=== PATIENT | male | born 1950 | race Caucasian/White ===

== ENCOUNTER 2023-10-15 15:05 | Outpatient (OUT) | payer MEDICARE, OTHER, SELFPAY ==
--- NOTE | 2023-10-15 | XR_ITS ---
[address] [address] Patient Name: DINO MORENO MRN: [id number] date: 1950 Sex: M Assigned Patient Location: Current Patient Location: Accession/Order Number: [id number] Exam Date: 10/15/2023 15:10 Report Date: 10/16/2023 07:46 At the request of: LUIS M MORELAND Procedure: XR foot RT min 3V PROCEDURE: XR foot RT min 3V COMPARISON: None. HISTORY: RIGHT FOOT PAIN FINDINGS: BONES:No acute fracture or dislocation. Moderate enthesopathic spurring of the calcaneus at the Achilles and plantar insertions. Severe degenerative change first metatarsal-phalangeal joint SOFT TISSUES:Negative. No visible soft tissue swelling. EFFUSION:None visible. OTHER: Negative. XR/XR foot RT min 3V IMPRESSION: Osteoarthritis Electronically authenticated by: DINO DEL CASTILLO Date: 10/16/2023 07:46
== END 2023-10-15 15:06 | disposition home or self-care (01) ==
LOC: EC 15:05
PROVIDERS: PCP Internal Medicine; Visit Provider Podiatrist Foot & Ankle Surgery
DX: M79.671 Pain in right foot (principal)
CPT/HCPCS: 73630

== ENCOUNTER 2024-01-22 10:29 | Outpatient (OUT) | payer MEDICARE, OTHER, SELFPAY ==
--- NOTE | 2024-01-22 10:54 | ECG_ITS ---
[facility] Test Date: 2024-01-22 Pat Name: Pepe Yepez Department: Room: - Gender: Male [employer]: : 1950 Requested By: LUIS M MORELAND Order Number: [id number] Reading MD: BRITNI PAZ Measurements Intervals [place] Rate: 67 P: 24 MS: 173 QRS: 12 QRSD: 99 T: 47 QT: 366 QTc: 387 Interpretive Statements SINUS RHYTHM NONSPECIFIC T-WAVE ABNORMALITY No previous ECG available for comparison Electronically Signed On 01-22-2024 23:25:38 EDT by BRITNI PAZ
--- NOTE | 2024-01-22 11:42 | PM.PRESUREVA ---
History of Present Illness History of Present Illness Chief complaint: HALLUX RIGIDUS RIGHT FOOT Narrative: Patient presents for preadmission testing. The patient reports right foot pain and deformity which he noticed about a year ago and has continued to worsen especially with excessive ambulation and activities. He states he did try new footwear which seems to help and he takes Celebrex. He denies specific trauma, injury, numbness, tingling, weakness, or any other complaints. Review of Systems ROS Narrative REVIEW OF SYSTEMS: Negative except as stated in HPI, ten or more systems reviewed. Constitutional: No fever, chills, weakness ENT: No sore throat or epistaxis Cardiovascular: No edema, chest pain, palpitations, or activity intolerance Respiratory: No shortness of breath, cough, or wheezing Musculoskeletal: No joint pain or swelling Gastrointestinal: No abdominal pain, constipation, diarrhea, or vomiting Genitourinary: No dysuria or hematuria Neurological: No numbness, tingling, weakness, or headache Psychiatric: No mood changes PFSH PFSH Medical History (Updated 01/22/24 @ 11:45 by Kira Silvestre NP) High cholesterol ?E78.00 - Pure hypercholesterolemia, unspecified (ICD-10) Hammer toe ?M20.40 - Other hammer toe(s) (acquired), unspecified foot (ICD-10) Hallux rigidus ?M20.20 - Hallux rigidus, unspecified foot (ICD-10) Back pain ?M54.9 - Dorsalgia, unspecified (ICD-10) Arthritis ?M19.90 - Unspecified osteoarthritis, unspecified site (ICD-10) Kidney stones ?N20.0 - Calculus of kidney (ICD-10) GERD (gastroesophageal reflux disease) ?K21.9 - Gastro-esophageal reflux disease without esophagitis (ICD-10) Postoperative nausea and vomiting ?R11.2 - Nausea with vomiting, unspecified (ICD-10) ?Z98.890 - Other specified postprocedural states (ICD-10) Surgical History (Updated 01/22/24 @ 11:24 by Kira Silvestre NP) Status post laser lithotripsy of ureteral calculus ?Z98.890 - Other specified postprocedural states (ICD-10) History of colonoscopy ?Z98.890 - Other specified postprocedural states (ICD-10) History of repair of rotator cuff ?Z98.890 - Other specified postprocedural states (ICD-10) H/O hand surgery ?Z98.890 - Other specified postprocedural states (ICD-10) History of spinal surgery ?Z98.890 - Other specified postprocedural states (ICD-10) Family History (Updated 01/22/24 @ 11:24 by Kira Silvestre NP) Other Family history of colon cancer Social History (Updated 01/22/24 @ 11:17 by Kira Silvestre NP) Within the past year, how often did you have a drink containing alcohol: 2-4 times a month Smoking status: Never smoker Non-prescribed substance use: denies use Previous occupational history: Retired Highest level of school completed/degree received: Bachelor's degree Meds Home Medications and Allergies Home Medications ?Medication ?Instructions ?Recorded ?Confirmed ?Type celecoxib 200 mg capsule 200 mg PO Q24H 01/22/24 01/22/24 History pantoprazole 40 mg tablet,delayed 40 mg PO DAILY 01/22/24 01/22/24 History release rosuvastatin 10 mg tablet 10 mg PO .every other day 01/22/24 01/22/24 History tamsulosin 0.4 mg capsule 0.4 mg PO Q24H 01/22/24 01/22/24 History Allergies Allergy/AdvReac Type Severity Reaction Status Date / Time No Known Drug Allergies Allergy Verified 01/22/24 11:13 Exam Narrative Exam Narrative: Constitutional: Awake, alert, comfortable, well-appearing, nontoxic, interactive, vital signs as charted Head: Normocephalic, atraumatic Neck: Supple, normal appearance, normal range of motion, no meningeal signs, no lymphadenopathy Respiratory: No respiratory distress, breath sounds clear Cardiovascular: Regular rate and rhythm, strong and regular heart tones Musculoskeletal: Normal gait, no swelling or edema, right foot tenderness overlying the first MPJ, range of motion limited, second toe contracture noted, good capillary refill, sensation intact Skin: No rashes or induration, no lesions, only visible skin inspected Neuro: No neurological deficits, normal sensation Psychiatric: Oriented ?3, normal affect Assessment and Plan Assessment and Plan (1) Hammer toe: (2) Hallux rigidus: Plan Right first metatarsal phalangeal joint fusion with bone graft as needed and correction of right second toe scheduled with Dr. Sampson February 06, 2024.
== END 2024-01-22 10:30 | disposition home or self-care (01) ==
LOC: PST 10:31
PROVIDERS: PCP Internal Medicine; Visit Provider Podiatrist Foot & Ankle Surgery
DX: Z01.810 Encounter for preprocedural cardiovascular examination (principal); M20.41 Other hammer toe(s) (acquired), right foot; M20.21 Hallux rigidus, right foot
CPT/HCPCS: 93005; G0463

== ENCOUNTER 2024-02-13 06:09 | Day surgery (SDC) | payer MEDICARE, OTHER, SELFPAY ==
[2024-01-22 11:35] VITALS: BP 143/77; PULSE 76; TEMP 36.5; O2SAT 99; BMI 29.4
[2024-02-13] VITALS (11 sets, daily range): BP systolic 133–155; BP diastolic 68–94; PULSE 69–96; TEMP 35.9–36.5; O2SAT 92–98; BMI 28.5
--- NOTE | 2024-02-13 | FL_ITS ---
[address] [address] Patient Name: DINO MORENO MRN: [id number] date: 1950 Sex: M Assigned Patient Location: [facility] Current Patient Location: [facility] Accession/Order Number: [id number] Exam Date: 02/13/2024 12:19 Report Date: 02/24/2024 09:55 At the request of: LUIS M MORELAND Procedure: FL fluoroscopy <1hr NON-READ EXAM: FL fluoroscopy <1hr NON-READ HISTORY: TECHNIQUE: FINDINGS: Please see Operative Report. Electronically authenticated by: RADIOLOGIST NO Date: 02/24/2024 09:55
--- OUTSIDE RECORDS SUMMARY | 2024-02-13 06:12 | XMS_ITS | CCD ---
Author Organization [facility] Care Team Providers Care Soft Drink Powder Mixer Name Role Phone Azeb Degroot Primary Care Physician Unavailab Azeb Valvedre Unavailable Unavailable Ian Melendez Primary Care Provider Azeb Degroot Primary Care Physician Unavailab Blossom Sales Primary Care Provider [phone] Lindsey SILVERMAN, Blossom Harkins Primary Care Provider [phone] LINDSEY, DR CERRATO Admitting Unavailable LINDSEY, DR CERRATO Attending Unavailable JANESVILLE, DR DINO Maguire Consulting Unavailable LINDSEY, DR CERRATO Primary Care Unavailable LINDSEY, DR CERRATO Consulting Unavailable LINDSEY, DR CERRATO Primary Care Unavailable LINDSEY, DR CERRATO Admitting Unavailable LINDSEY, DR CERRATO Attending Unavailable SPENCER, DR ISIS Quinones Consulting Unavailable LINDSEY, DR CERRATO Consulting Unavailable MD JCARLOS WEST Attending BLOSSOM Ritchie Primary Care Unavailable BLOSSOM PORTILLO Consulting Unavailable MD JCARLOS WEST Attending BLOSSOM Ritchie Primary Care Unavailable MD JCARLOS WEST Attending BLOSSOM Ritchie Consulting Unavailable BLOSSOM PORTILLO Primary Care Unavailable MD JCARLOS WEST Attending BLOSSOM Ritchie Primary Care Unavailable MD JCARLOS WEST Attending BLOSSOM Ritchie Primary Care Unavailable MD JCARLOS WEST Attending BLOSSOM Ritchie Primary Care Unavailable Azeb Degroot Primary Care Physician Unavailab Azeb Valverde Unavailable Unavailable Blossom Portillo MD Primary Care Provider Yovani Malone Unavailable Lindsey SILVERMAN, Blossom Harkins Primary Care Provider GLENN GRECO Attending Unavailable GLENN GRECO Admitting Unavailable BLOSSOM PORTILLO Primary Care Unavailable Blossom Portillo MD Primary Care Provider Azeb Degroot Primary Care Physician Unavailab Azeb Valverde Primary Care Physician Unavailab tai Portillo MD, Blossom Harkins Primary Care Provider [phone] BLOSSOM PORTILLO Primary Care Unavailable BLOSSOM PORTILLO Referring Unavailable BLOSSOM PORTILLO Primary Care Unavailable LEIA LING Attending Unavailable BLOSSOM PORTILLO Primary Care Unavailable JCARLOS ALEGRE Referring Unavailable BLOSSOM PORTILLO Primary Care Unavailable BLOSSOM PORTILLO Referring Unavailable BLOSSOM PORTILLO Referring Unavailable BLOSSOM PORTILLO Primary Care Unavailable Allergies Allergy Classification Reported Allergen(s) Allergy Type Date of Onset Reaction(s) Facility Opioid Agonists (2 sources) Codeine; Translations: [Codeine] Drug Allergy 3 Other (See Comments) [facility] (5 sources) Codeine; Translations: [codeine sulfate] Drug Allergy [employer] (6 sources) Codeine; Translations: [Codeine Phosphate] Drug Allergy Unknown [employer] (12 sources) Codeine; Translations: [codeine] Drug Allergy 3 Other (See Comments), Nausea And Vomiting [facility]- [place], [place] Medications Current Medications Medication Drug Class(es) Dates Sig (Normalized) Sig (Original) aspirin 81 mg delayed release oral tablet (3 sources) Platelet Aggregation Inhibitor, Nonsteroidal Anti-inflammatory Drug take 1 tablet by mouth once daily aspirin 81 MG EC tablet Take 81 mg by mouth daily 0 Active azithromycin 250 mg oral tablet (1 source) Macrolide Antimicrobial Start: 01-21-2024 azithromycin (ZITHROMAX) 250 MG tablet Take 2 tabs (500 mg) on Day 1, and take 1 tab (250 mg) on days 2 through 5. 1 packet 01/21/2024 Active baclofen 10 mg oral tablet (1 source) gamma-Aminobutyric Acid-ergic Agonist Start: 08-01-2020 take 1 tablet by mouth once daily as needed baclofen (LIORESAL) 10 MG tablet Take 1 tablet by mouth nightly as needed (Neck stiffness) 21 tablet 0 08/01/2020 Active celecoxib 200 mg oral capsule (7 sources) Nonsteroidal Anti-inflammatory Drug Start: 10-03-2023 take 1 capsule by mouth twice daily celecoxib (CELEBREX) 200 MG capsule 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 Take 1 capsule by mouth 2 times daily 180 capsule 1 10/03/2023 Active Start: 09-18-2021 take 1 capsule by mo ut twice daily celecoxib (CELEBREX) 200 MG capsule 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 Take 1 capsule by mouth 2 times daily 180 capsule 1 09/18/2021 Active Start: 07-24-2021 take 1 capsule by mo uth twice daily celecoxib (CELEBREX) 200 MG capsule 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 Take 1 capsule by mouth 2 times daily 60 capsule 0 07/24/2021 Active take 1 capsule by mo uth twice daily Celebrex 50 mg capsule take 1 capsule (50 mg) by oral route 2 times per day Famotidine (2 sources) Histamine-2 Receptor Antagonist Famotidine (PEPCID AC PO) Take by mouth 0 Active ibuprofen 600 mg oral tablet (5 sources) Nonsteroidal Anti-inflammatory Drug Start: End: take 1 tablet by mouth three times daily as needed for pain ibuprofen (ADVIL;MOTRIN) 600 MG tablet Take 1 tablet by mouth 3 times daily as needed for Pain Please take after meals 15 tablet 02/05/2024 02/10/2024 Active Start: 08-24-2020 take 1 tablet by [facility] twice daily as needed for pain ibuprofen (ADVIL;MOTRIN) 800 MG tablet Take 1 tablet by mouth 2 times daily as needed for Pain 60 tablet 0 08/24/2020 Active lidocaine 0.05 mg/mg medicated patch (6 sources) Antiarrhythmic, Amide Local Anesthetic Start: 02-05-2024 End: 02-10-2024 lidocaine (LIDODERM) 5 % Place 1 patch onto the skin daily for 5 days 12 hours on, 12 hours off. 5 patch 02/05/2024 02/10/2024 Active Start: 02-05-2024 1 patch, Trans DERmal, Administer over 12 Hours, ONCE, On Sat02/05/24 at 0430, For 1 dose, Apply patch to right back pain. Patch may remain in place for up to 12 hours in any 24 hour period. Start: 09-07-2019 End: 02-19-2023 apply 1 dose topically once daily lidocaine 5 % topical adhesive patch,medicated 09/07/2019 02/19/2023 apply 1 patch by transdermal route once daily (May wear up to 12hours.) Multiple Vitamin (MULTI-VITAMIN DAILY PO) (3 sources) Multiple Vitamin (MULTI-VITAMIN DAILY PO) Take by mouth daily 0 Active pantoprazole 40 mg delayed release oral tablet (10 sources) Proton Pump Inhibitor Start: 11-04-19 24 take 1 tablet by mouth once daily pantoprazole (PROTONIX) 40 MG tablet Take 1 tablet by mouth daily 90 tablet 3 11/04/2023 Active Start: 07-24-2021 take 1 tablet by jackelin th every other day pantoprazole (PROTONIX) 40 MG tablet Take 1 tablet by mouth every other day 90 tablet 3 07/24/2021 Active Start: 01-04-2021 take 1 tablet by jackelin th once daily before breakfast pantoprazole (PROTONIX) 40 MG tablet Take 1 tablet by mouth every morning (before breakfast) 30 tablet 3 01/04/2021 Active phenazopyridine hydrochloride 200 mg delayed release oral tablet (3 sources) take 1 tablet by mouth three times daily as needed for pain phenazopyridine (PYRIDIUM) 200 MG tablet Take 200 mg by mouth 3 times daily as needed for Pain 0 Active rosuvastatin calcium 10 mg oral tablet (6 sources) HMG-CoA Reductase Inhibitor Start: 10-03-19 24 take 1 tablet by mouth every other day rosuvastatin (CRESTOR) 10 MG tablet Take 1 tablet by mouth every other day 45 tablet 1 10/03/2023 Active Start: 04-16-2022 take 1 tablet by jackelin th once daily rosuvastatin (CRESTOR) 10 MG tablet Take 1 tablet by mouth daily / as directed 90 tablet 3 04/16/2022 Active Start: 07-31-2021 take 1 tablet by jackelin th once daily rosuvastatin (CRESTOR) 10 MG tablet Take 1 tablet by mouth daily / as directed 30 tablet 3 07/31/2021 Active sodium chloride flush 0.9 % injection 3 mL (1 source) Start: 02-05-2024 sodium chlorid e flush 0.9 % injection 3 mL tamsulosin hydrochloride 0.4 mg oral capsule (7 sources) alpha-Adrenergi c Rod Start: 05-15-2023 take 1 capsule by mouth once daily tamsulosin (FLOMAX) 0.4 MG capsule Take 1 capsule by mouth daily 90 capsule 3 05/15/2023 Active Start: 03-29-2022 take 1 capsule by mo [facility] once daily tamsulosin (FLOMAX) 0.4 MG capsule Take 1 capsule by mouth daily 30 capsule 11 03/29/2022 Active therapeutic multivitamin-minerals (THERAGRAN-M) tablet (4 sources) take 1 tablet by mouth once daily therapeutic multivitamin-minerals (THERAGRAN-M) tablet Take 1 tablet by mouth daily. 0 Active Completed/Discontinued Medications Medication Drug Class(es) Dates Sig (Normalized) Sig (Original) cyclobenzaprine hydrochloride 10 mg oral tablet (1 source) Muscle Relaxant Start: 02-05-2024 End: 02-05-2024 take 1 dose by mouth once 10 mg, Oral, ONCE, 1 dose, On Sat02/05/24 at 0400 iopamidol (ISOVUE-370) 76 % injection 75 mL (1 source) Start: 02-05-2024 End: 02-05-2024 take 1 dose intravenously once 75 mL, IntraVENous, IMG ONCE PRN, 1 dose, Starting on Sat02/05/24 at 0240, Until Sat02/05/24 at 0251, Other 1 ml ketorolac tromethamine 15 mg/ml cartridge (1 source) Nonsteroidal Anti-inflammatory Drug, Cyclooxygenase Inhibitor Start: 02-05-2024 End: 02-05-2024 15 mg, IntraVENous, ONCE, 1 dose, On Sat02/05/24 at 0215, Do not administer for more than 5 days. 24 hr metFORMIN hydrochloride 500 mg extended release oral tablet (5 sources) Biguanide End: 09-03-2019 take 1 tablet by mouth once daily at dinner metformin 500 mg oral tablet extended release 24 hr 09/03/2019 take 1 tablet (500 mg) by oral route once daily with the evening meal 1 ml morphine sulfate 4 mg/ml cartridge (1 source) Opioid Agonist Start: 02-05-2024 End: 02-05-2024 take 1 dose by mouth every hour 4 mg, IntraVENous, ONCE, 1 dose, On Sat02/05/24 at 0230, If oral and IV narcotics ordered, use oral first and only use IV if oral is ineffective or cannot take oral. Do Not give oral and IV within 1 hour of each other unless specifically ordered. omeprazole 20 mg delayed release oral capsule (2 sources) Proton Pump Inhibitor take 1 capsule by mouth once daily before mealtime omeprazole 20 mg capsule,delayed release take 1 capsule (20 mg) by oral route once daily before a meal 2 ml ondansetron 2 mg/ml injection (1 source) Serotonin-3 Receptor Antagonist Start: 02-05-2024 End: 02-05-2024 4 mg, IntraVENous, ONCE, 1 dose, On Sat02/05/24 at 0215 50 ml sodium chloride 9 mg/ml injection (1 source) Start: 02-05-2024 End: 02-05-2024 1,000 mL (12.3 mL/kg), IntraVENous, at 2,000 mL/hr, Administer over 30 Minutes, ONCE, On Sat02/05/24 at 0215, For 1 dose triamcinolone acetonide 0.97504 mg/mg topical ointment (5 sources) Corticosteroid Start: 07-01-2018 apply 1 g topically twice daily triamcinolone acetonide 0.025 % topical ointment 07/01/2018 apply a thin layer to the affected area(s) by topical route 2 times daily until flat. Dispense 30 gm Problems Active Problems Problem Classification Problem Date Documented Date Episodic/Chronic Abdominal pain (2 sources) Right flank pain; Translations: [Unspecified abdominal pain] Onset: 4 02-05-2024 Episodic Diabetes mellitus without complication (12 sources) Type 2 diabetes mellitus without complication; Translations: [Type 2 diabetes mellitus without complications] Onset: 2 07-24-2021 Chronic Diabetes mellitus without complication (7 sources) Other abnormal glucose; Translations: [Impaired fasting glycaemia] Episodic Disorders of lipid metabolism (3 sources) Mixed hyperlipidemia; Translations: [Mixed hyperlipidemia] Onset: 4 01-15-2024 Chronic Gastroduodenal ulcer (except hemorrhage) (1 source) Peptic ulcer; Translations: [Peptic ulcer, site unspecified, unspecified as acute or chronic, without hemorrhage or perforation] Chronic Osteoarthritis (2 sources) Arthropathy of right shoulder; Translations: [Primary osteoarthritis, right shoulder] Onset: 1 Resolved: 1 Chronic Other and unspecified benign neoplasm (3 sources) Benign neoplasm of skin, site unspecified Onset: 9 Episodic Other and unspecified benign neoplasm (15 sources) Melanocytic nevi, unspecified Onset: 9 Episodic Other bone disease and musculoskeletal deformities (8 sources) Degenerative joint disease involving multiple joints; 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, multiple sites] Onset: 2 07-24-2021 Chronic Other circulatory disease (1 source) Nevus, non-neoplastic Onset: 0 Episodic Other circulatory disease (12 sources) Nevus, non-neoplastic Onset: 0 Episodic Other diseases of kidney and ureters (1 source) Cyst of kidney; Translations: [Cyst of kidney, acquired] 02-05-2024 Episodic Other diseases of kidney and ureters (1 source) Cyst of kidney, acquired; Translations: [Cyst of kidney, acquired] Onset: 4 Episodic Other inflammatory condition of skin (1 source) Lichenification and lichen simplex chronicus Onset: 0 Episodic Other nervous system disorders (1 source) Chronic pain; Translations: [Other chronic pain] Chronic Other nervous system disorders (1 source) Other chronic pain Onset: 1 Resolved: 1 Chronic Other nervous system disorders (3 sources) Disturbance of skin sensation Onset: 9 Episodic Other screening for suspected conditions (not mental disorders or infectious disease) (6 sources) Patient encounter status; Translations: [Encounter for screening for lipoid disorders] Onset: 4 Episodic Other skin disorders (3 sources) Other seborrheic keratosis Onset: 9 Episodic Other skin disorders (3 sources) Other dyschromia Onset: 9 Episodic Other skin disorders (2 sources) Personal history of diseases of skin and subcutaneous tissue Onset: 0 Episodic Other skin disorders (15 sources) Personal history of diseases of the skin and subcutaneous tissue Onset: 0 Episodic Other skin disorders (15 sources) Other seborrheic keratosis Onset: 9 Episodic Other skin disorders (15 sources) Other melanin hyperpigmentation Onset: 9 Episodic Spondylosis; intervertebral disc disorders; other back problems (3 sources) Other spondylosis with radiculopathy, lumbar region; Translations: [Other spondylosis with radiculopathy, cervical region] Onset: Chronic Unclassified (1 source) Patient encounter status; Translations: [Screening cholesterol level] Past or Other Problems Problem Classification Problem Date Documented Da te Episodic/Chronic Allergic reactions (5 sources) Contact dermatitis and other eczema, unspecified cause; Translations: [Dermatitis, unspecified] Onset: 07-01-2018 Episodic Calculus of urinary tract (6 sources) Calculus of ureter; Translations: [Renal colic] Onset: 02-02-2022 Episodic Other and unspecified benign neoplasm (2 sources) Hemangioma of skin and subcutaneous tissue Onset: 07-01-2018 Episodic Other and unspecified benign neoplasm (3 sources) Hemangioma of skin and subcutaneous tissue Onset: 07-01-2018 Episodic Other connective tissue disease (3 sources) Left achilles tendonitis; Translations: [Achilles tendinitis, left leg] Onset: 06-04-2022 Resolved: 07-23-2023 06-04-2022 Episodic Other connective tissue disease (2 sources) Impingement syndrome of right shoulder region; Translations: [Impingement syndrome of right shoulder] Onset: 07-23-2023 07-23-2023 Episodic Other gastrointestinal disorders (1 source) Dysphagia; Translations: [Dysphagia, unspecified] Episodic Other inflammatory condition of skin (3 sources) 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 Other nervous system disorders (6 sources) Paresthesia of skin Onset: 07-01-2018 Episodic Other non-traumatic joint disorders (3 sources) Pain in right knee; Translations: [Pain in joint, lower leg] Onset: 01-16-2023 Episodic Other skin disorders (2 sources) Actinic keratosis Onset: 07-01-2018 Episodic Other skin disorders (11 sources) Actinic keratosis Onset: 07-01-2018 Episodic Spondylosis; intervertebral disc disorders; other back problems (20 sources) Chronic low back pain; Translations: [Low back pain] Onset: 07-20-2019 Resolved: 03-02-2021 07-20-2019 Episodic Unclassified (1 source) Low back pain, unspecified M54.50 Onset: 03-02-2021 Resolved: 03-02-2021 Unclassified (4 sources) Onset: 06-04-2022 Resolved: 04-26-2023 04-26-2023 Results Test Name Value Interpretation Reference Range Facility CBC with Diffon 02-05-2024 Basophils (Bld) [#/Vol] 0.04 10*3/uL [facility] Basophils/100 WBC (Bld) 1 % 0 - 2 % [facility] Eosinophils (Bld) [#/Vol] 0.13 10*3/uL [facility] Eosinophils/100 WBC (Bld) 2 % 1 - 4 % [facility] Erythrocyte distribution width (RBC) [Ratio] 13.7 % 11.8 - 14.4 % [facility] Hematocrit (Bld) [Volume fraction] 42.3 % 40.7 - 50.3 % [facility] Hemoglobin (Bld) [Mass/Vol] 14.5 g/dL 13.0 - 17.0 g/dL [facility] Immature granulocytes (Bld) [#/Vol] [facility] Immature granulocytes/100 WBC (Bld) 0 % [address] [facility] Interpretation and review of laboratory results Abnormal [facility] Lymphocytes/100 WBC (Bld) 27 % 24 - 43 % [facility] Lymphocytes/100 WBC (Bld) 1.50 % [facility] MCH (RBC) [Entitic mass] 31.4 pg 25.2 - 33.[address] [facility] MCHC (RBC) [Mass/Vol] 34.3 g/dL 28.4 - 34.8 g/dL [facility] MCV (RBC) [Entitic vol] 91.6 fL 82.6 - 102.9 fL [facility] Monocytes/100 WBC (Bld) 16 % High 3 - 12 % [facility] Monocytes/100 WBC (Bld) 0.85 % [facility] Neutrophils/100 WBC (Bld) 54 % 36 - 65 % [facility] Nucleated RBC/100 WBC (Bld) [Ratio] 0.0 % 0.0 per [address] [facility] Platelet mean volume (Bld) [Entitic vol] 9.8 fL 8.1 - 13.[address] [facility] Platelets (Bld) [#/Vol] 272 10*3/uL [facility] RBC (Bld) [#/Vol] 4.62 10*6/uL 4.21 - 5.7 7 m/uL [facility] Segmented neutrophils/100 WBC (Bld) 2.96 % [facility] WBC other (Bld) [#/Vol] 5.5 [facility] Abs. Basophil 0.04 k/uL Normal 0.00-0.20 [facility] Comment on above: Performed By: #### C DP, CP, LIP #### [address] [place] [address] Hand Slitter: Dino Moody MD Abs.Imm.Granulocyte <0.03 Normal 0.00-0.30 [facility] Comment on above: Performed By: #### C DP, CP, LIP #### [address] [place] [address] Hand Slitter: Dino Moody MD Abs.Neutrophil (Seg) 2.96 k/uL Normal 1.50-8.10 [facility] Comment on above: Performed By: #### C DP, CP, LIP #### [address] [place] [address] Hand Slitter: Dino Moody MD Basophils/100 WBC (Bld) 1 % Normal 0-2 [facility] Comment on above: Performed By: #### C DP, CP, LIP #### [address] [place] [address] Hand Slitter: Dino Moody MD Eosinophils (Bld) [#/Vol] 0.13 10*3/uL Normal 0.00-0.44 [facility] Comment on above: Performed By: #### C DP, CP, LIP #### [address] [place] [address] Hand Slitter: Dino Moody MD Eosinophils/100 WBC (Bld) 2 % Normal 1-4 [facility] Comment on above: Performed By: #### C DP, CP, LIP #### [facility] [address] [place] [address] Hand Slitter: Dino Moody MD Erythrocyte distribution width (RBC) [Ratio] 13.7 % Normal 11.8-14.4 [facility] Comment on above: Performed By: #### C DP, CP, LIP #### [facility] [address] [place] [address] Hand Slitter: Dino Moody MD Hematocrit (Bld) [Volume fraction] 42.3 % Normal 40.7-50.3 [facility] Comment on above: Performed By: #### C DP, CP, LIP #### [address] [place], [facility] Hand Slitter: Dino Moody MD Hemoglobin (Bld) [Mass/Vol] 14.5 g/dL Normal 13.0-17.0 [facility] Comment on above: Performed By: #### C DP, CP, LIP #### [address] [place] [address] Hand Slitter: Dino Moody MD Immature granulocytes/100 WBC (Bld) 0 % Normal 0 [facility] Comment on above: Performed By: #### C DP, CP, LIP #### [address] [place], [place] [id number] Hand Slitter: Dino Moody MD Lymphocytes (Bld) [#/Vol] 1.50 10*3/uL Normal 1.10-3.70 [facility] Comment on above: Performed By: #### C DP, CP, LIP #### [address] [place], [place] [id number] Hand Slitter: Dino Moody MD Lymphocytes/100 WBC (Bld) 27 % Normal 24-43 [facility] Comment on above: Performed By: #### C DP, CP, LIP #### [facility] [address] [place], [place] [id number] Hand Slitter: Dino Moody MD MCH (RBC) [Entitic mass] 31.4 pg Normal 25.2-33.5 [facility] Comment on above: Performed By: #### C DP, CP, LIP #### [facility] [address] [place] [address] Hand Slitter: Dino Moody MD MCHC (RBC) [Mass/Vol] 34.3 g/dL Normal 28.4-34.8 [facility] Comment on above: Performed By: #### C DP, CP, LIP #### [address] [place], [place] [id number] Hand Slitter: Dino Moody MD MCV (RBC) [Entitic vol] 91.6 fL Normal 82.6-102.9 [facility] Comment on above: Performed By: #### C DP, CP, LIP #### [address] [place], [place] [id number] Hand Slitter: Dino Moody MD Monocytes (Bld) [#/Vol] 0.85 10*3/uL Normal 0.10-1.20 [facility] Comment on above: Performed By: #### C DP, CP, LIP #### [facility] [address] [place], [place] [id number] Hand Slitter: Dino Moody MD Monocytes/100 WBC (Bld) 16 % High 3-12 [facility] Comment on above: Performed By: #### C DP, CP, LIP #### [facility] [address] [place] [address] Hand Slitter: Dino Moody MD Neutrophil (Seg) 54 % Normal 36-65 [facility] Comment on above: Performed By: #### C DP, CP, LIP #### [facility] [address] [place], [place] [id number] Hand Slitter: Dino Moody MD NRBC Automated 0.0 per 100 WBC Normal 0.0 [facility] Comment on above: Performed By: #### C DP, CP, LIP #### [facility] [address] [place], [facility] Hand Slitter: Dino Moody MD Platelet mean volume (Bld) [Entitic vol] 9.8 fL Normal 8.1-13.5 [facility] Comment on above: Performed By: #### C DP, CP, LIP #### [facility] [address] [place], [facility] Hand Slitter: Dino Moody MD Platelets (Bld) [#/Vol] 272 10*3/uL Normal 138-453 [facility] Comment on above: Performed By: #### C DP, CP, LIP #### [address] [place] [address] Hand Slitter: Dino Moody MD RBC (Bld) [#/Vol] 4.62 10*6/uL Normal 4.21-5.77 [facility] Comment on above: Performed By: #### C DP, CP, LIP #### [address] [place], [place] [address] Hand Slitter: Dino Moody MD WBC (Bld) [#/Vol] 5.5 10*3/uL Normal 3.5-11.3 [facility] Comment on above: Performed By: #### C DP, CP, LIP #### [facility] [address] [place], [place] [id number] Hand Slitter: Dino Moody [facility] Albumin [Mass/Vol] 4.2 g/dL 3.5 - 5.2 g/dL [facility] Albumin/Globulin [Mass ratio] 1.6 {ratio} 1.0 - 2.[address] [facility] ALP [Catalytic activity/Vol] 96 U/L 40 - 129 U/L [facility] ALT [Catalytic activity/Vol] 20 U/L 10 - 50 U/L [facility] Anion gap [Moles/Vol] 8 mmol/L Low 9 - 16 mmol/L [facility] AST [Catalytic activity/Vol] 18 U/L 10 - 50 U/L [facility] Bilirubin [Mass/Vol] 0.5 mg/dL 0.00 - 1.20 mg/dL [facility] Calcium [Mass/Vol] 9.1 mg/dL 8.6 - 10. 4 mg/dL [facility] Chloride [Moles/Vol] 107 mmol/L 98 - 10 7 mmol/L [facility] CO2 [Moles/Vol] 28 mmol/L 20 - 31 mmol/L [facility] Creatinine [Mass/Vol] 1.0 mg/dL 0.70 - 1.20 mg/dL [facility] Est, Glom Filt Rate 79 - PINF [facility] Comment on above: These results are not intended for use in patients <18 years of age. eGFR results are calculated without a race factor using the 2020 CKD-EPI equation. Careful clinical correlation is recommended, particularly when comparing to results calculated using previous equations. The CKD-EPI equation is less accurate in patients with extremes of muscle mass, extra-renal metabolism of creatine, excessive creatine ingestion, or following therapy that affects renal tubular secretion. Glucose [Mass/Vol] 96 mg/dL 74 - 99 mg/dL [facility] Interpretation and review of laboratory results Abnormal [facility] Potassium [Moles/Vol] 4.1 mmol/L 3.7 - 5.3 mmol/L [facility] Protein [Mass/Vol] 6.9 g/dL 6.6 - 8.7 g/dL [facility] Sodium [Moles/Vol] 143 mmol/L 136 - 145 mmol/L [facility] Urea nitrogen [Mass/Vol] 16 mg/dL 8 - 23 mg/dL [facility] Urea nitrogen/Creatinine [Mass ratio] 16 mg/mg 9 - [address] [facility] [address] ABDOMEN PELVIS W IV CONTR Mike 02-05-2024 CT ABDOMEN PELVIS W IV CONTRAST EXAMINATION: CT OF THE ABDOMEN AND PELVIS WITH CONTRAST 02/05/2024 2:41 am TECHNIQUE: CT of the abdomen and pelvis was performed with the administration of intravenous contrast. Multiplanar reformatted images are provided for review. Automated exposure control, iterative reconstruction, and/or weight based adjustment of the mA/kV was utilized to reduce the radiation dose to as low as reasonably achievable. COMPARISON: Abdomen/pelvis CT without contrast dated 05/16/2022. HISTORY: ORDERING SYSTEM PROVIDED HISTORY: L sided flank pain TECHNOLOGIST PROVIDED HISTORY: L sided flank pain Decision Support Exception - unselect if not a suspected or confirmed emergency medical condition->Emergency Medical Condition (MA) FINDINGS: Lower Chest: Visualized portion of the lower chest demonstrates no acute abnormality. A small hiatal hernia is present. Organs: The liver, gallbladder, pancreas, spleen, adrenal glands, kidneys and ureters are noted for a simple left renal cyst not requiring imaging follow-up. GI/Bowel: Aside from the small hiatal hernia, the stomach and duodenal sweep are unremarkable. There is no evidence of bowel obstruction. No evidence of abnormal bowel wall thickening or distension. No evidence of appendicitis but the appendix is not seen Pelvis: The bladder and reproductive organs are unremarkable. Peritoneum/Retroperi toneum: No evidence of ascites or free air. No evidence of lymphadenopathy. Aorta is normal in caliber. Bones/Soft Tissues: No acute bone or soft tissue abnormality evident. IMPRESSION: 1. No acute intra-abdominal or pelvic process. 2. Small hiatal hernia. Interpreted by: Clayton Desai MD Signed by: Clayton Desai MD 02/05/24 Final result Normal [facility] CT Abdomen and Pelvis W cont rast Segundo 02-05-2024 1. No acute intra-abdominal or pelvic process. 2. Small hiatal hernia. [facility] RIS CONSOLIDATED EXAMINATION: CT OF THE ABDOMEN AND PELVIS WITH CONTRAST 02/05/2024 2:41 am TECHNIQUE: CT of the abdomen and pelvis was performed with the administration of intravenous contrast. Multiplanar reformatted images are provided for review. Automated exposure control, iterative reconstruction, and/or weight based adjustment of the mA/kV was utilized to reduce the radiation dose to as low as reasonably achievable. COMPARISON: Abdomen/pelvis CT without contrast dated 05/16/2022. HISTORY: ORDERING SYSTEM PROVIDED HISTORY: L sided flank pain TECHNOLOGIST PROVIDED HISTORY: L sided flank pain Decision Support Exception - unselect if not a suspected or confirmed emergency medical condition->Emergency Medical Condition (MA) FINDINGS: Lower Chest: Visualized portion of the lower chest demonstrates no acute abnormality. A small hiatal hernia is present. Organs: The liver, gallbladder, pancreas, spleen, adrenal glands, kidneys and ureters are noted for a simple left renal cyst not requiring imaging follow-up. GI/Bowel: Aside from the small hiatal hernia, the stomach and duodenal sweep are unremarkable. There is no evidence of bowel obstruction. No evidence of abnormal bowel wall thickening or distension. No evidence of appendicitis but the appendix is not seen Pelvis: The bladder and reproductive organs are unremarkable. Peritoneum/Retroperi toneum: No evidence of ascites or free air. No evidence of lymphadenopathy. Aorta is normal in caliber. Bones/Soft Tissues: No acute bone or soft tissue abnormality evident. [facility] RIS CONSOLIDATED Clayton Desai MD - 02/05/2024 EXAMINATION: CT OF THE ABDOMEN AND PELVIS WITH CONTRAST 02/05/2024 2:41 am TECHNIQUE: CT of the abdomen and pelvis was performed with the administration of intravenous contrast. Multiplanar reformatted images are provided for review. Automated exposure control, iterative reconstruction, and/or weight based adjustment of the mA/kV was utilized to reduce the radiation dose to as low as reasonably achievable. COMPARISON: Abdomen/pelvis CT without contrast dated 05/16/2022. HISTORY: ORDERING SYSTEM PROVIDED HISTORY: L sided flank pain TECHNOLOGIST PROVIDED HISTORY: L sided flank pain Decision Support Exception - unselect if not a suspected or confirmed emergency medical condition->Emergency Medical Condition (MA) FINDINGS: Lower Chest: Visualized portion of the lower chest demonstrates no acute abnormality. A small hiatal hernia is present. Organs: The liver, gallbladder, pancreas, spleen, adrenal glands, kidneys and ureters are noted for a simple left renal cyst not requiring imaging follow-up. GI/Bowel: Aside from the small hiatal hernia, the stomach and duodenal sweep are unremarkable. There is no evidence of bowel obstruction. No evidence of abnormal bowel wall thickening or distension. No evidence of appendicitis but the appendix is not seen Pelvis: The bladder and reproductive organs are unremarkable. Peritoneum/Retroperi toneum: No evidence of ascites or free air. No evidence of lymphadenopathy. Aorta is normal in caliber. Bones/Soft Tissues: No acute bone or soft tissue abnormality evident. IMPRESSION: 1. No acute intra-abdominal or pelvic process. 2. Small hiatal hernia. [facility] Radiology Study observation (narrative) [facility] CT Abdomen and Pelvis W cont rast IVOrdered By: Clayton Desai on 02-05-[address] [facility] Work Phone: Comp Metabolic Profon 2023 Albumin [Mass/Vol] 4.2 g/dL Normal 3.5-5.2 [facility] Comment on above: Performed By: #### C DP, CP, LIP #### [facility] [address] [place] [address] Hand Slitter: Dino Moody MD Albumin/Glob Ratio 1.6 Normal 1.0-2.5 [facility] Comment on above: Performed By: #### C DP, CP, LIP #### [facility] [address] [place], [place] [id number] Hand Slitter: Dino Moody MD Alkaline Phos 96 U/L Normal 40-129 [facility] Comment on above: Performed By: #### C DP, CP, LIP #### [facility] [address] [place], [place] [id number] Hand Slitter: Dino Moody MD ALT [Catalytic activity/Vol] 20 U/L Normal 10-50 [facility] Comment on above: Performed By: #### C DP, CP, LIP #### [facility] [address] [place] [address] Hand Slitter: Dino Moody MD Anion gap [Moles/Vol] 8 mmol/L Low 9-16 [facility] Comment on above: Performed By: #### C DP, CP, LIP #### [facility] [address] [place], [place] [phone] Hand Slitter: Dino Moody MD AST [Catalytic activity/Vol] 18 U/L Normal 10-50 [facility] Comment on above: Performed By: #### C DP, CP, LIP #### [facility] [address] [place], [place] [id number] Hand Slitter: Dino Moody MD Bilirubin [Mass/Vol] 0.5 mg/dL Normal 0.00-1.20 [facility] Comment on above: Performed By: #### C DP, CP, LIP #### [facility] [address] [place], [place] [id number] Hand Slitter: Dino Moody MD BUN/CRE Ratio 16 Normal 9-20 [facility] Comment on above: Performed By: #### C DP, CP, LIP #### [facility] [address] [place], [place] [address]83 Hand Slitter: Dino Moody MD Calcium [Mass/Vol] 9.1 mg/dL Normal 8.6-10.4 [facility] Comment on above: Performed By: #### C DP, CP, LIP #### [facility] [address] [place], [place] [id number] Hand Slitter: Dino Moody MD Chloride [Moles/Vol] 107 mmol/L Normal 98-107 [facility] Comment on above: Performed By: #### C DP, CP, LIP #### [facility] [address] [place], [place] [phone] Hand Slitter: Dino Moody MD CO2 [Moles/Vol] 28 mmol/L Normal 20-31 [facility] Comment on above: Performed By: #### C DP, CP, LIP #### [facility] [address] [place], [place] [phone] Hand Slitter: Dino Moody MD Creatinine [Mass/Vol] 1.0 mg/dL Normal 0.70-1.20 [facility] Comment on above: Performed By: #### C DP CP, LIP #### [facility] [address] [place] [address] [place] [address] Hand Slitter: Dino Moody MD GFR/1.73 sq M.predicted among non-blacks MDRD (S/P/Bld) [Vol rate/Area] 79 mL/min/{1.73_m2} Normal >60 [facility] Comment on above: Result Comment: These results are not intended for use in patients <18 years of age. eGFR results are calculated without a race factor using the 2020 CKD-EPI equation. Careful clinical correlation is recommended, particularly when comparing to results calculated using previous equations. The CKD-EPI equation is less accurate in patients with extremes of muscle mass, extra-renal metabolism of creatine, excessive creatine ingestion, or following therapy that affects renal tubular secretion. Performed By: #### C MELANIA CP, LIP #### [address] [place] [address] Hand Slitter: Dino Moody MD Glucose [Mass/Vol] 96 mg/dL Normal 74-99 [facility] Comment on above: Performed By: #### C MELANIA CP, LIP #### [address] [place], [place] [phone] Hand Slitter: Dino Moody MD Potassium [Moles/Vol] 4.1 mmol/L Normal 3.7-5.3 [facility] Comment on above: Performed By: #### C DP CP, LIP #### [address] [place], [place] [phone] Hand Slitter: Dino Moody MD Protein [Mass/Vol] 6.9 g/dL Normal 6.6-8.7 [facility] Comment on above: Performed By: #### C DP CP, LIP #### [address] [place] [address] Hand Slitter: Dino Moody MD Sodium [Moles/Vol] 143 mmol/L Normal 136-145 [facility] Comment on above: Performed By: #### C GARDENIA VELÁZQUEZ, LIP #### [facility] [address] [place] [address] Hand Slitter: Dino Moody MD Urea nitrogen [Mass/Vol] 16 mg/dL Normal 8-23 [facility] Comment on above: Performed By: #### C GARDENIA VELÁZQUEZ, LIP #### [facility] [address] [place], [place] [phone] Hand Slitter: Dino Moody MD Lactic Acidon 02-05-2024 Lactate [Moles/Vol] 1.0 mmol/L Normal 0.5-2.2 [facility] Comment on above: Performed By: #### U AX UMICAO #### [facility] [address] [place] [address] Hand Slitter: Dino Moody MD Lactic Acid (Select if patie nt is over 65 to rule out mesenteric ischemia)on 02-05-2024 Lactate (BldV) [Moles/Vol] 1.0 mmol/L 0.5 - 2.2 mmol/L [facility] Lipaseon 02-05-2024 Lipase [Catalytic activity/Vol] 37 U/L 13 - 60 U/L [facility] Lipase [Catalytic activity/Vol] 37 U/L Normal 13-60 [facility] Comment on above: Performed By: #### C GARDENIA VELÁZQUEZ, LIP #### [facility] [address] [place] [address] Hand Slitter: Dino Moody MD Microscopic Urinalysison Epithelial cells LM.HPF (Urine sed) [#/Area] 0 TO 2 [facility] RBC LM.HPF (Urine sed) [#/Area] 0 TO 2 [facility] WBC LM.HPF (Urine sed) [#/Area] 0 TO [facility] No Panel [facility] 02-04 [facility] w/Reflex Cultureon 2023 Bilirubin, SemiQt,Ur Negative Normal NEG [facility] Comment on above: Performed By: #### U AX, UMICAO #### [facility] [address] [place], [place] [phone] Hand Slitter: Dino Moody MD Blood, Urine Negative Normal NEG [facility] Comment on above: Performed By: #### U AX, UMICAO #### [facility] [address] [place] [address] Hand Slitter: Dino Moody MD Clarity (U) Clear Normal CLEAR [facility] Comment on above: Performed By: #### U AX, UMICAO #### [facility] [address] [place], [place] [phone] Hand Slitter: Dino Moody MD Color (U) Yellow Normal YEL [facility] Comment on above: Performed By: #### U AX, UMICAO #### [facility] [address] [place], [place] [phone] Hand Slitter: Dino Moody MD Glucose Ql (U) Negative Normal NEG [facility] Comment on above: Performed By: #### U AX, UMICAO #### [facility] [address] [place] [address] Hand Slitter: Dino Moody MD Ketones Ql (U) Negative Normal NEG [facility] Comment on above: Performed By: #### U AX, UMICAO #### [facility] [address] [place] [address] Hand Slitter: Dino Moody MD Leukocyte esterase Test strip Ql (U) Negative Normal NEG [facility] Comment on above: Performed By: #### U AX, UMICAO #### [facility] [address] [place] [address] Hand Slitter: Dino Moody MD Nitrite,Ur Negative Normal NEG [facility] Comment on above: Performed By: #### U AX, UMICAO #### [facility] [address] [place], [place] [phone] Hand Slitter: Dino Moody MD PH,Ur 7.0 Normal 5.0-9.0 [facility] Comment on above: Performed By: #### U AX, UMICAO #### [facility] [address] [place] [address] Hand Slitter: Dino Moody MD Protein Ql (U) Negative Normal NEG [facility] Comment on above: Performed By: #### U AX, UMICAO #### [address] [place], [place] [phone] Hand Slitter: Dino Moody MD Spec. [place],Ur 1.010 Normal 1.010-1.020 [facility] Comment on above: Performed By: #### U AX, UMICAO #### [facility] [address] [place] [address] Dr[address] [place], [place] [phone] Hand Slitter: Dino Moody MD Urobilinogen,Ur Normal Normal 0.0-1.0 [facility] Comment on above: Performed By: #### U AX, UMICAO #### [facility] [address] [place] [address] Dr[address] [place], [place] [phone] Hand Slitter: Dino Moody MD Urinalysis with Reflex to Cu ltureon 02-05-2024 Bilirubin Ql (U) Negative NEGATIVE [facility] Clarity (U) Clear Clear Bon [facility] Color (U) Yellow Yellow [facility] Glucose Test strip (U) [Mass/Vol] Negative NEGATIVE mg/dL [facility] Hemoglobin Auto test strip Ql (U) Negative NEGATIVE [facility] Ketones (U) [Mass/Vol] Negative NEGATIVE mg/dL [facility] Leukocyte esterase Test strip Ql (U) Negative NEGATIVE [facility] Nitrite Ql (U) Negative NEGATIVE [facility] pH (U) 7.0 [pH] 5.0 - 9.[address] [facility] Protein (U) [Mass/Vol] Negative NEGATIVE mg/dL [facility] Specific gravity (U) [Rel density] 1.010 1.010 - 1.[address] [facility] Urobilinogen Qn (U) Normal 0.0 - 1. 0 EU/dL [facility] Urinalysis,Microon 4 Epithelial cells LM Ql (Urine sed) 0 TO 2 Normal 0-5 [facility] Comment on above: Performed By: #### U AX UMICAO #### [facility] [address] [place] [address] [place] [address] Hand Slitter: Dino Moody MD Urine RBC's 0 TO 2 Normal 0-2 [facility] Comment on above: Performed By: #### U AX UMICAO #### [facility] [address] [place] [address] Dr. [place], [place] [phone] Hand Slitter: Dino Moody MD Urine WBC's 0 TO 2 Normal 0-5 [facility] Comment on above: Performed By: #### U AX UMICAO #### [facility] [address] [place] [address] [place], [place] [address] Hand Slitter: Dino Moody MD Comp Metabol,Fastingon 01-14 Albumin [Mass/Vol] 4.0 g/dL Normal 3.5-5.2 [facility] Comment on above: Performed By: #### P SAS, GLYHGB #### [facility] [address] [place] [address] Hand Slitter: Lanre Mendez MD #### CMPF #### [facility] [address] [place] [address] [place] [address] Hand Slitter: Dino Moody MD Albumin/Glob Ratio 1.4 Normal 1.0-2.5 [facility] Comment on above: Performed By: #### P SAS, GLYHGB #### [facility] [address] [place] [address] Hand Slitter: Lanre Mendez MD #### CMPF #### [facility] [address] [place], [place] [phone] Hand Slitter: Dino Moody MD Alkaline Phos 95 U/L Normal 40-129 [facility] Comment on above: Performed By: #### P SAS, GLYHGB #### [address] [address] Hand Slitter: Lanre Mendez MD #### CMPF #### [address] [place], [place] [phone] Hand Slitter: Dino Moody MD ALT [Catalytic activity/Vol] 18 U/L Normal 10-50 [facility] Comment on above: Performed By: #### P SAS, GLYHGB #### [address] [address] Hand Slitter: Lanre Mendez MD #### CMPF #### [address] [place], [place] [phone] Hand Slitter: Dino Moody MD Anion gap [Moles/Vol] 8 mmol/L Low 9-16 [facility] Comment on above: Performed By: #### P SAS, GLYHGB #### [address] [address] Hand Slitter: Lanre Mendez MD #### CMPF #### [address] [place], [place] [phone] Hand Slitter: Dino Moody MD AST [Catalytic activity/Vol] 17 U/L Normal 10-50 [facility] Comment on above: Performed By: #### P SAS, GLYHGB #### [address] [place] [address] Hand Slitter: Lanre Mendez MD #### CMPF #### [facility] [address] [place] [address] Hand Slitter: Dino Moody MD Bilirubin [Mass/Vol] 0.5 mg/dL Normal 0.00-1.20 [facility] Comment on above: Performed By: #### P SAS, GLYHGB #### [address] [address] Hand Slitter: Lanre Mendez MD #### CMPF #### [address] [place] [address] Hand Slitter: Dino Moody MD BUN/CRE Ratio 21 High 9-20 [facility] Comment on above: Performed By: #### P SAS, GLYHGB #### [address] [address] Hand Slitter: Lanre Mendez MD #### CMPF #### [facility] [address] [place] [address] [address] [place] [facility] Hand Slitter: Dino Moody MD Calcium [Mass/Vol] 9.1 mg/dL Normal 8.6-10.4 [facility] Comment on above: Performed By: #### P SAS, GLYHGB #### [address] [address] Hand Slitter: Lanre Mendez MD #### CMPF #### [address] [place] [address] Hand Slitter: Dino Moody MD Chloride [Moles/Vol] 107 mmol/L Normal 98-107 [facility] Comment on above: Performed By: #### P SAS, GLYHGB #### [address] [address] Hand Slitter: Lanre Mendez MD #### CMPF #### [facility] [address] [place] [address] Hand Slitter: Dino Moody MD CO2 [Moles/Vol] 27 mmol/L Normal 20-31 [facility] Comment on above: Performed By: #### P SAS, GLYHGB #### [facility] [address] [place] [address] Hand Slitter: Lanre Mendez MD #### CMPF #### [facility] [address] [place], [place] 7[address]83 Hand Slitter: Dino Moody MD Creatinine [Mass/Vol] 0.9 mg/dL Normal 0.70-1.20 [facility] Comment on above: Performed By: #### P SAS, GLYHGB #### [facility] [address] [place], [place] [phone] Hand Slitter: Lanre Mendez MD #### CMPF #### [address] [place] [address] Hand Slitter: Dino Moody MD GFR/1.73 sq M.predicted among non-blacks MDRD (S/P/Bld) [Vol rate/Area] 85 mL/min/{1.73_m2} Normal >60 [facility] Comment on above: Result Comment: These results are not intended for use in patients <18 years of age. eGFR results are calculated without a race factor using the 2020 CKD-EPI equation. Careful clinical correlation is recommended, particularly when comparing to results calculated using previous equations. The CKD-EPI equation is less accurate in patients with extremes of muscle mass, extra-renal metabolism of creatine, excessive creatine ingestion, or following therapy that affects renal tubular secretion. Performed By: #### P SAS, GLYHGB #### [facility] [address] [place] [address] Hand Slitter: Lanre Mendez MD #### CMPF #### [address] [place], [place] [phone] Hand Slitter: Dino Moody MD Glucose [Mass/Vol] 97 mg/dL Normal 74-99 [facility] Comment on above: Performed By: #### P SAS, GLYHGB #### [facility] [address] [place] [address] Hand Slitter: Lanre Mendez MD #### CMPF #### [address] [place], [place] 6[address]83 Hand Slitter: Dino Moody MD Potassium [Moles/Vol] 4.8 mmol/L Normal 3.7-5.3 [facility] Comment on above: Performed By: #### P SAS, GLYHGB #### [address] [address] Hand Slitter: Lanre Mendez MD #### CMPF #### [address] [place], [place] [phone] Hand Slitter: Dino Moody MD Protein [Mass/Vol] 6.8 g/dL Normal 6.6-8.7 [facility] Comment on above: Performed By: #### P SAS, GLYHGB #### [facility] [address] [place] [address] Hand Slitter: Lanre Mendez MD #### CMPF #### [address] [place], [place] [phone] Hand Slitter: Dino Moody MD Sodium [Moles/Vol] 142 mmol/L Normal 136-145 [facility] Comment on above: Performed By: #### P SAS, GLYHGB #### [address] [address] Hand Slitter: Lanre Mendez MD #### CMPF #### [address] [place], [place] [phone] Hand Slitter: Dino Moody MD Urea nitrogen [Mass/Vol] 19 mg/dL Normal 11-14 [facility] Comment on above: Performed By: #### P SAS, GLYHGB #### [facility] [employer] [address] [place] [address] Hand Slitter: Lanre Mendez MD #### CMPF #### [facility] [address] [place] [address] Hand Slitter: Dino Moody MD Comprehensive Metabolic Pane l, Fastingon 01-15-2024 Albumin [Mass/Vol] 4.0 g/dL 3.5 - 5.2 g/dL [facility] Albumin/Globulin [Mass ratio] 1.4 {ratio} 1.0 - 2.[address] [facility] ALP [Catalytic activity/Vol] 95 U/L 40 - 129 U/L [facility] ALT [Catalytic activity/Vol] 18 U/L 10 - 50 U/L [facility] Anion gap [Moles/Vol] 8 mmol/L Low 9 - 16 mmol/L [facility] AST [Catalytic activity/Vol] 17 U/L 10 - 50 U/L [facility] Bilirubin [Mass/Vol] 0.5 mg/dL 0.00 - 1.20 mg/dL [facility] Calcium [Mass/Vol] 9.1 mg/dL 8.6 - 10. 4 mg/dL [facility] Chloride [Moles/Vol] 107 mmol/L 98 - 10 7 mmol/L [facility] CO2 [Moles/Vol] 27 mmol/L 20 - 31 mmol/L [facility] Creatinine [Mass/Vol] 0.9 mg/dL 0.70 - 1.20 mg/dL [facility] Est, Glom Filt Rate 85 - PINF [facility] Comment on above: These results are not intended for use in patients <18 years of age. eGFR results are calculated without a race factor using the 2020 CKD-EPI equation. Careful clinical correlation is recommended, particularly when comparing to results calculated using previous equations. The CKD-EPI equation is less accurate in patients with extremes of muscle mass, extra-renal metabolism of creatine, excessive creatine ingestion, or following therapy that affects renal tubular secretion. Glucose post fast [Mass/Vol] 97 mg/dL 74 - 99 mg/dL [facility] Interpretation and review of laboratory results Abnormal [facility] Potassium [Moles/Vol] 4.8 mmol/L 3.7 - 5.3 mmol/L [facility] Protein [Mass/Vol] 6.8 g/dL 6.6 - 8.7 g/dL [facility] Sodium [Moles/Vol] 142 mmol/L 136 - 145 mmol/L [facility] Urea nitrogen [Mass/Vol] 19 mg/dL 8 - 23 mg/dL [facility] Urea nitrogen/Creatinine [Mass ratio] 21 mg/mg High 9 - 20 [facility] Hemoglobin A1Con 01-15-2024 Average glucose Estimated from glycated hemoglobin (Bld) [Mass/Vol] 128 mg/dL [facility] Comment on above: The ADA and AACC rec ommend providing the estimated average glucose result to permit better patient understanding of their HBA1c result. HbA1c (Bld) [Mass fraction] 6.1 % High 4.0 - 6.0 % [facility] Interpretation and review of laboratory results Abnormal [facility] Glucose [Mass/Vol] 128 mg/dL Normal [facility] Comment on above: Result Comment: The ADA and AACC recommend providing the estimated average glucose result to permit better patient understanding of their HBA1c result. Performed By: #### U AMY ROTH #### [facility] [address] [place] [address] Hand Slitter: Dino Moody MD HbA1c (Bld) [Mass fraction] 6.1 % High 4.0-6.0 [facility] Comment on above: Performed By: #### U AMY ROTH #### [facility] [address] [place] [address] Hand Slitter: Dino Moody MD Lipid Prof, Fastingon 2023 Cholesterol [Mass/Vol] 157 mg/dL Normal 0-199 [facility] Comment on above: Result Comment: Cholesterol Guidelines: <200 Desirable 200-240 Borderline >240 Undesirable Performed By: #### L IPRF #### [facility] [employer] [address] [place] [id number] Hand Slitter: Lanre Mendez MD Cholesterol in HDL [Mass/Vol] 60 mg/dL Normal >40 [facility] Comment on above: Result Comment: HDL Guidelines: <40 Undesirable 40-59 Borderline >59 Desirable Performed By: #### L IPRF #### [facility] [address] [place] [id number] Hand Slitter: Lanre Mendez MD Cholesterol in LDL [Mass/Vol] 84 mg/dL Normal 0-100 [facility] Comment on above: Result Comment: LDL Guidelines: <100 Desirable 100-129 Near to/above Desirable 130-159 Borderline >159 Undesirable Direct (measured) LDL and calculated LDL are not interchangeable tests. Performed By: #### L IPRF #### [facility] [address] [place] [id number] Hand Slitter: Lanre Mendez MD Cholesterol in VLDL [Mass/Vol] 13 mg/dL Normal [facility] Comment on above: Performed By: #### L IPRF #### [facility] [address] [place] [id number] Hand Slitter: Lanre Mendez MD Cholesterol.total/Ch olesterol in HDL [Mass ratio] 3.0 {ratio} Normal [facility] Comment on above: Performed By: #### L IPRF #### [facility] [address] [place] [id number] Hand Slitter: Lanre Mendez MD Triglyceride,Fasting 66 mg/dL Normal 0-149 [facility] Comment on above: Result Comment: Triglyceride Guidelines: <150 Desirable 150-199 Borderline 200-499 High >499 Very high Based on AHA Guidelines for fasting triglyceride, December 2011. Performed By: #### L IPRF #### [facility] [employer] [address] [place] [address] [phone] Hand Slitter: Lanre Mendez MD Lipid, Fastingon 01-15-2024 Cholesterol [Mass/Vol] 157 mg/dL 0 - 199 mg/dL [facility] [employer] Comment on above: Cholesterol Guidelines: <200 Desirable 200-240 Borderline >240 Undesirable Cholesterol in HDL [Mass/Vol] 60 mg/dL 40 - PINF mg/dL [facility] [employer] Comment on above: HDL Guidelines: <40 Undesirable 40-59 Borderline >59 Desirable Cholesterol in LDL [Mass/Vol] 84 mg/dL 0 - 100 mg/dL [facility] [employer] Comment on above: LDL Guidelines: <100 Desirable 100-129 Near to/above Desirable 130-159 Borderline >159 Undesirable Direct (measured) LDL and calculated LDL are not interchangeable tests. Cholesterol in VLDL [Mass/Vol] 13 mg/dL [facility] [employer] Cholesterol.total/Ch olesterol in HDL [Mass ratio] 3.0 {ratio} [facility] Triglyceride [Mass/Vol] 66 mg/dL 0 - 149 mg/dL [facility] Comment on above: Triglyceride Guidelines: <150 Desirable 150-199 Borderline 200-499 High >499 Very high Based on AHA Guidelines for fasting triglyceride, December 2011. [facility] Microalb.,Random Uron 2023 Creatinine [Mass/Vol] 205.0 mg/dL Normal 39.0-259.0 [facility] Comment on above: Performed By: #### U RNMAB #### [employer] [address] [place] [address] [phone] Hand Slitter: Lanre Mendez MD Microalb/Creat Ratio Can not be calculated Normal 0.0-17.0 [facility] Comment on above: Performed By: #### U RNMAB #### [employer] [address] [place], [place] [phone] Hand Slitter: Lanre Mendez MD Microalbumin conc. <12 Normal 0-20 [facility] Comment on above: Performed By: #### U RNMAB #### [employer] [facility] [place], [place] [phone] Hand Slitter: Lanre Mendez MD Microalbumin, Uron Albumin DL <= 20 mg/L (U) [Mass/Vol] mg/L 0 - 20 mg/L [facility] Albumin/Creatinine DL <= 20 mg/L (U) [Ratio] Can not be calculated [facility] Creatinine (U) [Mass/Vol] 205.0 mg/dL 39.0 - 259.0 mg/dL [facility] PSA Screeningon 01-15-2024 Interpretation and review of laboratory results Abnormal [facility] Prostate specific Ag [Mass/Vol] 4.70 ng/mL High 0.00 - 4.00 ng/mL [facility] Comment on above: The Guido ECLIA as say is used. Results obtained with different assay methods cannot be used interchangeably. [facility] PSA, Screeningon 01-15-2024 Prostatic Spec. Ag 4.70 ng/mL High 0.00-4.00 [facility] Comment on above: Result Comment: The Guido ECLIA assay is used. Results obtained with different assay methods cannot be used interchangeably. Performed By: #### U ANDIE ROTHO #### [facility] [address] [place] [address] Hand Slitter: Dino Moody MD Hemoglobin A1Con 07-16-2023 Glucose [Mass/Vol] 131 mg/dL Normal [facility] Comment on above: Result Comment: The ADA and AACC recommend providing the estimated average glucose result to permit better patient understanding of their HBA1c result. Performed By: #### U ANDIE ROTHO #### [facility] [address] [place] [address] Hand Slitter: Dino Moody MD HbA1c (Bld) [Mass fraction] 6.2 % High 4.0-6.0 [facility] Comment on above: Performed By: #### U AX UMICAO #### [facility] [address] [place] [address] Hand Slitter: Dino Moody MD XR ABDOMEN (KUB) (SINGLE AP VIEW)on 03-30-2023 XR ABDOMEN (KUB) (SINGLE AP VIEW) EXAMINATION: ONE SUPINE XRAY VIEW(S) OF THE ABDOMEN 03/27/2023 1:30 pm COMPARISON: None. HISTORY: ORDERING SYSTEM PROVIDED HISTORY: Ureteral stone FINDINGS: Gas in nondilated colon. Large stool burden in the colon. No renal stones identified. Pelvic calcifications suggesting phleboliths. IMPRESSION: No renal stones identified Large stool burden the colon Interpreted by: Haroldo Sin MD Signed by: Haroldo Sin MD 03/30/23 Final result Normal [facility] No Panel Informationon 02-19 Tobacco smoking status Non-Smoker Invalid Interpretation [employer] Hemoglobin A1Con 06-28-2022 Average glucose Estimated from glycated hemoglobin (Bld) [Mass/Vol] 128 mg/dL [facility] [employer] Comment on above: The ADA and AACC rec ommend providing the estimated average glucose result to permit better patient understanding of their HBA1c result. HbA1c (Bld) [Mass fraction] 6.1 % High 4.0 - 6.0 % [facility] [employer] Interpretation and review of laboratory results Abnormal [facility] Basic Metabolic Panelon 04-26 Anion gap [Moles/Vol] 6 mmol/L Low 9 - 17 mmol/L [facility] [employer] Calcium [Mass/Vol] 9.2 mg/dL 8.6 - 10. 4 mg/dL [facility] Chloride [Moles/Vol] 106 mmol/L 98 - 10 7 mmol/L [facility] CO2 [Moles/Vol] 29 mmol/L 20 - 31 mmol/L [facility] [employer] Creatinine [Mass/Vol] 0.96 mg/dL 0.70 - 1.20 mg/dL [facility] [employer] GFR/1.73 sq M.predicted MDRD (S/P/Bld) [Vol rate/Area] - PINF [facility] Comment on above: These results are not intended for use in patients <18 years of age. eGFR results are calculated without a race factor using the 2020 CKD-EPI equation. Careful clinical correlation is recommended, particularly when comparing to results calculated using previous equations. The CKD-EPI equation is less accurate in patients with extremes of muscle mass, extra-renal metabolism of creatine, excessive creatine ingestion, or following therapy that affects renal tubular secretion. Glucose [Mass/Vol] 105 mg/dL High 70 - 99 mg/dL [facility] Interpretation and review of laboratory results Abnormal [facility] Potassium [Moles/Vol] 4.5 mmol/L 3.7 - 5.3 mmol/L [facility] Sodium [Moles/Vol] 141 mmol/L 135 - 144 mmol/L [facility] Urea nitrogen [Mass/Vol] 18 mg/dL 8 - 23 mg/dL [facility] Urea nitrogen/Creatinine (Bld) [Mass ratio] 19 9 - 20 [facility] CBC with Auto Differentialon 05-16-2022 Absolute Eos # 0.07 [place] [facility] Absolute Immature Granulocyte [facility] Absolute Lymph # 1.50 [facility] Absolute Gallia # 0.78 [facility] RS [facility] Basophils (Bld) [#/Vol] 0.03 10*3/uL [facility] Basophils/100 WBC (Bld) 1 % 0 - 2 % [facility] Eosinophils/100 WBC (Bld) 1 % 1 - 4 % [facility] Hematocrit (Bld) [Volume fraction] 44.5 % 40.7 - 50.3 % [facility] Hemoglobin (Bld) [Mass/Vol] 15.1 g/dL 13.0 - 17.0 g/dL [facility] Immature granulocytes/100 WBC (Bld) 0 % 0 [facility] Interpretation and review of laboratory results Abnormal [facility] Lymphocytes/100 WBC (Bld) 26 % 24 - 43 % [facility] MCH (RBC) [Entitic mass] 32.5 pg 25.2 - 33.5 pg [facility] MCHC (RBC) [Mass/Vol] 33.9 g/dL 28.4 - 34.8 g/dL [facility] MCV (RBC) [Entitic vol] 95.9 fL 82.6 - 102.9 fL [facility] Monocytes/100 WBC (Bld) 14 % High 3 - 12 % [facility] NRBC Automated 0.0 0.0 per 100 WBC [facility] Platelet distribution width (Bld) [Ratio] 13.7 % 11.8 - 14.4 % [facility] Platelet mean volume (Bld) [Entitic vol] 9.6 fL 8.1 - 13.5 fL [facility] Platelets (Bld) [#/Vol] 208 10*3/uL [facility] RBC (Bld) [#/Vol] 4.64 10*6/uL 4.21 - 5.7 7 m/uL [facility] Segmented neutrophils/100 WBC (Bld) 58 % 36 - 65 % [facility] Segs Absolute 3.37 [facility] WBC (Bld) [#/Vol] 5.8 10*3/uL [facility] CT ABDOMEN PELVIS WO CONTRAS T Additional Contrast? Noneon 05-16-2022 1. 5 mm partially imaged solid noncalcified nodule in the middle lobe present in January 2022. Please see follow-up recommendations below. 2. Punctate nonobstructing right renal calculus and a 4.7 cm left renal cyst stable. No hydronephrosis. 3. Small sliding hiatal hernia and bilateral fat containing inguinal hernias. 4. Mild prostatomegaly. 5. No acute infective or inflammatory process. RECOMMENDATIONS: Fleischner Society guidelines for follow-up and management of incidentally detected pulmonary nodules: Single Solid Nodule: Nodule size less than 6 mm In a low-risk patient, no routine follow-up. In a high-risk patient, optional CT at 12 months. - Low risk patients include individuals with minimal or absent history of smoking and other known risk factors. - High risk patients include individuals with a history or smoking or known risk factors. Radiology 2017 http://pubs.rsna.org /doi/full/10.1148/ra diol.9398426283 [facility] RIS CONSOLIDATED EXAMINATION: CT OF THE ABDOMEN AND PELVIS WITHOUT CONTRAST 05/16/2022 10:05 am TECHNIQUE: CT of the abdomen and pelvis was performed without the administration of intravenous contrast. Multiplanar reformatted images are provided for review. Automated exposure control, iterative reconstruction, and/or weight based adjustment of the mA/kV was utilized to reduce the radiation dose to as low as reasonably achievable. COMPARISON: 02/13/2022, 01/30/2022 HISTORY: ORDERING SYSTEM PROVIDED HISTORY: Renal colic on right side TECHNOLOGIST PROVIDED HISTORY: right renal colic FINDINGS: Lower Chest: There is 5 mm solid noncalcified nodule in the middle lobe close to the minor fissure visible on study from 01/30/2022. Organs: Limited evaluation the absence of IV contrast. Liver, spleen, pancreas, adrenal glands and gallbladder show no significant abnormalities. Punctate nonobstructing calculus in the midpole right kidney. 4.7 cm exophytic posterior left renal cyst in the upper pole stable. No follow-up recommended. No hydronephrosis. GI/Bowel: There is limited evaluation due to absence of oral contrast. Small sliding hiatal hernia otherwise stomach unremarkable. No acute infective process in the bowel. No obstruction. Pelvis: The urinary bladder shows no calculi. Mild prostatomegaly. No suspicious pelvic mass. Small bilateral fat containing inguinal hernias. Peritoneum/Retroperi toneum: No free intraperitoneal fluid or significant lymphadenopathy. Ureters show no calculus. Mild atherosclerotic disease. Bones/Soft Tissues: No acute abnormality of the bones. The superficial soft tissues show no significant abnormalities. [facility] Jd Ramirez MD - 05/16/2022 EXAMINATION: CT OF THE ABDOMEN AND PELVIS WITHOUT CONTRAST 05/16/2022 10:05 am TECHNIQUE: CT of the abdomen and pelvis was performed without the administration of intravenous contrast. Multiplanar reformatted images are provided for review. Automated exposure control, iterative reconstruction, and/or weight based adjustment of the mA/kV was utilized to reduce the radiation dose to as low as reasonably achievable. COMPARISON: 02/13/2022, 01/30/2022 HISTORY: ORDERING SYSTEM PROVIDED HISTORY: Renal colic on right side TECHNOLOGIST PROVIDED HISTORY: right renal colic FINDINGS: Lower Chest: There is 5 mm solid noncalcified nodule in the middle lobe close to the minor fissure visible on study from 01/30/2022. Organs: Limited evaluation the absence of IV contrast. Liver, spleen, pancreas, adrenal glands and gallbladder show no significant abnormalities. Punctate nonobstructing calculus in the midpole right kidney. 4.7 cm exophytic posterior left renal cyst in the upper pole stable. No follow-up recommended. No hydronephrosis. GI/Bowel: There is limited evaluation due to absence of oral contrast. Small sliding hiatal hernia otherwise stomach unremarkable. No acute infective process in the bowel. No obstruction. Pelvis: The urinary bladder shows no calculi. Mild prostatomegaly. No suspicious pelvic mass. Small bilateral fat containing inguinal hernias. Peritoneum/Retroperi toneum: No free intraperitoneal fluid or significant lymphadenopathy. Ureters show no calculus. Mild atherosclerotic disease. Bones/Soft Tissues: No acute abnormality of the bones. The superficial soft tissues show no significant abnormalities. IMPRESSION: 1. 5 mm partially imaged solid noncalcified nodule in the middle lobe present in January 2022. Please see follow-up recommendations below. 2. Punctate nonobstructing right renal calculus and a 4.7 cm left renal cyst stable. No hydronephrosis. 3. Small sliding hiatal hernia and bilateral fat containing inguinal hernias. 4. Mild prostatomegaly. 5. No acute infective or inflammatory process. RECOMMENDATIONS: Fleischner Society guidelines for follow-up and management of incidentally detected pulmonary nodules: Single Solid Nodule: Nodule size less than 6 mm In a low-risk patient, no routine follow-up. In a high-risk patient, optional CT at 12 months. - Low risk patients include individuals with minimal or absent history of smoking and other known risk factors. - High risk patients include individuals with a history or smoking or known risk factors. Radiology 2017 http://pubs.rsna.org /doi/full/10.1148/ra diol.6941868587 [employer] Work Phone: Radiology Study observation (narrative) [employer] Phone: CT ABDOMEN PELVIS WO CONTRAS T Additional Contrast? NoneOrdered By: Jd Johnson on 05-16-2022 [employer] Work Phone: Urinalysis with Microscopico n 05-16-2022 Bilirubin Urine Negative NEGATIVE [employer] Color, UA Yellow Yellow [employer] Epithelial Cells UA None [facility] [employer] Glucose Auto test strip (U) [Mass/Vol] Negative NEGATIVE [facility] Ketones (U) [Mass/Vol] Negative NEGATIVE [facility] Leukocyte esterase Auto test strip Ql (U) Negative NEGATIVE [facility] Nitrite Auto test strip Ql (U) Negative NEGATIVE [facility] Protein (U) [Mass/Vol] 8.5 mg/dL 5.0 - 9.0 [facility] Protein (U) [Mass/Vol] Negative NEGATIVE [facility] RBC clumps Auto (Urine sed) [#/Area] None [facility] Specific [place], UA 1.020 1.010 - 1.020 [facility] Turbidity UA Clear Clear [facility] Urine Hgb Negative NEGATIVE [facility] Urobilinogen, Urine Normal Normal [facility] WBC, UA None [facility] Comprehensive Metabolic Pane l, Fastingon 01-05-2022 Albumin [Mass/Vol] 4.2 g/dL 3.5 - 5.2 g/dL [facility] Albumin/Globulin [Mass ratio] 1.6 {ratio} 1 - 2.5 [facility] ALP (Bld) [Catalytic activity/Vol] 84 U/L 40 - 129 U/L [facility] ALT [Catalytic activity/Vol] 26 U/L 5 - 41 U/L [facility] Anion gap [Moles/Vol] 8 mmol/L Low 9 - 17 mmol/L [facility] AST [Catalytic activity/Vol] 17 U/L NINF - 40 U/L [facility] Bilirubin [Mass/Vol] 0.8 mg/dL 0.3 - 1 .2 mg/dL [facility] Calcium [Mass/Vol] 8.9 mg/dL 8.6 - 10. 4 mg/dL [facility] Chloride [Moles/Vol] 106 mmol/L 98 - 10 7 mmol/L [facility] CO2 [Moles/Vol] 27 mmol/L 20 - 31 mmol/L [facility] Creatinine [Mass/Vol] 0.93 mg/dL 0.7 - 1.2 mg/dL [facility] GFR/1.73 sq M.predicted MDRD (S/P/Bld) [Vol rate/Area] - PINF [facility] [email or web address] [facility] Comment on above: Effective Dec 25, 2021 These results are not intended for use in patients <18 years of age. eGFR results are calculated without a race factor using the 2020 CKD-EPI equation. Careful clinical correlation is recommended, particularly when comparing to results calculated using previous equations. The CKD-EPI equation is less accurate in patients with extremes of muscle mass, extra-renal metabolism of creatine, excessive creatine ingestion, or following therapy that affects renal tubular secretion. Glucose [Mass/Vol] 101 mg/dL High 70 - 99 mg/dL [facility] [employer] Interpretation and review of laboratory results Abnormal [facility] [employer] Potassium [Moles/Vol] 4.6 mmol/L 3.7 - 5.3 mmol/L [facility] [employer] Protein [Mass/Vol] 6.9 g/dL 6.4 - 8.3 g/dL [facility] [employer] Sodium [Moles/Vol] 141 mmol/L 135 - 144 mmol/L [facility] [employer] Urea nitrogen (BldV) [Mass/Vol] 19 mg/dL 8 - 23 mg/dL [facility] [employer] Urea nitrogen/Creatinine (Bld) [Mass ratio] 20 9 - 20 [facility] [employer] [facility] [employer] Hemoglobin A1Con 01-05-2022 Glucose [Mass/Vol] 128 mg/dL [facility] [employer] Comment on above: The ADA and AACC rec ommend providing the estimated average glucose result to permit better patient understanding of their HBA1c result. HbA1c (Bld) [Mass fraction] 6.1 % High 4 - 6 % [facility] [employer] Interpretation and review of laboratory results Abnormal [facility] [email or web address] [facility] [employer] Lipid, Fastingon 01-05-2022 Cholesterol [Mass/Vol] 162 mg/dL NINF - 200 mg/dL [facility] [employer] Comment on above: Cholesterol Guidelines: <200 Desirable 200-240 Borderline >240 Undesirable Cholesterol in HDL [Mass/Vol] 56 mg/dL 40 - PINF mg/dL [facility] Comment on above: HDL Guidelines: <40 Undesirable 40-59 Borderline >59 Desirable Cholesterol in LDL [Mass/Vol] 92 mg/dL 0 - 130 mg/dL [facility] Comment on above: LDL Guidelines: <100 Desirable 100-129 Near to/above Desirable 130-159 Borderline >159 Undesirable Direct (measured) LDL and calculated LDL are not interchangeable tests. Cholesterol.total/Ch olesterol in HDL [Mass ratio] 2.9 {ratio} NINF - 5 [facility] Triglyceride, Fasting 70 mg/dL [facility] - 150 mg/dL [facility] Comment on above: Triglyceride Guidelines: <150 Desirable 150-199 Borderline 200-499 High >499 Very high Based on AHA Guidelines for fasting triglyceride, December 2011. [facility] [employer] Microalbumin, Uron Albumin/Creatinine DL <= 20 mg/L (24H U) [Mass ratio] mg/L [facility] - 21 mg/L [facility] Albumin/Creatinine DL <= 20 mg/L (U) [Ratio] Can not be calculated [facility] Creatinine [Mass/Vol] 200.9 mg/dL 39 - 259 mg/dL [facility] [employer] [facility] PSA Screeningon 01-05-2022 [facility] XR KNEE RIGHT (3 VIEWS)on Mild tricompartmental osteoarthritis. No acute findings [facility] RIS CONSOLIDATED EXAMINATION: THREE XRAY VIEWS OF THE RIGHT KNEE 07/28/2021 1:56 pm COMPARISON: None. HISTORY: ORDERING SYSTEM PROVIDED HISTORY: Right medial knee pain FINDINGS: Mild tricompartmental osteoarthritis. No fracture or suspicious osseous lesions. [facility] CONSOLIDATED Pastor Delgado P - 07/28/2021 EXAMINATION: THREE XRAY VIEWS OF THE RIGHT KNEE 07/28/2021 1:56 pm COMPARISON: None. HISTORY: ORDERING SYSTEM PROVIDED HISTORY: Right medial knee pain FINDINGS: Mild tricompartmental osteoarthritis. No fracture or suspicious osseous lesions. IMPRESSION: Mild tricompartmental osteoarthritis. No acute findings [employer] Phone: Radiology Study observation (narrative) [employer] Phone: XR KNEE RIGHT (3 VIEWS)Order ed By: Pastor Delgado on 07-28-2021 [employer] Phone: Comprehensive Metabolic Pane l, FastingOrdered By: Blossom Portillo on 01-09-2021 Albumin [Mass/Vol] 4.3 g/dL 3.5 - 5.2 g/dL [employer] Phone: Albumin/Globulin [Mass ratio] 2.3 {ratio} [employer] Phone: ALP (Bld) [Catalytic activity/Vol] 85 U/L 40 - 129 U/L [employer] Phone: ALT [Catalytic activity/Vol] 19 U/L 5 - 41 U/L [employer] Phone: Anion gap [Moles/Vol] 10 mmol/L 9 - 17 mmol/L [employer] Phone: AST [Catalytic activity/Vol] 15 U/L <40 [employer] Phone: Bilirubin [Mass/Vol] 0.52 mg/dL 0.3 - 1 .2 mg/dL [employer] Phone: Calcium [Mass/Vol] 9.2 mg/dL 8.6 - 10. 4 mg/dL [employer] Phone: Chloride [Moles/Vol] 108 mmol/L High 98 - 10 7 mmol/L [employer] Phone: CO2 [Moles/Vol] 25 mmol/L 20 - 31 mmol/L [employer] Phone: Creatinine [Mass/Vol] 0.98 mg/dL 0.70 - 1.20 mg/dL [employer] Phone: Free PSA/Total PSA [Mass fraction] 6.2 g/dL Low 6.4 - 8.3 g/dL [employer] Phone: GFR >60 >60 mL/min [employer] Phone: GFR Non- >60 >60 mL/min [employer] Phone: Glucose [Mass/Vol] 100 mg/dL High 70 - 99 mg/dL [employer] Phone: Interpretation and review of laboratory results Abnormal [employer] Phone: Potassium [Moles/Vol] 4.4 mmol/L 3.7 - 5.3 mmol/L [employer] Phone: Sodium [Moles/Vol] 143 mmol/L 135 - 144 mmol/L [employer] Phone: Urea nitrogen (BldV) [Mass/Vol] 14 mg/dL 8 - 23 mg/dL [employer] Phone: Urea nitrogen/Creatinine (Bld) [Mass ratio] 14 [employer] Phone: [employer] Phone: Laboratory - Chemistry and C hemistry - challengeOrdered By: Blossom Portillo on 01-09-2021 GFR/1.73 sq M.predicted MDRD (S/P/Bld) [Vol rate/Area] [employer] Phone: Comment on above: Average GFR for 70 o r more years old: 75 mL/min/1.73sq m Chronic Kidney Disease: <60 mL/min/1.73sq m Kidney failure: <15 mL/min/1.73sq m eGFR calculated using average adult body mass. Additional eGFR calculator available at: http://www.[employer]/multiple_crcl_2012.htm Stage 1: Some kidney damage normal GFR Stage 2: Mild kidney damage GFR 60-89 Stage 3: Moderate kidney damage GFR 30-59 Stage 4: Severe kidney damage GFR 15-29 Stage 5: Severe kidney damage GFR <15 ESRD - chronic treatment by dialysis or transplant Lipid, FastingOrdered By: Raven Portillo on 01-09-2021 Cholesterol [Mass/Vol] 211 mg/dL High <200 [employer] Phone: Comment on above: Cholesterol Guidelines: <200 Desirable 200-240 Borderline >240 Undesirable Cholesterol in HDL [Mass/Vol] 48 mg/dL >40 [employer] Phone: Comment on above: HDL Guidelines: <40 Undesirable 40-59 Borderline >59 Desirable Cholesterol in LDL [Mass/Vol] 137 mg/dL High 0 - 130 mg/dL [employer] Phone: Comment on above: LDL Guidelines: <100 Desirable 100-129 Near to/above Desirable 130-159 Borderline >159 Undesirable Direct (measured) LDL and calculated LDL are not interchangeable tests. Cholesterol in VLDL [Mass/Vol] NOT REPORTED 1 - 30 mg/dL [employer] Phone: Cholesterol.total/Ch olesterol in HDL [Mass ratio] 4.4 {ratio} <5 [employer] Phone: Interpretation and review of laboratory results Abnormal [employer] Phone: Triglyceride, Fasting 130 mg/dL <150 [employer] Phone: Comment on above: Triglyceride Guidelines: <150 Desirable 150-199 Borderline 200-499 High >499 Very high Based on AHA Guidelines for fasting triglyceride, December 2011. [employer] Phone: PSA screeningOrdered By: Anjana Portillo on 01-09-2021 [employer] Phone: Pain Management Office/Clini c Noteon 10-04-2020 Pain Management Office/Clinic Note Chief Complaint neck and shoulder pain low back pain History of Present Illness Dear Dr. Portillo, Thank you for your referral to [facility]. Your patient was evaluated at your request on 10/04/20. Below is a narrative summary of their clinical encounter. The patient?s pain started in July 2020 for his neck pain. His low back pain started years ago without incident. Imaging available for review includes an MRI of the cervical spine dated 09/13/20. As you are aware he underwent a C6-7 fusion. 20 years ago he underwent a L5-S1 discectomy. The patient rates their pain as a 2 but can increase to 9. The pain is described as painful. It is constant in nature. It is increased with activity, standing, and walking and is decreased with rest. There are no new associated symptoms; no new loss of bowel or bladder control. No new motor or sensory deficits. Patient has failed physical and medical modalities to help alleviate their pain complaints. This does include but not limited to provider directed home exercise program and activity modification for greater than an 8 week time period time, of which is attempted on a daily basis. The patient has engaged in a formal course of physical therapy August of 2020 with temporary relief. Activity modification including transition maneuver avoidance as well as strict upper extremity lift and movement limits has failed to provide reprieve. This patient has tried over the counter and prescription medications that include but not limited to the use of Motrin, Aspirin for greater than a 3 month period of time. He presents today to discuss his pain. AM Behavior: Same Day Progresses Behavior: Same PM Behavior: Same Timing of onset: PAIN STARTED IN NECK TOWARDS THE BEGINING OF JULY 2020. LOW BACK PAIN HAS BEEN ONGOING OVER THE LAST 20 YEARS. Related injury/event: NONE/DENIES Details of onset: PAIN STARTED IN NECK TOWARDS THE BEGINING OF JULY 2020. LOW BACK PAIN HAS BEEN ONGOING OVER THE LAST 20 YEARS. Past treatment: PT, TRACTION, MASSAGE, CHIROPRACTOR, TENS, MEDICATION, INJECTION, HEP, IMAGING Pain location and laterality: NECK PAIN. BIALTERAL TRAPEZIUS/SHOULDER PAIN. BILATERAL LOW BACK PAIN. Pain quality: Aching, Burning, Sharp, Tightness, Unable to describe Pain Pattern: Constant Pain rate at rest: 2 Pain rate with activity: 9 Sensory impairment location: DENIES Date Tens: 08/2020 AT PT Effective TENS: MINIMAL HELP Date Chiropractor: X1 SEPTEMBER 2020 Effective Chiropractor: HELPED Date PT: AUGUST 2020 Effective PT: TEMPORARY HELP Date Injections: JULY 2020 Effective Injections: MILD RELIEF Comments Injections: PCP - CORTISONE INJECTION Comments Surgery: CERVICAL FUSION 2011, LUMBAR X1 2000, ROTATOR CUFF REPAIR 2011 Recent testing: Yes Recent testing type: IMAGING Loss of bladder/bowel: Denies Demeanor: Pleasant Distress: Mild Appearance: Appropriate Cognitive impairment: No Feels safe at home: Yes Suicidal/homicidal ideation: No Family History of Substance Abuse: None Personal History of Substance Abuse: None Age Between 16 and 45: No History of Preadolescent Sexual Abuse: No Mental Health Condition: No Depression: No Total Opioid Risk Score: 0 Total Score Risk Category: Low risk Review of Systems Constitutional-no fever, chills, unexplained weight loss ENMT-no dysphagia Integumentary-no rashes Eyes-no diplopia Gastrointestinal-no nausea, vomiting, diarrhea Respiratory-no shortness of breath Cardiac-no chest pain Hematologic-no bleeding or unusual bruising Genitourinary-no dysuria Physical Exam Vitals & Measurements HR: 93 (Peripheral) RR: 16 BP: 128/89 HT: 172 cm WT: 79 kg (Estimated) BMI: 26.7 Psych-alert and oriented x 3. Attentive and appropriate, constitutionally normal, displays normal mood and affect per situation. There are no obvious deficits in memory, reasoning, or intellect. Skin-no obvious rashes, bruising, erythema noted to the patient's area of pain. Extremities- extremities are warm with minimal edema and palpable pulses. Lumbar-no significant tenderness to palpation noted in the lumbar spine and paraspinal musculature. Pain is elicited with extension, and lateral rotation of the lumbar spine. Range of motion is slightly diminished with these motions due to pain. Facet loading maneuvers are positive on the bilaterally and do appear to be concordant with the patient's normal complaints of pain. Cervical- tenderness to palpation noted in the cervical spine and paraspinal musculature. Pain is elicited with flexion, extension, and lateral rotation of the cervical spine. Range of motion is diminished due to pain. Facet loading maneuvers are negative. Sensory-no notable sensory deficits in the bilateral upper extremities to touch or pinprick with the exception to decreased sensation to the bilateral C6 dermatomal distribution. Coordination remains intact. Gait remains non-antalgic. Cardiac-regular rate Pulmonary-r (more content not included)... Normal [facility] MRI [facility] CONon 09-21-19 21 MRI [facility] CON EXAMINATION: MRI [facility] HISTORY: Lumbar radiculopathy ; chronic lumbar and left hip/leg pain; lumbar surgery 2001 COMPARISON: No relevant comparison available. TECHNIQUE: A variety of imaging planes and parameters were utilized for visualization of suspected pathology. FINDINGS: For the purposes of numbering, sagittal T2 image # 10 extends from the T11 vertebral body superiorly to the S3 level inferiorly. PARASPINAL AREA: Benign-appearing 4.7 cm left renal cyst. BONES: No fracture, pars defect, or osseous lesion. CORD/CAUDA EQUINA: Normal caliber, contour, and signal intensity. DISC LEVELS: 12-L1: No significant disc/facet abnormality, spinal stenosis, or foraminal stenosis. L1-L2: No significant disc/facet abnormality, spinal stenosis, or foraminal stenosis. L2-L3: Early degenerative disc disease is present without focal protrusion or neural impingement. L3-L4: Moderate diffuse disc bulging and moderate disc height reduction without significant central canal or foraminal narrowing. Moderate degenerative facet arthropathy. L4-L5: Moderate diffuse disc bulging and moderate disc height reduction without significant central canal or foraminal narrowing. Moderate degenerative facet arthropathy. L5-S1: Mild-moderate left foramen narrowing. No significant right foraminal or central canal narrowing. Complete loss of disc height without appreciable disc bulging (likely prior discectomy). Mild degenerative facet arthropathy. IMPRESSION: 1. No acute or specific findings to account for the patient's symptoms. 2. Moderate degenerative changes at L3-L4 and L4-L5 without significant central canal or foramen narrowing. 3. L5-S1 prior discectomy. No significant central canal or foramen narrowing. Electronically authenticated by: ISIS PALMER Date: 2020-09-20 10:17 Normal [facility] MRI [facility]SPINE WO CONon 09-14-19 21 MRI [facility] WO CON EXAMINATION: MRI CSPINE WO CON HISTORY: Cervical radiculopathy COMPARISON: No relevant comparison available. TECHNIQUE: A variety of imaging planes and parameters were utilized for visualization of suspected pathology. FINDINGS: CRANIOCERVICAL AREA: Normal foramen magnum with no Chiari malformation. PARASPINAL AREA: Normal with no visible mass. BONES: Normal alignment with no acute fracture or spondylolisthesis. Anterior fusion C6-C7 with resultant metallic susceptibility artifact. CORD: Normal caliber, contour, and signal intensity. CERVICAL DISC LEVELS: C2-C3: No significant disc/facet abnormality, spinal stenosis, or foraminal stenosis. C3-C4: Disc space narrowing and disc desiccation. Mild to moderate diffuse disc/osteophyte complex and facet osteoarthropathy. No central canal stenosis. Mild right and no left foraminal stenosis C4-C5: Moderate to severe disc space narrowing with endplate sclerosis. Moderate diffuse disc/osteophyte complex minimally deforming the ventral spinal cord narrowing the central canal to 9.5 mm in AP dimension. Bilateral facet osteoarthropathy with moderate bilateral foraminal stenosis C5-C6: Disc desiccation. Mild to moderate diffuse disc/osteophyte complex. Mild central canal stenosis measuring 8.4 mm in AP dimension. No foraminal stenosis C6-C7: Anterior fusion. No disc bulge or herniation. No central or foraminal stenosis C7-T1:. Early degenerative disc disease is present without focal protrusion or neural impingement. IMPRESSION: Diffuse degenerative changes most significant C3-C5 with multilevel central and foraminal stenosis as detailed above Electronically authenticated by: DINO DEL CASTILLO Date: 2020-09-13 10:13 Normal [facility] Hemoglobin [id number] By: Raven Portillo on 09-05-2020 Glucose [Mass/Vol] 126 mg/dL [facility]: Comment on above: The ADA and [facility] rec ommend providing the estimated average glucose result to permit better patient understanding of their HBA1c result. HbA1c (Bld) [Mass fraction] 6.0 % 4.0 - 6.0 % [employer] Phone: [employer] Phone: C-Reactive Proteinon 020 CRP [Mass/Vol] 0.6 mg/L 0 - 5 mg/L [place] Hemoglobin A1Con 08-21-2019 Glucose [Mass/Vol] 117 mg/dL [place] Comment on above: The ADA and [facility] rec ommend providing the estimated average glucose result to permit better patient understanding of their HBA1c result. HbA1c (Bld) [Mass fraction] 5.7 % 4.8 - 5.9 % [place] Lipid, Fastingon 08-21-2019 Cholesterol [Mass/Vol] 191 mg/dL <200 [place] Comment on above: Cholesterol Guidelines: <200 Desirable 200-240 Borderline >240 Undesirable Cholesterol in HDL [Mass/Vol] 52 mg/dL >40 [place] Comment on above: HDL Guidelines: <40 Undesirable 40-59 Borderline >59 Desirable Cholesterol in LDL [Mass/Vol] 120 mg/dL 0 - 130 mg/dL [place] Comment on above: LDL Guidelines: <100 Desirable 100-129 Near to/above Desirable 130-159 Borderline >159 Undesirable Direct (measured) LDL and calculated LDL are not interchangeable tests. Cholesterol in VLDL [Mass/Vol] NOT REPORTED 1 - 30 mg/dL [place] Cholesterol.total/Ch olesterol in HDL [Mass ratio] 3.7 {ratio} <5 [place] Triglyceride, Fasting 96 mg/dL <150 [place] Comment on above: Triglyceride Guidelines: <150 Desirable 150-199 Borderline 200-499 High >499 Very high Based on AHA Guidelines for fasting triglyceride, December 2011. CBC Auto Differentialon 0 Basophils (Bld) [#/Vol] 10*3/uL [place] Basophils/100 WBC (Bld) 0 % 0 - 2 % [place] Differential Type NOT REPORTED [place] Eosinophils (Bld) [#/Vol] 0.09 10*3/uL [place] Eosinophils/100 WBC (Bld) 2 % 1 - 4 % [place] Erythrocyte distribution width (RBC) [Ratio] 13.6 % 11.8 - 14.4 % [place] Hematocrit (Bld) [Volume fraction] 43.5 % 40.7 - 50.3 % [place] Hemoglobin (Bld) [Mass/Vol] 14.1 g/dL 13 - 17 g/dL [place] Immature granulocytes (Bld) [#/Vol] 10*3/uL [place] Immature granulocytes (Bld) [#/Vol] 0 % 0 [place] Lymphocytes (Bld) [#/Vol] 1.44 10*3/uL [place] Lymphocytes/100 WBC (Bld) 29 % 24 - 43 % [place] MCH (RBC) [Entitic mass] 31.1 pg 25.2 - 33.5 pg [place] MCHC (RBC) [Mass/Vol] 32.4 g/dL 28.4 - 34.8 g/dL [place] MCV (RBC) [Entitic vol] 95.8 fL 82.6 - 102.9 fL [place] Monocytes (Bld) [#/Vol] 0.60 10*3/uL [place] Monocytes/100 WBC (Bld) 12 % 3 - 12 % [place] Platelet mean volume (Bld) [Entitic vol] 9.8 fL 8.1 - 13.5 fL [place] Platelets (Bld) [#/Vol] NOT REPORTED [place] Platelets (Bld) [#/Vol] 214 10*3/uL [place] RBC (Bld) [#/Vol] 4.54 10*6/uL 4.21 - 5.7 7 m/uL [place] RBC morphology finding Nom (Bld) NOT REPORTED [place] Segmented neutrophils/100 WBC (Bld) 57 % 36 - 65 % [place] Segs Absolute 2.85 [place] WBC (Bld) [#/Vol] 5.0 10*3/uL [place] WBC (Bld) [#/Vol] 0.0 10*3/uL 0.0 per 10 0 WBC [place] WBC Morphology NOT REPORTED [place] Hemoglobin A1Con 11-27-2018 Glucose [Mass/Vol] 126 mg/dL [place] Comment on above: The ADA and [facility] rec ommend providing the estimated average glucose result to permit better patient understanding of their HBA1c result. HbA1c (Bld) [Mass fraction] 6.0 % High 4.8 - 5.9 % [place] Interpretation and review of laboratory results Abnormal [place] Lipid Panelon 11-27-2018 Cholesterol [Mass/Vol] 220 mg/dL High <200 [place] Comment on above: Cholesterol Guidelines: <200 Desirable 200-240 Borderline >240 Undesirable Cholesterol in HDL [Mass/Vol] 53 mg/dL >40 [place] Comment on above: HDL Guidelines: <40 Undesirable 40-59 Borderline >59 Desirable Cholesterol in LDL [Mass/Vol] 147 mg/dL High 0 - 130 mg/dL [place] Comment on above: LDL Guidelines: <100 Desirable 100-129 Near to/above Desirable 130-159 Borderline >159 Undesirable Direct (measured) LDL and calculated LDL are not interchangeable tests. Cholesterol in VLDL [Mass/Vol] NOT REPORTED 1 - 30 mg/dL [place] Cholesterol.total/Ch olesterol in HDL [Mass ratio] 4.2 {ratio} <5 [place] Triglyceride [Mass/Vol] 99 mg/dL <150 [place] Comment on above: Triglyceride Guidelines: <150 Desirable 150-199 Borderline 200-499 High >499 Very high Based on AHA Guidelines for fasting triglyceride, December 2011. Metabolic Panelon 11-27-2018 GFR/1.73 sq M predicted among non-blacks MDRD (S/P/Bld) [Vol rate/Area] [place] Comment on above: Stage 1: Some kidney damage normal GFR Stage 2: Mild kidney damage GFR 60-89 Stage 3: Moderate kidney damage GFR 30-59 Stage 4: Severe kidney damage GFR 15-29 Stage 5: Severe kidney damage GFR <15 ESRD - chronic treatment by dialysis or transplant Average GFR for 60-6 9 years old: 85 mL/min/1.73sq m Chronic Kidney Disease: <60 mL/min/1.73sq m Kidney failure: <15 mL/min/1.73sq m eGFR calculated using average adult body mass. Additional eGFR calculator available at: http://www.[employer]/multiple_crcl_2012.htm Otheron 11-27-2018 Interpretation and review of laboratory results Abnormal [place] RENAL + CHEM PROFILEon 11-27 Albumin [Mass/Vol] 4.2 g/dL 3.5 - 5.2 g/dL [place] Albumin/Globulin [Mass ratio] 1.6 {ratio} [place] ALP [Catalytic activity/Vol] 76 U/L 40 - 129 U/L [place] ALT [Catalytic activity/Vol] 23 U/L 5 - 41 U/L [place] Anion gap [Moles/Vol] 11 mmol/L 9 - 17 mmol/L [place] AST [Catalytic activity/Vol] 16 U/L <40 [place] Bilirubin Ql (U) 0.48 mg/dL 0.3 - 1.2 mg/dL [place] Calcium [Mass/Vol] 9.6 mg/dL 8.6 - 10. 4 mg/dL [place] Chloride [Moles/Vol] 103 mmol/L 98 - 10 7 mmol/L [place] CO2 [Moles/Vol] 25 mmol/L 20 - 31 mmol/L [place] Creatinine [Mass/Vol] 0.89 mg/dL 0.7 - 1.2 mg/dL [place] GFR >60 >60 mL/min [place] GFR Non- >60 >60 mL/min [place] Glucose [Mass/Vol] 100 mg/dL High 70 - 99 mg/dL [place] Phosphate [Mass/Vol] 2.8 mg/dL 2.5 - 4 .5 mg/dL [place] Potassium [Moles/Vol] 4.5 mmol/L 3.7 - 5.3 mmol/L [place] Protein [Mass/Vol] 6.9 g/dL 6.4 - 8.3 g/dL [place] Sodium [Moles/Vol] 139 mmol/L 135 - 144 mmol/L [place] Urea nitrogen [Mass/Vol] 18 mg/dL 8 - 23 mg/dL [place] TSH with Reflexon 11-27-2018 TSH Qn 1.48 m[IU]/L [place] Vitamin B12on 11-27-2018 Cobalamin (Vitamin B12) [Mass/Vol] 343 pg/mL 232 - 1245 pg/mL [place] Vitamin D 25 Hydroxyon 11-27 Vit D, 25-Hydroxy 46.6 ng/mL 30 - 100 ng/mL [place] Comment on above: Reference Range: Vitamin D status Range Deficiency <20 ng/mL Mild Deficiency 20-30 ng/mL Sufficiency 30-100 ng/mL Toxicity >100 ng/mL Vital Signs Date Time Vital Sign Value Performing Clinician Facility 02-05-2024 02:08-0500 Body temperature 98.6 [degF] Leia Ling MD Work Phone: [facility] 02-05-2024 02:05-0500 Body height 172.7 cm Leia Ling MD Work Phone: [employer] 02-05-2024 02:05-0500 Body mass index (BMI) [Ratio] 27.37 kg/m2 Leia Ling MD Work Phone: [employer] 02-05-2024 02:05-0500 Body weight 81.65 kg Leia Ling MD Work Phone: [employer] 02-05-2024 02:05-0500 Diastolic blood pressure 84 mm[Hg] Leia Ling MD Work Phone: [employer] 02-05-2024 02:05-0500 Heart rate 68 /min Leia Ling MD Work Phone: [employer] 02-05-2024 02:05-0500 Respiratory rate 16 /min Leia Ling MD Work Phone: [employer] 02-05-2024 02:05-0500 SaO2% (BldA) [Mass fraction] 99 % Leia Ling MD Work Phone: [employer] 02-05-2024 02:05-0500 Systolic blood pressure 162 mm[Hg] Leia Ling MD Work Phone: [employer] 03-02-2021 09:40-0500 Body height 172.72 cm Yovani Malone Other [employer] Other 03-02-2021 09:40-0500 Body mass index (BMI) [Ratio] 28.13 kg/m2 Yovani Malone Other [employer] Other 03-02-2021 09:40-0500 Body weight 83.92 kg Yovani Malone Other [employer] Other 03-02-2021 09:40-0500 Diastolic blood pressure 86 mm[Hg] Yovani Malone Other [employer] Other 03-02-2021 09:40-0500 Systolic blood pressure 134 mm[Hg] Yovani Malone Other [facility] [employer] Other Encounters Encounter Date Encounter Type Care Provider Facility Start: 02-05-2024 End: 02-05-2024 Emergency department patient visit Leia Ling MD Work Phone: [facility] ED Comment on above: Right flank pain (Pr imary Dx); Cyst of left kidney Start: 01-15-2024 End: 01-15-2024 ambulatory BLOSSOM PORTILLO [facility] Start: 01-15-2024 End: 01-15-2024 Subsequent hospital visit by physician Blossom Portillo MD Work Phone: [facility] Laboratory Comment on above: Screening for prosta te cancer; Mixed hyperlipidemia; Type 2 diabetes mellitus without complication, without long-term current use of insulin (HCC) / DIET CONTROLLED Start: 07-16-2023 End: 07-16-2023 ambulatory BLOSSOM PORTILLO [facility] Start: 03-27-2023 End: 03-29-2023 [facility] Start: 02-19-2023 Office outpatient vi sit 15 minutes Azeb Degroot Other [facility] Office Start: 07-02-2022 Office outpatient vi sit 15 minutes Azeb Degroot Other [facility] Office Start: 06-28-2022 End: 06-28-2022 Subsequent hospital visit by physician Blossom Portillo MD Work Phone: [facility] Laboratory Comment on above: Type 2 diabetes sanjay itus without complication, without long- term current use of insulin (HCC) / DIET CONTROLLED Start: 05-16-2022 End: 05-18-2022 Subsequent hospital visit by physician [facility] Laboratory Comment on above: Renal colic on right side Start: 02-02-2022 End: 02-02-2022 ambulatory [facility] Start: 01-05-2022 End: 01-05-2022 Subsequent hospital visit by physician Blossom Portillo MD Work Phone: [facility] Comment on above: Screening for prosta te cancer; Type 2 diabetes mellitus without complication, without long-term current use of insulin (HCC) / DIET CONTROLLED; Screening cholesterol level Start: 07-28-2021 End: 07-30-2021 Subsequent hospital visit by physician Jerod [address] Room 2 [facility] Comment on above: Right medial knee pa in Start: 06-21-2021 Office outpatient vi sit 15 minutes Azeb Degroot Other [facility] Office Start: 04-17-2021 End: 04-17-2021 ambulatory MD JCARLOS WEST Facility:[facility] Start: 03-02-2021 End: 03-02-2021 ambulatory Yovani Malone Other [facility] [employer] Other Start: 03-02-2021 Office outpatient ne w 45 minutes Yovani Malone [facility] Start: 01-27-2021 End: 01-27-2021 ambulatory MD JCARLOS WEST Facility:[facility] Start: 01-09-2021 End: 01-09-2021 ambulatory MD JCARLOS WEST Facility:[facility] Start: 01-09-2021 End: 01-09-2021 Subsequent hospital visit by physician Blossom Portillo MD Work Phone: [facility] Comment on above: Cervical disc disord er at C4-C5 level with radiculopathy / MRI 2020; Screening cholesterol level; Screening for prostate cancer Start: 11-03-2020 End: 11-03-2020 ambulatory MD JCARLOS WEST Facility:[facility] Start: 10-20-2020 End: 10-20-2020 ambulatory MD JCARLOS WEST Facility:[facility] Start: 10-06-2020 End: 10-06-2020 ambulatory MD JCARLOS WEST Facility:[facility] Start: 09-20-2020 End: 09-21-[address] BLOSSOM PORTILLO Facility: Start: 09-13-2020 End: 09-14-[address] BLOSSOM PORTILLO Facility:[facility] Start: 09-05-2020 End: 09-05-2020 Subsequent hospital visit by physician Blossom Portillo MD Work Phone: [facility] Laboratory Comment on above: Impaired fasting glu cose Start: 06-15-2020 Office outpatient vi sit 15 minutes Azeb [employer] Other [facility] Office Start: 09-07-2019 Office outpatient vi sit 25 minutes [employer]eb [employer] Other [facility] Office Start: 08-21-2019 End: 08-21-2019 Subsequent hospital visit by physician Blossom Portillo [facility] Comment on above: Screening cholestero l level; Mixed hyperlipidemia; Impaired fasting glucose Start: 11-27-2018 End: 11-27-2018 Subsequent hospital visit by physician Ian Melendez [facility] Start: 07-01-2018 Office outpatient ne w 30 minutes Azeb [employer] Other [facility] Office Procedures Date Procedure Procedure Detail Performing Clinician Start: 02-05-2024 Urinalysis microscopic only Leia Ling MD Work Phone: Start: 02-05-2024 Urnls dip stick/tabl et rgnt auto w/o microscopy Leia Ling MD Work Phone: Start: 02-05-2024 Ct abdomen & pelvis w/contrast material Leia Ling MD Work Phone: Start: 02-05-2024 Comprehensive metabo lic panel Leia Ling MD Work Phone: Start: 01-15-2024 Urine albumin quantitative Blossom Portillo MD Work Phone: Start: 01-15-2024 Hemoglobin glycosylated a1c Blossom Portillo MD Work Phone: Start: 01-15-2024 Lipid panel Blossom Portillo MD Work Phone: Start: 02-19-2023 Docrev cur meds by e lig clin Azeb Degroot Start: 07-02-2022 Docrev cur meds by e lig clin Azeb Degroot Start: 06-28-2022 Hemoglobin glycosylated a1c Blossom Portillo MD Work Phone: Start: 05-16-2022 Urnls dip stick/tabl et reagent auto microscopy [facility] Work Phone: Start: 05-16-2022 Ct abdomen & pelvis w/o contrast material True Jocelyn [facility] Work Phone: Start: 05-16-2022 Basic metabolic pane l calcium total True [facility] Work Phone: Start: 01-05-2022 PSA screening Blossom massey MD Work Phone: Comment on above: The Guido ECLIA as say is used. Results obtained with different assay methods cannot be used interchangeably. Start: 01-05-2022 Urine albumin quantitative Blossom Portillo MD Work Phone: Start: 01-05-2022 Hemoglobin glycosylated a1c Blossom Portillo MD Work Phone: Start: 01-05-2022 Lipid panel Blossom Portillo MD Work Phone: Start: 07-28-2021 Radiologic examinati on knee 3 views Blossom Portillo MD Work Phone: Start: 06-21-2021 Cryosurgery Azeb Elizabeth Start: 06-21-2021 Destruction of giulia lignant skin lesion Azeb Mikayla Start: 06-21-2021 Docrev cur meds by e lig clin Azeb Mikayla Start: 01-09-2021 PSA screening Blossom massey MD Work Phone: Comment on above: The [employer]ido ECLIA as say is used. Results obtained with different assay methods cannot be used interchangeably. Start: 01-09-2021 Lipid panel Blossom Portillo MD Work Phone: Start: 01-09-2021 PSA screening Blossom Portillo MD Work Phone: Start: 09-05-2020 Hemoglobin glycosylated a1c Blossom Portillo MD Work Phone: Start: 06-15-2020 Cryosurgery Azeb Elizabeth ig Start: 06-15-2020 Destruction of giulia lignant skin lesion Azeb Degroot Start: 06-15-2020 Docrev cur meds by e lig clin Azeb Degroot Start: 09-03-2019 Doc meds verified w/ pt or re Azeb Degroot Start: 08-21-2019 C-reactive protein Blossom Portillo Work Phone: Start: 08-21-2019 Hemoglobin glycosylated a1c Blossom Portillo Work Phone: Start: 08-21-2019 Lipid panel Blossom Portillo Work Phone: Start: 11-27-2018 [object Object] Wilfred Melendez Comment on above: The Guido ECLIA as say is used. Results obtained with different assay methods cannot be used interchangeably. Start: 11-27-2018 25 hydroxy includes fractions if performed [facility] Chloe Melendez Work Phone: Start: 11-27-2018 Assay of prostate sp ecific antigen complexed Ian Corona Al Work Phone: Start: 11-27-2018 Assay of thyroid stimulating hormone tsh Ian Corona Al Work Phone: Start: 11-27-2018 Blood count complete auto&auto difrntl wbc Ian Corona Al Work Phone: Start: 11-27-2018 Cyanocobalamin vitamin b-12 Ian Chloe Melendez Work Phone: Start: 11-27-2018 Hemoglobin glycosylated a1c Ian Corona Al Work Phone: Start: 11-27-2018 Lipid panel Ian Corona Al Work Phone: Start: 11-27-2018 RENAL + CHEM PROFILE Logan Corona Al Work Phone: Start: 07-01-2018 Cryosurgery Azeb king Start: 07-01-2018 Destruction of giulia lignant skin lesion Azeb Degroot Start: 07-01-2018 Destruction premalig nant lesion 1st Azeb Beeg Start: 07-01-2018 Destruction premalig nant lesion 2-14 ea Azeb Degroot Start: 07-01-2018 Doc meds verified w/ pt or re Azeb Degroot Start: 06-20-2016 Colonoscopy Blossom Portillo MD Work Phone: Plan of Treatment Date Care Activity Detail Author Start: 06-20-2026 Screening for malign ant neoplasm of colon [facility] Start: 02-04-2025 GFR test (Diabetes, CKD 3-4, OR last GFR 15-59) GFR test (Diabetes, CKD 3-4, OR last GFR 15-59) [facility] [place] [facility] Start: 01-22-2025 End: 01-22-2025 Patient encounter procedure 01/22/2025 8:50 AM EDT Office Visit Blossom Portillo MD [address] [place] [phone] Blossom Portillo MD [address] [place] [address], [place] [address] nmw Blossom Portillo MD Comment on above: mai Start: 01-21-2025 Annual Wellness Visi t (Medicare) Annual Wellness Visit (Medicare) [facility] [place] [facility] Start: 01-20-2025 COVID-19 Vaccine ( season) COVID-19 Vaccine ( season) [facility] Comment on above: Postponed from 11/23 (Patient Refused) Start: 01-20-2025 Depression Screen Depression Screen [facility] [place] [facility] Start: 01-14-2025 GFR test (Diabetes, CKD 3-4, OR last GFR 15-59) GFR test (Diabetes, CKD 3-4, OR last GFR 15-59) [employer] Start: 01-14-2025 Hemoglobin A1c measurement A1C test (Diabetic or Prediabetic) [facility] [place] [facility] Start: 01-14-2025 Lipid panel [facility] Start: 01-14-2025 Prostate specific antigen measurement Prostate Specific Antigen (PSA) Screening or Monitoring [facility] Start: 01-14-2025 Urine screening for protein Diabetic Alb to Cr ratio (uACR) test [facility] Start: 08-20-2024 Lipid panel Lipid screen [facility] Work Phone: Start: 07-22-2024 Diabetic foot examination Diabetic foot exam [facility] Start: 07-22-2024 DTaP/Tdap/Td vaccine (1 - Tdap) DTaP/Tdap/Td vaccine (1 - Tdap) [facility] Comment on above: Postponed from 03/21 (Patient Refused) Start: 07-22-2024 Respiratory Syncytia l Virus (RSV) or age 60 yrs+ (1 - 1-dose 60+ series) Respiratory Syncytial Virus (RSV) or age 60 yrs+ (1 - 1-dose 60+ series) [facility] Comment on above: Postponed from 03/21 (Patient Refused) Start: 07-21-2024 End: 07-21-2024 Patient encounter procedure 07/21/2024 8:50 AM EDT Office Visit Blossom Portillo MD [address] [place] [address] [place] [phone] Blossom Portillo MD [address] [place] [address] [place] [address] 6 month f/u Blossom Portillo MD Comment on above: 6 month f/u Start: 04-26-2024 Depression Screen Depression Screen [facility] Start: 04-01-2024 End: 04-01-2024 Patient encounter procedure 04/01/2024 8:00 AM EST Office Visit [facility] [address] [place] [phone] Jcarlos Alegre MD [address] [place] [address], [facility] [address] [place] [address] 1 year [facility] Comment on above: 1 year [facility] Start: 01-21-2024 End: 01-21-2024 Patient encounter procedure 01/21/2024 8:30 AM EDT Office Visit Blossom Portillo MD [address] [place] [address] [place] [phone] Blossom Portillo MD [address] [place] [address], [facility] [place] [address] awv Blossom Portillo MD Comment on above: awv Start: 01-17-2024 Annual Wellness Visi t (Medicare) Annual Wellness Visit (Medicare) [facility] Start: 11-28-2023 Lipid panel Lipid screen [facility] [place] Start: 11-28-2023 Lipid screen Lipid screen [facility] [place] Start: 11-24-2023 COVID-19 Vaccine () COVID-19 Vaccine () [facility] Start: 10-24-2023 Influenza vaccination Flu vaccine (# 1) [employer] Start: 06-29-2023 Hemoglobin A1c measurement A1C test (Diabetic or Prediabetic) [facility] Start: 06-05-2023 Depression Screen Depression Screen [facility] Start: 05-16-2023 GFR test (Diabetes, CKD 3-4, OR last GFR 15-59) GFR test (Diabetes, CKD 3-4, OR last GFR 15-59) [facility] Start: 04-01-2023 End: 04-01-2023 Patient encounter procedure 04/01/2023 Office Visit Urology [facility] Start: 01-31-2023 Depression Screen Depression Screen [facility] Start: 01-16-2023 End: 01-16-2023 Patient encounter procedure 01/16/2023 Office Visit Internal Medicine Blossom Portillo MD [address] [place] [address], [facility] [place] [address] Blossom Portillo MD Start: 01-11-2023 Annual Wellness Visi t (AWV) Annual Wellness Visit (AWV) [facility] Start: 01-10-2023 Diabetic foot examination Diabetic foot exam [facility] Start: 01-05-2023 Hemoglobin A1c measurement A1C test (Diabetic or Prediabetic) [facility] Start: 01-05-2023 Lipid panel Lipids [facility] Start: 01-05-2023 Urine screening for protein [facility] Start: 01-03-2023 Depression Screen Depression Screen [facility] Start: 12-24-2022 COVID-19 Vaccine (4 - Booster for Moderna series) COVID-19 Vaccine (4 - Booster for Moderna series) [facility] Comment on above: Postponed from 04/26 (Patient Refused) Start: 07-29-2022 Hemoglobin A1c measurement A1C test (Diabetic or Prediabetic) [facility] Start: 07-29-2022 Lipid panel Lipids [facility] Start: 07-24-2022 Depression Screen Depression Screen [facility] Start: 07-11-2022 End: 07-11-2022 Patient encounter procedure 07/11/2022 Office Visit Internal Medicine Blossom Portillo MD [address] [place] [address], [address] [place] [id number] Blossom Portillo MD Start: 01-10-2022 End: 01-10-2022 Patient encounter procedure Blossom Portillo MD Start: 01-05-2022 Annual Wellness Visi t (AWV) Annual Wellness Visit (AWV) [facility] Start: 10-23-2021 Influenza vaccination Flu vaccine (# 1) [facility] Start: 10-02-2021 End: 10-02-2021 Patient encounter procedure 10/02/2021 Office Visit Internal Medicine Blossom Portillo MD [address] [place] [address], [place] [address] Blossom Portillo MD Start: 09-05-2021 Hemoglobin A1c measurement A1C test (Diabetic or Prediabetic) [facility] Work Phone: Start: 08-14-2021 DTaP/Tdap/Td vaccine (1 - Tdap) DTaP/Tdap/Td vaccine (1 - Tdap) [facility] Comment on above: Postponed from 03/21 (Not Indicated) Start: 08-11-2021 Diabetic retinal exam Diabetic retin al exam [facility] Start: 07-10-2021 End: 04-18-2022 Patient encounter procedure 07/10/2021 Office Visit Internal Medicine Blossom Portillo MD [address] [facility], [place] [address] Blossom Portillo MD Start: 06-30-2021 COVID-19 Vaccine (4 - Booster for Moderna series) COVID-19 Vaccine (4 - Booster for Moderna series) [facility] [employer] Start: 01-25-2021 DTaP/Tdap/Td vaccine (1 - Tdap) DTaP/Tdap/Td vaccine (1 - Tdap) [facility] Phone: Comment on above: Postponed from 03/21 (Not Indicated) Start: 01-20-2021 End: 01-20-2021 Patient encounter procedure 01/20/2021 Office Visit Internal Medicine Blossom Portillo MD [address] [place] [address], [place] [address] Blossom Portillo MD Start: 06-24-2020 Annual Wellness Visi t (AWV) Annual Wellness Visit (AWV) [facility] Phone: Start: 02-23-2020 End: 02-23-2020 Office Visit 02/23/2020 Office Visit Internal Medicine Blossom Portillo MD [address] [place] [address], [place] [address] Blossom Portillo MD Start: 11-28-2019 A1C test (Diabetic o r Prediabetic) A1C test (Diabetic or Prediabetic) [place] Start: 11-28-2019 HbA1c (Bld) [Mass fraction] A1C test (Diabetic or Prediabetic) [place] Start: 11-23-2018 Influenza vaccination Flu vaccine (# 1) [place] Start: 02-18-2018 Shingles Vaccine (2 of 2) Shingles Vaccine (2 of 2) [place] Start: 2015 Pneumococcal 65+ yea rs Vaccine (1 of 2 - PCV13) Pneumococcal 65+ years Vaccine (1 of 2 - PCV13) [place] Start: 2000 Colon cancer screen colonoscopy Colon cancer screen colonoscopy [place] Start: 2000 Screening for malign ant neoplasm of colon Colon cancer screen colonoscopy [place] Start: 2000 Shingles Vaccine (1 of 2) Shingles Vaccine (1 of 2) [place] Start: 1995 Screening for malign ant neoplasm of colon [facility] Start: 1969 DTaP/Tdap/Td vaccine (1 - Tdap) DTaP/Tdap/Td vaccine (1 - Tdap) [facility] Start: 1968 Diabetic retinal exam Diabetic retin al exam [facility] Start: 1968 Glaucoma screening Diabetic retinal exam [facility] Start: 1968 Urine screening for protein Diabetic microalbuminuria test [facility] Start: 1960 Diabetic foot examination Diabetic foot exam [facility] Start: 1950 Hepatitis C screen Hepatitis C scree n [place] Start: 1950 Hepatitis C screening Hepatitis C sc [place]en [place] End: 05-16-2022 Culture, Urine [facility] Work Phone: Comment on above: 1 Occurrences starti ng 05/16/2022 until 05/16/2022 Immunizations Immunization Date Immunization Notes Care Provider Rubina mata 01-21-2024 influenza, high dose seasonal, preservative-free Leia Sushil SILVERMAN Work Phone: [facility] 01-16-2023 Influenza, FLUZONE H igh Dose (age 65 y+), IM, Quadv, 0.7mL Blossom Portillo MD Work Phone: [facility] 01-10-2022 Influenza, FLUZONE ( age 65 y+), High Dose, 0.7mL Blossom Potrillo MD Work Phone: [facility] Work Phone: 03-01-2021 COVID-19, Moderna, Primary or Immunocompromised, PF, 100mcg/0.5mL Blossom Portillo MD Work Phone: [facility] 01-04-2021 Influenza, High-dose , Quadv, 65 yrs +, IM (Fluzone) Blossom Portillo MD [facility] Phone[facility] Work Phone: 05-17-2020 COVID-19, Moderna, P F, 100mcg/0.5mL Blossom Portillo MD Work Phone: [facility] Work Phone: 04-19-2020 COVID-19, Moderna, P F, 100mcg/0.5mL Blossom Portillo MD [facility] Phone[facility] Work Phone: 01-01-2020 Influenza, Quadv, adjuvanted, 65 yrs +, IM, PF (Fluad) Blossom Portillo MD Work Phone: [facility] [employer] Work Phone: 01-06-2019 Seasonal trivalent influenza vaccine, adjuvanted, preservative free [facility] [employer] 12-27-2017 influenza virus vacc ine, unspecified formulation Blossom Portillo MD Work Phone: [facility] [employer] Work Phone: 12-27-2017 influenza, seasonal, injectable Blossom Portillo MD Work Phone: [facility] [employer] Work Phone: 12-24-2017 zoster vaccine recombinant Blossom [facility], [place] 09-20-2017 zoster vaccine recombinant Blossom Portillo MD Work Phone: [facility] [employer] Work Phone: 03-20-2017 pneumococcal polysaccharide vaccine, 23 valent Blossom [facility], [place] 05-08-2016 pneumococcal conjuga te vaccine, 13 valent Blossom Portillo MD Work Phone: [facility] [employer] Work Phone: Payers Date Payer Category Payer Medicare 2020 Unknown 2017 Private Health Insurance [employer]IC[employer] SUPP xxxxxxxxxx 2017-Present [phone] [address] [address] [place] [address] xxxxxxxxxx [id number] 2014 Medicare xxxxxxxxxxx [id number] 1959 Medicare [id number] 1959 Unknown [id number] 1959 Unknown [id number] 1950 Unknown [id number] 2.16.840.1.049866.3.579.2. 593 1950 Unknown [id number] 2.16.840.1.405839.3.579.2. 593 1950 Unknown [id number] 2.16.840.1.720887.3.579.2. 196 1950 Unknown [id number] 2.16.840.1.231995.3.579.2. 196 1950 Unknown [id number] 2.16.840.1.046329.3.579.2. 196 1950 Unknown [id number] 2.16.840.1.687518.3.579.2. 196 1950 Unknown [id number] 2.16.840.1.739835.3.579.2. 196 1950 Unknown [id number] 2.16.840.1.256659.3.579.2. 196 1950 Unknown [id number] 2.16.840.1.967806.3.579.2. 754 1950 Unknown [id number] 2.16.840.1.986405.3.579.2. 173 1950 Unknown [id number] 2.16.840.1.292600.3.579.2. 173 1950 Unknown [id number] 2.16.840.1.462579.3.579.2. 173 1950 Unknown [id number] 2.16.840.1.439556.3.579.2. 173 1950 Unknown [id number] 2.16.840.1.746408.3.579.2. 173 Medicare [id number] Private Health Insurance [facility] [id number] Social History Date Type Detail Facility Start: Unknown if melissa quinones smoked [employer] Start: 01-21-2013 End: 12-11-2021 Tobacco smoking status NHIS Never smoker [place] Start: 01-21-2013 End: 01-21-2024 Alcohol intake Yes [facility] [employer] Start: 01-14-2013 Alcohol Comment rarely [place], [place] Start: 1950 Sex Assigned At Not on file [place], [place] Start: 08-19-2019 End: 02-05-2024 Alcohol intake Current drinker of alcohol (finding) [place] Start: 08-19-2019 End: 06-04-2022 History SDOH Financial 5 [place] Start: 08-19-2019 End: 06-04-2022 History SDOH Food Worry 1 [place], [place] Start: 08-19-2019 End: 06-04-2022 History SDOH Transport Med 2 [place] Start: 08-15-2020 End: 12-11-2021 Tobacco use and exposure Never used [facility] Start: 01-03-2022 History SDOH Alcohol Frequency 3 [facility] Work Phone: Start: 01-15-2023 End: 01-21-2024 History of Social function [facility] [employer] [place] How often to you hav e a drink containing alcohol? 2-4 times a month [employer] How many standard dr inks containing alcohol do you have on a typical day? 1 or 2 [employer] How often do you hav e 6 or more drinks on 1 occasion? Never [employer] How hard is it for y ou to pay for the very basics like food, housing, medical care, and heating Not hard at all [employer] (I/We) worried roman er (my/our) food would run out before (I/we) got money to buy more. Never true [employer] Has the [employer], oil, or water [employer] threatened to shut off services in your home in past 12Mo No [employer] Do you belong to any clubs or organizations such as orthodoxy groups, unions, fraternal or athletic groups, or school groups? Yes [employer] Are you now , , , , never or living with a partner? [employer] How often to you hav e a drink containing alcohol? Monthly or less [employer] Do you feel stress - tense, restless, nervous, or anxious, or unable to sleep at night because your mind is troubled all the time - these days [OSQ] Only a little [employer] Medical Equipment Procedure Code Equipment Code Equipment Origin al Text Equipment Identifier Dates 6f X 26cm [facility] - [id number] Start: 02-02-2022 Comment on above: Description: REF [id number] Clinical Notes 10-06-2020 to 02-05-2024 Discharge InstructionsAttachments Note Date & Type Note Facility 02-05-2024 Hospital Discharg e instructions Leia Ling MD - 02/05/2024 4:21 AM EST Call today or tomorrow to follow up with Blossom Portillo MD in 2-3 days. Use an ice pack or bag filled with ice and apply to the injured area 3 - 4 times a day for 15 - 20 minutes each time. If the injury is older than 3 days, then use a heating pad to help relax the muscles in your back. Use ibuprofen or Tylenol (unless prescribed medications that have Tylenol in it) for pain. You can take over the counter Ibuprofen (advil) tablets (4 tablets every 8 hours or 3 tablets every 6 hours or 2 tablets every 4 hours) Return to the Emergency Department for inability to move legs, worsening of pain, tingling / loss of sensation, any other care or concern. The following attachments cannot be sent through Care Everywhere.Back Spasm (Persian)documented in this encounter [facility] 04-17-2021 Note PROCEDURE: Bilateral C5, C6, C7 dorsal medial branch blocks. PREOPERATIVE AND POSTOPERATIVE DIAGNOSIS: Pain due to cervical spondylosis, cervicalgia. Physician: Jcarlos West M.D. COMPLICATIONS: None. SOLUTION USED: Marcaine 0.25% total of 4 mLs, 40 MG Kenalog. ANESTHESIA: Local. Indications: Debilitating mechanical spinal failing physical medical measures over a six-week period within the last 3 months. For symptomatology that does re-create with cervical spinal loading without neural compression, candidacy is established for diagnostic joint nerve blockade to establish causality and determine the usefulness of rhizotomy therapy. DESCRIPTION OF PROCEDURE: The patient was placed in prone position. The skin overlying the indicated area was prepped with alcohol and draped. We employed fluoroscopic guidance and visualized the patient's cervical spine in a posterior-anterior projection. We then employed a spinal needle which was inserted percutaneously towards the indicated dorsal medial rami. For each level the needle tip position was confirmed with multi-angled projections and identification of the relative anatomic landmarks. At each level, 1 mL of solution was injected and needle was withdrawn. The patient was turned back onto the [facility] and taken to recovery in stable condition and allowed to recover from the procedure, then discharged per criteria. This document serves as a record of the services and decisions personally performed and made by the attending provider. It was created on his/her behalf by a trained medical reviewer. The creation of this document is based on the provider?s statements to the medical reviewer. Electronically signed by Jcarlos West MD 04/17/21 09:24 EST Electronically signed by DwayneCharlee 04/17/2021 09:11 EST [facility] 04-17-2021 Note History of Present I llness CHIEF COMPLAINT: Neck pain HISTORY OF PRESENT ILLNESS: Debilitating neck pain which worsens with cervical facet loading maneuvers. The patient's axial symptoms, without evidence of nerve compression, have failed physical and medical measures. PHYSICAL EXAM: HEENT: Normocephalic, atraumatic. RESPIRATIONS: Unlabored ABDOMEN: Soft nontender MUSCULOSKELETAL: Pain that does re-create with cervical spine loading. Spurling's maneuver is not appreciated. REVIEW OF SYSTEMS: Brief review of systems was conducted. Complaints are noncontributory for cauda equina or myelopathic complaints, fever chills or sweats or unintended weight loss or gain. ASSESSMENT: Cervical spondylosis PLAN: The patient meets criteria for diagnostic cervical facet joint nerve blockade for symptoms that do worsen with loading without neural compression to establish cause and candidacy for rhizotomy therapy. Benefits risks and alternatives have been discussed, we agree to proceed. Physical Exam Vitals & Measurements T: 36.7 ?C (Tympanic) HR: 72 (Peripheral) RR: 16 BP: 152/81 SpO2: 95% HT: 172 cm WT: 82 kg Additional Vitals No qualifying data available. This document serves as a record of the services and decisions personally performed and made by the attending provider. It was created on his/her behalf by a trained medical reviewer. The creation of this document is based on the provider?s statements to the medical reviewer. Problem List/Past Medical History Ongoing Acid reflux Historical No qualifying data Procedure/Surgical History APPENDECTOMY REPAIR ROTATOR CUFF ACUTE LUMBAR SURGERY (2000) CERVICAL FUSION (2011) LEFT HAND (2011) Cervical/Thoracic Transforaminal Epidural Steroid Injection (Bilateral) (10/06/2020) Lumbar/Sacral Dorsal Medial Branch Block (Bilateral) (10/20/2020) Lumbar/Sacral Dorsal Medial Branch Block (Bilateral) (11/03/2020) Cervical/Thoracic Transforaminal Epidural Steroid Injection (Bilateral) (01/09/2021) Lumbar Radiofrequency Ablation (Bilateral) (01/27/2021) Medications Inpatient No active inpatient medications Home Excedrin Extra Strength, Oral, q6hr pantoprazole 40 mg oral delayed release tablet, 40 mg= 1 tabs, Oral, Daily Allergies codeine (Nausea & vomiting) Social History Alcohol Current, 1-2 times per week Substance Abuse Denies All Tobacco Never (less than 100 in lifetime) Use:. Lab Results Microbiology - Current Encounter No qualifying data available. Electronically signed by Jcarlos West MD 04/17/21 08:38 EST Electronically signed by Charlee Rice 04/17/2021 08:33 EST [facility] [facility] Evaluation note Encounter Date Diagnosis Assessment Notes Feb, Cervical vertebral fusion (ICD-10 - M43.22) I have independently reviewed the MRI of the cervical spineIn the lumbar spine. Also the reports this patient has had a previous fusion of C6-7. The foramen above and below look overall adequate there is some canal narrowing at C3-4 but no significant cord compression noted nor other signs of myelopathy clinically. Patient also has chronic low back pain I reviewed the MRI of the lumbar spine independently showing overall adequate canal and foramen. There has been some previous surgery at what appears to be L5-S1. I had a extended discussion with this gentleman regarding his neck and low back he sees pain management at present he just wants a fix and does not like the idea of seeing pain management over and over again. I explained to him I do not believe there is a surgical fix for his neck. I think pain management remains his best option. He also has a right shoulder problem that probably needs attention. I discussed this all with the patient to I believe understands and agrees. 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 Physician: Jcarlos West M.D. PRE- AND POSTOPERATIVE DIAGNOSES: Pain secondary to lumbosacral spondylosis, lumbar spondylosis, lumbago. COMPLICATIONS: None. ANESTHESIA: Local SOLUTION Marcaine 0.25% 3ml with depomedrol 40mg PROCEDURE DESCRIPTION: After informed consent, the patient was brought to the OR and placed in the prone position. The skin overlying the area was prepped and draped in standard sterile fashion. A 25-gauge needle was used to raise a skin wheal with 2% lidocaine over the initial DMR, which was identified under fluoroscopy. Subsequently, a radiofrequency needle with a 10 mm active tip was inserted through the anesthetized area and directed toward the first DMR under fluoroscopic guidance. After encountering the same, we had positive sensory stimulation at 0.5 mA and negative motor stimulation at 2.5 mA. Thus, two lesions were created at this level, which were conducted at 80?C for 90 seconds. This wasrepeated in a similar fashion on the remaining indicated levels. Post lesioning we instilled 1 mL from a 5 mL solution of Bupivacaine 0.125% and Methylprednisolone 40 mg. The needles were then removed. The patient was turned supine onto the gurney and transferred to the recovery area in stable condition, to be discharged home after meeting criteria and follow up as per treatment plan. This document serves as a record of the services and decisions personally performed and made by theattending provider. It was created on his/her behalf by a trained medical reviewer. The creation of this document is based on the provider?s statements to the medical reviewer. Electronically signed by Jcarlos West MD 01/27/21 09:06 EDT Electronically signed by DwayneCharlee 01/27/2021 09:01 [facility]11-05-2021 NoteHistory of Present Illness CHIEF COMPLAINT: Low Back pain HISTORY OF PRESENT ILLNESS: Debilitating spinal pain which worsens with facet loading maneuvers. The patient's axial symptoms, without evidence of nerve compression, have failed physical and medical measures. PHYSICAL EXAM: HEENT: Normocephalic, atraumatic. RESPIRATIONS: Unlabored ABDOMEN: Soft nontender MUSCULOSKELETAL: Pain that does re-create with lumbar loading. REVIEW OF SYSTEMS: Brief review of systems was conducted. Complaints are noncontributory for cauda equina or myelopathic complaints, fever chills or sweats or unintended weight loss or gain. ASSESSMENT: Lumbar spondylosis, lumbosacral spondylosis. PLAN: Debilitating mechanical pain does worsen with facet loading maneuvers. For symptomatology that has failed conservative measures and did reveal an 80% reduction in complaints after two diagnostic joint nerve blockade with a baseline return 120 minutes post procedure meets criteria for rhizotomy therapy in attempt to improve with quality and function. Risks benefits and alternatives have beendiscussed, we agree to proceed. The patient presents with medical necessity suggestive of the appropriateness of monitored anesthesia care for interventional pain procedure. The rationale includes the presence of the medical comorbidity, inability to remain motionless. Untreated and unmonitored, there would be expectant adverse cardiac and potentially respiratory events precipitating adverse physical reaction. The use of monitored anesthesia care for the purpose of providing monitored cardiorespiratory response is appropriateto rose the potential symptomatology of precipitated by untreated and unmonitored medical comorbidity. Physical Exam Vitals & Measurements HR: 66 (Peripheral) RR: 16 BP: 132/80 SpO2: 97% HT: 172 cm WT: 79.5 kg Additional Vitals No qualifying data available. This document serves as a record of the services and decisions personally performed and made by theattending provider. It was created on his/her behalf by a trained medical reviewer. The creation of this document is based on the provider?s statements to the medical reviewer. Problem List/Past Medical History Ongoing Acid reflux Historical No qualifying data Procedure/Surgical History APPENDECTOMY REPAIR ROTATOR CUFF ACUTE LUMBAR SURGERY (2000) CERVICAL FUSION (2011) LEFT HAND (2011) Cervical/Thoracic Transforaminal Epidural Steroid Injection (Bilateral) (10/06/2020) Lumbar/Sacral Dorsal Medial Branch Block (Bilateral) (10/20/2020) Lumbar/Sacral Dorsal Medial Branch Block (Bilateral) (11/03/2020) Cervical/Thoracic Transforaminal Epidural Steroid Injection (Bilateral) (01/09/2021) Medications Inpatient No active inpatient medications Home Excedrin Extra Strength, Oral, q6hr pantoprazole 40 mg oral delayed release tablet, 40 mg= 1 tabs, Oral, Daily Pepcid 20 mg oral tablet, 20 mg= 1 tabs, Oral, Daily Allergies codeine (Nausea & vomiting) Social History Alcohol Current, 1-2 times per week Substance Abuse Denies All Tobacco Never (less than 100 in lifetime) Use:. Lab Results Microbiology - Current Encounter No qualifying data available. Electronically signed by Jcarlos West MD 01/27/21 08:12 EDT Electronically signed by Charlee Rice 01/27/2021 08:10 [facility]10-18-2021 NotePROCEDURE: Bilateral C6 transforaminal epidural steroid injection under fluoroscopic guidance. Physician: Jcarlos West M.D. PRE- AND POSTOPERATIVE DIAGNOSES: Pain secondary to cervical spinal stenosis. SOLUTION USED: DEPOMEDROL 80MG, Marcaine 0.125% plus lidocaine. COMPLICATIONS: None. ANESTHESIA: Local. PROCEDURE DESCRIPTION: After informed consent was obtained, the patient was brought to the operating room and was placed in the prone position. Standard monitoring was applied. The skin overlying thearea was prepped and draped in standard sterile fashion. A 25-gauge spinal needle was inserted overthe anesthetized area and directed toward the indicated nerve root foramen under fluoroscopic guidance. Omnipaque dye 0.3 mL was injected and appropriate epidural distribution was confirmed without intravascular or intrathecal spread. Subsequently, 1 mL of the corticosteroid and local anesthetic solution was injected. The needle was removed. The patient was then turned supine onto the gurney and transferred to the recovery area in stable condition, to be discharged home after meeting criteria and follow up as per treatment plan. This document serves as a record of the services and decisions personally performed and made by theattending provider. It was created on his/her behalf by a trained medical reviewer. The creation of this document is based on the provider?s statements to the medical reviewer. Electronically signed by Jcarlos West MD 01/09/21 10:28 EDT Electronically signed by Tay Bhakta 01/09/2021 10:19 [facility] NoteHistory of Present Illness CHIEF COMPLAINT: Neck pain HISTORY OF PRESENT ILLNESS: Debilitating neck pain which worsens with Spurling's maneuver, failing conservative measures markedly impairing function indicating the appropriateness for transforaminal epidural steroid blockade. PHYSICAL EXAM: HEENT: Normocephalic, atraumatic. RESPIRATIONS: Unlabored ABDOMEN: Soft nontender MUSCULOSKELETAL: Pain that does re-create Spurling's maneuver. REVIEW OF SYSTEMS: Brief review of systems was conducted. Complaints are noncontributory for cauda equina or myelopathic complaints, fever chills or sweats or unintended weight loss or gain. ASSESSMENT: Cervical spinal stenosis PLAN: Neurogenic discomfort secondary to disc and spondylitic reactivity precipitating neural foraminal narrowing and lateral recess stenosis. For complaints that have failed conservative measures, candidacy has been established for epidural steroid blockade transforaminal approach for diagnostic and potential therapeutic benefit. Risks benefits alternatives have been discussed, we agree to proceed. (Changed procedure to bilateral C6 TFESI) Physical Exam Vitals & Measurements HR: 68 (Peripheral) RR: 16 BP: 117/74 SpO2: 97% HT: 172 cm WT: 79.5 kg Additional Vitals No qualifying data available. Assessment/Plan This document serves as a record of the services and decisions personally performed and made by theattending provider. It was created on his/her behalf by a trained medical reviewer. The creation of this document is based on the provider?s statements to the medical reviewer. Problem List/Past Medical History Ongoing Acid reflux Historical No qualifying data Procedure/Surgical History APPENDECTOMY REPAIR ROTATOR CUFF ACUTE LUMBAR SURGERY (2000) CERVICAL FUSION (2011) LEFT HAND (2011) Cervical/Thoracic Transforaminal Epidural Steroid Injection (Bilateral) (10/06/2020) Lumbar/Sacral Dorsal Medial Branch Block (Bilateral) (10/20/2020) Lumbar/Sacral Dorsal Medial Branch Block (Bilateral) (11/03/2020) Medications Inpatient No active inpatient medications Home Excedrin Extra Strength, Oral, q6hr Pepcid 20 mg oral tablet, 20 mg= 1 tabs, Oral, Daily Allergies codeine (Nausea & vomiting) Social History Alcohol Current, 1-2 times per week Substance Abuse Denies All Tobacco Never (less than 100 in lifetime) Use:. Lab Results Microbiology - Current Encounter No qualifying data available. Diagnostic Results Diagnostic Radiology No qualifying data available. Computed Tomography No qualifying data available. Ultrasound No qualifying data available. Magnetic Resonance Imaging No qualifying data available. Nuclear Medicine No qualifying data available. Electronically signed by Jcarlos West MD 01/09/21 10:21 EDT Electronically signed by Tay Bhakta 01/09/2021 10:05 EDT Electronically signed by Tay Bhakta 01/09/2021 10:18 [facility]08-12-2021 NotePROCEDURE: Bilateral L3, L4, L5 dorsal medial branch blocks. PREOPERATIVE AND POSTOPERATIVE DIAGNOSIS: Pain due to lumbosacral spondylosis, lumbar spondylosis, lumbago. Physician: Jcarlos eWst M.D. COMPLICATIONS: None. SOLUTION USED: Marcaine 0.25% total of 4 mLs, 100 MCG Clonidine. ANESTHESIA: Local. Indications: Debilitating mechanical spinal failing physical medical measures over a six-week period within the last 3 months. For symptomatology that does re-create with spinal loading without neural compression, candidacy is established for diagnostic joint nerve blockade to establish causality and determine the usefulness of rhizotomy therapy. DESCRIPTION OF PROCEDURE: The patient was placed in prone position. The skin overlying the lumbar area was prepped with alcohol and draped. We employed fluoroscopic guidance and visualized the patient's lumbar spine in a posterior- anterior projection. We then employed a spinal needle which was inserted percutaneously towards the indicated dorsal medial rami. For each level the needle tip positionwas confirmed with multi-angled projections and identification of the relative anatomic landmarks. At each level, 1 mL of solution was injected and needle was withdrawn. The patient was turned back onto the rharrell and taken to recovery in stable condition and allowed to recover after which was discharged per criteria. This document serves as a record of the services and decisions personally performed and made by theattending provider. It was created on his/her behalf by a trained medical reviewer. The creation of this document is based on the provider?s statements to the medical reviewer. Electronically signed by Jcarlos West MD 11/03/20 10:14 EDT Electronically signed by Charlee Rice 11/03/2020 10:06 [facility]08-12-2021 NoteHistory of Present Illness CHIEF COMPLAINT: Low Back pain HISTORY OF PRESENT ILLNESS: Debilitating spinal pain which worsens with lumbar facet loading maneuvers. The patient's axial symptoms, without evidence of nerve compression, have failed physical and medical measures. PHYSICAL EXAM: HEENT: Normocephalic, atraumatic. RESPIRATIONS: Unlabored ABDOMEN: Soft nontender MUSCULOSKELETAL: Pain that does re-create with lumbar loading. REVIEW OF SYSTEMS: Brief review of systems was conducted. Complaints are noncontributory for cauda equina or myelopathic complaints, fever chills or sweats or unintended weight loss or gain. ASSESSMENT: Lumbosacral spondylosis, lumbar spondylosis. PLAN: The patient meets criteria for diagnostic lumbar facet joint nerve blockade for symptoms thatdo worsen with loading without neural compression to establish cause and candidacy for rhizotomy therapy. Benefits risks and alternatives have been discussed, we agree to proceed. Physical Exam Vitals & Measurements HR: 62 (Peripheral) RR: 16 BP: 143/82 SpO2: 96% HT: 172 cm WT: 79.5 kg Additional Vitals No qualifying data available. This document serves as a record of the services and decisions personally performed and made by theattending provider. It was created on his/her behalf by a trained medical reviewer. The creation of this document is based on the provider?s statements to the medical reviewer. Problem List/Past Medical History Ongoing Acid reflux Historical No qualifying data Procedure/Surgical History APPENDECTOMY REPAIR ROTATOR CUFF ACUTE LUMBAR SURGERY (2000) CERVICAL FUSION (2011) LEFT HAND (2011) Cervical/Thoracic Transforaminal Epidural Steroid Injection (Bilateral) (10/06/2020) Lumbar/Sacral Dorsal Medial Branch Block (Bilateral) (10/20/2020) Medications Inpatient No active inpatient medications Home Excedrin Extra Strength, Oral, q6hr Pepcid 20 mg oral tablet, 20 mg= 1 tabs, Oral, Daily Allergies codeine (Nausea & vomiting) Social History Alcohol Current, 1-2 times per week Substance Abuse Denies All Tobacco Never (less than 100 in lifetime) Use:. Lab Results Microbiology - Current Encounter No qualifying data available. Diagnostic Results Diagnostic Radiology No qualifying data available. Computed Tomography No qualifying data available. Ultrasound No qualifying data available. Magnetic Resonance Imaging No qualifying data available. Nuclear Medicine No qualifying data available. Electronically signed by Jcarlos West MD 11/03/20 09:42 EDT Electronically signed by Charlee Rice 11/03/2020 09:37 [facility]07-29-2021 NotePROCEDURE: Bilateral L3, L4, L5 dorsal medial branch blocks. PREOPERATIVE AND POSTOPERATIVE DIAGNOSIS: Pain due to lumbosacral spondylosis, lumbar spondylosis, lumbago. Physician: Jcarlos West M.D. COMPLICATIONS: None. SOLUTION USED: Marcaine 0.25% total of 4 mLs, 40 MG Depomedrol. ANESTHESIA: Local. Indications: Debilitating mechanical spinal failing physical medical measures over a six-week period within the last 3 months. For symptomatology that does re-create with spinal loading without neural compression, candidacy is established for diagnostic joint nerve blockade to establish causality and determine the usefulness of rhizotomy therapy. DESCRIPTION OF PROCEDURE: The patient was placed in prone position. The skin overlying the lumbar area was prepped with alcohol and draped. We employed fluoroscopic guidance and visualized the patient's lumbar spine in a posterior- anterior projection. We then employed a spinal needle which was inserted percutaneously towards the indicated dorsal medial rami. For each level the needle tip positionwas confirmed with multi-angled projections and identification of the relative anatomic landmarks. At each level, 1 mL of solution was injected and needle was withdrawn. The patient was turned back onto the rharrell and taken to recovery in stable condition and allowed to recover after which was discharged per criteria. This document serves as a record of the services and decisions personally performed and made by theattending provider. It was created on his/her behalf by a trained medical reviewer. The creation of this document is based on the provider?s statements to the medical reviewer. Electronically signed by Jcarlos West MD 10/20/20 09:40 EDT Electronically signed by Dwayne Charlee J 10/20/2020 09:35 [facility] NoteHistory of Present Illness CHIEF COMPLAINT: Low Back pain HISTORY OF PRESENT ILLNESS: Debilitating spinal pain which worsens with lumbar facet loading maneuvers. The patient's axial symptoms, without evidence of nerve compression, have failed physical and medical measures. PHYSICAL EXAM: HEENT: Normocephalic, atraumatic. RESPIRATIONS: Unlabored ABDOMEN: Soft nontender MUSCULOSKELETAL: Pain that does re-create with lumbar loading. REVIEW OF SYSTEMS: Brief review of systems was conducted. Complaints are noncontributory for cauda equina or myelopathic complaints, fever chills or sweats or unintended weight loss or gain. ASSESSMENT: Lumbosacral spondylosis, lumbar spondylosis. PLAN: The patient meets criteria for diagnostic lumbar facet joint nerve blockade for symptoms thatdo worsen with loading without neural compression to establish cause and candidacy for rhizotomy therapy. Benefits risks and alternatives have been discussed, we agree to proceed. Physical Exam Vitals & Measurements HR: 65 (Peripheral) RR: 16 BP: 142/77 SpO2: 96% HT: 172 cm WT: 79.5 kg This document serves as a record of the services and decisions personally performed and made by theattending provider. It was created on his/her behalf by a trained medical reviewer. The creation of this document is based on the provider?s statements to the medical reviewer. Problem List/Past Medical History Ongoing Acid reflux Historical No qualifying data Procedure/Surgical History APPENDECTOMY REPAIR ROTATOR CUFF ACUTE LUMBAR SURGERY (2000) CERVICAL FUSION (2011) LEFT HAND (2011) Cervical/Thoracic Transforaminal Epidural Steroid Injection (Bilateral) (10/06/2020) Medications Inpatient No active inpatient medications Home Excedrin Extra Strength, Oral, q6hr Pepcid 20 mg oral tablet, 20 mg= 1 tabs, Oral, Daily Allergies codeine (Nausea & vomiting) Social History Alcohol Current, 1-2 times per week Substance Abuse Denies All Tobacco Never (less than 100 in lifetime) Use:. Lab Results Microbiology - Current Encounter No qualifying data available. Diagnostic Results Diagnostic Radiology No qualifying data available. Computed Tomography No qualifying data available. Ultrasound No qualifying data available. Magnetic Resonance Imaging No qualifying data available. Nuclear Medicine No qualifying data available. Electronically signed by Jcarlos West MD 10/20/20 08:53 EDT Electronically signed by Charlee Rice 10/20/2020 08:[facility] NotePROCEDURE: Bilateral C6 transforaminal epidural steroid injection under fluoroscopic guidance. Physician: Jcarlos West M.D. PRE- AND POSTOPERATIVE DIAGNOSES: Pain secondary to cervical spinal stenosis. SOLUTION USED: DEPOMEDROL 80MG, Marcaine 0.125% plus lidocaine. COMPLICATIONS: None. ANESTHESIA: Local. PROCEDURE DESCRIPTION: After informed consent was obtained, the patient was brought to the operating room and was placed in the prone position. Standard monitoring was applied. The skin overlying thearea was prepped and draped in standard sterile fashion. A 25-gauge spinal needle was inserted overthe anesthetized area and directed toward the indicated nerve root foramen under fluoroscopic guidance. Omnipaque dye 0.3 mL was injected and appropriate epidural distribution was confirmed without intravascular or intrathecal spread. Subsequently, 1 mL of the corticosteroid and local anesthetic solution was injected. The needle was removed. The patient was then turned supine onto the rharrell and transferred to the recovery area in stable condition, to be discharged home after meeting criteria and follow up as per treatment plan. This document serves as a record of the services and decisions personally performed and made by theattending provider. It was created on his/her behalf by a trained medical reviewer. The creation of this document is based on the provider?s statements to the medical reviewer. Electronically signed by Jcarlos West MD 10/06/20 15:01 EDT Electronically signed by Kathleen Marin 10/06/2020 14:57 [facility]07-15-2021 NoteHistory of Present Illness CHIEF COMPLAINT: Neck pain HISTORY OF PRESENT ILLNESS: Debilitating neck pain which worsens with Spurling's maneuver, failing conservative measures markedly impairing function indicating the appropriateness for transforaminal epidural steroid blockade. PHYSICAL EXAM: HEENT: Normocephalic, atraumatic. RESPIRATIONS: Unlabored ABDOMEN: Soft nontender MUSCULOSKELETAL: Pain that does re-create Spurling's maneuver. REVIEW OF SYSTEMS: Brief review of systems was conducted. Complaints are noncontributory for cauda equina or myelopathic complaints, fever chills or sweats or unintended weight loss or gain. ASSESSMENT: Cervical spinal stenosis PLAN: Neurogenic discomfort secondary to disc and spondylitic reactivity precipitating neural foraminal narrowing and lateral recess stenosis. For complaints that have failed conservative measures, candidacy has been established for epidural steroid blockade transforaminal approach for diagnostic and potential therapeutic benefit. Risks benefits alternatives have been discussed, we agree to proceed. Physical Exam Vitals & Measurements T: 36.3 ?C (Oral) HR: 74 (Peripheral) RR: 16 BP: 138/78 SpO2: 95% HT: 172 cm WT: 79.5 kg Additional Vitals No qualifying data available. Assessment/Plan This document serves as a record of the services and decisions personally performed and made by theattending provider. It was created on his/her behalf by a trained medical reviewer. The creation of this document is based on the provider?s statements to the medical reviewer. Problem List/Past Medical History Ongoing Acid reflux Historical No qualifying data Procedure/Surgical History APPENDECTOMY REPAIR ROTATOR CUFF ACUTE LUMBAR SURGERY (2000) CERVICAL FUSION (2011) LEFT HAND (2011) Medications Inpatient No active inpatient medications Home Excedrin Extra Strength, Oral, q6hr Pepcid 20 mg oral tablet, 20 mg= 1 tabs, Oral, Daily Allergies codeine (Nausea & vomiting) Social History Alcohol Current, 1-2 times per week Substance Abuse Denies All Tobacco Never (less than 100 in lifetime) Use:. Lab Results Microbiology - Current Encounter No qualifying data available. Diagnostic Results Diagnostic Radiology No qualifying data available. Computed Tomography No qualifying data available. Ultrasound No qualifying data available. Magnetic Resonance Imaging No qualifying data available. Nuclear Medicine No qualifying data available. Electronically signed by Jcarlos West MD 10/06/20 14:24 EDT Electronically signed by Kathleen Marin 10/06/2020 14:[facility] Diagnosis Impaired fasting glucose documented in this encounter [place] Phone: evaluation note* Diagnosis Cervical disc disorder at C4-C5 level with radiculopathy / MRI 2020 Screening cholesterol level Screening for lipoid disorders Screening for prostate cancer Special screening for malignant neoplasm of prostate documented in this encounter [employer]: evaluation note* Diagnosis Right medial knee pain Pain in joint, lower leg documented in this encounter [employer]: evaluation note* Diagnosis Screening for prostate cancer Special screening for malignant neoplasm of prostate Type 2 diabetes mellitus without complication, without long-term current use of insulin (HCC) / DIET CONTROLLED Screening cholesterol level Screening for lipoid disorders documented in this encounter [employer] Phone: [email or web address] note* Diagnosis Renal colic on right side Renal colic documented in this encounter [employer]: [email or web address] note* Diagnosis Renal colic on right side Renal colic documented in this encounter [employer] Phone: evaluation note* Diagnosis Type 2 diabetes mellitus without complication, without long-term current use of insulin (HCC) / DIET CONTROLLED documented in this encounter [employer]: [email or web address] note* Diagnosis Screening for prostate cancer Special screening for malignant neoplasm of prostate Mixed hyperlipidemia Type 2 diabetes mellitus without complication, without long-term current use of insulin (HCC) / DIET CONTROLLED documented in this encounter [employer] note* Diagnosis Right flank pain- Primary Abdominal pain, unspecified site Cyst of left kidney Unspecified congenital cystic kidney disease [facility] Narrative - Reported* Type Description Date Medical History Esophageal reflux Surgical History back surgery Surgical History Neck Surgery Surgical History hand surgery Surgical History shoulder surgery Hospitalization History See Above Patient Education Systems Other reason for visit NarrativeReferral Lindsey Cervical Disc Patient Education Systems Other Advance Directives No Advanced Directives Records FoundDocuments on File Type Date Recorded 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 Advance 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 and 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 Will 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 Documents on File Type Date 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 None True Nowak PA-C [address] [facility] [address] [place] [address] Referral ID Status Reason Start Date Expiration Date Visits Re quested Visits Authorized [id number] Closed 05/16/2022 05/16/2023 1 1 Additional Source Comments (unrecognized sect ion and content) No Status Records FoundNo Status Records FoundNo Status Records FoundNo Status Records Found INFORMATION SOURCE (unrecogn ized section and content) DATE CREATED AUTHOR 09/24/2020 [facility] DATE CREATED AUTHOR AUTHOR'S ORGANIZ ATION 04/17/2021 [facility] DATE CREATED AUTHOR AUTHOR'S ORGANIZ ATION 02/03/2022 [facility] DATE CREATED AUTHOR AUTHOR'S ORGANIZ ATION [facility] (unrecognized sec tion and content) Soft Drink Powder Mixer Relationship Specialty Start Date End Date Blossom Portillo MD [address] [place] [address] [place] [address] PCP - General Internal Medicine 07/20/19 Soft Drink Powder Mixer Relationship Specialty Start Date End Date Blossom Portillo MD [address] [place] [address] [place] [address] PCP - General Internal Medicine 07/20/19 Soft Drink Powder Mixer Relationship Specialty Start Date End Date Blossom Portillo MD [address] [place] [address] [facility] [place] [address] PCP - General Internal Medicine 07/20/19 Soft Drink Powder Mixer Relationship Specialty Start Date End Date Blossom Portillo MD [address] [place] [address] [facility] [place] [address] PCP - General Internal Medicine 07/20/19 Soft Drink Powder Mixer Relationship Specialty Start Date End Date Blossom Portillo MD [address] [place] [address] [place] [address] PCP - General Internal Medicine 07/20/19 Soft Drink Powder Mixer Relationship Specialty Start Date End Date Blossom Portillo MD [address] [place] [address] [place] [address] PCP - General Internal Medicine 07/20/19 Soft Drink Powder Mixer Relationship Specialty Start Date End Date Blossom Portillo MD [address] [facility], [place] [address] PCP - General Internal Medicine 07/20/19 Soft Drink Powder Mixer Relationship Specialty Start Date End Date Blossom Portillo MD [address] [facility], [place] [address] PCP - General Internal Medicine 07/20/19 Reason for Visit (unrecogniz ed section and content) Specialty Diagnoses / Procedures Referred By Bharathi street Referred To Contact Radiology Diagnoses Renal colic on right side Procedures CT ABDOMEN PELVIS WO CONTRAST Additional Contrast? None True Nowak PA-C [address] [facility] [address] [place] [address] [place] [address] Referral ID Status Reason Start Date Expiration Date Visits Re quested Visits Authorized [id number] Closed 05/16/2022 05/16/2023 1 1 Reason Comments Flank Pain Right flank pain sta rting at 0030, hx of kidney stones Ordered Prescriptions (unrec ognized section and content) Prescription Sig Dispensed Refills Start Date End Da ibuprofen (ADVIL;MOTRIN) 600 MG tablet Take 1 tablet by mouth 3 times daily as needed for Pain Please take after meals 15 tablet 02/05/2024 02/10/2024 lidocaine (LIDODERM) 5 % Place 1 patch onto the skin daily for 5 days 12 hours on, 12 hours off. 5 patch 02/05/2024 02/10/2024 Scheduled Active and Recently Administ ered Medications (unrecognized section and content) Medication Order 02/03/2024 02/04/2024 02/05/2024 cyclobenzaprine (FLEXERIL) tablet 10 mg (COMPLETED) 10 mg, Oral, ONCE, 1 dose, On Sat02/05/24 at 0400 0420 (Given - Provid er: Charlee Robison RN) ketorolac (TORADOL) injection 15 mg (COMPLETED) 15 mg, IntraVENous, ONCE, 1 dose, On Sat02/05/24 at 0215, Do not administer for more than 5 days. 0220 (Given - Provid er: Charlee Robison RN) lidocaine 4 % external patch 1 patch 1 patch, TransDERmal, Administer over 12 Hours, ONCE, On Sat02/05/24 at 0430, For 1 dose, Apply patch to right back pain. Patch may remain in place for up to 12 hours in any 24 hour period. 0421 (Patch Applied - Provider: Charlee Robison RN)1621 (Due: Patch Removed - Provider: Charlee Robison RN) morphine injection 4 mg (COMPLETED) 4 mg, IntraVENous, ONCE, 1 dose, On Sat02/05/24 at 0230, If oral and IV narcotics ordered, use oral first and only use IV if oral is ineffective or cannot take oral. Do Not give oral and IV within 1 hour of each other unless specifically ordered. 0234 (Given - Provid er: Charlee Robison RN) ondansetron (ZOFRAN) injection 4 mg (COMPLETED) 4 mg, IntraVENous, ONCE, 1 dose, On Sat02/05/24 at 0215 0219 (Given - Provid er: Charlee Robison RN) sodium chloride 0.9 % bolus 1,000 mL (COMPLETED) 1,000 mL (12.3 mL/kg), IntraVENous, at 2,000 mL/hr, Administer over 30 Minutes, ONCE, On Sat02/05/24 at 0215, For 1 dose 022 (New Bag - Prov ider: Charlee Robison RN)025 (Stopped - Provider: Charlee Robison RN) sodium chloride flush 0.9 % injection 3 mL(Linked Group 1) 3 mL, IntraVENous, EVERY 8 HOURS, First dose on Sat02/05/24 at 0215, Until Discontinued, Flush line with 3-5 mL 0220 (Given - Provid er: Charlee Robison RN)1015 (Due)1815 (Due) PRN Medication Order 02/03/2024 02/04/2024 02/05/2024 iopamidol (ISOVUE-370) 76 % injection 75 mL (COMPLETED) 75 mL, IntraVENous, IMG ONCE PRN, 1 dose, Starting on Sat02/05/24 at 0240, Until Sat02/05/24 at 0251, Other 0251 (Given - Provid er: Fabiola Carrizales) Linked Groups Order Group 1: Saline lock IV Routine, CONTINUOUS, Starting on Sat02/05/24 at 0215, Until Specified And sodium chloride flush 0.9 % injection 3 mLJump to med 3 mL, IntraVENous, EVERY 8 HOURS, First dose on Sat02/05/24 at 021, Until Discontinued, Flush line with 3-5 mL FOR RECORDS PERTAINING TO PATIENTS WHO ARE OR HAVE BEEN ENROLLED IN A CHEMICAL DEPENDENCY/SUBSTANCEABUSE PROGRAM, SOME INFORMATION MAY BE OMITTED. This clinical summary was aggregated from multiple sources. Caution should be exercised in using it in the provision of clinical care. This summary normalizes information from multiple sources, and as a consequence, information in this document may materially change the coding, format and clinical context of patient data. In addition, data may be omitted in some cases. CLINICAL DECISIONS SHOULD BE BASED ON THE PRIMARY CLINICAL RECORDS. [employer] provides no warranty or guarantee of the accuracy or completeness of information in this document.
[2024-02-13 06:17] LABS: Basophils Percent Auto 0.4 % (0.2-2.0); Eosinophils Absolute Auto 0.2 10^3/uL (0.0-0.7); Eosinophils Percent Auto 3.1 % (0.9-7.0); Hematocrit 42.3 % (42.0-54.0); Hemoglobin 14.2 g/dL (14.0-18.0); Immature Granulocytes Abs Auto 0.01 10^3/uL (0.00-0.03); Immature Granulocytes Pct Auto 0.2 % (0.0-0.5); Lymphocytes Absolute Auto 1.2 10^3/uL (1.2-3.8); Lymphocytes Percent Auto 24.3 % (20.5-60.0); Mean Corpuscular HGB Conc 33.6 g/dL (29.9-35.2); Mean Corpuscular Hemoglobin 31.3 pg (25.9-34.0); Mean Corpuscular Volume 93.2 fL (80.0-94.0); Monocytes Absolute Auto 0.7 10^3/uL (0.3-0.8); Monocytes Percent Auto 14.3 % (1.7-12.0); Neutrophils Percent Auto 57.7 % (43.0-75.0); Platelet Count 239 10^3/uL (150-450); Red Blood Count 4.54 10^6/uL (4.70-6.10); Red Cell Distribution Width 13.7 % (11.0-15.0); White Blood Count 5.1 10^3/uL (4.0-11.0)
[2024-02-13 06:30] LABS: Glucometer 108 mg/dL (74-106)
[2024-02-13] MEDS: LACTATED RINGER'S SOLUTION 1,000 ML 50 ML IV ×3 (06:48→09:28)
[2024-02-13] MEDS: CEFAZOLIN SODIUM 2 GM/50 ML D5W PREMIX IV (07:42)
--- NOTE | 2024-02-13 07:46 | XR_ITS ---
The [address] [address] Patient Name: DINO MORENO MRN: [id number] date: 1950 Sex: M Assigned Patient Location: [facility] Current Patient Location: [facility] Accession/Order Number: [id number] Exam Date: 02/13/2024 10:20 Report Date: 02/14/2024 15:09 At the request of: LUIS M MORELAND Procedure: XR foot RT min 3V PROCEDURE: XR foot RT min 3V HISTORY: hallux rigidus ; postop COMPARISON: XR foot right 10/15/2023 FINDINGS: BONES:Mechanical fusion of the first metatarsophalangeal joint via dorsal plate and screws. Degenerative enthesopathic spurring of the calcaneus. SOFT TISSUES:Images were obtained through cast material which limits evaluation. EFFUSION:None visible. OTHER: Negative. XR/XR foot RT min 3V IMPRESSION: 1. Mechanical fusion of the first metatarsophalangeal joint without appreciable hardware failure. Electronically authenticated by: ISIS PALMER Date: 02/14/2024 15:09
--- NOTE | 2024-02-13 07:51 | P.ORON_ITS ---
Brief Operative Note Date of procedure: 02/13/24 Pre-op diagnosis general: Right hallux rigidus and second hammertoe Post-op diagnosis: same as pre-op Procedure: Procedure performed: Right first metatarsal phalangeal joint fusion, correction of second hammertoe with PIPJ arthroplasty and application of short leg splint Indications for procedure: Patient is a 73-year-old male who has had worsening pain and dysfunction associated wound with his right foot for 1 year. He did attempt nonsurgical treatment with shoe modification, activity modification, NSAIDs such as Celebrex however did not see significant relief. Due to his failure to respond to nonsurgical care patient wished to undergo surgical correction I recommend the above procedures. Intraoperative findings: Reduced range of motion and crepitus of the right great toe which has no dorsiflexion and only 10 degrees of plantarflexion. There is also mild to moderate prominence of the medial eminence of the first metatarsal. Periarticular osteophytes of the first metatarsal phalangeal joint with full- thickness cartilage degeneration encompassing 80% of the first metatarsal head and 50% of the proximal phalanx base. Cystic formation within the first met head as well otherwise bone quality was within normal limits given patient's age and gender. Right second toe is relatively long compared to the first and third toes with reducible contracture at the PIPJ and MPJ. Procedure in detail: Patient was identified preoperative holding by myself which time correct side and site were marked and consent was obtained. Regional anesthesia was performed by the anesthesia team and patient was brought back to the operating theater placed on table in a supine position with a thigh tourniquet. Preoperative antibiotics were started and the right lower extremity was prepped and draped in usual sterile fashion. Formal timeout was performed and the operative extremity was exsanguinated with the tourniquet inflated. Incision was placed parallel to the extensor hallucis longus tendon on the dors al aspect of the forefoot. Combination of sharp and blunt dissection with all bleeders being coagulated and protecting the extensor tendon throughout the procedure gained access to the first metatarsal phalangeal joint. Large osteophytes were removed with a rongeur and sharp release of the capsule was performed. A McGlamery was passed into the first metatarsal phalangeal joint and a guidepin was placed into the head of the first metatarsal in its central aspect. Reamers were used to prepare the first metatarsal head removing all remaining cartilage, subchondral bone and cystic formation. The guidepin was then removed and placed into the proximal phalanx base. Reamers were used to prepare the proximal phalanx in a similar manner and once prepared the reamer and guidepin was removed. The joint was then drilled with a 2.0 mm drill bit and the surgical site was irrigated with copious saline. 1 cc of bone allograft was packed into the fusion site. A stab incision was placed on the medial aspect of the hallux proximal phalanx and a guidepin was used to pin the proximal phalanx to the first metatarsal in a rectus position. Position was checked under fluoroscopy and on the table. A sagittal saw was used to contour the dorsal aspect of the first metatarsal and proximal phalanx to accommodate a locking 3.5 mm plate which was temporarily fixated with BB tacks. Once position was confirmed on fluoroscopy 3.5 mm locking and nonlocking screws were placed accordingly removing the temporary fixation and filling the plate with screws. Position was again checked on fluoroscopy as well as on the table. Then a 3.5 mm cannulated screw was placed over the guidewire for added stability. Surgical site was irrigated with copious saline. An elliptical incision was created over the PIPJ of right second toe. Extensor tendon was incised and reflected to expose the PIPJ. Periarticular ligaments were released. Sagittal saw was use to excised the head of proximal phalanx. The site was irrigated with copious amounts of sterile saline. The extensor tendon was repaired with absorbable stitch. The incisions were then closed in layers and the tourniquet was deflated with a prompt hyperemic response. A dry sterile dressing was placed over the foot followed by a multilayer modified Muñoz posterior splint. Patient tolerated the procedure and anesthesia well was transported to the recovery room with vital signs stable and brisk capillary refill to the right toes. Postoperative plan: Discharge home under 's care No walking on the operative foot but patient may place weight to the right heel for balance and transfers Keep splint clean dry and intact Prescriptions were sent to his pharmacy using my office EMR Follow-up next week in my office Implants: Medline 3.5 mm locking 1st MTPJ plate & 3.5 mm cannulated screw Sparc bone allograft 1cc Anesthesia: regional and General-LMA Surgeon: Price Sampson Estimated blood loss (mL): 10 Pathology: none sent Condition: stable Disposition: PACU
--- NOTE | 2024-02-13 10:29 | PC.NURSE ---
ok to move to phase 2 removed oxygen at this time.
[2024-02-13 10:49] LABS: Glucometer 104 mg/dL (74-106)
== END 2024-02-13 11:12 | disposition home or self-care (01) ==
PROVIDERS: Anesthesiology; PCP Internal Medicine; Visit Provider Podiatrist Foot & Ankle Surgery
PROC: (CPT 28285; principal; 2024-02-13 07:30)
DX: M20.41 Other hammer toe(s) (acquired), right foot (principal); M20.21 Hallux rigidus, right foot; Z79.899 Other long term (current) drug therapy
CPT/HCPCS: 28285; 28750; 36415; 64445; 73630; 76000; 82948; 85025; C1713; J0690; J1100; J1885; J2250; J2405; J2704; J2795; J3010

== ENCOUNTER 2024-03-05 13:05 | Outpatient (OUT) | payer MEDICARE, OTHER, SELFPAY ==
--- NOTE | 2024-03-05 | XR_ITS ---
[address] [address] Patient Name: DINO MORENO MRN: [id number] date: 1950 Sex: M Assigned Patient Location: [facility] Current Patient Location: Accession/Order Number: [id number] Exam Date: 03/05/2024 13:20 Report Date: 03/06/2024 08:03 At the request of: DONNA SANDOVAL Procedure: XR foot RT min 3V PROCEDURE: XR foot RT min 3V COMPARISON: 02/13/2024 HISTORY: RIGHT FOOT PAIN FINDINGS: BONES:Stable fusion the first metatarsal-phalangeal joint with a dorsal plate and screws. No acute fracture, dislocation or mechanical failure. Moderate degenerative changes with marginal osteophyte formation. Moderate enthesopathic spurring of the calcaneus SOFT TISSUES:Negative. No visible soft tissue swelling. EFFUSION:None visible. OTHER: Negative. XR/XR foot RT min 3V IMPRESSION: Stable first metatarsal-phalangeal joint fusion Electronically authenticated by: DINO DEL CASTILLO Date: 03/06/2024 08:03
== END 2024-03-05 13:06 | disposition home or self-care (01) ==
LOC: RAD 13:06
PROVIDERS: PCP Internal Medicine; Visit Provider Physician Assistant
DX: M79.671 Pain in right foot (principal); M24.674 Ankylosis, right foot
CPT/HCPCS: 73630

== ENCOUNTER 2024-03-26 14:09 | Outpatient (OUT) | payer MEDICARE, OTHER, SELFPAY ==
--- NOTE | 2024-03-26 | XR_ITS ---
[address] [address] Patient Name: DINO MORENO MRN: [id number] date: 1950 Sex: M Assigned Patient Location: Current Patient Location: Accession/Order Number: [id number] Exam Date: 03/26/2024 14:09 Report Date: 03/27/2024 07:35 At the request of: DONNA SANDOVAL Procedure: XR foot RT min 3V PROCEDURE: XR foot RT min 3V COMPARISON: 03/05/2024 HISTORY: RIGHT FOOT PAIN FINDINGS: BONES:No acute fracture or dislocation. Stable first metatarsal-phalangeal joint fusion with a dorsal plate and multiple screws. No significant bone formation or bony bridging. Mild to moderate degenerative changes. Enthesopathic spurring of the calcaneus SOFT TISSUES:Negative. No visible soft tissue swelling. EFFUSION:None visible. OTHER: Negative. XR/XR foot RT min 3V IMPRESSION: Stable first metatarsal-phalangeal joint fusion. Electronically authenticated by: DINO DEL CASTILLO Date: 03/27/2024 07:35
--- OUTSIDE RECORDS SUMMARY | 2024-03-26 14:31 | XMS_ITS | CCD ---
Author Organization [facility] Care Team Providers Care Resident Care Manager Name Role Phone Azeb Degroot Primary Care Physician Unavailab Azeb Valverde Unavailable Unavailable Ian Melendez Primary Care Provider [phone] Azeb Degroot Primary Care Physician Unavailab Blossom Sales Primary Care Provider Lindsey SILVERMAN, Blossom Harkins Primary Care Provider LINDSEY, DR CERRATO Admitting Unavailable LINDSEY, DR CERRATO Attending Unavailable BEAVER CROSSING, DR DINO [employer] Unavailable LINDSEY, DR [...] Unavailable Blossom Portillo MD Primary Care Provider [phone] Azeb Degroot Primary Care Physician Unavailab Azeb Valverde Primary Care Physician Unavailab tai Portillo MD, Blossom Harkins Primary Care Provider BLOSSOM PORTILLO Primary Care Unavailable BLOSSOM PORTILLO Referring Unavailable BLOSSOM PORTILLO Primary Care Unavailable LEIA LING Attending Unavailable BLOSSOM PORTILLO Primary Care Unavailable JCARLOS ALEGRE Referring Unavailable BLOSSOM PORTILLO Primary Care Unavailable BLOSSOM PORTILLO Referring Unavailable BLOSSOM PORTILLO Referring Unavailable BLOSSOM PORTILLO Primary Care Unavailable Azeb Degroot Primary Care Physician Unavailab tai Allergies Allergy Classification Reported Allergen(s) Allergy Type Date of Onset Reaction(s) Facility [employer]io[employer] (2 sources) Codeine; Translations: [Codeine] Drug Allergy 3 Other (See Comments) [employer] (5 sources) Codeine; Translations: [codeine sulfate] Drug Allergy [employer] (6 sources) Codeine; Translations: [Codeine Phosphate] Drug Allergy Unknown [employer] (12 sources) Codeine; Translations: [codeine] Drug Allergy 3 Other (See Comments), Nausea And Vomiting [employer]- [place], [place] Medications Current Medications Medication Drug [...] 08/01/2020 Active celecoxib 200 mg oral capsule (8 sources) Nonsteroidal Anti-inflammatory Drug Start: 10-03-2023 take 1 capsule by mouth twice daily celecoxib (CELEBREX) 200 MG capsule 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 Apply to entire body site twice daily as directed; ph: [phone] Start: 03-02-2024 Efudex 5 % top ical cream 03/02/2024 COMPOUND 1:1 with 0.005% calcipotriene. Apply to entire body site twice daily as directed; ph: [phone] ibuprofen 600 mg oral tablet (5 sources) Nonsteroidal Anti-inflammatory Drug Start: 02-05-2024 End: 02-10-2024 take 1 tablet by mouth three times daily as needed for pain ibuprofen (ADVIL;MOTRIN) 600 MG tablet Take 1 tablet by mouth 3 times daily as needed for Pain Please take after meals 15 tablet 02/05/2024 02/10/2024 Active Start: 08-24-2020 take 1 tablet by jackelin twice daily as needed for pain ibuprofen (ADVIL;MOTRIN) 800 MG tablet Take 1 tablet by mouth 2 times daily as needed for Pain 60 tablet 0 08/24/2020 Active lidocaine 0.05 mg/mg medicated patch (7 sources) Antiarrhythmic, Amide Local Anesthetic Start: 02-05-2024 [...] mL tamsulosin hydrochloride 0.4 mg oral capsule (8 sources) alpha-Adrenergi c Rod Start: 05-15-2023 take 1 capsule by mouth once daily tamsulosin (FLOMAX) 0.4 MG capsule Take 1 capsule by mouth daily 90 capsule 3 05/15/2023 Active Start: 03-29-2022 take 1 capsule by mo uth once daily tamsulosin (FLOMAX) 0.4 MG capsule [...] hydrochloride 500 mg extended release oral tablet (6 sources) Biguanide End: 09-03-2019 take 1 tablet [...] omeprazole 20 mg delayed release oral capsule (3 sources) Proton Pump Inhibitor take 1 capsule [...] at 0215, For 1 dose triamcinolone acetonide 0.89731 mg/mg topical ointment (6 sources) Corticosteroid Start: 07-01-2018 apply 1 g topically twice daily triamcinolone acetonide 0.025 % topical ointment 07/01/2018 apply a thin layer to the affected area(s) by topical route 2 times daily until flat. Dispense 30 gm Problems Active Problems Problem Classification Problem Date Documented Date Episodic/Chronic Abdominal pain (2 sources) Right flank pain; Translations: [Unspecified abdominal pain] Onset: 4 02-05-2024 Episodic Allergic reactions (7 sources) Contact dermatitis and other eczema, unspecified cause; Translations: [Dermatitis, unspecified] Onset: 9 Episodic Diabetes mellitus without complication (12 sources) Type 2 diabetes mellitus without complication; Translations: [Type 2 diabetes mellitus without complications] Onset: 2 07-24-2021 Chronic Diabetes mellitus without complication (8 sources) Other abnormal glucose; Translations: [Impaired fasting [...] 9 Episodic Other and unspecified benign neoplasm (20 sources) Melanocytic nevi, unspecified Onset: 9 Episodic Other bone disease and musculoskeletal deformities (8 sources) Degenerative joint disease involving multiple joints; 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, multiple sites] Onset: 2 07-24-2021 Chronic Other circulatory disease (1 source) Nevus, non-neoplastic Onset: 0 Episodic Other circulatory disease (18 sources) Nevus, non-neoplastic Onset: 0 Episodic Other [...] tissue Onset: 0 Episodic Other skin disorders (20 sources) Personal history of diseases of the skin and subcutaneous tissue Onset: 0 Episodic Other skin disorders (20 sources) Other seborrheic keratosis Onset: 9 Episodic Other skin disorders (20 sources) Other melanin hyperpigmentation Onset: 9 Episodic Spondylosis; intervertebral disc disorders; other back problems (3 sources) Other spondylosis with radiculopathy, lumbar region; Translations: [Other spondylosis with radiculopathy, cervical region] Onset: 1 Chronic Unclassified (1 source) Patient encounter status; Translations: [Screening cholesterol level] Past or Other Problems Problem Classification Problem Date Documented Da te Episodic/Chronic Calculus of urinary tract (6 sources) Calculus of ureter; Translations: [Renal colic] Onset: 02-02-2022 Episodic Other and unspecified benign neoplasm (2 sources) Hemangioma of skin and subcutaneous tissue Onset: 07-01-2018 Episodic Other and unspecified benign neoplasm (4 sources) Hemangioma of skin and subcutaneous tissue [...] unspecified] Episodic Other inflammatory condition of skin (4 sources) 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 Other nervous system disorders (8 sources) Paresthesia of skin Onset: 07-01-2018 Episodic Other non-traumatic joint disorders (3 sources) Pain in right knee; Translations: [Pain in joint, lower leg] Onset: 01-16-2023 Episodic Other skin disorders (2 sources) Actinic keratosis Onset: 07-01-2018 Episodic Other skin disorders (15 sources) Actinic keratosis Onset: 07-01-2018 Episodic Spondylosis; [...] Diffon 02-05-2024 Basophils (Bld) [#/Vol] 0.04 10*3/uL [facility] Basophils/100 WBC (Bld) 1 % 0 - 2 % [facility] Eosinophils (Bld) [#/Vol] 0.13 10*3/uL [facility] Eosinophils/100 WBC (Bld) 2 % 1 - 4 % [facility] Erythrocyte distribution width (RBC) [Ratio] 13.7 % 11.8 - 14.4 % [facility] Hematocrit (Bld) [Volume fraction] 42.3 % 40.7 - 50.3 % [facility] Hemoglobin (Bld) [Mass/Vol] 14.5 g/dL 13.0 - 17.0 g/dL [facility] Immature granulocytes (Bld) [#/Vol] [facility] Immature granulocytes/100 WBC (Bld) 0 % 0 [facility] Interpretation and review of laboratory results Abnormal [facility] Lymphocytes/100 WBC (Bld) 27 % 24 - 43 % [facility] Lymphocytes/100 WBC (Bld) 1.50 % [facility] MCH (RBC) [Entitic mass] 31.4 pg 25.2 - 33.5 pg [facility] MCHC (RBC) [Mass/Vol] 34.3 g/dL 28.4 - 34.8 g/dL [facility] MCV (RBC) [Entitic vol] 91.6 fL 82.6 - 102.9 fL [facility] Monocytes/100 WBC (Bld) 16 % High 3 - 12 % [facility] Monocytes/100 WBC (Bld) 0.85 % [facility] Neutrophils/100 WBC (Bld) 54 % 36 - 65 % [facility] Nucleated RBC/100 WBC (Bld) [Ratio] 0.0 % 0.0 per 100 WBC [facility] Platelet mean volume (Bld) [Entitic vol] 9.8 fL 8.1 - 13.5 fL [facility] Platelets (Bld) [#/Vol] 272 10*3/uL [facility] RBC (Bld) [#/Vol] 4.62 10*6/uL 4.21 - 5.7 7 m/uL [facility] Segmented neutrophils/100 WBC (Bld) 2.96 % [facility] WBC other (Bld) [#/Vol] 5.5 [facility] Abs. Basophil 0.04 k/uL Normal 0.00-0.20 [facility] Comment on above: Performed By: #### C GARDENIA VELÁZQUEZ, LIP #### [address] [place] [address] Support Services Specialist: Dino Moody MD Abs.Imm.Granulocyte <0.03 Normal 0.00-0.30 [facility] Comment on above: Performed By: #### C GARDENIA VELÁZQUEZ, LIP #### [address] [place] [id number] Support Services Specialist: Dino Moody MD Abs.Neutrophil (Seg) 2.96 k/uL Normal 1.50-8.10 [facility] Comment on above: Performed By: #### C GARDENIA VELÁZQUEZ, LIP #### [address] [place] [address] Support Services Specialist: Dino Moody MD Basophils/100 WBC (Bld) 1 % Normal 0-2 [facility] Comment on above: Performed By: #### C DP, CP, LIP #### [address] [place], [facility] Support Services Specialist: Dino Moody MD Eosinophils (Bld) [#/Vol] 0.13 10*3/uL Normal 0.00-0.44 [facility] Comment on above: Performed By: #### C DP, CP, LIP #### [address] [place], [place] [address] Support Services Specialist: Dino Moody MD Eosinophils/100 WBC (Bld) 2 % Normal 1-4 [facility] Comment on above: Performed By: #### C DP, CP, LIP #### [address] [place] [address] Support Services Specialist: Dino Moody MD Erythrocyte distribution width (RBC) [Ratio] 13.7 % Normal 11.8-14.4 [facility] Comment on above: Performed By: #### C DP, CP, LIP #### [address] [place], [facility] Support Services Specialist: Dino Moody MD Hematocrit (Bld) [Volume fraction] 42.3 % Normal 40.7-50.3 [facility] Comment on above: Performed By: #### C DP, CP, LIP #### [address] [place], [place] [address] Support Services Specialist: Dino Moody MD Hemoglobin (Bld) [Mass/Vol] 14.5 g/dL Normal 13.0-17.0 [facility] Comment on above: Performed By: #### C DP, CP, LIP #### [address] [place] [id number] Support Services Specialist: Dino Moody MD Immature granulocytes/100 WBC (Bld) 0 % Normal 0 [facility] Comment on above: Performed By: #### C DP, CP, LIP #### [facility] [address] [place], [facility] Support Services Specialist: Dino Moody MD Lymphocytes (Bld) [#/Vol] 1.50 10*3/uL Normal 1.10-3.70 [facility] Comment on above: Performed By: #### C DP, CP, LIP #### [facility] [address] [place], [place] [address] Support Services Specialist: Dino Moody MD Lymphocytes/100 WBC (Bld) 27 % Normal 24-43 [facility] Comment on above: Performed By: #### C DP, CP, LIP #### [address] [place] [address] Support Services Specialist: Dino Moody MD MCH (RBC) [Entitic mass] 31.4 pg Normal 25.2-33.5 [facility] Comment on above: Performed By: #### C DP, CP, LIP #### [address] [place], [facility] Support Services Specialist: Dino Moody MD MCHC (RBC) [Mass/Vol] 34.3 g/dL Normal 28.4-34.8 [facility] Comment on above: Performed By: #### C DP, CP, LIP #### [address] [place], [place] [address] Support Services Specialist: Dino Moody MD MCV (RBC) [Entitic vol] 91.6 fL Normal 82.6-102.9 [facility] Comment on above: Performed By: #### C DP, CP, LIP #### [address] [place] [address] Support Services Specialist: Dino Moody MD Monocytes (Bld) [#/Vol] 0.85 10*3/uL Normal 0.10-1.20 [facility] Comment on above: Performed By: #### C DP, CP, LIP #### [facility] [address] [place], [place] [id number] Support Services Specialist: Dino Moody MD Monocytes/100 WBC (Bld) 16 % High 3-12 [facility] Comment on above: Performed By: #### C DP, CP, LIP #### [facility] [address] [place] [address] Support Services Specialist: Dino Moody MD Neutrophil (Seg) 54 % Normal 36-65 [facility] Comment on above: Performed By: #### C DP, CP, LIP #### [facility] [address] [place] [address] Support Services Specialist: Dino Moody MD NRBC Automated 0.0 per 100 WBC Normal 0.0 [facility] Comment on above: Performed By: #### C DP, CP, LIP #### [address] [place], [facility] Support Services Specialist: Dino Moody MD Platelet mean volume (Bld) [Entitic vol] 9.8 fL Normal 8.1-13.5 [facility] Comment on above: Performed By: #### C DP, CP, LIP #### [address] [place], [place] [id number] Support Services Specialist: Dino Moody MD Platelets (Bld) [#/Vol] 272 10*3/uL Normal 138-453 [facility] Comment on above: Performed By: #### C DP, CP, LIP #### [address] [place] [address] Support Services Specialist: Dino Moody MD RBC (Bld) [#/Vol] 4.62 10*6/uL Normal 4.21-5.77 [facility] Comment on above: Performed By: #### C DP, CP, LIP #### [facility] [address] [place], [facility] Support Services Specialist: Dino Moody MD WBC (Bld) [#/Vol] 5.5 10*3/uL Normal 3.5-11.3 [facility] Comment on above: Performed By: #### C DP, CP, LIP #### [facility] [address] [place] [address] Support Services Specialist: Dino Moody MD [facility] 02-05-2024 Albumin [Mass/Vol] 4.2 g/dL 3.5 - 5.2 g/dL [facility] Albumin/Globulin [Mass ratio] 1.6 {ratio} 1.0 - 2.5 [facility] ALP [Catalytic activity/Vol] 96 U/L 40 - 129 U/L [facility] ALT [Catalytic activity/Vol] 20 U/L 10 - 50 U/L [facility] Anion gap [Moles/Vol] 8 mmol/L Low 9 - 16 mmol/L [facility] AST [Catalytic activity/Vol] 18 U/L 10 - 50 U/L [facility] Bilirubin [Mass/Vol] 0.5 mg/dL 0.00 - 1.20 mg/dL [facility] Calcium [Mass/Vol] 9.1 mg/dL 8.6 - 10. 4 mg/dL [facility] Chloride [Moles/Vol] 107 mmol/L 98 - 10 7 mmol/L [facility] CO2 [Moles/Vol] 28 mmol/L 20 - 31 mmol/L [facility] Creatinine [Mass/Vol] 1.0 mg/dL 0.70 - 1.20 mg/dL [facility] Est, Glom Filt Rate 79 - PINF [facility] Comment on above: These results are not [...] [Mass/Vol] 96 mg/dL 74 - 99 mg/dL [facility] Interpretation and review of laboratory results Abnormal [facility] Potassium [Moles/Vol] 4.1 mmol/L 3.7 - 5.3 mmol/L [facility] Protein [Mass/Vol] 6.9 g/dL 6.6 - 8.7 g/dL [facility] Sodium [Moles/Vol] 143 mmol/L 136 - 145 mmol/L [facility] Urea nitrogen [Mass/Vol] 16 mg/dL 8 - 23 mg/dL [facility] Urea nitrogen/Creatinine [Mass ratio] 16 mg/mg 9 - [address] [facility] [address] ABDOMEN PELVIS W IV CONTR [...] Clayton Desai MD 02/05/24 Final result Normal [facility] CT Abdomen and Pelvis W jaye Raymond 02-05-2024 1. No acute intra-abdominal or pelvic process. 2. Small hiatal hernia. [facility] EXAMINATION: CT OF THE ABDOMEN AND [...] acute bone or soft tissue abnormality evident. [facility] Clayton Desai MD - 02/05/2024 EXAMINATION: [...] or pelvic process. 2. Small hiatal hernia. [facility] Radiology Study observation (narrative) [facility] CT Abdomen and Pelvis W cont rast IVOrdered By: Clayton Desai on 02-05-2024 [facility] Work Phone: Comp Metabolic Profon 2023 Albumin [Mass/Vol] 4.2 g/dL Normal 3.5-5.2 [facility] Comment on above: Performed By: #### C DP, CP, LIP #### [facility] [address] [place] [address] Support Services Specialist: Dino Moody MD Albumin/Glob Ratio 1.6 Normal 1.0-2.5 [facility] Comment on above: Performed By: #### C DP, CP, LIP #### [facility] [address] [place] [address] Support Services Specialist: Dino Moody MD Alkaline Phos 96 U/L Normal 40-129 [facility] Comment on above: Performed By: #### C DP, CP, LIP #### [facility] [address] [place] [address] Support Services Specialist: Dino Moody MD ALT [Catalytic activity/Vol] 20 U/L Normal 10-50 [facility] Comment on above: Performed By: #### C DP, CP, LIP #### [facility] [address] [place], [place] [id number] Support Services Specialist: Dino Moody MD Anion gap [Moles/Vol] 8 mmol/L Low 9-16 [facility] Comment on above: Performed By: #### C DP, CP, LIP #### [facility] [address] [place], [place] [phone] Support Services Specialist: Dino Moody MD AST [Catalytic activity/Vol] 18 U/L Normal -50 [facility] Comment on above: Performed By: #### C DP, CP, LIP #### [facility] [address] [place], [place] [id number] Support Services Specialist: Dino Moody MD Bilirubin [Mass/Vol] 0.5 mg/dL Normal 0.00-1.20 [facility] Comment on above: Performed By: #### C DP, CP, LIP #### [facility] [address] [place], [place] [phone] Support Services Specialist: Dino Moody MD BUN/CRE Ratio 16 Normal 9-20 [facility] Comment on above: Performed By: #### C DP, CP, LIP #### [facility] [address] [place], [place] 6[address]83 Support Services Specialist: Dino Moody MD Calcium [Mass/Vol] 9.1 mg/dL Normal 8.6-10.4 [facility] Comment on above: Performed By: #### C DP, CP, LIP #### [facility] [address] [place], [place] [phone] Support Services Specialist: Dino Moody MD Chloride [Moles/Vol] 107 mmol/L Normal 98-107 [facility] Comment on above: Performed By: #### C DP, CP, LIP #### [facility] [address] [place], [place] [phone] Support Services Specialist: Dino Moody MD CO2 [Moles/Vol] 28 mmol/L Normal 20-31 [facility] Comment on above: Performed By: #### C MELANIA CP, LIP #### [facility] [address] [place] [address] Support Services Specialist: Dino Moody MD Creatinine [Mass/Vol] 1.0 mg/dL Normal 0.70-1.20 [facility] Comment on above: Performed By: #### C MELANIA CP, LIP #### [facility] [address] [place] [address] Support Services Specialist: Dino Moody MD GFR/1.73 sq M.predicted among non-blacks MDRD (S/P/Bld) [Vol rate/Area] 79 mL/min/{1.73_m2} Normal >60 [facility] Comment on above: Result Comment: These results [...] By: #### C MELANIA CP, LIP #### [facility] [address] [place] [address] Support Services Specialist: Dino Moody MD Glucose [Mass/Vol] 96 mg/dL Normal 74-99 [facility] Comment on above: Performed By: #### C MELANIA CP, LIP #### [facility] [address] [place] [address] Support Services Specialist: Dino Moody MD Potassium [Moles/Vol] 4.1 mmol/L Normal 3.7-5.3 [facility] Comment on above: Performed By: #### C GARDENIA VELÁZQUEZ, LIP #### [facility] [address] [place], [place] [address]83 Support Services Specialist: Dino Moody MD Protein [Mass/Vol] 6.9 g/dL Normal 6.6-8.7 [facility] Comment on above: Performed By: #### C MELANIA CP, LIP #### [facility] [address] [place], [place] [phone] Support Services Specialist: Dino Moody MD Sodium [Moles/Vol] 143 mmol/L Normal 136-145 [facility] Comment on above: Performed By: #### C GARDENIA VELÁZQUEZ, LIP #### [address] [place], [place] [phone] Support Services Specialist: Dino Moody MD Urea nitrogen [Mass/Vol] 16 mg/dL Normal 8-23 [facility] Comment on above: Performed By: #### C GARDENIA VELÁZQUEZ, LIP #### [address] [place], [place] [phone] Support Services Specialist: Dino Moody MD Lactic Acidon 02-05-2024 Lactate [Moles/Vol] 1.0 mmol/L Normal 0.5-2.2 [facility] Comment on above: Performed By: #### U ANDIE ROTHO #### [address] [place], [place] [phone] Support Services Specialist: Dino Moody MD Lactic Acid (Select if patie nt is over 65 to rule out mesenteric ischemia)on 02-05-2024 Lactate (BldV) [Moles/Vol] 1.0 mmol/L 0.5 - 2.2 mmol/L [facility] Lipaseon 02-05-2024 Lipase [Catalytic activity/Vol] 37 U/L 13 - 60 U/L [facility] Lipase [Catalytic activity/Vol] 37 U/L Normal 13-60 [facility] Comment on above: Performed By: #### C GARDENIA VELÁZQUEZ, LIP #### [facility] [address] [place], [place] [id number] Support Services Specialist: Dino Moody MD Microscopic Urinalysison Epithelial cells LM.HPF (Urine sed) [#/Area] 0 TO 2 [facility] RBC LM.HPF (Urine sed) [#/Area] 0 TO 2 [facility] WBC LM.HPF (Urine sed) [#/Area] 0 TO 2 [facility] No Panel Informationon 02-04 [facility] UA w/Reflex Cultureon 2023 Bilirubin, SemiQt,Ur Negative Normal NEG [facility] Comment on above: Performed By: #### U AX, UMICAO #### [facility] [address] [place], [place] [phone] Support Services Specialist: Dino Moody MD Blood, Urine Negative Normal NEG [facility] Comment on above: Performed By: #### U AX, UMICAO #### [facility] [address] [place], [place] [phone] Support Services Specialist: Dino Moody MD Clarity (U) Clear Normal CLEAR [facility] Comment on above: Performed By: #### U AX, UMICAO #### [facility] [address] [place], [place] [phone] Support Services Specialist: Dino Moody MD Color (U) Yellow Normal YEL [facility] Comment on above: Performed By: #### U AX, UMICAO #### [facility] [address] [place] [address] Support Services Specialist: Dino Moody MD Glucose Ql (U) Negative Normal NEG [facility] Comment on above: Performed By: #### U AX, UMICAO #### [facility] [address] [place] [address] Support Services Specialist: Dino Moody MD Ketones Ql (U) Negative Normal NEG [facility] Comment on above: Performed By: #### U AX, UMICAO #### [facility] [address] [place] [address] [place] [address] Support Services Specialist: Dino Moody MD Leukocyte esterase Test strip Ql (U) Negative Normal NEG [facility] Comment on above: Performed By: #### U AX, UMICAO #### [facility] [address] [place] [address] Support Services Specialist: Dino Moody MD Nitrite,Ur Negative Normal NEG [facility] Comment on above: Performed By: #### U AX, UMICAO #### [address] [place] [address] Support Services Specialist: Dino Moody MD PH,Ur 7.0 Normal 5.0-9.0 [facility] Comment on above: Performed By: #### U AX, UMICAO #### [facility] [address] [place] [address] [place] [address] Support Services Specialist: Dino Moody MD Protein Ql (U) Negative Normal NEG [facility] Comment on above: Performed By: #### U AX, UMICAO #### [address] [place] [address] Support Services Specialist: Dino Moody MD Spec. Lindstrom,Ur 1.010 Normal 1.010-1.020 [facility] Comment on above: Performed By: #### U AX, UMICAO #### [facility] [address] [place] [address] [place] [address] Support Services Specialist: Dino Moody MD Urobilinogen,Ur Normal Normal 0.0-1.0 [facility] Comment on above: Performed By: #### U AX, UMICAO #### [facility] [address] [place] [address] [place] [address] Support Services Specialist: Dino Moody MD Urinalysis with Reflex to Cu ltureon 02-05-2024 Bilirubin Ql (U) Negative NEGATIVE [facility] Clarity (U) Clear Clear [facility] Color (U) Yellow Yellow [facility] Glucose Test strip (U) [Mass/Vol] Negative NEGATIVE mg/dL [facility] Hemoglobin Auto test strip Ql (U) Negative NEGATIVE [facility] Ketones (U) [Mass/Vol] Negative NEGATIVE mg/dL [facility] Leukocyte esterase Test strip Ql (U) Negative NEGATIVE [facility] [facility] Nitrite Ql (U) Negative NEGATIVE [facility] pH (U) 7.0 [pH] 5.0 - 9.0 [facility] Protein (U) [Mass/Vol] Negative NEGATIVE mg/dL [facility] Specific gravity (U) [Rel density] 1.010 1.010 - 1.020 [facility] Urobilinogen Qn (U) Normal 0.0 - 1. 0 EU/dL [facility] Urinalysis,Microon 4 Epithelial cells LM Ql (Urine sed) 0 TO 2 Normal 0-5 [facility] Comment on above: Performed By: #### U AMY ROTH #### [facility] [address] [place] [address] Support Services Specialist: Dino Moody MD Urine RBC's 0 TO 2 Normal 0-2 [facility] Comment on above: Performed By: #### U AMY ROTH #### [facility] [address] [place] [address] Support Services Specialist: Dino Moody MD Urine WBC's 0 TO 2 Normal 0-5 [facility] Comment on above: Performed By: #### U AMY ROTH #### [facility] [address] [place] [address] Support Services Specialist: Dino Moody MD Comp Metabol,Fastingon 01-14 Albumin [Mass/Vol] 4.0 g/dL Normal 3.5-5.2 [facility] Comment on above: Performed By: #### P SAS, GLYHGB #### [facility] [address] [place] [address] Support Services Specialist: Lanre Mendez MD #### CMPF #### [facility] [address] [place], [place] [id number] Support Services Specialist: Dino Moody MD Albumin/Glob Ratio 1.4 Normal 1.0-2.5 [facility] Comment on above: Performed By: #### P SAS, GLYHGB #### [id number] [place] [address] Support Services Specialist: Lanre Mendez MD #### CMPF #### [facility] [address] [place] [address] Support Services Specialist: Dino Moody MD Alkaline Phos 95 U/L Normal 40-129 [facility] Comment on above: Performed By: #### P SAS, GLYHGB #### [address] [address] Support Services Specialist: Lanre Mendez MD #### CMPF #### [facility] [address] [place], [place] [phone] Support Services Specialist: Dino Moody MD ALT [Catalytic activity/Vol] 18 U/L Normal 10-50 [facility] Comment on above: Performed By: #### P SAS, GLYHGB #### [address] [address] Support Services Specialist: Lanre Mendez MD #### CMPF #### [facility] [address] [place], [place] [phone] Support Services Specialist: Dino Moody MD Anion gap [Moles/Vol] 8 mmol/L Low 9-16 [facility] Comment on above: Performed By: #### P SAS, GLYHGB #### [address] [address] Support Services Specialist: Lanre Mendez MD #### CMPF #### [facility] [address] [place], [place] [phone] Support Services Specialist: Dino Moody MD AST [Catalytic activity/Vol] 17 U/L Normal 10-50 [facility] Comment on above: Performed By: #### P SAS, GLYHGB #### [address] [address] Support Services Specialist: Lanre Mendez MD #### CMPF #### [address] [place], [place] [phone] Support Services Specialist: Dino Moody MD Bilirubin [Mass/Vol] 0.5 mg/dL Normal 0.00-1.20 [facility] Comment on above: Performed By: #### P SAS, GLYHGB #### [address] [address] Support Services Specialist: Lanre Mendez MD #### CMPF #### [address] [place], [place] [phone] Support Services Specialist: Dino Moody MD BUN/CRE Ratio 21 High 9-20 [facility] Comment on above: Performed By: #### P SAS, GLYHGB #### [address] [address] Support Services Specialist: Lanre Mendez MD #### CMPF #### [address] [place], [place] [phone] Support Services Specialist: Dino Moody MD Calcium [Mass/Vol] 9.1 mg/dL Normal 8.6-10.4 [facility] Comment on above: Performed By: #### P SAS, GLYHGB #### [address] [address] Support Services Specialist: Lanre Mendez MD #### CMPF #### [facility] [address] [place] [address] Support Services Specialist: Dino Moody MD Chloride [Moles/Vol] 107 mmol/L Normal 98-107 [facility] Comment on above: Performed By: #### P SAS, GLYHGB #### [address] [place] [address] Support Services Specialist: Lanre Mendez MD #### CMPF #### [facility] [address] [place] [address] Support Services Specialist: Dino Moody MD CO2 [Moles/Vol] 27 mmol/L Normal 20-31 [facility] Comment on above: Performed By: #### P SAS, GLYHGB #### [address] [id number] Support Services Specialist: Lanre Mendez MD #### CMPF #### [facility] [address] [place] [address] Support Services Specialist: Dino Moody MD Creatinine [Mass/Vol] 0.9 mg/dL Normal 0.70-1.20 [facility] Comment on above: Performed By: #### P SAS, GLYHGB #### [address] [address] Support Services Specialist: Lanre Mendez MD #### CMPF #### [facility] [address] [place] [address] Support Services Specialist: Dino Moody MD GFR/1.73 sq M.predicted among non-blacks MDRD (S/P/Bld) [Vol rate/Area] 85 mL/min/{1.73_m2} Normal >60 [facility] Comment on above: Result Comment: These results [...] Performed By: #### P SAS, GLYHGB #### [address] [address] Support Services Specialist: Lanre Mendez MD #### CMPF #### [address] [place] [address] Support Services Specialist: Dino Moody MD Glucose [Mass/Vol] 97 mg/dL Normal 74-99 [facility] Comment on above: Performed By: #### P SAS, GLYHGB #### [address] [address] Support Services Specialist: Lanre Mendez MD #### CMPF #### [address] [place] [address] Support Services Specialist: Dino Moody MD Potassium [Moles/Vol] 4.8 mmol/L Normal 3.7-5.3 [facility] Comment on above: Performed By: #### P SAS, GLYHGB #### [address] [address] Support Services Specialist: Lanre Mendez MD #### CMPF #### [address] [place] [place] [address] Support Services Specialist: Dino Moody MD Protein [Mass/Vol] 6.8 g/dL Normal 6.6-8.7 [facility] Comment on above: Performed By: #### P SAS, GLYHGB #### [address] [address] Support Services Specialist: Lanre Mendez MD #### CMPF #### [address] [place] [address] Support Services Specialist: Dino Moody MD Sodium [Moles/Vol] 142 mmol/L Normal 136-145 [facility] Comment on above: Performed By: #### P SAS, GLYHGB #### [facility] [address] [place], [place] [address] Support Services Specialist: Lanre Mendez MD #### CMPF #### [facility] [address] [place] [address] Support Services Specialist: Dino Moody MD Urea nitrogen [Mass/Vol] 19 mg/dL Normal - [facility] Comment on above: Performed By: #### P SAS, GLYHGB #### [facility] [address] [place], [place] [phone] Support Services Specialist: Lanre Mendez MD #### CMPF #### [facility] [address] [place] [address] Support Services Specialist: Dino Moody MD Comprehensive Metabolic Pane l, Fastingon 01-15-2024 Albumin [Mass/Vol] 4.0 g/dL 3.5 - 5.2 g/dL [facility] Albumin/Globulin [Mass ratio] 1.4 {ratio} 1.0 - 2.5 [facility] ALP [Catalytic activity/Vol] 95 U/L 40 - 129 U/L [facility] ALT [Catalytic activity/Vol] 18 U/L 10 - 50 U/L [facility] Anion gap [Moles/Vol] 8 mmol/L Low 9 - 16 mmol/L [facility] AST [Catalytic activity/Vol] 17 U/L 10 - 50 U/L [facility] Bilirubin [Mass/Vol] 0.5 mg/dL 0.00 - 1.20 mg/dL [facility] Calcium [Mass/Vol] 9.1 mg/dL 8.6 - 10. 4 mg/dL [facility] Chloride [Moles/Vol] 107 mmol/L 98 - 10 7 mmol/L [facility] CO2 [Moles/Vol] 27 mmol/L 20 - 31 mmol/L [facility] Creatinine [Mass/Vol] 0.9 mg/dL 0.70 - 1.20 mg/dL [facility] Est, Glom Filt Rate 85 - PINF [facility] Comment on above: These results are not [...] [Mass/Vol] 97 mg/dL 74 - 99 mg/dL [facility] Interpretation and review of laboratory results Abnormal [facility] Potassium [Moles/Vol] 4.8 mmol/L 3.7 - 5.3 mmol/L [facility] Protein [Mass/Vol] 6.8 g/dL 6.6 - 8.7 g/dL [facility] Sodium [Moles/Vol] 142 mmol/L 136 - 145 mmol/L [facility] Urea nitrogen [Mass/Vol] 19 mg/dL 8 - 23 mg/dL [facility] Urea nitrogen/Creatinine [Mass ratio] 21 mg/mg High 9 - 20 [facility] Hemoglobin A1Con 01-15-2024 Average glucose Estimated from glycated hemoglobin (Bld) [Mass/Vol] 128 mg/dL [facility] Comment on above: The ADA and AACC rec ommend providing the estimated average glucose result to permit better patient understanding of their HBA1c result. HbA1c (Bld) [Mass fraction] 6.1 % High 4.0 - 6.0 % [facility] Interpretation and review of laboratory results Abnormal [facility] Glucose [Mass/Vol] 128 mg/dL Normal [facility] Comment on above: Result Comment: The ADA and AACC recommend providing the estimated average glucose result to permit better patient understanding of their HBA1c result. Performed By: #### U AMY ROTH #### [facility] [address] [place] [address] Support Services Specialist: Dino Moody MD HbA1c (Bld) [Mass fraction] 6.1 % High 4.0-6.0 [facility] Comment on above: Performed By: #### U AMY ROTH #### [facility] [address] [place] [address] Support Services Specialist: Dino Moody MD Lipid Prof, Fastingon 2023 Cholesterol [Mass/Vol] 157 mg/dL Normal 0-199 [facility] Comment on above: Result Comment: Cholesterol Guidelines: <200 Desirable 200-240 Borderline >240 Undesirable Performed By: #### L IPRF #### [address] [address] Support Services Specialist: Lanre Mendez MD Cholesterol in HDL [Mass/Vol] 60 mg/dL Normal >40 [facility] Comment on above: Result Comment: HDL Guidelines: <40 Undesirable 40-59 Borderline >59 Desirable Performed By: #### L IPRF #### [address] [address] Support Services Specialist: Lanre Mendez MD Cholesterol in LDL [Mass/Vol] 84 mg/dL Normal 0-100 [facility] Comment on above: Result Comment: LDL Guidelines: <100 Desirable 100-129 Near to/above Desirable 130-159 Borderline >159 Undesirable Direct (measured) LDL and calculated LDL are not interchangeable tests. Performed By: #### L IPRF #### [facility] [employer] [address] [place] [address] Support Services Specialist: Lanre Mendez MD Cholesterol in VLDL [Mass/Vol] 13 mg/dL Normal [facility] Comment on above: Performed By: #### L IPRF #### [facility] [employer] [address] [place] [address] Support Services Specialist: Lanre Mendez MD Cholesterol.total/Ch olesterol in HDL [Mass ratio] 3.0 {ratio} Normal [facility] Comment on above: Performed By: #### L IPRF #### [employer] [address] [place], [place] [phone] Support Services Specialist: Lanre Mendez MD Triglyceride,Fasting 66 mg/dL Normal 0-149 [facility] Comment on above: Result Comment: Triglyceride Guidelines: <150 Desirable 150-199 Borderline 200-499 High >499 Very high Based on AHA Guidelines for fasting triglyceride, December 2011. Performed By: #### L IPRF #### [employer] [address] [place], [place] [phone] Support Services Specialist: Lanre Mendez MD Lipid, Fastingon 01-15-2024 Cholesterol [Mass/Vol] 157 mg/dL 0 - 199 mg/dL [facility] Comment on above: Cholesterol Guidelines: <200 Desirable 200-240 Borderline >240 Undesirable Cholesterol in HDL [Mass/Vol] 60 mg/dL 40 - PINF mg/dL [facility] Comment on above: HDL Guidelines: <40 Undesirable 40-59 Borderline >59 Desirable Cholesterol in LDL [Mass/Vol] 84 mg/dL 0 - 100 mg/dL [facility] Comment on above: LDL Guidelines: <100 Desirable 100-129 Near to/above Desirable 130-159 Borderline >159 Undesirable Direct (measured) LDL and calculated LDL are not interchangeable tests. Cholesterol in VLDL [Mass/Vol] 13 mg/dL [facility] Cholesterol.total/Ch olesterol in HDL [Mass ratio] 3.0 {ratio} [facility] Triglyceride [Mass/Vol] 66 mg/dL 0 - 149 mg/dL [facility] Comment on above: Triglyceride Guidelines: <150 Desirable 150-199 Borderline 200-499 High >499 Very high Based on AHA Guidelines for fasting triglyceride, December 2011. [facility] [employer] Microalb.,Random Uron 2023 Creatinine [Mass/Vol] 205.0 mg/dL Normal 39.0-259.0 [facility] Comment on above: Performed By: #### U RNMAB #### [employer] [address] [place], [place] [phone] Support Services Specialist: Lanre Mendez MD Microalb/Creat Ratio Can not be calculated Normal 0.0-17.0 [facility] Comment on above: Performed By: #### U RNMAB #### [facility] [employer] [address] [place], [place] [phone] Support Services Specialist: Lanre Mendez MD Microalbumin conc. <12 Normal 0-20 [facility] Comment on above: Performed By: #### U RNMAB #### [facility] [address] [place], [place] [phone] Support Services Specialist: Lanre Mendez MD Microalbumin, Uron Albumin DL <= 20 mg/L (U) [Mass/Vol] mg/L 0 - 20 mg/L [facility] Albumin/Creatinine DL <= 20 mg/L (U) [Ratio] Can not be calculated [facility] Creatinine (U) [Mass/Vol] 205.0 mg/dL 39.0 - 259.0 mg/dL [facility] PSA Screeningon 01-15-2024 Interpretation and review of laboratory results Abnormal [facility] Prostate specific Ag [Mass/Vol] 4.70 ng/mL High 0.00 - 4.00 ng/mL [facility] Comment on above: The Guido ECLIA as say is used. Results obtained with different assay methods cannot be used interchangeably. [facility] PSA, Screeningon 01-15-2024 Prostatic Spec. Ag 4.70 ng/mL High 0.00-4.00 [facility] Comment on above: Result Comment: The Guido ECLIA assay is used. Results obtained with different assay methods cannot be used interchangeably. Performed By: #### AMY DOYLE #### [facility] [address] [place] [address] Support Services Specialist: Dino Moody MD Hemoglobin A1Con 07-16-2023 Glucose [Mass/Vol] 131 mg/dL Normal [facility] Comment on above: Result Comment: The ADA and AACC recommend providing the estimated average glucose result to permit better patient understanding of their HBA1c result. Performed By: #### U ANDIE ROTHO #### [facility] [address] [place] [phone] Support Services Specialist: Dino Moody MD HbA1c (Bld) [Mass fraction] 6.2 % High 4.0-6.0 [facility] Comment on above: Performed By: #### U AX, ANDIEO #### [facility] [address] [place] [phone] Support Services Specialist: Dino Moody MD XR ABDOMEN (KUB) (SINGLE [...] Haroldo Sin MD 03/30/23 Final result Normal [facility] No Panel Informationon 02-19 Tobacco smoking status Non-Smoker Invalid Interpretation Code [facility] Hemoglobin A1Con 06-28-2022 Average glucose Estimated from glycated hemoglobin (Bld) [Mass/Vol] 128 mg/dL [facility] Comment on above: The ADA and AACC rec ommend providing the estimated average glucose result to permit better patient understanding of their HBA1c result. HbA1c (Bld) [Mass fraction] 6.1 % High 4.0 - 6.0 % [facility] Interpretation and review of laboratory results Abnormal [email or web address] Global Basic Metabolic Panelon 04-26 Anion gap [Moles/Vol] 6 mmol/L Low 9 - 17 mmol/L [facility] Calcium [Mass/Vol] 9.2 mg/dL 8.6 - 10. 4 mg/dL [employer] [facility] Chloride [Moles/Vol] 106 mmol/L 98 - 10 7 mmol/L [employer] [facility] CO2 [Moles/Vol] 29 mmol/L 20 - 31 mmol/L [facility] Creatinine [Mass/Vol] 0.96 mg/dL 0.70 - 1.20 mg/dL [facility] GFR/1.73 sq M.predicted MDRD (S/P/Bld) [Vol rate/Area] - PINF [facility] Comment on above: These results are not [...] 105 mg/dL High 70 - 99 mg/dL [facility] Interpretation and review of laboratory results Abnormal [facility] Potassium [Moles/Vol] 4.5 mmol/L 3.7 - 5.3 mmol/L [facility] Sodium [Moles/Vol] 141 mmol/L 135 - 144 mmol/L [facility] Urea nitrogen [Mass/Vol] 18 mg/dL 8 - 23 mg/dL [facility] Urea nitrogen/Creatinine (Bld) [Mass ratio] 19 9 - 20 [facility] CBC with Auto Differentialon 05-16-2022 Absolute Eos # 0.07 [place] [facility] Absolute Immature Granulocyte [facility] Absolute Lymph # 1.50 [facility] Absolute [place] # 0.78 [facility] Basophils (Bld) [#/Vol] 0.03 10*3/uL [facility] Basophils/100 WBC (Bld) 1 % 0 - 2 % [facility] Eosinophils/100 WBC (Bld) 1 % 1 - 4 % [facility] Hematocrit (Bld) [Volume fraction] 44.5 % 40.7 - 50.3 % [facility] Hemoglobin (Bld) [Mass/Vol] 15.1 g/dL 13.0 - 17.0 g/dL [facility] Immature granulocytes/100 WBC (Bld) 0 % 0 [facility] Interpretation and review of laboratory results Abnormal [facility] Lymphocytes/100 WBC (Bld) 26 % 24 - 43 % [facility] MCH (RBC) [Entitic mass] 32.5 pg 25.2 - 33.5 pg [facility] MCHC (RBC) [Mass/Vol] 33.9 g/dL 28.4 - 34.8 g/dL [facility] MCV (RBC) [Entitic vol] 95.9 fL 82.6 - 102.9 fL [facility] Monocytes/100 WBC (Bld) 14 % High 3 - 12 % [facility] NRBC Automated 0.0 0.0 per 100 WBC [facility] Platelet distribution width (Bld) [Ratio] 13.7 % 11.8 - 14.4 % [facility] Platelet mean volume (Bld) [Entitic vol] 9.6 fL 8.1 - 13.5 fL [facility] Platelets (Bld) [#/Vol] 208 10*3/uL [facility] RBC (Bld) [#/Vol] 4.64 10*6/uL 4.21 - 5.7 7 m/uL [facility] Segmented neutrophils/100 WBC (Bld) 58 % 36 - 65 % [facility] Segs Absolute 3.37 [facility] WBC (Bld) [#/Vol] 5.8 10*3/uL [facility] ABDOMEN PELVIS WO CONTRAS T Additional [...] known risk factors. Radiology 2017 http://pubs.rsna.org /doi/full/10.1148/ra diol.1669524979 [facility] EXAMINATION: CT OF THE ABDOMEN AND [...] superficial soft tissues show no significant abnormalities. [facility] Jd Johnson MD - 05/16/2022 EXAMINATION: CT OF THE [...] known risk factors. Radiology 2017 http://pubs.rsna.org /doi/full/10.1148/ra diol.4553219887 [email or web address] [email or web address] Work Phone: Radiology Study observation (narrative) [email or web address] [email or web address] Work Phone: CT ABDOMEN PELVIS WO CONTRAS T Additional Contrast? NoneOrdered By: Jd Johnson on 05-16-2022 [email or web address] [email or web address] Work Phone: Urinalysis with Microscopico n 05-16-2022 Bilirubin Urine Negative NEGATIVE [facility] [email or web address] Color, UA Yellow Yellow [facility] Epithelial Cells UA None [facility] Glucose Auto test strip (U) [Mass/Vol] Negative NEGATIVE [facility] Ketones (U) [Mass/Vol] Negative NEGATIVE [facility] Leukocyte esterase Auto test strip Ql (U) Negative NEGATIVE [facility] Nitrite Auto test strip Ql (U) Negative NEGATIVE [facility] Protein (U) [Mass/Vol] 8.5 mg/dL 5.0 - 9.0 [facility] Protein (U) [Mass/Vol] Negative NEGATIVE [facility] RBC clumps Auto (Urine sed) [#/Area] None [facility] Specific Lindstrom, UA 1.020 1.010 - 1.020 [facility] Turbidity UA Clear Clear [facility] Urine Hgb Negative NEGATIVE [facility] Urobilinogen, Urine Normal Normal [facility] WBC, UA None [facility] Comprehensive Metabolic Pane l, Fastingon 01-05-2022 Albumin [Mass/Vol] 4.2 g/dL 3.5 - 5.2 g/dL [facility] Albumin/Globulin [Mass ratio] 1.6 {ratio} 1 - 2.5 [facility] ALP (Bld) [Catalytic activity/Vol] 84 U/L 40 - 129 U/L [facility] ALT [Catalytic activity/Vol] 26 U/L 5 - 41 U/L [facility] Anion gap [Moles/Vol] 8 mmol/L Low 9 - 17 mmol/L [facility] AST [Catalytic activity/Vol] 17 U/L NINF - 40 U/L [facility] Bilirubin [Mass/Vol] 0.8 mg/dL 0.3 - 1 .2 mg/dL [facility] Calcium [Mass/Vol] 8.9 mg/dL 8.6 - 10. 4 mg/dL [facility] Chloride [Moles/Vol] 106 mmol/L 98 - 10 7 mmol/L [facility] CO2 [Moles/Vol] 27 mmol/L 20 - 31 mmol/L [facility] Creatinine [Mass/Vol] 0.93 mg/dL 0.7 - 1.2 mg/dL [facility] GFR/1.73 sq M.predicted MDRD (S/P/Bld) [Vol rate/Area] - PINF [facility] Comment on above: Effective Dec 25, 2021 [...] 101 mg/dL High 70 - 99 mg/dL [facility] Interpretation and review of laboratory results Abnormal [facility] Potassium [Moles/Vol] 4.6 mmol/L 3.7 - 5.3 mmol/L [facility] Protein [Mass/Vol] 6.9 g/dL 6.4 - 8.3 g/dL [facility] Sodium [Moles/Vol] 141 mmol/L 135 - 144 mmol/L [facility] Urea nitrogen (BldV) [Mass/Vol] 19 mg/dL 8 - 23 mg/dL [facility] Urea nitrogen/Creatinine (Bld) [Mass ratio] 20 9 - 20 [facility] Hemoglobin A1Con 01-05-2022 Glucose [Mass/Vol] 128 mg/dL [facility] Comment on above: The ADA and AACC rec ommend providing the estimated average glucose result to permit better patient understanding of their HBA1c result. HbA1c (Bld) [Mass fraction] 6.1 % High 4 - 6 % [facility] Interpretation and review of laboratory results Abnormal [facility] Lipid, Fastingon 01-05-2022 Cholesterol [Mass/Vol] 162 mg/dL NINF - 200 mg/dL [facility] Comment on above: Cholesterol Guidelines: <200 Desirable 200-240 Borderline >240 Undesirable Cholesterol in HDL [Mass/Vol] 56 mg/dL 40 - PINF mg/dL [facility] Comment on above: HDL Guidelines: <40 Undesirable 40-59 Borderline >59 Desirable Cholesterol in LDL [Mass/Vol] 92 mg/dL 0 - 130 mg/dL [facility] Comment on above: LDL Guidelines: <100 Desirable 100-129 Near to/above Desirable 130-159 Borderline >159 Undesirable Direct (measured) LDL and calculated LDL are not interchangeable tests. Cholesterol.total/Ch olesterol in HDL [Mass ratio] 2.9 {ratio} NINF - 5 [facility] Triglyceride, Fasting 70 mg/dL NINF - 150 mg/dL [facility] Comment on above: Triglyceride Guidelines: <150 Desirable 150-199 Borderline 200-499 High >499 Very high Based on AHA Guidelines for fasting triglyceride, December 2011. [facility] Microalbumin, Uron 2 Albumin/Creatinine DL <= 20 mg/L (24H U) [Mass ratio] mg/L NINF - 21 mg/L [facility] Albumin/Creatinine DL <= 20 mg/L (U) [Ratio] Can not be calculated [facility] Creatinine [Mass/Vol] 200.9 mg/dL 39 - 259 mg/dL [facility] PSA Screeningon 01-05-2022 [facility] XR KNEE RIGHT (3 VIEWS)on Mild tricompartmental osteoarthritis. No acute findings [facility] RIS CONSOLIDATED EXAMINATION: THREE XRAY VIEWS OF THE RIGHT KNEE 07/28/2021 1:56 pm COMPARISON: None. HISTORY: ORDERING SYSTEM PROVIDED HISTORY: Right medial knee pain FINDINGS: Mild tricompartmental osteoarthritis. No fracture or suspicious osseous lesions. [facility] Pastor Delgado P - 07/28/2021 EXAMINATION: THREE XRAY VIEWS OF THE RIGHT KNEE 07/28/2021 1:56 pm COMPARISON: None. HISTORY: ORDERING SYSTEM PROVIDED HISTORY: Right medial knee pain FINDINGS: Mild tricompartmental osteoarthritis. No fracture or suspicious osseous lesions. IMPRESSION: Mild tricompartmental osteoarthritis. No acute findings [employer] Phone: Radiology Study observation (narrative) [employer] Phone: XR KNEE RIGHT (3 VIEWS)Order ed By: Pastor Delgado on 07-28-2021 [employer] Phone: Comprehensive Metabolic Pane l, FastingOrdered By: Blossom Portillo on 01-09-2021 Albumin [Mass/Vol] 4.3 g/dL 3.5 - 5.2 g/dL [employer] Phone: Albumin/Globulin [Mass ratio] 2.3 {ratio} [employer] Phone: ALP (Bld) [Catalytic activity/Vol] 85 U/L 40 - 129 U/L [employer] Phone: ALT [Catalytic activity/Vol] 19 U/L 5 - 41 U/L [employer] Phone: Anion gap [Moles/Vol] 10 mmol/L 9 - 17 mmol/L [employer] Phone: AST [Catalytic activity/Vol] 15 U/L <40 [employer] Phone: Bilirubin [Mass/Vol] 0.52 mg/dL 0.3 - 1 .2 mg/dL [employer] Phone: Calcium [Mass/Vol] 9.2 mg/dL 8.6 - 10. 4 mg/dL [employer] Phone: Chloride [Moles/Vol] 108 mmol/L High 98 - 10 7 mmol/L [employer] Phone: CO2 [Moles/Vol] 25 mmol/L 20 - 31 mmol/L [employer] Phone: Creatinine [Mass/Vol] 0.98 mg/dL 0.70 - 1.20 mg/dL [employer] Phone: Free PSA/Total PSA [Mass fraction] 6.2 g/dL Low 6.4 - 8.3 g/dL [employer] Phone: GFR >60 >60 mL/min [employer] Phone: GFR Non- >60 >60 mL/min [employer] Phone: Glucose [Mass/Vol] 100 mg/dL High 70 - 99 mg/dL [employer] Phone: Interpretation and review of laboratory results Abnormal [employer] Phone: Potassium [Moles/Vol] 4.4 mmol/L 3.7 - 5.3 mmol/L [employer] Phone: Sodium [Moles/Vol] 143 mmol/L 135 - 144 mmol/L [employer] Phone: Urea nitrogen (BldV) [Mass/Vol] 14 mg/dL 8 - 23 mg/dL [employer] Phone: Urea nitrogen/Creatinine (Bld) [Mass ratio] 14 [employer] Phone: [employer] Phone: Laboratory - Chemistry and C hemistry - challengeOrdered By: Blossom Portillo on 01-09-2021 GFR/1.73 sq M.predicted MDRD (S/P/Bld) [Vol rate/Area] [employer] Phone: Comment on above: Average GFR for 70 o r more years old: 75 mL/min/1.73sq m Chronic Kidney Disease: <60 mL/min/1.73sq m Kidney failure: <15 mL/min/1.73sq m eGFR calculated using average adult body mass. Additional eGFR calculator available at: http://www.[employer]/multiple_crcl_2012.htm Stage 1: Some kidney damage normal GFR Stage 2: Mild kidney damage GFR 60-89 Stage 3: Moderate kidney damage GFR 30-59 Stage 4: Severe kidney damage GFR 15-29 Stage 5: Severe kidney damage GFR <15 ESRD - chronic treatment by dialysis or transplant Lipid, FastingOrdered By: Raven Portillo on 01-09-2021 Cholesterol [Mass/Vol] 211 mg/dL High <200 [employer] Phone: Comment on above: Cholesterol Guidelines: <200 Desirable 200-240 Borderline >240 Undesirable Cholesterol in HDL [Mass/Vol] 48 mg/dL >40 [employer] Phone: Comment on above: HDL Guidelines: <40 Undesirable 40-59 Borderline >59 Desirable Cholesterol in LDL [Mass/Vol] 137 mg/dL High 0 - 130 mg/dL [employer] Phone: Comment on above: LDL Guidelines: <100 Desirable 100-129 Near to/above Desirable 130-159 Borderline >159 Undesirable Direct (measured) LDL and calculated LDL are not interchangeable tests. Cholesterol in VLDL [Mass/Vol] NOT REPORTED 1 - 30 mg/dL [employer] Phone: Cholesterol.total/Ch olesterol in HDL [Mass ratio] 4.4 {ratio} <5 [employer] Phone: Interpretation and review of laboratory results Abnormal [employer] Phone: Triglyceride, Fasting 130 mg/dL <150 [employer] Phone: Comment on above: Triglyceride Guidelines: <150 Desirable 150-199 Borderline 200-499 High >499 Very high Based on AHA Guidelines for fasting triglyceride, December 2011. [employer] Phone: PSA screeningOrdered By: Anjana Portillo on 01-09-2021 [employer] Phone: Pain Management Office/Clini c Noteon 10-04-2020 Pain Management Office/Clinic Note Chief Complaint neck and shoulder pain low back pain History of Present Illness Dear Dr. Portillo, Thank you for your referral to [facility]. Your patient was evaluated at [...] rate Pulmonary-r (more content not included)... Normal [facility] MRI [facility] 09-21-19 MRI LSPINE WO CON EXAMINATION: MRI LSPINE WO CON HISTORY: Lumbar radiculopathy ; chronic lumbar and [...] by: ISIS PALMER Date: 2020-09-20 10:17 Normal [facility] MRI CSPINE WO CONon 09-14-19 MRI CSPINE WO CON EXAMINATION: MRI CSPINE [...] DINO DEL CASTILLO Date: 2020-09-13 10:13 Normal [facility] Hemoglobin [id number] By: Raven Portillo on 09-05-2020 Glucose [Mass/Vol] 126 mg/dL [employer] Phone: Comment on above: The ADA and AACC rec ommend providing the estimated average glucose result to permit better patient understanding of their HBA1c result. HbA1c (Bld) [Mass fraction] 6.0 % 4.0 - 6.0 % [employer] Phone: [employer] Phone: C-Reactive Proteinon 020 CRP [Mass/Vol] 0.6 mg/L 0 - 5 mg/L [facility] [place] [place] Hemoglobin A1Con 08-21-2019 Glucose [Mass/Vol] 117 mg/dL [place] Comment on above: The ADA and AACC rec ommend providing the estimated average glucose result to permit better patient understanding of their HBA1c result. HbA1c (Bld) [Mass fraction] 5.7 % 4.8 - 5.9 % [place] Lipid, Fastingon 08-21-2019 Cholesterol [Mass/Vol] 191 mg/dL <200 [place] Comment on above: Cholesterol Guidelines: <200 Desirable 200-240 Borderline >240 Undesirable Cholesterol in HDL [Mass/Vol] 52 mg/dL >40 [place] Comment on above: HDL Guidelines: <40 Undesirable 40-59 Borderline >59 Desirable Cholesterol in LDL [Mass/Vol] 120 mg/dL 0 - 130 mg/dL [place] Comment on above: LDL Guidelines: <100 Desirable 100-129 Near to/above Desirable 130-159 Borderline >159 Undesirable Direct (measured) LDL and calculated LDL are not interchangeable tests. Cholesterol in VLDL [Mass/Vol] NOT REPORTED 1 - 30 mg/dL [place] Cholesterol.total/Ch olesterol in HDL [Mass ratio] 3.7 {ratio} <5 [place] Triglyceride, Fasting 96 mg/dL <150 [place] Comment on above: Triglyceride Guidelines: <150 Desirable 150-199 Borderline 200-499 High >499 Very high Based on AHA Guidelines for fasting triglyceride, December 2011. CBC Auto Differentialon 09-0 Basophils (Bld) [#/Vol] 10*3/uL [place] Basophils/100 WBC (Bld) 0 % 0 - 2 % [place] Differential Type NOT REPORTED [place] Eosinophils (Bld) [#/Vol] 0.09 10*3/uL [place] Eosinophils/100 WBC (Bld) 2 % 1 - 4 % [place] Erythrocyte distribution width (RBC) [Ratio] 13.6 % 11.8 - 14.4 % [place] Hematocrit (Bld) [Volume fraction] 43.5 % 40.7 - 50.3 % [place] Hemoglobin (Bld) [Mass/Vol] 14.1 g/dL 13 - 17 g/dL [place] Immature granulocytes (Bld) [#/Vol] 10*3/uL [place] Immature granulocytes (Bld) [#/Vol] 0 % 0 [place] Lymphocytes (Bld) [#/Vol] 1.44 10*3/uL [place] Lymphocytes/100 WBC (Bld) 29 % 24 - 43 % [place] MCH (RBC) [Entitic mass] 31.1 pg 25.2 - 33.5 pg [place] MCHC (RBC) [Mass/Vol] 32.4 g/dL 28.4 - 34.8 g/dL [place] MCV (RBC) [Entitic vol] 95.8 fL 82.6 - 102.9 fL [place] Monocytes (Bld) [#/Vol] 0.60 10*3/uL [place] Monocytes/100 WBC (Bld) 12 % 3 - 12 % [place] Platelet mean volume (Bld) [Entitic vol] 9.8 fL 8.1 - 13.5 fL [place] Platelets (Bld) [#/Vol] NOT REPORTED [place] Platelets (Bld) [#/Vol] 214 10*3/uL [place] RBC (Bld) [#/Vol] 4.54 10*6/uL 4.21 - 5.7 7 m/uL [place] RBC morphology finding Nom (Bld) NOT REPORTED [place] Segmented neutrophils/100 WBC (Bld) 57 % 36 - 65 % [place] Segs Absolute 2.85 [place] WBC (Bld) [#/Vol] 5.0 10*3/uL [place] WBC (Bld) [#/Vol] 0.0 10*3/uL 0.0 per 10 0 WBC [place] WBC Morphology NOT REPORTED [place] Hemoglobin A1Con 11-27-2018 Glucose [Mass/Vol] 126 mg/dL [place] Comment on above: The ADA and AACC rec ommend providing the estimated average glucose result to permit better patient understanding of their HBA1c result. HbA1c (Bld) [Mass fraction] 6.0 % High 4.8 - 5.9 % [place] Interpretation and review of laboratory results Abnormal [place] Lipid Panelon 11-27-2018 Cholesterol [Mass/Vol] 220 mg/dL High <200 [place] Comment on above: Cholesterol Guidelines: <200 Desirable 200-240 Borderline >240 Undesirable Cholesterol in HDL [Mass/Vol] 53 mg/dL >40 [place] Comment on above: HDL Guidelines: <40 Undesirable 40-59 Borderline >59 Desirable Cholesterol in LDL [Mass/Vol] 147 mg/dL High 0 - 130 mg/dL [place] Comment on above: LDL Guidelines: <100 Desirable 100-129 Near to/above Desirable 130-159 Borderline >159 Undesirable Direct (measured) LDL and calculated LDL are not interchangeable tests. Cholesterol in VLDL [Mass/Vol] NOT REPORTED 1 - 30 mg/dL [place] Cholesterol.total/Ch olesterol in HDL [Mass ratio] 4.2 {ratio} <5 [place] Triglyceride [Mass/Vol] 99 mg/dL <150 [place] Comment on above: Triglyceride Guidelines: <150 Desirable 150-199 Borderline 200-499 High >499 Very high Based on AHA Guidelines for fasting triglyceride, December 2011. Metabolic Panelon 11-27-2018 GFR/1.73 sq M predicted among non-blacks MDRD (S/P/Bld) [Vol rate/Area] [place] Comment on above: Stage 1: Some [...] body mass. Additional eGFR calculator available at: http://www.[employer]juul.[employer]/multiple_crcl_2012.htm Otheron 11-27-2018 Interpretation and review of laboratory results Abnormal [place] RENAL + CHEM PROFILEon 11-27 Albumin [Mass/Vol] 4.2 g/dL 3.5 - 5.2 g/dL [place] Albumin/Globulin [Mass ratio] 1.6 {ratio} [place] ALP [Catalytic activity/Vol] 76 U/L 40 - 129 U/L [place] ALT [Catalytic activity/Vol] 23 U/L 5 - 41 U/L [place] Anion gap [Moles/Vol] 11 mmol/L 9 - 17 mmol/L [place] AST [Catalytic activity/Vol] 16 U/L <40 [place] Bilirubin Ql (U) 0.48 mg/dL 0.3 - 1.2 mg/dL [place] Calcium [Mass/Vol] 9.6 mg/dL 8.6 - 10. 4 mg/dL [place] Chloride [Moles/Vol] 103 mmol/L 98 - 10 7 mmol/L [place] CO2 [Moles/Vol] 25 mmol/L 20 - 31 mmol/L [place] Creatinine [Mass/Vol] 0.89 mg/dL 0.7 - 1.2 mg/dL [place] GFR >60 >60 mL/min [place] GFR Non- >60 >60 mL/min [place] Glucose [Mass/Vol] 100 mg/dL High 70 - 99 mg/dL [place] Phosphate [Mass/Vol] 2.8 mg/dL 2.5 - 4 .5 mg/dL [place] Potassium [Moles/Vol] 4.5 mmol/L 3.7 - 5.3 mmol/L [place] Protein [Mass/Vol] 6.9 g/dL 6.4 - 8.3 g/dL [place] Sodium [Moles/Vol] 139 mmol/L 135 - 144 mmol/L [place] Urea nitrogen [Mass/Vol] 18 mg/dL 8 - 23 mg/dL [place] TSH with Reflexon 11-27-2018 TSH Qn 1.48 m[IU]/L [place] Vitamin B12on 11-27-2018 Cobalamin (Vitamin B12) [Mass/Vol] 343 pg/mL 232 - 1245 pg/mL [place] Vitamin D 25 Hydroxyon 11-27 Vit D, 25-Hydroxy 46.6 ng/mL 30 - 100 ng/mL [facility] [place] Comment on above: Reference Range: Vitamin D status Range Deficiency <20 ng/mL Mild Deficiency 20-30 ng/mL Sufficiency 30-100 ng/mL Toxicity >100 ng/mL No Panel Informationon 06-20 Colonoscopy Invalid Interpretation Code [facility] [employer] Vital Signs Date Time Vital Sign Value Performing Clinician Facility 02-05-2024 02:08-0500 Body temperature 98.6 [degF] Leia Ling MD Work Phone: [employer] 02-05-2024 02:05-0500 Body height 172.7 cm Leia Ling MD Work Phone: [facility] [employer] 02-05-2024 02:05-0500 Body mass index (BMI) [Ratio] 27.37 kg/m2 Leia Ling MD Work Phone: [employer] 02-05-2024 02:05-0500 Body weight 81.65 kg Leia Ling MD Work Phone: [facility] [employer] 02-05-2024 02:05-0500 Diastolic blood pressure 84 mm[Hg] Leia Ling MD Work Phone: [facility] [employer] 02-05-2024 02:05-0500 Heart rate 68 /min Leia Ling MD Work Phone: [facility] [employer] 02-05-2024 02:05-0500 Respiratory rate 16 /min Leia Ling MD Work Phone: [employer] 02-05-2024 02:05-0500 SaO2% (BldA) [Mass fraction] 99 % Leia Ling MD Work Phone: [employer] 02-05-2024 02:05-0500 Systolic blood pressure 162 mm[Hg] Leia Ling MD [facility] 03-02-2021 09:40-0500 Body height 172.72 cm Yovani Malone Other [employer] Other 03-02-2021 09:40-0500 Body mass index (BMI) [Ratio] 28.13 kg/m2 Yovani Malone Other [employer] Other 03-02-2021 09:40-0500 Body weight 83.92 kg Yovani Malone Other [employer] Other 03-02-2021 09:40-0500 Diastolic blood pressure 86 mm[Hg] Yovani Malone Other [employer] Other 03-02-2021 09:40-0500 Systolic blood pressure 134 mm[Hg] Yovani Malone Other [employer] Other Encounters Encounter Date Encounter Type Care Provider Facility Start: 03-02-2024 Office outpatient vi sit 25 minutes Azeb Degroot Other [facility] Office Start: 02-05-2024 End: 02-05-2024 Emergency department patient visit Leia Ling MD Work Phone: [facility] Comment on above: Right flank pain (Pr imary Dx); Cyst of left kidney Start: 01-15-2024 End: 01-15-2024 ambulatory BLOSSOM YANGERS [facility] Start: 01-15-2024 End: 01-15-2024 Subsequent hospital visit by physician Blossom Portillo MD Work Phone: [facility] Laboratory Comment on above: Screening for prosta te cancer; Mixed hyperlipidemia; Type 2 diabetes mellitus without complication, without long-term current use of insulin (HCC) / DIET CONTROLLED Start: 07-16-2023 End: 07-16-2023 ambulatory BLOSSOM PORTILLO [facility] Start: 03-27-2023 End: 03-29-2023 ambulatory BLOSSOM PORTILLO [facility] Start: 02-19-2023 Office outpatient vi sit 15 minutes Azeb Degroot Other [facility] Office Start: 07-02-2022 Office outpatient vi sit 15 minutes Azeb Degroot Other [facility] Office Start: 06-28-2022 End: 06-28-2022 Subsequent hospital visit by physician Blossom Portillo MD Work Phone: [facility] Laboratory Comment on above: Type 2 diabetes sanjay itus without complication, without long- term current use of insulin (HCC) / DIET CONTROLLED Start: 05-16-2022 End: 05-18-2022 Subsequent hospital visit by physician Jerod Cat Scan Room [facility] Laboratory Comment on above: Renal colic on right side Start: 02-02-2022 End: 02-02-2022 ambulatory [facility] Start: 01-05-2022 End: 01-05-2022 Subsequent hospital visit by physician Blossom Portillo MD Work Phone: [facility] Laboratory Comment on above: Screening for prosta te cancer; Type 2 diabetes mellitus without complication, without long-term current use of insulin (HCC) / DIET CONTROLLED; Screening cholesterol level Start: 07-28-2021 End: 07-30-2021 Subsequent hospital visit by physician Jerod Avalos Dr Room 2 [facility] Comment on above: Right medial knee pa in Start: 06-21-2021 Office outpatient vi sit 15 minutes Azeb Degroot Other [facility] Office Start: 04-17-2021 End: 04-17-2021 ambulatory MD JCARLOS WEST Facility:[facility] Start: 03-02-2021 End: 03-02-2021 ambulatory Yovani Malone Other [facility] [employer] Other Start: 03-02-2021 Office outpatient ne w 45 minutes Yovani Malone [facility] Start: 01-27-2021 End: 01-27-2021 ambulatory MD JCARLOS WEST Facility:[facility] Start: 01-09-2021 End: 01-09-2021 ambulatory MD JCARLOS WEST Facility:[facility] Start: 01-09-2021 End: 01-09-2021 Subsequent hospital visit by physician Blossom Portillo MD Work Phone: [facility] Laboratory Comment on above: Cervical disc disord er at C4-C5 level with radiculopathy / MRI 2020; Screening cholesterol level; Screening for prostate cancer Start: 11-03-2020 End: 11-03-2020 ambulatory MD JCARLOS WEST Facility:[facility] Start: 10-20-2020 End: 10-20-2020 ambulatory MD JCARLOS WSET Facility:[facility] Start: 10-06-2020 End: 10-06-2020 ambulatory MD JCARLOS WEST Facility:[facility] Start: 09-20-2020 End: 09-21-[address] BLOSSOM PORTILLO Facility:[facility] Start: 09-13-2020 End: 09-14-[address] BLOSSOM PORTILLO Facility:[facility] Start: 09-05-2020 End: 09-05-2020 Subsequent hospital visit by physician Blossom Portillo MD Work Phone: [facility] Laboratory Comment on above: Impaired fasting glu cose Start: 06-15-2020 Office outpatient vi sit 15 minutes Azeb [employer] Other [facility] Office Start: 09-07-2019 Office outpatient vi sit 25 minutes Azeb Mikayla Other [facility] Office Start: 08-21-2019 End: 08-21-2019 Subsequent hospital visit by physician Blossom Portillo [facility] Laboratory Comment on above: Screening cholestero l level; Mixed hyperlipidemia; Impaired fasting glucose Start: 11-27-2018 End: 11-27-2018 Subsequent hospital visit by physician Ian Melendez [facility] Start: 07-01-2018 Office outpatient ne w 30 minutes Azeb Mikayla Other [facility] Office Procedures Date Procedure Procedure Detail Performing Clinician Start: 03-02-2024 Docrev cur meds by e lig clin Azeb Degroot Start: 02-05-2024 Urinalysis microscopic only Leia Ling [...] by e lig clin Azeb Mikayla Start: 07-02-2022 Cryosurgery Azeb Elizabeth ig Start: 07-02-2022 Destruction of giulia lignant skin lesion Azeb Santosenig Start: 07-02-2022 Docrev cur meds by e lig clin Azeb Mikayla Start: 06-28-2022 Hemoglobin glycosylated a1c Blossom Portillo MD Work Phone: Start: 05-16-2022 Urnls dip stick/tabl et reagent auto microscopy True VARGAS-C Work Phone: Start: 05-16-2022 Ct abdomen & pelvis w/o contrast material [employer] [facility] Work Phone: Start: 05-16-2022 Basic metabolic pane l calcium total True Nowak PA-C Work Phone: Start: 01-05-2022 PSA screening Blossom [...] Work Phone: Start: 06-21-2021 Cryosurgery Azeb Elizabeth ig Start: 06-21-2021 Destruction of giulia lignant skin lesion Azeb Santosenig Start: 06-21-2021 Docrev cur meds by e lig clin Azeb Degroot Start: 01-09-2021 PSA screening Blossom massey MD [...] 11-27-2018 25 hydroxy includes fractions if performed Ian Melendez Work Phone: Start: 11-27-2018 Assay of prostate sp ecific antigen complexed Ian Melendez Work Phone: Start: 11-27-2018 Assay of thyroid stimulating hormone tsh Ian Melendez Work Phone: Start: 11-27-2018 Blood count complete auto&auto difrntl wbc Ian Melendez Work Phone: Start: 11-27-2018 Cyanocobalamin vitamin b-12 Ian Melendez Work Phone: Start: 11-27-2018 Hemoglobin glycosylated a1c Ian Melendez Work Phone: Start: 11-27-2018 Lipid panel Ian Melendez Work Phone: Start: 11-27-2018 RENAL + CHEM PROFILE Logan Melendez Work Phone: Start: 07-01-2018 Cryosurgery Azeb Elizabeth ig Start: 07-01-2018 Destruction of giulia lignant skin lesion Azeb Santosenig Start: 07-01-2018 Destruction premalig nant lesion 1st Azeb Santosenig Start: 07-01-2018 Destruction premalig nant lesion 2-14 ea Azeb Degroot Start: 07-01-2018 Doc meds verified w/ pt or re Azeb Mikayla Start: 06-20-2016 Colonoscopy Blossom Portillo MD Work Phone: Plan of Treatment Date Care Activity Detail Author Start: 06-20-2026 Screening for malign ant neoplasm of colon [facility] Start: 02-04-2025 GFR test (Diabetes, CKD 3-4, OR last GFR 15-59) GFR test (Diabetes, CKD 3-4, OR last GFR 15-59) [facility] Start: 01-22-2025 End: 01-22-2025 Patient encounter procedure 01/22/2025 8:50 AM EDT Office Visit Blossom Portillo MD [address] [place] [address] [place] [address] Blossom Portillo MD [address] [place] [address], [place] [address] mai Portillo MD Comment on above: mai Start: 01-21-2025 Annual Wellness Visi t (Medicare) Annual Wellness Visit (Medicare) [facility] [employer] Start: 01-20-2025 COVID-19 Vaccine ( season) COVID-19 Vaccine ( season) [facility] [employer] Comment on above: Postponed from 11/23 (Patient Refused) Start: 01-20-2025 Depression Screen Depression Screen [facility] [employer] Start: 01-14-2025 GFR test (Diabetes, CKD 3-4, OR last GFR 15-59) GFR test (Diabetes, CKD 3-4, OR last GFR 15-) [employer] Start: 01-14-2025 Hemoglobin A1c measurement A1C test (Diabetic or Prediabetic) [facility] [employer] Start: 01-14-2025 Lipid panel Lipids [address] Start: 01-14-2025 Prostate specific antigen measurement Prostate Specific Antigen (PSA) Screening or Monitoring [facility] [employer] Start: 01-14-2025 Urine screening for protein Diabetic Alb to Cr ratio (uACR) test [facility] [employer] Start: 08-20-2024 Lipid panel Lipid screen [employer] [facility] Work Phone: Start: 07-22-2024 Diabetic foot examination Diabetic foot exam [facility] [employer] Start: 07-22-2024 DTaP/Tdap/Td vaccine (1 - Tdap) DTaP/Tdap/Td vaccine (1 - Tdap) [employer] Comment on above: Postponed from 03/21 (Patient Refused) Start: 07-22-2024 Respiratory Syncytia l Virus (RSV) or age 60 yrs+ (1 - 1-dose 60+ series) Respiratory Syncytial Virus (RSV) or age 60 yrs+ (1 - 1-dose 60+ series) [employer] Comment on above: Postponed from 03/21 (Patient Refused) Start: 07-21-2024 End: 07-21-2024 Patient encounter procedure 07/21/2024 8:50 AM EDT Office Visit Blossom Portillo MD [address] [place] [address] [place] [address] Blossom Portillo MD [address] [place] [address], [facility] [place] [address] 6 month f/u Blossom Portillo MD Comment on above: 6 month f/u Start: 04-26-2024 Depression Screen Depression Screen [facility] Start: 04-01-2024 End: 04-01-2024 Patient encounter procedure 04/01/2024 8:00 AM EST Office Visit [facility] [address] [place] [address] Jcarlos Alegre MD [address] [facility], [address] [place] [address] [facility] Comment on above: 1 year [facility] Start: 01-21-2024 End: 01-21-2024 Patient encounter procedure 01/21/2024 8:30 AM EDT Office Visit Blossom Portillo MD [address] [place] [phone] Blossom Portillo MD [address] [place] [address] [place] [address] awv Blossom Portillo MD Comment on above: awv Start: 01-17-2024 Annual Wellness Visi t (Medicare) Annual Wellness Visit (Medicare) [facility] Start: 11-28-2023 Lipid panel Lipid screen [place], [place] Start: 11-28-2023 Lipid screen Lipid screen [facility] [place] Start: 11-24-2023 COVID-19 Vaccine ( season) COVID-19 Vaccine ( season) [facility] Start: 10-24-2023 Influenza vaccination Flu vaccine (# 1) [facility] Start: 06-29-2023 Hemoglobin A1c measurement A1C test (Diabetic or Prediabetic) [facility] Start: 06-05-2023 Depression Screen Depression Screen [facility] Start: 05-16-2023 GFR test (Diabetes, CKD 3-4, OR last GFR 15-59) GFR test (Diabetes, CKD 3-4, OR last GFR 15-59) [facility] Start: 04-01-2023 End: 04-01-2023 Patient encounter procedure 04/01/2023 Office Visit Urology [facility] Start: 01-31-2023 Depression Screen Depression Screen [facility] Start: 01-16-2023 End: 01-16-2023 Patient encounter procedure 01/16/2023 Office Visit Internal Medicine Blossom Portillo MD [address] [place] [address], [facility] [place] [address] Blossom Portillo MD Start: 01-11-2023 Annual Wellness Visi t (AWV) Annual Wellness Visit (AWV) [facility] Start: 01-10-2023 Diabetic foot examination Diabetic foot exam [facility] Start: 01-05-2023 Hemoglobin A1c measurement A1C test (Diabetic or Prediabetic) [facility] Start: 01-05-2023 Lipid panel Lipids [facility] Start: 01-05-2023 Urine screening for protein [facility] Start: 01-03-2023 Depression Screen Depression Screen [facility] Start: 12-24-2022 COVID-19 Vaccine (4 - Booster for Moderna series) COVID-19 Vaccine (4 - Booster for Moderna series) [facility] Comment on above: Postponed from 04/26 (Patient Refused) Start: 07-29-2022 Hemoglobin A1c measurement A1C test (Diabetic or Prediabetic) [facility] Start: 07-29-2022 Lipid panel Lipids [facility] Start: 07-24-2022 Depression Screen Depression Screen [facility] Start: 07-11-2022 End: 07-11-2022 Patient encounter procedure 07/11/2022 Office Visit Internal Medicine Blossom Portillo MD [address] [facility], [facility] [place], [place] [id number] Blossom Portillo MD Start: 01-10-2022 End: 01-10-2022 Patient encounter procedure Blossom Portillo MD Start: 01-05-2022 Annual Wellness Visi t (AWV) Annual Wellness Visit (AWV) [facility] Start: 10-23-2021 Influenza vaccination [facility] vaccine (# 1) [facility] Start: 10-02-2021 End: 10-02-2021 Patient encounter procedure 10/02/2021 Office Visit Internal Medicine Blossom Portillo MD [address] [place] [address], [place] [address] Blossom Portillo MD Start: 09-05-2021 Hemoglobin A1c measurement A1C test (Diabetic or Prediabetic) [facility] Start: 08-14-2021 DTaP/Tdap/Td vaccine (1 - Tdap) DTaP/Tdap/Td vaccine (1 - Tdap) [facility] Comment on above: Postponed from 03/21 (Not Indicated) Start: 08-11-2021 Diabetic retinal exam [facility] retin [facility] exam [facility] Start: 07-10-2021 End: 07-10-2021 Patient encounter procedure 07/10/2021 Office Visit Internal Medicine Blossom Portillo MD [address] [place] [address], [facility] [place] [address] Blossom Portillo MD Start: 06-30-2021 COVID-19 Vaccine (4 - Booster for Moderna series) COVID-19 Vaccine (4 - Booster for Moderna series) [facility] Start: 01-25-2021 DTaP/Tdap/Td vaccine (1 - Tdap) DTaP/Tdap/Td vaccine (1 - Tdap) [facility] Comment on above: Postponed from 03/21 (Not Indicated) Start: 01-20-2021 End: 01-20-2021 Patient encounter procedure 01/20/2021 Office Visit Internal Medicine Blossom Portillo MD [address] [place] [address], [place] [address] Blossom Portillo MD Start: 06-24-2020 Annual Wellness Visi t (AWV) Annual Wellness Visit (AWV) [facility] Work Phone: Start: 02-23-2020 End: 02-23-2020 Office Visit 02/23/2020 Office Visit Internal Medicine Blossom Portillo MD [address] [place] [address], [address] [place] [id number] Blossom Portillo MD Start: 11-28-2019 A1C test (Diabetic o r Prediabetic) A1C test (Diabetic or Prediabetic) [place], [place] Start: 11-28-2019 HbA1c (Bld) [Mass fraction] A1C test (Diabetic or Prediabetic) [place] Start: 11-23-2018 Influenza vaccination Flu vaccine (# 1) [place] Start: 02-18-2018 Shingles Vaccine (2 of 2) Shingles Vaccine (2 of 2) [place] Start: 2015 Pneumococcal 65+ yea rs Vaccine (1 of 2 - PCV13) Pneumococcal 65+ years Vaccine (1 of 2 - PCV13) [place] Start: 2000 Colon cancer screen colonoscopy Colon cancer screen colonoscopy [place] Start: 2000 Screening for malign ant neoplasm of colon Colon cancer screen colonoscopy [place] Start: 2000 Shingles Vaccine (1 of 2) Shingles Vaccine (1 of 2) [place] Start: 1995 Screening for malign ant neoplasm of colon [facility] Start: 1969 DTaP/Tdap/Td vaccine (1 - Tdap) DTaP/Tdap/Td vaccine (1 - Tdap) [facility] Start: 1968 Diabetic retinal exam Diabetic retin al exam [facility] Start: 1968 Glaucoma screening Diabetic retinal exam [facility] Start: 1968 Urine screening for protein Diabetic microalbuminuria test [facility] Start: 1960 Diabetic foot examination Diabetic foot exam [facility] Start: 1950 Hepatitis C screen Hepatitis C scree n [place], [place] Start: 1950 Hepatitis C screening Hepatitis C tony fuentes [place] End: 05-16-2022 Culture, Urine [employer] Work Phone: Comment on above: 1 Occurrences starti ng 05/16/2022 until 05/16/2022 Immunizations Immunization Date Immunization Notes Care Provider Rubina mata 01-21-2024 influenza, high dose seasonal, preservative-free Leia Ling MD Work Phone: [facility] [employer] 01-16-2023 Influenza, FLUZONE H igh Dose (age 65 y+), IM, Quadv, 0.7mL Blossom Portillo MD Work Phone: [facility] [employer] 01-10-2022 Influenza, FLUZONE ( age 65 y+), High Dose, 0.7mL Blossom Portillo MD Work Phone: [employer] Work Phone: 03-01-2021 COVID-19, Moderna, Primary or Immunocompromised, PF, 100mcg/0.5mL Blossom Portillo MD Work Phone: [employer] 01-04-2021 Influenza, High-dose , Quadv, 65 yrs +, IM (Fluzone) Blossom Portillo MD Work Phone: [employer] Work Phone: 05-17-2020 COVID-19, Moderna, P F, 100mcg/0.5mL Blossom Portillo MD Work Phone: [employer] Work Phone: 04-19-2020 COVID-19, Moderna, P F, 100mcg/0.5mL Blossom Portillo MD Work Phone: [employer] Work Phone: 01-01-2020 Influenza, Quadv, adjuvanted, 65 yrs +, IM, PF (Fluad) Blossom Portillo MD Work Phone: [employer] Work Phone: 01-06-2019 Seasonal trivalent influenza vaccine, adjuvanted, preservative free Blossom Portillo [facility] 12-27-2017 influenza virus vacc ine, unspecified formulation Blossom Portillo MD Work Phone: [facility] Work Phone: 12-27-2017 influenza, seasonal, injectable Blossom Portillo MD Work Phone: [facility] Work Phone: 12-24-2017 zoster vaccine recombinant Blossom [facility], [place] 09-20-2017 zoster vaccine recombinant Blossom Portillo MD Work Phone: [facility] Work Phone: 03-20-2017 pneumococcal polysaccharide vaccine, 23 valent Blossom [facility], [place] 05-08-2016 pneumococcal conjuga te vaccine, 13 valent Blossom Portillo MD Work Phone: [facility] Work Phone: Payers Date Payer Category Payer Medicare 2020 Unknown 2017 Private Health Insurance [employer] SUPP xxxxxxxxxx 2017-Present [phone] [id number] [place] [address] xxxxxxxxxx [id number] 2014 Medicare xxxxxxxxxxx [id number] 1959 Medicare [id number] 1959 Unknown [id number] [id number] 1959 Unknown [id number] 1950 Unknown [id number] 2.16.840.1.353283.3.579.2. 593 1950 Unknown [id number] 2.16.840.1.391140.3.579.2. 593 1950 Unknown [id number] 2.16.840.1.760170.3.579.2. 196 1950 Unknown [id number] 2.16.840.1.828883.3.579.2. 196 1950 Unknown [id number] 2.16.840.1.257690.3.579.2. 196 1950 Unknown [id number] 2.16.840.1.455725.3.579.2. 196 1950 Unknown [id number] 2.16.840.1.197439.3.579.2. 196 1950 Unknown [id number] 2.16.840.1.029388.3.579.2. 196 1950 Unknown [id number] 2.16.840.1.268949.3.579.2. 754 1950 Unknown [id number] 2.16.840.1.945942.3.579.2. 173 1950 Unknown [id number] 2.16.840.1.980687.3.579.2. 173 1950 Unknown [id number] 2.16.840.1.803679.3.579.2. 173 1950 Unknown [id number] 2.16.840.1.612718.3.579.2. 173 1950 Unknown [id number] 2.16.840.1.654062.3.579.2. 173 Medicare [id number] [id number] [facility] [id number] Social History Date Type Detail Facility Start: Unknown if melissa quinones smoked [facility] Start: 01-21-2013 End: 12-11-2021 Tobacco smoking status NHIS Never smoker [place], [place] Start: 01-21-2013 End: 10-29-2024 Alcohol intake Yes [employer] Start: 01-14-2013 Alcohol Comment rarely [place] Start: 1950 Sex Assigned At Not on file [place], [place] Start: 08-19-2019 End: 02-05-2024 Alcohol intake Current drinker of alcohol (finding) [place] Start: 08-19-2019 End: 06-04-2022 History SDOH Financial 5 [place] Start: 08-19-2019 End: 06-04-2022 History SDOH Food Worry 1 [place], [place] Start: 08-19-2019 End: 06-04-2022 History SDOH Transport Med 2 [place] Start: 08-15-2020 End: 12-11-2021 Tobacco use and exposure Never used [facility] Start: 01-03-2022 History SDOH Alcohol Frequency 3 [employer] Work Phone: Start: 01-15-2023 End: 01-21-2024 History of Social function [place] How often to you hav e a drink containing alcohol? 2-4 times a month [employer] How many standard dr inks containing alcohol do you have on a typical day? 1 or 2 [employer] How often do you hav e 6 or more drinks on 1 occasion? Never [employer] How hard is it for y ou to pay for the very basics like food, housing, medical care, and heating Not hard at all [employer] (I/We) worried roman er (my/our) food would run out before (I/we) got money to buy more. Never true [employer] Has the [employer], [employer], oil, or water [employer] threatened to shut off services in your home in past 12Mo No [employer] Do you belong to any clubs or organizations such as latter day groups, unions, fraternal or athletic groups, or school groups? Yes [employer] Are you now , , , , never or living with a partner? [employer] How often to you hav e a drink containing alcohol? Monthly or less [employer] Do you feel stress - tense, restless, nervous, or anxious, or unable to sleep at night because your mind is troubled all the time - these days [OSQ] Only a little [facility] Medical Equipment Procedure Code Equipment Code Equipment Origin al Text Equipment Identifier Dates 6f X 26cm Stent - [id number] Start: 02-02-2022 Comment on above: Description: REF [id number] Clinical Notes 10-06-2020 to 02-05-2024 Discharge InstructionsAttachments [...] cannot be sent through Care Everywhere.Back Spasm (Luxembourger)documented in this encounter [facility] 04-17-2021 Note PROCEDURE: Bilateral C5, C6, C7 [...] The patient was turned back onto the gurney and taken to recovery in stable condition and allowed to recover from the procedure, then discharged per criteria. This document serves as a record of the services and decisions personally performed and made by the attending provider. It was created on his/her behalf by a trained medical aide. The creation of this document is based on the provider?s statements to the medical aide. Electronically signed by Jcarlos West MD 04/17/21 09:24 EST Electronically signed by Charlee Rice 04/17/2021 09:11 EST [facility] 04-17-2021 Note History of Present I [...] on his/her behalf by a trained medical aide. The creation of this document is based on the provider?s statements to the medical aide. Problem List/Past Medical History Ongoing Acid reflux [...] signed by Charlee Rice 04/17/2021 08:33 EST [facility] 03-02-2021 Evaluation note Encounter Date Diagnosis [...] Feb, Other chronic pain (ICD-10 - G89.29) [facility] Other 11-05-2021 NotePROCEDURE: Radiofrequency ablation of the [...] on his/her behalf by a trained medical aide. The creation of this document is based on the provider?s statements to the medical aide. Electronically signed by Jcarlos West MD 01/27/21 09:06 EDT Electronically signed by Charlee Rice 01/27/2021 09:01 [facility]11-05-2021 NoteHistory of Present Illness CHIEF COMPLAINT: Low [...] on his/her behalf by a trained medical aide. The creation of this document is based on the provider?s statements to the medical aide. Problem List/Past Medical History Ongoing Acid reflux [...] 08:12 EDT Electronically signed by Charlee Rice Aide 01/27/2021 08:10 [facility]10-18-2021 NotePROCEDURE: Bilateral C6 transforaminal epidural steroid injection [...] on his/her behalf by a trained medical aide. The creation of this document is based on the provider?s statements to the medical aide. Electronically signed by Jcarlos West MD 01/09/21 10:28 EDT Electronically signed by Tay Bhakta 01/09/2021 10:19 [facility]10-18-2021 NoteHistory of Present Illness CHIEF COMPLAINT: Neck [...] on his/her behalf by a trained medical aide. The creation of this document is based on the provider?s statements to the medical aide. Problem List/Past Medical History Ongoing Acid reflux [...] Electronically signed by Tay Bhakta 01/09/2021 10:18 [facility]08-12-2021 NotePROCEDURE: Bilateral L3, L4, L5 dorsal medial [...] The patient was turned back onto the gurney and taken to recovery in stable condition and allowed to recover after which was discharged per criteria. This document serves as a record of the services and decisions personally performed and made by theattending provider. It was created on his/her behalf by a trained medical aide. The creation of this document is based on the provider?s statements to the medical aide. Electronically signed by Jcarlos West MD 11/03/20 10:14 EDT Electronically signed by Charlee Rice 11/03/2020 10:06 [facility]08-12-2021 NoteHistory of Present Illness CHIEF COMPLAINT: Low [...] on his/her behalf by a trained medical aide. The creation of this document is based on the provider?s statements to the medical aide. Problem List/Past Medical History Ongoing Acid reflux [...] Electronically signed by Charlee Rice 11/03/2020 09:37 [facility]07-29-2021 NotePROCEDURE: Bilateral L3, L4, L5 dorsal medial [...] The patient was turned back onto the gurney and taken to recovery in stable condition and allowed to recover after which was discharged per criteria. This document serves as a record of the services and decisions personally performed and made by theattending provider. It was created on his/her behalf by a trained medical aide. The creation of this document is based on the provider?s statements to the medical aide. Electronically signed by Jcarlos West MD 10/20/20 09:40 EDT Electronically signed by Charlee Rice 10/20/2020 09[facility] NoteHistory of Present Illness CHIEF COMPLAINT: [...] on his/her behalf by a trained medical aide. The creation of this document is based on the provider?s statements to the medical aide. Problem List/Past Medical History Ongoing Acid reflux [...] MD 10/20/20 08:53 EDT Electronically signed by DwayneCharlee Aide 10/20/2020 08:50 [facility]07-15-2021 NotePROCEDURE: Bilateral C6 transforaminal epidural steroid injection [...] on his/her behalf by a trained medical aide. The creation of this document is based on the provider?s statements to the medical aide. Electronically signed by Jcarlos West MD 10/06/20 15:01 EDT Electronically signed by Kathleen Marin 10/06/2020 14:57 [facility]07-15-2021 NoteHistory of Present Illness CHIEF COMPLAINT: Neck [...] on his/her behalf by a trained medical aide. The creation of this document is based on the provider?s statements to the medical aide. Problem List/Past Medical History Ongoing Acid reflux [...] Electronically signed by Kathleen Marin 10/06/2020 14:19 [facility]* Diagnosis Impaired fasting glucose documented in this encounter [employer] Phone: evaluation note* Diagnosis Cervical disc disorder at C4-C5 level with radiculopathy / MRI 2020 Screening cholesterol level Screening for lipoid disorders Screening for prostate cancer Special screening for malignant neoplasm of prostate documented in this encounter [employer] Phone: evaluation note* Diagnosis Right medial knee pain Pain in joint, lower leg documented in this encounter [employer] Phone: evaluation note* Diagnosis Screening for prostate cancer Special screening for malignant neoplasm of prostate Type 2 diabetes mellitus without complication, without long-term current use of insulin (HCC) / DIET CONTROLLED Screening cholesterol level Screening for lipoid disorders documented in this encounter [employer] Phone: evaluation note* Diagnosis Renal colic on right side Renal colic documented in this encounter [employer] Phone: evaluation note* Diagnosis Renal colic on right side Renal colic documented in this encounter [employer] Phone: evaluation note* Diagnosis Type 2 diabetes mellitus without complication, without long-term current use of insulin (HCC) / DIET CONTROLLED documented in this encounter [employer] Phone: evaluation note* Diagnosis Screening for prostate cancer Special screening for malignant neoplasm of prostate Mixed hyperlipidemia Type 2 diabetes mellitus without complication, without long-term current use of insulin (HCC) / DIET CONTROLLED documented in this encounter [employer] note* Diagnosis Right flank pain- Primary Abdominal pain, unspecified site Cyst of left kidney Unspecified congenital cystic kidney disease documented in this encounter [facility] N[facility]ative - Reported* Type Description Date Medical History Esophageal reflux Surgical History back surgery Surgical History Neck Surgery Surgical History hand surgery Surgical History shoulder surgery Hospitalization History See Above [facility] Other reason for visit NarrativeReferral Lindsey Cervical Disc [facility] Other Advance Directives No Advanced Directives Records FoundDocuments on File Type Date Recorded 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 None True Nowak PA-C [address] [address] [place] [address] Referral ID Status Reason Start Date Expiration Date Visits Re quested Visits Authorized [id number] Closed 05/16/2022 05/16/2023 1 1 Additional Source Comments (unrecognized sect ion and content) No Status Records FoundNo Status Records FoundNo Status Records FoundNo Status Records Found INFORMATION SOURCE (unrecogn ized section and content) DATE CREATED AUTHOR 09/24/2020 [facility] DATE CREATED AUTHOR AUTHOR'S ORGANIZ ATION 04/17/2021 [facility] DATE CREATED AUTHOR AUTHOR'S ORGANIZ ATION 02/03/2022 [facility] DATE CREATED AUTHOR AUTHOR'S ORGANIZ ATION 02/07/2024 [facility] Care Teams (unrecognized sec tion and content) Resident Care Manager Relationship Specialty Start Date End Date Blossom Portillo MD [address] [place] [address], [facility] [place] [address] PCP - General Internal Medicine 07/20/19 Resident Care Manager Relationship Specialty Start Date End Date Blossom Portillo MD [address] [place] [address], [facility] [place] [address] PCP - General Internal Medicine 07/20/19 Resident Care Manager Relationship Specialty Start Date End Date Blossom Portillo MD [address] [place] [address], [place] [address] PCP - General Internal Medicine 07/20/19 Resident Care Manager Relationship Specialty Start Date End Date Blossom Portillo MD [address] [place] [address], [facility] [place] [address] PCP - General Internal Medicine 07/20/19 Resident Care Manager Relationship Specialty Start Date End Date Blossom Portillo MD [address] [place] [address], [facility] [place] [address] PCP - General Internal Medicine 07/20/19 Resident Care Manager Relationship Specialty Start Date End Date Blossom Portillo MD [address] [place] [address], [facility] [place] [address] PCP - General Internal Medicine 07/20/19 Resident Care Manager Relationship Specialty Start Date End Date Blossom Portillo MD [address] [place] [address] [place] [address] PCP - General Internal Medicine 07/20/19 Resident Care Manager Relationship Specialty Start Date End Date Blossom Portillo MD [address] [place] [address] [place] [address] PCP - General Internal Medicine 07/20/19 Reason for Visit (unrecogniz ed section and content) Specialty Diagnoses / Procedures Referred By Contac t Referred To Contact Radiology Diagnoses Renal colic on right side Procedures CT ABDOMEN PELVIS WO CONTRAST Additional Contrast? None True Nowak PA-C [address] [place] [address] Referral ID Status Reason Start Date Expiration Date Visits Re quested Visits Authorized [id number] Closed 05/16/2022 05/16/2023 1 1 Reason Comments Flank Pain Right flank pain sta rting at 0030, hx of kidney stones Ordered Prescriptions (unrec ognized section and content) Prescription Sig Dispensed Refills Start Date End Da te ibuprofen (ADVIL;MOTRIN) 600 MG tablet Take 1 [...] On Sat02/05/24 at 0215, For 1 dose 221 (New Bag - Prov ider: Charlee Robison RN)025 (Stopped - Provider: Charlee Robison RN) sodium chloride flush 0.9 % injection 3 mL(Linked Group 1) 3 mL, IntraVENous, EVERY 8 HOURS, First dose on Sat02/05/24 at 0215, Until Discontinued, Flush line with 3-5 mL 022 (Given - Provid er: Charlee Robison RN)1015 (Due)1815 (Due) PRN Medication Order 02/03/2024 02/04/2024 02/05/2024 iopamidol (ISOVUE-370) 76 % injection 75 mL (COMPLETED) 75 mL, IntraVENous, IMG ONCE PRN, 1 dose, Starting on Sat02/05/24 at 0240, Until Sat02/05/24 at 0251, Other 025 (Given - Provid er: Fabiola Carrizales) Linked [...] BE BASED ON THE PRIMARY CLINICAL RECORDS. [employer] provides no warranty or guarantee of the accuracy or completeness of information in this document.
== END 2024-03-26 14:10 | disposition home or self-care (01) ==
LOC: EC 14:09
PROVIDERS: PCP Internal Medicine; Visit Provider Physician Assistant
DX: M79.671 Pain in right foot (principal); M24.674 Ankylosis, right foot
CPT/HCPCS: 73630

== ENCOUNTER 2024-05-06 09:07 | Outpatient (OUT) | payer MEDICARE, OTHER, SELFPAY ==
--- NOTE | 2024-05-06 09:10 | XR_ITS ---
The [address] [address] Patient Name: DINO MORENO MRN: [id number] date: 1950 Sex: M Assigned Patient [facility]: [facility] Current Patient Location: Accession/Order Number: [id number] Exam Date: 05/06/2024 09:15 Report Date: 05/07/2024 08:50 At the request of: LUIS M MORELAND Procedure: XR foot RT min 3V PROCEDURE: XR foot RT min 3V HISTORY: Right Foot Pain COMPARISON: XR foot right 03/26/2024 FINDINGS: BONES:Mechanical fusion the first metatarsophalangeal joint via dorsal plate and screws; no appreciable hardware fracture or loosening. Prior resection of head of second proximal phalanx. Multifocal mild degenerative joint disease. Degenerative enthesopathic spurring of the calcaneus. SOFT TISSUES:No visible soft tissue swelling. EFFUSION:None visible. OTHER: Negative. XR/XR foot RT min 3V IMPRESSION: 1. Stable surgical changes without evidence of hardware failure or change in alignment. 2. Stable mild degenerative changes. Electronically authenticated by: ISIS PALMER Date: 05/07/2024 08:50
--- OUTSIDE RECORDS SUMMARY | 2024-05-06 09:17 | XMS_ITS | CCD ---
Author Organization [facility] Care Team Providers Care Director Of Provider Relations Name Role Phone Azeb Degroot Primary Care Physician Unavailab Azeb Valverde Unavailable Unavailable Ian Melendez Primary Care Provider Azeb Degroot Primary Care Physician Unavailab Blossom Sales Primary Care Provider [phone] Lindsey SILVERMAN, Blossom Harkins Primary Care Provider LINDSEY, DR CERRATO Admitting Unavailable LINDSEY, DR CERRATO Attending Unavailable RELIANCE, DR DINO Magu[employer] Unavailable LINDSEY, DR [...] Portillo MD, Blossom Harkins Primary Care Provider Azeb Degroot Primary Care Physician Unavailab JCARLOS Mooney Referring Unavailable BLOSSOM PORTILLO Primary Care Unavailable LEIA LING Attending Unavailable BLOSSOM PORTILLO Primary Care Unavailable BLOSSOM PORTILLO Primary Care Unavailable BLOSSOM PORTILLO Referring Unavailable BLOSSOM PORTILLO Primary Care Unavailable BLOSSOM PORTILLO Referring Unavailable JCARLOS ALEGRE Referring Unavailable BLOSSOM PORTILLO Primary Care Unavailable Allergies Allergy Classification Reported Allergen(s) Allergy Type Date of Onset Reaction(s) Facility Opioid Agonists (2 sources) Codeine; Translations: [Codeine] Drug Allergy 3 Other (See Comments) [employer] (5 sources) Codeine; Translations: [codeine sulfate] Drug Allergy [employer] (6 sources) Codeine; Translations: [Codeine Phosphate] Drug Allergy Unknown [employer] (14 sources) Codeine; Translations: [codeine] Drug Allergy 3 Other (See Comments), Nausea And Vomiting [employer]- [place], [place] Medications Current Medications Medication Drug [...] 08/01/2020 Active celecoxib 200 mg oral capsule (10 sources) Nonsteroidal Anti-inflammatory Drug Start: 10-03-2023 take [...] body site twice daily as directed; ph: [phone] Start: 03-02-2024 Efudex 5 % top ical cream 03/02/2024 COMPOUND 1:1 with 0.005% calcipotriene. Apply to entire body site twice daily as directed; ph: [phone] ibuprofen 600 mg oral tablet (5 sources) [...] once daily (May wear up to 12hours.) methylPREDNISolone 4 mg oral tablet (2 sources) Corticosteroid Start: 02-05-2024 methylPREDNISolone (MEDROL) 4 MG tablet TAPER 21 tablet 02/05/2024 Active Multiple Vitamin (MULTI-VITAMIN DAILY PO) (3 sources) Multiple Vitamin (MULTI-VITAMIN DAILY PO) Take by mouth daily 0 Active pantoprazole 40 mg delayed release oral tablet (12 sources) Proton Pump Inhibitor Start: 11-04-2023 take 1 tablet by mouth once daily [...] Active rosuvastatin calcium 10 mg oral tablet (8 sources) HMG-CoA Reductase Inhibitor Start: 04-16-19 25 take 1 tablet by mouth every other day rosuvastatin (CRESTOR) 10 MG tablet Take 1 tablet by mouth every other day 45 tablet 1 04/16/2024 Active Start: 10-03-2023 take 1 tablet by jackelin th every other day rosuvastatin (CRESTOR) 10 MG [...] mL tamsulosin hydrochloride 0.4 mg oral capsule (10 sources) alpha-Adrenergi c Rod Start: 04-13-2024 take 1 capsule by mouth once daily tamsulosin (FLOMAX) 0.4 MG capsule TAKE 1 CAPSULE BY MOUTH ONCE DAILY 90 capsule 04/13/2024 Active Start: 03-29-2022 take 1 capsule by mo uth once daily tamsulosin (FLOMAX) 0.4 MG capsule Take 1 capsule by mouth daily 90 capsule 3 05/15/2023 Active therapeutic multivitamin-minerals (THERAGRAN-M) tablet (4 sources) [...] at 0215, For 1 dose triamcinolone acetonide 0.62879 mg/mg topical ointment (6 sources) Corticosteroid Start: 07-01-2018 apply 1 g topically twice daily triamcinolone acetonide 0.025 % topical ointment 07/01/2018 apply a thin layer to the affected area(s) by topical route 2 times daily until flat. Dispense 30 gm Problems Active Problems Problem Classification Problem Date Documented Date Episodic/Chronic Abdominal pain (4 sources) Right flank pain; Translations: [Unspecified abdominal pain] Onset: 4 02-05-2024 Episodic Allergic reactions (7 sources) Contact dermatitis and other eczema, unspecified cause; Translations: [Dermatitis, unspecified] Onset: 9 Episodic Calculus of urinary tract (7 sources) Calculus of ureter; Translations: [Renal colic] Onset: 2 Episodic Diabetes mellitus without complication (14 sources) Type 2 diabetes mellitus without complication; [...] Episodic Other bone disease and musculoskeletal deformities (10 sources) Degenerative joint disease involving multiple joints; [...] of skin sensation Onset: 9 Episodic Other skin disorders (3 [...] Classification Problem Date Documented Da te Episodic/Chronic Other and unspecified benign neoplasm (2 sources) Hemangioma of skin and subcutaneous tissue Onset: 07-01-2018 Episodic Other and unspecified benign neoplasm (4 sources) Hemangioma of skin and subcutaneous tissue Onset: 07-01-2018 Episodic Other connective tissue disease (5 sources) Left achilles tendonitis; Translations: [Achilles tendinitis, left leg] Onset: 06-04-2022 Resolved: 07-23-2023 06-04-2022 Episodic Other connective tissue disease (4 sources) Impingement syndrome of right shoulder region; Translations: [Impingement syndrome of right shoulder] Onset: 07-23-2023 07-23-2023 Episodic Other gastrointestinal disorders (1 source) Dysphagia; Translations: [Dysphagia, unspecified] Episodic Other inflammatory condition of skin (4 sources) 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 Other nervous system disorders (8 sources) Paresthesia of skin Onset: 07-01-2018 Episodic Other non-traumatic joint disorders (5 sources) Pain in right knee; Translations: [Pain in joint, lower leg] Onset: 01-16-2023 Episodic Other screening for suspected conditions (not mental disorders or infectious disease) (6 sources) Patient encounter status; Translations: [Encounter for screening for lipoid disorders] Onset: 01-15-2024 Episodic Other skin disorders (2 sources) Actinic keratosis Onset: 07-01-2018 Episodic Other skin disorders (15 sources) Actinic keratosis Onset: 07-01-2018 Episodic Spondylosis; intervertebral disc disorders; other back problems (20 sources) Chronic low back pain; Translations: [Low back pain] Onset: 07-20-2019 Resolved: 03-02-2021 07-20-2019 Episodic Unclassified (1 source) Low back pain, unspecified M54.50 Onset: 03-02-2021 Resolved: 03-02-2021 Unclassified (8 sources) Onset: 06-04-2022 Resolved: 04-26-2023 04-26-2023 Results Test Name Value Interpretation Reference Range Facility XR ABDOMEN (KUB) (SINGLE AP VIEW)on 04-29-2024 XR ABDOMEN (KUB) (SINGLE AP VIEW) EXAMINATION: ONE SUPINE XRAY VIEW(S) OF THE ABDOMEN 04/28/2024 9:59 am COMPARISON: 03/27/2023. HISTORY: ORDERING SYSTEM PROVIDED HISTORY: Kidney stones FINDINGS: The bowel gas pattern is nonspecific and nonobstructive. No dilated loops of bowel are seen. No abnormal densities are seen overlying the renal shadows. Pelvic phleboliths are noted. There are degenerative changes involving the hips and spine. IMPRESSION: 1. Nonspecific and nonobstructive bowel gas pattern. 2. No radiopaque urinary tract calcifications seen. Interpreted by: Noel Healy MD Signed by: Noel Healy MD 04/29/24 Final result Normal [facility] XR Abdomen Single viewon 1. Nonspecific and nonobstructive bowel gas pattern. 2. No radiopaque urinary tract calcifications seen. [facility] CONSOLIDATED EXAMINATION: ONE SUPINE XRAY VIEW(S) OF THE ABDOMEN 04/28/2024 9:59 am COMPARISON: 03/27/2023. HISTORY: ORDERING SYSTEM PROVIDED HISTORY: Kidney stones FINDINGS: The bowel gas pattern is nonspecific and nonobstructive. No dilated loops of bowel are seen. No abnormal densities are seen overlying the renal shadows. Pelvic phleboliths are noted. There are degenerative changes involving the hips and spine. [facility] Noel Freed MD - 04/29/2024 EXAMINATION: ONE SUPINE XRAY VIEW(S) OF THE ABDOMEN 04/28/2024 9:59 am COMPARISON: 03/27/2023. HISTORY: ORDERING SYSTEM PROVIDED HISTORY: Kidney stones FINDINGS: The bowel gas pattern is nonspecific and nonobstructive. No dilated loops of bowel are seen. No abnormal densities are seen overlying the renal shadows. Pelvic phleboliths are noted. There are degenerative changes involving the hips and spine. IMPRESSION: 1. Nonspecific and nonobstructive bowel gas pattern. 2. No radiopaque urinary tract calcifications seen. [facility]dom[facility] Single viewOrdere d By: Noel Healy on 04-29-2024 [facility] Work Phone: XR Abdomen Single viewon Radiology Study observation (narrative) [facility] CBC with Diffon 02-05-2024 Basophils (Bld) [#/Vol] 0.04 10*3/uL [facility] Basophils/100 WBC (Bld) 1 % 0 - 2 % [facility] Eosinophils (Bld) [#/Vol] 0.13 10*3/uL [facility] Eosinophils/100 WBC (Bld) 2 % 1 - 4 % [facility] Erythrocyte distribution width (RBC) [Ratio] 13.7 % 11.8 - 14.4 % [facility] Hematocrit (Bld) [Volume fraction] 42.3 % 40.7 - 50.3 % [facility] Hemoglobin (Bld) [Mass/Vol] 14.5 g/dL 13.0 - 17.0 g/dL [facility] Immature granulocytes (Bld) [#/Vol] [facility] Immature granulocytes/100 WBC (Bld) 0 % 0 [facility] Interpretation and review of laboratory results Abnormal [facility] Lymphocytes/100 WBC (Bld) 27 % 24 - 43 % [facility] Lymphocytes/100 WBC (Bld) 1.50 % [facility] MCH (RBC) [Entitic mass] 31.4 pg 25.2 - 33.5 pg [facility] MCHC (RBC) [Mass/Vol] 34.3 g/dL 28.4 - 34.8 g/dL [facility] MCV (RBC) [Entitic vol] 91.6 fL 82.6 - 102.9 fL [facility] Monocytes/100 WBC (Bld) 16 % High 3 - 12 % [facility] Monocytes/100 WBC (Bld) 0.85 % [facility] Neutrophils/100 WBC (Bld) 54 % 36 - 65 % [facility] Nucleated RBC/100 WBC (Bld) [Ratio] 0.0 % 0.0 per 100 WBC [facility] Platelet mean volume (Bld) [Entitic vol] 9.8 fL 8.1 - 13.5 fL [facility] Platelets (Bld) [#/Vol] 272 10*3/uL [facility] RBC (Bld) [#/Vol] 4.62 10*6/uL 4.21 - 5.7 7 m/uL [facility] Segmented neutrophils/100 WBC (Bld) 2.96 % [facility] WBC other (Bld) [#/Vol] 5.5 [facility] Abs. Basophil 0.04 k/uL Normal 0.00-0.20 [facility] Comment on above: Performed By: #### C DP, CP, LIP #### [facility] [address] [place] [address] Economic Development Manager: Dino Moody MD Abs.Imm.Granulocyte <0.03 Normal 0.00-0.30 [facility] Comment on above: Performed By: #### C DP, CP, LIP #### [facility] [address] [place] [address] Economic Development Manager: Dino Moody MD Abs.Neutrophil (Seg) 2.96 k/uL Normal 1.50-8.10 [facility] Comment on above: Performed By: #### C DP CP, LIP #### [address] [place], [place] [id number] Economic Development Manager: Dino Moody MD Basophils/100 WBC (Bld) 1 % Normal 0-2 [facility] Comment on above: Performed By: #### C DP CP, LIP #### [address] [place] [address] Economic Development Manager: Dino Moody MD Eosinophils (Bld) [#/Vol] 0.13 10*3/uL Normal 0.00-0.44 [facility] Comment on above: Performed By: #### C DP CP, LIP #### [address] [place] [address] Economic Development Manager: Dino Moody MD Eosinophils/100 WBC (Bld) 2 % Normal 1-4 [facility] Comment on above: Performed By: #### C MELANIA CP, LIP #### [address] [place], [facility]83 Economic Development Manager: Dino Moody MD Erythrocyte distribution width (RBC) [Ratio] 13.7 % Normal 11.8-14.4 [facility] Comment on above: Performed By: #### C DP CP, LIP #### [address] [place], [facility]83 Economic Development Manager: Dino Moody MD Hematocrit (Bld) [Volume fraction] 42.3 % Normal 40.7-50.3 [facility] Comment on above: Performed By: #### C DP, CP, LIP #### [address] [place], [facility]83 Economic Development Manager: Dino Moody MD Hemoglobin (Bld) [Mass/Vol] 14.5 g/dL Normal 13.0-17.0 [facility] Comment on above: Performed By: #### C DP, CP, LIP #### [facility] [address] [place], [place] [id number] Economic Development Manager: Dino Moody MD Immature granulocytes/100 WBC (Bld) 0 % Normal 0 [facility] Comment on above: Performed By: #### C DP, CP, LIP #### [facility] [address] [place], [place] [address] Economic Development Manager: Dino Moody MD Lymphocytes (Bld) [#/Vol] 1.50 10*3/uL Normal 1.10-3.70 [facility] Comment on above: Performed By: #### C DP, CP, LIP #### [address] [place] [id number] Economic Development Manager: Dino Moody MD Lymphocytes/100 WBC (Bld) 27 % Normal 24-43 [facility] Comment on above: Performed By: #### C DP, CP, LIP #### [address] [place], [facility]83 Economic Development Manager: Dino Moody MD MCH (RBC) [Entitic mass] 31.4 pg Normal 25.2-33.5 [facility] Comment on above: Performed By: #### C DP, CP, LIP #### [address] [place], [facility]83 Economic Development Manager: Dino Moody MD MCHC (RBC) [Mass/Vol] 34.3 g/dL Normal 28.4-34.8 [facility] Comment on above: Performed By: #### C DP, CP, LIP #### [address] [place] [address] Economic Development Manager: Dino Moody MD MCV (RBC) [Entitic vol] 91.6 fL Normal 82.6-102.9 [facility] Comment on above: Performed By: #### C DP, CP, LIP #### [facility] [address] [place], [place] [address] Economic Development Manager: Dino Moody MD Monocytes (Bld) [#/Vol] 0.85 10*3/uL Normal 0.10-1.20 [facility] Comment on above: Performed By: #### C DP, CP, LIP #### [facility] [address] [place], [place] [address] Economic Development Manager: Dino Moody MD Monocytes/100 WBC (Bld) 16 % High 3-12 [facility] Comment on above: Performed By: #### C DP, CP, LIP #### [facility] [address] [place], [place] [address] Economic Development Manager: Dino Moody MD Neutrophil (Seg) 54 % Normal 36-65 [facility] Comment on above: Performed By: #### C DP, CP, LIP #### [facility] [address] [place], [place] [address] Economic Development Manager: Dino Moody MD NRBC Automated 0.0 per 100 WBC Normal 0.0 [facility] Comment on above: Performed By: #### C DP, CP, LIP #### [facility] [address] [place], [place] [address] Economic Development Manager: Dino Moody MD Platelet mean volume (Bld) [Entitic vol] 9.8 fL Normal 8.1-13.5 [facility] Comment on above: Performed By: #### C DP, CP, LIP #### [facility] [address] [place], [place] [id number] Economic Development Manager: Dino Moody MD Platelets (Bld) [#/Vol] 272 10*3/uL Normal 138-453 [facility] Comment on above: Performed By: #### C DP, CP, LIP #### [facility] [address] [place] [address] Economic Development Manager: Dino Moody MD RBC (Bld) [#/Vol] 4.62 10*6/uL Normal 4.21-5.77 [facility] Comment on above: Performed By: #### C DP, CP, LIP #### [facility] [address] [place] [address] Economic Development Manager: Dino Moody MD WBC (Bld) [#/Vol] 5.5 10*3/uL Normal 3.5-11.3 [facility] Comment on above: Performed By: #### C DP, CP, LIP #### [facility] [address] [place], [place] [id number] Economic Development Manager: Dino Moody MD [facility] 02-05-2024 Albumin [Mass/Vol] 4.2 g/dL 3.5 - 5.2 g/dL [facility] Albumin/Globulin [Mass ratio] 1.6 {ratio} 1.0 - 2.5 [facility] ALP [Catalytic activity/Vol] 96 U/L 40 - 129 U/L [facility] ALT [Catalytic activity/Vol] 20 U/L 10 - 50 U/L [facility] Anion gap [Moles/Vol] 8 mmol/L Low 9 - 16 mmol/L [facility] AST [Catalytic activity/Vol] 18 U/L 10 - 50 U/L [facility] Bilirubin [Mass/Vol] 0.5 mg/dL 0.00 - 1.20 mg/dL [facility] Calcium [Mass/Vol] 9.1 mg/dL 8.6 - 10. 4 mg/dL [facility] Chloride [Moles/Vol] 107 mmol/L 98 - 10 7 mmol/L [facility] CO2 [Moles/Vol] 28 mmol/L 20 - 31 mmol/L [facility] Creatinine [Mass/Vol] 1.0 mg/dL 0.70 - 1.20 mg/dL [facility] Est, Glom Filt Rate 79 - PINF [facility] Comment on above: These results [...] [Mass/Vol] 96 mg/dL 74 - 99 mg/dL [facility] Interpretation and review of laboratory results Abnormal [facility] Potassium [Moles/Vol] 4.1 mmol/L 3.7 - 5.3 mmol/L [facility] Protein [Mass/Vol] 6.9 g/dL 6.6 - 8.7 g/dL [facility] Sodium [Moles/Vol] 143 mmol/L 136 - 145 mmol/L [facility] Urea nitrogen [Mass/Vol] 16 mg/dL 8 - 23 mg/dL [facility] Urea nitrogen/Creatinine [Mass ratio] 16 mg/mg 9 - [address] [facility] [address] ABDOMEN PELVIS W IV CONTR Mike [...] Clayton Desai MD 02/05/24 Final result Normal [facility] CT Abdomen and Pelvis W cont christa Segundo 02-05-2024 1. No acute intra-abdominal or pelvic process. 2. Small hiatal hernia. [facility] CONSOLIDATED EXAMINATION: CT OF [...] acute bone or soft tissue abnormality evident. [facility] Clayton Desai MD [...] or pelvic process. 2. Small hiatal hernia. [facility] Radiology Study observation (narrative) [facility] CT Abdomen and Pelvis W cont rast IVOrdered By: Clayton Desai on 02-05-2024 [facility] Work Phone: Comp Metabolic Profon 2023 Albumin [Mass/Vol] 4.2 g/dL Normal 3.5-5.2 [facility] Comment on above: Performed By: #### C GARDENIA VELÁZQUEZ, LIP #### [facility] [address] [place] [address] Economic Development Manager: Dino Moody MD Albumin/Glob Ratio 1.6 Normal 1.0-2.5 [facility] Comment on above: Performed By: #### C GARDENIA VELÁZQUEZ, LIP #### [facility] [address] [place], [place] [id number] Economic Development Manager: Dino Moody MD Alkaline Phos 96 U/L Normal 40-129 [facility] Comment on above: Performed By: #### C DP, CP, LIP #### [facility] [address] [place], [place] [address] Economic Development Manager: Dino Moody MD ALT [Catalytic activity/Vol] 20 U/L Normal 10-50 [facility] Comment on above: Performed By: #### C DP, CP, LIP #### [facility] [address] [place], [place] [id number] Economic Development Manager: Dino Moody MD Anion gap [Moles/Vol] 8 mmol/L Low 9-16 [facility] Comment on above: Performed By: #### C DP, CP, LIP #### [facility] [address] [place], [place] [id number] Economic Development Manager: Dino Moody MD AST [Catalytic activity/Vol] 18 U/L Normal 10-50 [facility] Comment on above: Performed By: #### C DP, CP, LIP #### [facility] [address] [place], [place] [id number] Economic Development Manager: Dino Moody MD Bilirubin [Mass/Vol] 0.5 mg/dL Normal 0.00-1.20 [facility] Comment on above: Performed By: #### C DP, CP, LIP #### [facility] [address] [place], [place] [id number] Economic Development Manager: Dino Moody MD BUN/CRE Ratio 16 Normal 9-20 [facility] Comment on above: Performed By: #### C DP, CP, LIP #### [facility] [address] [place], [place] [id number] Economic Development Manager: Dino Moody MD Calcium [Mass/Vol] 9.1 mg/dL Normal 8.6-10.4 [facility] Comment on above: Performed By: #### C DP CP, LIP #### [facility] [address] [place] [address] Economic Development Manager: Dino Moody MD Chloride [Moles/Vol] 107 mmol/L Normal 98-107 [facility] Comment on above: Performed By: #### C DP, CP, LIP #### [facility] [address] [place] [address] Economic Development Manager: Dino Moody MD CO2 [Moles/Vol] 28 mmol/L Normal 20-31 [facility] Comment on above: Performed By: #### C MELANIA CP, LIP #### [facility] [address] [place], [place] [id number] Economic Development Manager: Dino Mooyd MD Creatinine [Mass/Vol] 1.0 mg/dL Normal 0.70-1.20 [facility] Comment on above: Performed By: #### C MELANIA CP, LIP #### [facility] [address] [place] [address] Economic Development Manager: Dino Moody MD GFR/1.73 sq M.predicted among non-blacks MDRD (S/P/Bld) [Vol rate/Area] 79 mL/min/{1.73_m2} Normal >60 [facility] Comment on above: Result Comment: These results [...] renal tubular secretion. Performed By: #### C DP, CP, LIP #### [facility] [address] [place] [address] Economic Development Manager: Dino Moody MD Glucose [Mass/Vol] 96 mg/dL Normal 74-99 [facility] Comment on above: Performed By: #### C DP, CP, LIP #### [facility] [address] [place], [place] [address] Economic Development Manager: Dino Moody MD Potassium [Moles/Vol] 4.1 mmol/L Normal 3.7-5.3 [facility] Comment on above: Performed By: #### C DP, CP, LIP #### [facility] [address] [place], [place] [id number] Economic Development Manager: Dino Moody MD Protein [Mass/Vol] 6.9 g/dL Normal 6.6-8.7 [facility] Comment on above: Performed By: #### C DP, CP, LIP #### [address] [place], [place] [phone] Economic Development Manager: Dino Moody MD Sodium [Moles/Vol] 143 mmol/L Normal 136-145 [facility] Comment on above: Performed By: #### C DP, CP, LIP #### [address] [place], [place] [address]83 Economic Development Manager: Dino Moody MD Urea nitrogen [Mass/Vol] 16 mg/dL Normal 8-23 [facility] Comment on above: Performed By: #### C DP, CP, LIP #### [facility] [address] [place], [place] [id number] Economic Development Manager: Dino Moody MD Lactic Acidon 02-05-2024 Lactate [Moles/Vol] 1.0 mmol/L Normal 0.5-2.2 [facility] Comment on above: Performed By: #### L ACTIC #### [facility] [address] [place] [address] Economic Development Manager: Dino Moody MD Lactic Acid (Select if patie nt is over 65 to rule out mesenteric ischemia)on 02-05-2024 Lactate (BldV) [Moles/Vol] 1.0 mmol/L 0.5 - 2.2 mmol/L [facility] Lipaseon 02-05-2024 Lipase [Catalytic activity/Vol] 37 U/L - U/L [facility] Lipase [Catalytic activity/Vol] 37 U/L Normal [facility] Comment on above: Performed By: #### C DP, CP, LIP #### [facility] [address] [place] [address] Economic Development Manager: Dino Moody MD Microscopic Urinalysison Epithelial cells LM.HPF (Urine sed) [#/Area] 0 TO 2 [facility] RBC LM.HPF (Urine sed) [#/Area] 0 TO 2 [facility] WBC LM.HPF (Urine sed) [#/Area] 0 TO 2 [facility] No Panel Informationon 02-04 [facility] UA w/Reflex Cultureon 2023 Bilirubin, SemiQt,Ur Negative Normal NEG [facility] Comment on above: Performed By: #### U AMY ROTH #### [facility] [address] [place] [address] Economic Development Manager: Dino Moody MD Blood, Urine Negative Normal NEG [facility] Comment on above: Performed By: #### U AMY ROTH #### [facility] [address] [place] [address] Economic Development Manager: Dino Moody MD Clarity (U) Clear Normal CLEAR [facility] Comment on above: Performed By: #### U AMY ROTH #### [facility] [address] [place] [address] Economic Development Manager: Dino Moody MD Color (U) Yellow Normal YEL [facility] Comment on above: Performed By: #### U AX, UMICAO #### [facility] [address] [place], [place] [id number] Economic Development Manager: Dino Moody MD Glucose Ql (U) Negative Normal NEG [facility] Comment on above: Performed By: #### U AX, UMICAO #### [facility] [address] [place] [address] [address] [place], [place] [id number] Economic Development Manager: Dino Moody MD Ketones Ql (U) Negative Normal NEG [facility] Comment on above: Performed By: #### U AX, UMICAO #### [facility] [address] [place] [address] [place] [place], [place] [id number] Economic Development Manager: Dino Moody MD Leukocyte esterase Test strip Ql (U) Negative Normal NEG [facility] Comment on above: Performed By: #### U AX, UMICAO #### [address] [place], [facility] Economic Development Manager: Dino Moody MD Nitrite,Ur Negative Normal [facility] Comment on above: Performed By: #### U AX, UMICAO #### [facility] [address] [place] [address] [place] [place], [place] [id number] Economic Development Manager: Dino Moody MD PH,Ur 7.0 Normal 5.0-9.0 [facility] Comment on above: Performed By: #### U AX, UMICAO #### [facility] [address] [place] [address] [place] [address] Economic Development Manager: Dino Moody MD Protein Ql (U) Negative Normal NEG [facility] Comment on above: Performed By: #### U AX, UMICAO #### [facility] [address] [place], [place] [id number] Economic Development Manager: Dino Moody MD Spec. [place],Ur 1.010 Normal 1.010-1.020 [facility] Comment on above: Performed By: #### U AX, UMICAO #### [facility] [address] [place] [address] Economic Development Manager: Dino Moody MD Urobilinogen,Ur Normal Normal 0.0-1.0 [facility] Comment on above: Performed By: #### U AXCEZARICAO #### [facility] [address] [place] [address] Economic Development Manager: Dino Moody MD Urinalysis with Reflex to Cu ltureon 02-05-2024 Bilirubin Ql (U) Negative NEGATIVE [facility] Clarity (U) Clear Clear [facility] Color (U) Yellow Yellow [facility] Glucose Test strip (U) [Mass/Vol] Negative NEGATIVE mg/dL [facility] Hemoglobin Auto test strip Ql (U) Negative NEGATIVE [facility] Ketones (U) [Mass/Vol] Negative NEGATIVE mg/dL [facility] Leukocyte esterase Test strip Ql (U) Negative NEGATIVE [facility] Nitrite Ql (U) Negative NEGATIVE [facility] pH (U) 7.0 [pH] 5.0 - 9.0 [facility] Protein (U) [Mass/Vol] Negative NEGATIVE mg/dL [facility] Specific gravity (U) [Rel density] 1.010 1.010 - 1.020 [facility] Urobilinogen Qn (U) Normal 0.0 - 1. 0 EU/dL [facility] Urinalysis,Microon 4 Epithelial cells LM Ql (Urine sed) 0 TO 2 Normal 0-5 [facility] Comment on above: Performed By: #### U AMY ROTH #### [facility] [address] [place] [address] Economic Development Manager: Dino Moody MD Urine RBC's 0 TO 2 Normal 0-2 [facility] Comment on above: Performed By: #### U AMY ROTH #### [facility] [address] [place], [place] [id number] Economic Development Manager: Dino Moody MD Urine WBC's 0 TO 2 Normal 0-5 [facility] Comment on above: Performed By: #### U AMY ROTH #### [facility] [address] [place], [place] [id number] Economic Development Manager: Dino Moody MD Comp Metabol,Fastingon 01-14 Albumin [Mass/Vol] 4.0 g/dL Normal 3.5-5.2 [facility] Comment on above: Performed By: #### L ACTIC #### [facility] [address] [place], [place] [phone] Economic Development Manager: Dino Moody MD Albumin/Glob Ratio 1.4 Normal 1.0-2.5 [facility] Comment on above: Performed By: #### L ACTIC #### [facility] [address] [place], [place] [phone] Economic Development Manager: Dino Moody MD Alkaline Phos 95 U/L Normal 40-129 [facility] Comment on above: Performed By: #### L ACTIC #### [facility] [address] [place], [place] [phone] Economic Development Manager: Dino Moody MD ALT [Catalytic activity/Vol] 18 U/L Normal 10-50 [facility] Comment on above: Performed By: #### L ACTIC #### [facility] [address] [place], [place] [phone] Economic Development Manager: Dino Moody MD Anion gap [Moles/Vol] 8 mmol/L Low 9-16 [facility] Comment on above: Performed By: #### L ACTIC #### [facility] [address] [place] [address] Economic Development Manager: Dino Moody MD AST [Catalytic activity/Vol] 17 U/L Normal 10-50 [facility] Comment on above: Performed By: #### L ACTIC #### [facility] [address] [place], [place] [phone] Economic Development Manager: Dino Moody MD Bilirubin [Mass/Vol] 0.5 mg/dL Normal 0.00-1.20 [facility] Comment on above: Performed By: #### L ACTIC #### [facility] [address] [place], [place] [id number] Economic Development Manager: Dino Moody MD BUN/CRE Ratio 21 High 9-20 [facility] Comment on above: Performed By: #### L ACTIC #### [facility] [address] [place], [place] 9477083 Economic Development Manager: Dino Moody MD Calcium [Mass/Vol] 9.1 mg/dL Normal 8.6-10.4 [facility] Comment on above: Performed By: #### L ACTIC #### [facility] [address] [place], [place] [id number] Economic Development Manager: Dino Moody MD Chloride [Moles/Vol] 107 mmol/L Normal 98-107 [facility] Comment on above: Performed By: #### L ACTIC #### [facility] [address] [place] [address] [place] [place], [place] [phone] Economic Development Manager: Dino Moody MD CO2 [Moles/Vol] 27 mmol/L Normal 20-31 [facility] Comment on above: Performed By: #### L ACTIC #### [facility] [address] [place], [place] [phone] Economic Development Manager: Dnio Moody MD Creatinine [Mass/Vol] 0.9 mg/dL Normal 0.70-1.20 [facility] Comment on above: Performed By: #### L ACTIC #### [facility] [address] [place], [place] [phone] Economic Development Manager: Dino Moody MD GFR/1.73 sq M.predicted among non-blacks MDRD (S/P/Bld) [Vol rate/Area] 85 mL/min/{1.73_m2} Normal >60 [facility] Comment on above: Result Comment: These results [...] affects renal tubular secretion. Performed By: #### L ACTIC #### [facility] [address] [place] [address] [place] [address] Economic Development Manager: Dino Moody MD Glucose [Mass/Vol] 97 mg/dL Normal 74-99 [facility] Comment on above: Performed By: #### L ACTIC #### [facility] [address] [place] [address] [place] [address] Economic Development Manager: Dino Moody MD Potassium [Moles/Vol] 4.8 mmol/L Normal 3.7-5.3 [facility] Comment on above: Performed By: #### L ACTIC #### [address] [place] [address] Economic Development Manager: Dino Moody MD Protein [Mass/Vol] 6.8 g/dL Normal 6.6-8.7 [facility] Comment on above: Performed By: #### L ACTIC #### [facility] [address] [place] [address] [place] [address] Economic Development Manager: Dino Moody MD Sodium [Moles/Vol] 142 mmol/L Normal 136-145 [facility] Comment on above: Performed By: #### L ACTIC #### [facility] [address] [place] [address] [place] [address] Economic Development Manager: Dino Moody MD Urea nitrogen [Mass/Vol] 19 mg/dL Normal 8-23 [facility] Comment on above: Performed By: #### L ACTIC #### [facility] [address] [place] [address] Economic Development Manager: Dino Moody MD [facility] Metabolic Pane l, Fastingon 01-15-2024 Albumin [Mass/Vol] 4.0 g/dL 3.5 - 5.2 g/dL [facility] Albumin/Globulin [Mass ratio] 1.4 {ratio} 1.0 - 2.5 [facility] ALP [Catalytic activity/Vol] 95 U/L 40 - 129 U/L [facility] ALT [Catalytic activity/Vol] 18 U/L 10 - 50 U/L [facility] Anion gap [Moles/Vol] 8 mmol/L Low 9 - 16 mmol/L [facility] AST [Catalytic activity/Vol] 17 U/L 10 - 50 U/L [facility] Bilirubin [Mass/Vol] 0.5 mg/dL 0.00 - 1.20 mg/dL [facility] Calcium [Mass/Vol] 9.1 mg/dL 8.6 - 10. 4 mg/dL [facility] Chloride [Moles/Vol] 107 mmol/L 98 - 10 7 mmol/L [facility] CO2 [Moles/Vol] 27 mmol/L 20 - 31 mmol/L [facility] Creatinine [Mass/Vol] 0.9 mg/dL 0.70 - 1.20 mg/dL [facility] Est, Glom Filt Rate 85 - PINF [facility] Comment on above: These results [...] [Mass/Vol] 97 mg/dL 74 - 99 mg/dL [facility] Interpretation and review of laboratory results Abnormal [facility] Potassium [Moles/Vol] 4.8 mmol/L 3.7 - 5.3 mmol/L [facility] Protein [Mass/Vol] 6.8 g/dL 6.6 - 8.7 g/dL [facility] Sodium [Moles/Vol] 142 mmol/L 136 - 145 mmol/L [facility] Urea nitrogen [Mass/Vol] 19 mg/dL 8 - 23 mg/dL [facility] Urea nitrogen/Creatinine [Mass ratio] 21 mg/mg High 9 - 20 [facility] Hemoglobin A1Con 01-15-2024 Average glucose Estimated from glycated hemoglobin (Bld) [Mass/Vol] 128 mg/dL [facility] Comment on above: The ADA and AACC rec ommend providing the estimated average glucose result to permit better patient understanding of their HBA1c result. HbA1c (Bld) [Mass fraction] 6.1 % High 4.0 - 6.0 % [facility] Interpretation and review of laboratory results Abnormal [facility] Glucose [Mass/Vol] 128 mg/dL Normal [facility] Comment on above: Result Comment: The ADA and AACC recommend providing the estimated average glucose result to permit better patient understanding of their HBA1c result. Performed By: #### L ACTIC #### [facility] [address] [place] [address] [place] [address] Economic Development Manager: Dino Moody MD HbA1c (Bld) [Mass fraction] 6.1 % High 4.0-6.0 [facility] Comment on above: Performed By: #### L ACTIC #### [facility] [address] [place] [address] Economic Development Manager: Dino Moody MD Lipid Prof, Fastingon 2023 Cholesterol [Mass/Vol] 157 mg/dL Normal 0-199 [facility] Comment on above: Result Comment: Cholesterol Guidelines: <200 Desirable 200-240 Borderline >240 Undesirable Performed By: #### L IPRF #### [address] [id number] Economic Development Manager: Lanre Mendez MD Cholesterol in HDL [Mass/Vol] 60 mg/dL Normal >40 [facility] Comment on above: Result Comment: HDL Guidelines: <40 Undesirable 40-59 Borderline >59 Desirable Performed By: #### L IPRF #### [facility] [address] [place] [address] Economic Development Manager: Lanre Mendez MD Cholesterol in LDL [Mass/Vol] 84 mg/dL Normal 0-100 [facility] Comment on above: Result Comment: LDL Guidelines: <100 Desirable 100-129 Near to/above Desirable 130-159 Borderline >159 Undesirable Direct (measured) LDL and calculated LDL are not interchangeable tests. Performed By: #### L IPRF #### [facility] [address] [place] [address] Economic Development Manager: Lanre Mendez MD Cholesterol in VLDL [Mass/Vol] 13 mg/dL Normal [facility] Comment on above: Performed By: #### L IPRF #### [facility] [address] [place] [address] Economic Development Manager: Lanre Mendez MD Cholesterol.total/Ch olesterol in HDL [Mass ratio] 3.0 {ratio} Normal [facility] Comment on above: Performed By: #### L IPRF #### [facility] [address] [place] [address] Economic Development Manager: Lanre Mendez MD Triglyceride,Fasting 66 mg/dL Normal 0-149 [facility] Comment on above: Result Comment: Triglyceride Guidelines: <150 Desirable 150-199 Borderline 200-499 High >499 Very high Based on AHA Guidelines for fasting triglyceride, December 2011. Performed By: #### L IPRF #### [facility] [address] [place] [address] Economic Development Manager: Lanre Mendez MD Lipid, Fastingon 01-15-2024 Cholesterol [Mass/Vol] 157 mg/dL 0 - 199 mg/dL [facility] Comment on above: Cholesterol Guidelines: <200 Desirable 200-240 Borderline >240 Undesirable Cholesterol in HDL [Mass/Vol] 60 mg/dL 40 - PINF mg/dL [facility] [employer] Comment on above: HDL Guidelines: <40 Undesirable 40-59 Borderline >59 Desirable Cholesterol in LDL [Mass/Vol] 84 mg/dL 0 - 100 mg/dL [facility] [employer] Comment on above: LDL Guidelines: <100 Desirable 100-129 Near to/above Desirable 130-159 Borderline >159 Undesirable Direct (measured) LDL and calculated LDL are not interchangeable tests. Cholesterol in VLDL [Mass/Vol] 13 mg/dL [facility] [employer] Cholesterol.total/Ch olesterol in HDL [Mass ratio] 3.0 {ratio} [facility] [employer] Triglyceride [Mass/Vol] 66 mg/dL 0 - 149 mg/dL [facility] [employer] Comment on above: Triglyceride Guidelines: <150 Desirable 150-199 Borderline 200-499 High >499 Very high Based on AHA Guidelines for fasting triglyceride, December 2011. [facility] [employer] Microalb.,Random Uron 2023 Creatinine [Mass/Vol] 205.0 mg/dL Normal 39.0-259.0 [facility] Comment on above: Performed By: #### U RNMAB #### [employer] [facility] [place], [place] [id number] Economic Development Manager: Lanre Mendez MD Microalb/Creat Ratio Can not be calculated Normal 0.0-17.0 [facility] Comment on above: Performed By: #### U RNMAB #### [employer] [facility] [place], [place] [id number] Economic Development Manager: Lanre Mendez MD Microalbumin conc. <12 Normal 0-20 [facility] Comment on above: Performed By: #### U RNMAB #### [employer] [address] [place], [place] [id number] Economic Development Manager: Lanre Mendez MD Microalbumin, Uron Albumin DL <= 20 mg/L (U) [Mass/Vol] mg/L 0 - 20 mg/L [facility] Albumin/Creatinine DL <= 20 mg/L (U) [Ratio] Can not be calculated [facility] [employer] Creatinine (U) [Mass/Vol] 205.0 mg/dL 39.0 - 259.0 mg/dL [facility] PSA Screeningon 01-15-2024 Interpretation and review of laboratory results Abnormal [facility] Prostate specific Ag [Mass/Vol] 4.70 ng/mL High 0.00 - 4.00 ng/mL [facility] Comment on above: The Guido ECLIA as say is used. Results obtained with different assay methods cannot be used interchangeably. [facility] PSA, Screeningon 01-15-2024 Prostatic Spec. Ag 4.70 ng/mL High 0.00-4.00 [facility] Comment on above: Result Comment: The Guido ECLIA assay is used. Results obtained with different assay methods cannot be used interchangeably. Performed By: #### L ACTIC #### [facility] [address] [place] [address] Economic Development Manager: Dino Moody MD Hemoglobin A1Con 07-16-2023 Glucose [Mass/Vol] 131 mg/dL Normal [facility] Comment on above: Result Comment: The ADA and AACC recommend providing the estimated average glucose result to permit better patient understanding of their HBA1c result. Performed By: #### L ACTIC #### [facility] [address] [place] [address] [place] [address] Economic Development Manager: Dino Moody MD HbA1c (Bld) [Mass fraction] 6.2 % High 4.0-6.0 [facility] Comment on above: Performed By: #### L ACTIC #### [facility] [address] [place] [address] Economic Development Manager: Dino Moody MD No Panel Informationon 02-19 Tobacco smoking status Non-Smoker Invalid Interpretation Code [facility] [employer] Hemoglobin A1Con 06-28-2022 Average glucose Estimated from glycated hemoglobin (Bld) [Mass/Vol] 128 mg/dL [facility] Comment on above: The ADA and AACC rec ommend providing the estimated average glucose result to permit better patient understanding of their HBA1c result. HbA1c (Bld) [Mass fraction] 6.1 % High 4.0 - 6.0 % [facility] Interpretation and review of laboratory results Abnormal [facility] Basic Metabolic Panelon 04-26 Anion gap [Moles/Vol] 6 mmol/L Low 9 - 17 mmol/L [facility] Calcium [Mass/Vol] 9.2 mg/dL 8.6 - 10. 4 mg/dL [facility] Chloride [Moles/Vol] 106 mmol/L 98 - 10 7 mmol/L [facility] CO2 [Moles/Vol] 29 mmol/L 20 - 31 mmol/L [facility] Creatinine [Mass/Vol] 0.96 mg/dL 0.70 - 1.20 mg/dL [facility] GFR/1.73 sq M.predicted MDRD (S/P/Bld) [Vol rate/Area] - PINF [facility] Comment on above: These results are not [...] 105 mg/dL High 70 - 99 mg/dL [facility] Interpretation and review of laboratory results Abnormal [facility] Potassium [Moles/Vol] 4.5 mmol/L 3.7 - 5.3 mmol/L [facility] Sodium [Moles/Vol] 141 mmol/L 135 - 144 mmol/L [facility] Urea nitrogen [Mass/Vol] 18 mg/dL 8 - 23 mg/dL [facility] Urea nitrogen/Creatinine (Bld) [Mass ratio] 19 9 - [address] [facility] CBC with Auto Differentialon 05-16-2022 Absolute Eos # 0.07 [facility] Immature Granulocyte [facility] Absolute Lymph # 1.50 [facility] Absolute [place] # 0.78 [facility] Basophils (Bld) [#/Vol] 0.03 10*3/uL [facility] Basophils/100 WBC (Bld) 1 % 0 - 2 % [facility] Eosinophils/100 WBC (Bld) 1 % 1 - 4 % [facility] Hematocrit (Bld) [Volume fraction] 44.5 % 40.7 - 50.3 % [facility] Hemoglobin (Bld) [Mass/Vol] 15.1 g/dL 13.0 - 17.0 g/dL [facility] Immature granulocytes/100 WBC (Bld) 0 % 0 [facility] Interpretation and review of laboratory results Abnormal [facility] Lymphocytes/100 WBC (Bld) 26 % 24 - 43 % [facility] MCH (RBC) [Entitic mass] 32.5 pg 25.2 - 33.5 pg [facility] MCHC (RBC) [Mass/Vol] 33.9 g/dL 28.4 - 34.8 g/dL [facility] MCV (RBC) [Entitic vol] 95.9 fL 82.6 - 102.9 fL [facility] Monocytes/100 WBC (Bld) 14 % High 3 - 12 % [facility] NRBC Automated 0.0 0.0 per 100 WBC [facility] Platelet distribution width (Bld) [Ratio] 13.7 % 11.8 - 14.4 % [facility] Platelet mean volume (Bld) [Entitic vol] 9.6 fL 8.1 - 13.5 fL [facility] Platelets (Bld) [#/Vol] 208 10*3/uL [facility] RBC (Bld) [#/Vol] 4.64 10*6/uL 4.21 - 5.7 7 m/uL [facility] Segmented neutrophils/100 WBC (Bld) 58 % 36 - 65 % [facility] Segs Absolute 3.37 [facility] WBC (Bld) [#/Vol] 5.8 10*3/uL [facility] CT ABDOMEN PELVIS WO CONTRAS T Additional [...] known risk factors. Radiology 2017 http://pubs.rsna.org /doi/full/10.1148/ra diol.[email or web address] [facility] RIS CONSOLIDATED EXAMINATION: CT OF THE ABDOMEN [...] superficial soft tissues show no significant abnormalities. [facility] Jd Mtz MD - 05/16/2022 EXAMINATION: CT OF THE [...] known risk factors. Radiology 2017 http://pubs.rsna.org /doi/full/10.1148/ra diol.[email or web address] [employer] Work Phone: Radiology Study observation (narrative) [employer] Work Phone: CT ABDOMEN PELVIS WO CONTRAS T Additional Contrast? NoneOrdered By: Jd Johnson on 05-16-2022 [employer] Work Phone: Urinalysis with Microscopico n 05-16-2022 Bilirubin Urine Negative NEGATIVE [place] Color, UA Yellow Yellow [employer] Epithelial Cells UA None [facility] [employer] Glucose Auto test strip (U) [Mass/Vol] Negative NEGATIVE [employer] Ketones (U) [Mass/Vol] Negative NEGATIVE [employer] Leukocyte esterase Auto test strip Ql (U) Negative NEGATIVE [employer] Nitrite Auto test strip Ql (U) Negative NEGATIVE [employer] Protein (U) [Mass/Vol] 8.5 mg/dL 5.0 - 9.0 [employer] Protein (U) [Mass/Vol] Negative NEGATIVE [employer] RBC clumps Auto (Urine sed) [#/Area] None [employer] Number Specific [place], UA 1.020 1.010 - 1.020 [employer] Turbidity UA Clear Clear [employer] Number Urine Hgb Negative NEGATIVE [employer] Number Urobilinogen, Urine Normal Normal [facility] [employer] WBC, UA None [employer] Comprehensive Metabolic Pane l, Fastingon 01-05-2022 Albumin [Mass/Vol] 4.2 g/dL 3.5 - 5.2 g/dL [facility] Albumin/Globulin [Mass ratio] 1.6 {ratio} 1 - 2.5 [facility] ALP (Bld) [Catalytic activity/Vol] 84 U/L 40 - 129 U/L [facility] ALT [Catalytic activity/Vol] 26 U/L 5 - 41 U/L [facility] Anion gap [Moles/Vol] 8 mmol/L Low 9 - 17 mmol/L [facility] AST [Catalytic activity/Vol] 17 U/L NINF - 40 U/L [facility] Bilirubin [Mass/Vol] 0.8 mg/dL 0.3 - 1 .2 mg/dL [facility] Calcium [Mass/Vol] 8.9 mg/dL 8.6 - 10. 4 mg/dL [facility] Chloride [Moles/Vol] 106 mmol/L 98 - 10 7 mmol/L [facility] CO2 [Moles/Vol] 27 mmol/L 20 - 31 mmol/L [facility] Creatinine [Mass/Vol] 0.93 mg/dL 0.7 - 1.2 mg/dL [facility] GFR/1.73 sq M.predicted MDRD (S/P/Bld) [Vol rate/Area] - PINF [facility] Comment on above: Effective Dec 25, [...] 101 mg/dL High 70 - 99 mg/dL [facility] Interpretation and review of laboratory results Abnormal [facility] Potassium [Moles/Vol] 4.6 mmol/L 3.7 - 5.3 mmol/L [facility] Protein [Mass/Vol] 6.9 g/dL 6.4 - 8.3 g/dL [facility] Sodium [Moles/Vol] 141 mmol/L 135 - 144 mmol/L [facility] Urea nitrogen (BldV) [Mass/Vol] 19 mg/dL 8 - 23 mg/dL [facility] Urea nitrogen/Creatinine (Bld) [Mass ratio] 20 9 - [address] [facility] Hemoglobin A1Con 01-05-2022 Glucose [Mass/Vol] 128 mg/dL [facility] Comment on above: The ADA and AACC rec ommend providing the estimated average glucose result to permit better patient understanding of their HBA1c result. HbA1c (Bld) [Mass fraction] 6.1 % High 4 - 6 % [facility] Interpretation and review of laboratory results Abnormal [facility] Lipid, Fastingon 01-05-2022 Cholesterol [Mass/Vol] 162 mg/dL NINF - 200 mg/dL [facility] Comment on above: Cholesterol Guidelines: <200 Desirable 200-240 Borderline >240 Undesirable Cholesterol in HDL [Mass/Vol] 56 mg/dL 40 - PINF mg/dL [facility] Comment on above: HDL Guidelines: <40 Undesirable 40-59 Borderline >59 Desirable Cholesterol in LDL [Mass/Vol] 92 mg/dL 0 - 130 mg/dL [facility] Comment on above: LDL Guidelines: <100 Desirable 100-129 Near to/above Desirable 130-159 Borderline >159 Undesirable Direct (measured) LDL and calculated LDL are not interchangeable tests. Cholesterol.total/Ch olesterol in HDL [Mass ratio] 2.9 {ratio} NINF - 5 [facility] Triglyceride, Fasting 70 mg/dL NINF - 150 mg/dL [facility] Comment on above: Triglyceride Guidelines: <150 Desirable 150-199 Borderline 200-499 High >499 Very high Based on AHA Guidelines for fasting triglyceride, December 2011. [facility] Microalbumin, Uron 2 Albumin/Creatinine DL <= 20 mg/L (24H U) [Mass ratio] mg/L NINF - 21 mg/L [facility] Albumin/Creatinine DL <= 20 mg/L (U) [Ratio] Can not be calculated NINF [facility] Creatinine [Mass/Vol] 200.9 mg/dL 39 - 259 mg/dL [facility] PSA Screeningon 01-05-2022 [facility] [employer] XR KNEE RIGHT (3 VIEWS)on Mild tricompartmental osteoarthritis. No acute findings [facility] RIS CONSOLIDATED EXAMINATION: THREE XRAY VIEWS OF THE RIGHT KNEE 07/28/2021 1:56 pm COMPARISON: None. HISTORY: ORDERING SYSTEM PROVIDED HISTORY: Right medial knee pain FINDINGS: Mild tricompartmental osteoarthritis. No fracture or suspicious osseous lesions. [facility] CONSOLIDATED Pastor Delgado P - 07/28/2021 EXAMINATION: THREE XRAY VIEWS OF THE RIGHT KNEE 07/28/2021 1:56 pm COMPARISON: None. HISTORY: ORDERING SYSTEM PROVIDED HISTORY: Right medial knee pain FINDINGS: Mild tricompartmental osteoarthritis. No fracture or suspicious osseous lesions. IMPRESSION: Mild tricompartmental osteoarthritis. No acute findings [facility]: Radiology Study observation (narrative) [facility]: XR KNEE RIGHT (3 VIEWS)Order ed By: Pastor Delgado on 07-28-2021 [employer]: Comprehensive Metabolic Pane l, FastingOrdered By: Blossom Portillo on 01-09-2021 Albumin [Mass/Vol] 4.3 g/dL 3.5 - 5.2 g/dL [employer] Phone: Albumin/Globulin [Mass ratio] 2.3 {ratio} [facility]: ALP (Bld) [Catalytic activity/Vol] 85 U/L 40 - 129 U/L [facility]: ALT [Catalytic activity/Vol] 19 U/L 5 - 41 U/L [facility] Phone: Anion gap [Moles/Vol] 10 mmol/L 9 - 17 mmol/L [facility] Phone: AST [Catalytic activity/Vol] 15 U/L <40 [facility] Phone: Bilirubin [Mass/Vol] 0.52 mg/dL 0.3 - 1 .2 mg/dL [facility] Phone: Calcium [Mass/Vol] 9.2 mg/dL 8.6 - 10. 4 mg/dL [facility] Phone: Chloride [Moles/Vol] 108 mmol/L High 98 - 10 7 mmol/L [facility] Phone: CO2 [Moles/Vol] 25 mmol/L 20 - 31 mmol/L [facility] Phone: Creatinine [Mass/Vol] 0.98 mg/dL 0.70 - 1.20 mg/dL [facility] Phone: Free PSA/Total PSA [Mass fraction] 6.2 g/dL Low 6.4 - 8.3 g/dL [employer] Phone: GFR >60 >60 mL/min [facility] Phone: GFR Non- >60 >60 mL/min [employer] Phone: Glucose [Mass/Vol] 100 mg/dL High 70 - 99 mg/dL [facility]: Interpretation and review of laboratory results Abnormal [facility] Phone: Potassium [Moles/Vol] 4.4 mmol/L 3.7 - 5.3 mmol/L [facility] Phone: Sodium [Moles/Vol] 143 mmol/L 135 - 144 mmol/L [facility] Phone: Urea nitrogen (BldV) [Mass/Vol] 14 mg/dL 8 - 23 mg/dL [facility] Phone: Urea nitrogen/Creatinine (Bld) [Mass ratio] 14 [facility] Phone: [facility] Phone: Laboratory - Chemistry and C hemistry - challengeOrdered By: Blossom Portillo on 01-09-2021 GFR/1.73 sq M.predicted MDRD (S/P/Bld) [Vol rate/Area] [employer] Phone: Comment on above: Average GFR for 70 o r more years old: 75 mL/min/1.73sq m Chronic Kidney Disease: <60 mL/min/1.73sq m Kidney failure: <15 mL/min/1.73sq m eGFR calculated using average adult body mass. Additional eGFR calculator available at: http://www.YourPOV.TV/multiple_crcl_2012.htm Stage 1: Some kidney damage normal GFR Stage 2: Mild kidney damage GFR 60-89 Stage 3: Moderate kidney damage GFR 30-59 Stage 4: Severe kidney damage GFR 15-29 Stage 5: Severe kidney damage GFR <15 ESRD - chronic treatment by dialysis or transplant Lipid, FastingOrdered By: Raven Portillo on 01-09-2021 Cholesterol [Mass/Vol] 211 mg/dL High <200 [facility]: Comment on above: Cholesterol Guidelines: <200 Desirable 200-240 Borderline >240 Undesirable Cholesterol in HDL [Mass/Vol] 48 mg/dL >40 [facility] Phone: Comment on above: HDL Guidelines: <40 Undesirable 40-59 Borderline >59 Desirable Cholesterol in LDL [Mass/Vol] 137 mg/dL High 0 - 130 mg/dL [facility]: Comment on above: LDL Guidelines: <100 Desirable 100-129 Near to/above Desirable 130-159 Borderline >159 Undesirable Direct (measured) LDL and calculated LDL are not interchangeable tests. Cholesterol in VLDL [Mass/Vol] NOT REPORTED 1 - 30 mg/dL [facility] Phone: Cholesterol.total/Ch olesterol in HDL [Mass ratio] 4.4 {ratio} <5 [employer] Phone: Interpretation and review of laboratory results Abnormal [employer] Phone: Triglyceride, Fasting 130 mg/dL <150 [employer] Phone: Comment on above: Triglyceride Guidelines: <150 Desirable 150-199 Borderline 200-499 High >499 Very high Based on AHA Guidelines for fasting triglyceride, December 2011. [employer] Phone: PSA screeningOrdered By: Anjana Portillo on 01-09-2021 [employer] Phone: Pain Management Office/Clini c Noteon 10-04-2020 Pain Management Office/Clinic Note Chief Complaint neck and shoulder pain low back pain History of Present Illness Dear Dr. Portillo, Thank you for your referral to [facility] Management. Your patient was evaluated at [...] rate Pulmonary-r (more content not included)... Normal [facility] MRI [facility] WO CONon 09-21-19 [facility] CON EXAMINATION: MRI [facility] CON HISTORY: Lumbar radiculopathy ; chronic lumbar [...] by: ISIS PALMER Date: 2020-09-20 10:17 Normal [facility] MRI [facility] CONon 09-14-19 21 [facility] CON EXAMINATION: MRI [facility] CON HISTORY: Cervical radiculopathy COMPARISON: No relevant [...] DINO DEL CASTILLO Date: 2020-09-13 10:13 Normal [facility] Hemoglobin [id number] By: Raven Portillo on 09-05-2020 Glucose [Mass/Vol] 126 mg/dL [employer] [facility]: Comment on above: The ADA and AACC rec ommend providing the estimated average glucose result to permit better patient understanding of their HBA1c result. HbA1c (Bld) [Mass fraction] 6.0 % 4.0 - 6.0 % [employer] Phone: [employer] Phone: C-Reactive Proteinon 020 CRP [Mass/Vol] 0.6 mg/L 0 - 5 mg/L [place] Hemoglobin A1Con 08-21-2019 Glucose [Mass/Vol] 117 mg/dL [place] Comment on above: The ADA and AACC rec ommend providing the estimated average glucose result to permit better patient understanding of their HBA1c result. HbA1c (Bld) [Mass fraction] 5.7 % 4.8 - 5.9 % [place] Lipid, Fastingon 08-21-2019 Cholesterol [Mass/Vol] 191 mg/dL <200 [place] Comment on above: Cholesterol Guidelines: <200 Desirable 200-240 Borderline >240 Undesirable Cholesterol in HDL [Mass/Vol] 52 mg/dL >40 [place] Comment on above: HDL Guidelines: <40 Undesirable 40-59 Borderline >59 Desirable Cholesterol in LDL [Mass/Vol] 120 mg/dL 0 - 130 mg/dL [place] Comment on above: LDL Guidelines: <100 Desirable 100-129 Near to/above Desirable 130-159 Borderline >159 Undesirable Direct (measured) LDL and calculated LDL are not interchangeable tests. Cholesterol in VLDL [Mass/Vol] NOT REPORTED 1 - 30 mg/dL [place] Cholesterol.total/Ch olesterol in HDL [Mass ratio] 3.7 {ratio} <5 [place] Triglyceride, Fasting 96 mg/dL <150 [place] Comment on above: Triglyceride Guidelines: <150 Desirable 150-199 Borderline 200-499 High >499 Very high Based on AHA Guidelines for fasting triglyceride, December 2011. CBC Auto Differentialon 09-0 Basophils (Bld) [#/Vol] 10*3/uL [place] Basophils/100 WBC (Bld) 0 % 0 - 2 % [place] Differential Type NOT REPORTED [place] Eosinophils (Bld) [#/Vol] 0.09 10*3/uL [place] Eosinophils/100 WBC (Bld) 2 % 1 - 4 % [place] Erythrocyte distribution width (RBC) [Ratio] 13.6 % 11.8 - 14.4 % [place] Hematocrit (Bld) [Volume fraction] 43.5 % 40.7 - 50.3 % [place] Hemoglobin (Bld) [Mass/Vol] 14.1 g/dL 13 - 17 g/dL [place] Immature granulocytes (Bld) [#/Vol] 10*3/uL [place] Immature granulocytes (Bld) [#/Vol] 0 % 0 [place] Lymphocytes (Bld) [#/Vol] 1.44 10*3/uL [place] Lymphocytes/100 WBC (Bld) 29 % 24 - 43 % [place] MCH (RBC) [Entitic mass] 31.1 pg 25.2 - 33.5 pg [place] MCHC (RBC) [Mass/Vol] 32.4 g/dL 28.4 - 34.8 g/dL [place] MCV (RBC) [Entitic vol] 95.8 fL 82.6 - 102.9 fL [place] Monocytes (Bld) [#/Vol] 0.60 10*3/uL [place] Monocytes/100 WBC (Bld) 12 % 3 - 12 % [place] Platelet mean volume (Bld) [Entitic vol] 9.8 fL 8.1 - 13.5 fL [place] Platelets (Bld) [#/Vol] NOT REPORTED [place] Platelets (Bld) [#/Vol] 214 10*3/uL [place] RBC (Bld) [#/Vol] 4.54 10*6/uL 4.21 - 5.7 7 m/uL [place] RBC morphology finding Nom (Bld) NOT REPORTED [place] Segmented neutrophils/100 WBC (Bld) 57 % 36 - 65 % [place] Segs Absolute 2.85 [place] WBC (Bld) [#/Vol] 5.0 10*3/uL [place] WBC (Bld) [#/Vol] 0.0 10*3/uL 0.0 per 10 0 WBC [place] WBC Morphology NOT REPORTED [place] Hemoglobin A1Con 11-27-2018 Glucose [Mass/Vol] 126 mg/dL [place] Comment on above: The ADA and AACC rec ommend providing the estimated average glucose result to permit better patient understanding of their HBA1c result. HbA1c (Bld) [Mass fraction] 6.0 % High 4.8 - 5.9 % [place] Interpretation and review of laboratory results Abnormal [place] Lipid Panelon 11-27-2018 Cholesterol [Mass/Vol] 220 mg/dL High <200 [place] Comment on above: Cholesterol Guidelines: <200 Desirable 200-240 Borderline >240 Undesirable Cholesterol in HDL [Mass/Vol] 53 mg/dL >40 [place] Comment on above: HDL Guidelines: <40 Undesirable 40-59 Borderline >59 Desirable Cholesterol in LDL [Mass/Vol] 147 mg/dL High 0 - 130 mg/dL [place] Comment on above: LDL Guidelines: <100 Desirable 100-129 Near to/above Desirable 130-159 Borderline >159 Undesirable Direct (measured) LDL and calculated LDL are not interchangeable tests. Cholesterol in VLDL [Mass/Vol] NOT REPORTED 1 - 30 mg/dL [place] Cholesterol.total/Ch olesterol in HDL [Mass ratio] 4.2 {ratio} <5 [place] Triglyceride [Mass/Vol] 99 mg/dL <150 [place] Comment on above: Triglyceride Guidelines: <150 Desirable 150-199 Borderline 200-499 High >499 Very high Based on AHA Guidelines for fasting triglyceride, December 2011. Metabolic Panelon 11-27-2018 GFR/1.73 sq M predicted among non-blacks MDRD (S/P/Bld) [Vol rate/Area] [place] Comment on above: Stage 1: Some [...] body mass. Additional eGFR calculator available at: http://www.YourPOV.TV/multiple_crcl_2012.htm Otheron 11-27-2018 Interpretation and review of laboratory results Abnormal [place] RENAL + CHEM PROFILEon 11-27 Albumin [Mass/Vol] 4.2 g/dL 3.5 - 5.2 g/dL [place] Albumin/Globulin [Mass ratio] 1.6 {ratio} [place] ALP [Catalytic activity/Vol] 76 U/L 40 - 129 U/L [place] ALT [Catalytic activity/Vol] 23 U/L 5 - 41 U/L [place] Anion gap [Moles/Vol] 11 mmol/L 9 - 17 mmol/L [place] AST [Catalytic activity/Vol] 16 U/L <40 [place] Bilirubin Ql (U) 0.48 mg/dL 0.3 - 1.2 mg/dL [place] Calcium [Mass/Vol] 9.6 mg/dL 8.6 - 10. 4 mg/dL [place] Chloride [Moles/Vol] 103 mmol/L 98 - 10 7 mmol/L [place] CO2 [Moles/Vol] 25 mmol/L 20 - 31 mmol/L [place] Creatinine [Mass/Vol] 0.89 mg/dL 0.7 - 1.2 mg/dL [place] GFR >60 >60 mL/min [place] GFR Non- >60 >60 mL/min [place] Glucose [Mass/Vol] 100 mg/dL High 70 - 99 mg/dL [place] Phosphate [Mass/Vol] 2.8 mg/dL 2.5 - 4 .5 mg/dL [place] Potassium [Moles/Vol] 4.5 mmol/L 3.7 - 5.3 mmol/L [place] Protein [Mass/Vol] 6.9 g/dL 6.4 - 8.3 g/dL [place] Sodium [Moles/Vol] 139 mmol/L 135 - 144 mmol/L [place] Urea nitrogen [Mass/Vol] 18 mg/dL 8 - 23 mg/dL [place] TSH with Reflexon 11-27-2018 TSH Qn 1.48 m[IU]/L [place] Vitamin B12on 11-27-2018 Cobalamin (Vitamin B12) [Mass/Vol] 343 pg/mL 232 - 1245 pg/mL [place] Vitamin D 25 Hydroxyon 11-27 Vit D, 25-Hydroxy 46.6 ng/mL 30 - 100 ng/mL [place] Comment on above: Reference Range: Vitamin D status Range Deficiency <20 ng/mL Mild Deficiency 20-30 ng/mL Sufficiency 30-100 ng/mL Toxicity >100 ng/mL No Panel Informationon 06-20 Colonoscopy Invalid Interpretation Code [facility] Vital Signs Date Time Vital Sign Value Performing Clinician Facility 02-05-2024 02:08-0500 Body temperature 98.6 [degF] Leia Ling MD Work Phone: [facility] 02-05-2024 02:05-0500 Body height 172.7 cm Leia Ling MD Work Phone: [facility] 02-05-2024 02:05-0500 Body mass index (BMI) [Ratio] 27.37 kg/m2 Leia Ling MD Work Phone: [facility] 02-05-2024 02:05-0500 Body weight 81.65 kg Leia Ling MD Work Phone: [facility] 02-05-2024 02:05-0500 Diastolic blood pressure 84 mm[Hg] Leia Ling MD Work Phone: [facility] 02-05-2024 02:05-0500 Heart rate 68 /min Leia Ling MD [facility] Phone[facility] 02-05-2024 02:05-0500 Respiratory rate 16 /min Leia Ling MD Work Phone: [facility] 02-05-2024 02:05-0500 SaO2% (BldA) [Mass fraction] 99 % Leia Ling MD Work Phone: [facility] [employer] 02-05-2024 02:05-0500 Systolic blood pressure 162 mm[Hg] Leia Ling MD Work Phone: [facility] [employer] 03-02-2021 09:40-0500 Body height 172.72 cm Yovani Malone Other [employer] Other 03-02-2021 09:40-0500 Body mass index (BMI) [Ratio] 28.13 kg/m2 Yovani Malone Other [employer] Other 03-02-2021 09:40-0500 Body weight 83.92 kg Yovani Malone Other [employer] Other 03-02-2021 09:40-0500 Diastolic blood pressure 86 mm[Hg] Yovani Malone Other [employer] Other 03-02-2021 09:40-0500 Systolic blood pressure 134 mm[Hg] Yovani Malone Other [employer] Other Encounters Encounter Date Encounter Type Care Provider Facility Start: 04-28-2024 End: 04-30-2024 ambulatory [facility]LE[facility] Start: 04-28-2024 End: 04-30-2024 Subsequent hospital visit by physician Jerod Avalos Dr Room 2 [facility] Radiology Comment on above: Kidney stones Start: 03-02-2024 Office outpatient vi sit 25 minutes Azeb Degroot Other [facility] Office Start: 02-05-2024 End: 02-05-2024 Emergency department patient visit Leia Ling MD Work Phone: [facility] ED Comment on above: Right flank pain (Pr imary Dx); Cyst of left kidney Start: 01-15-2024 End: 01-15-2024 ambulatory BLOSSOM PORTILLO [facility] Start: 01-15-2024 End: 01-15-2024 Subsequent hospital visit by physician Blossom Portillo MD Work Phone: [facility] Laboratory Comment on above: Screening for prosta te cancer; Mixed hyperlipidemia; Type 2 diabetes mellitus without complication, without long-term current use of insulin (HCC) / DIET CONTROLLED Start: 07-16-2023 End: 07-16-2023 ambulatory BLOSSOM PORTILLO [facility] Start: 02-19-2023 Office outpatient vi sit 15 minutes Azeb Degroot Other [facility] Office Start: 07-02-2022 Office outpatient vi sit 15 minutes Azeb Mikayla Other [facility] Office Start: 06-28-2022 End: 06-28-2022 Subsequent hospital visit by physician Blossom Portillo MD Work Phone: [facility] Laboratory Comment on above: Type 2 diabetes asnjay itus without complication, without long- term current use of insulin (HCC) / DIET CONTROLLED Start: 05-16-2022 End: 05-18-2022 Subsequent hospital visit by physician Jerod Tovar Scan Room [facility] Laboratory Comment on above: Renal colic on right side Start: 02-02-2022 End: 02-02-2022 ambulatory [facility] Start: 01-05-2022 End: 01-05-2022 Subsequent hospital visit by physician Blossom Portillo MD Work Phone: [facility] Laboratory Comment on above: Screening for prosta te cancer; Type 2 diabetes mellitus without complication, without long-term current use of insulin (HCC) / DIET CONTROLLED; Screening cholesterol level Start: 07-28-2021 End: 07-30-2021 Subsequent hospital visit by physician Jerod Avalos Dr Room 2 [facility] Radiology Comment on above: Right medial knee pa in Start: 06-21-2021 Office outpatient vi sit 15 minutes Azeb Mikayla Other [facility] Office Start: 04-17-2021 End: 04-17-2021 ambulatory MD JCARLOS WEST Facility:[facility] Start: 03-02-2021 End: 03-02-2021 ambulatory Yovani Malone Other [facility] [employer] Other Start: 03-02-2021 Office outpatient ne w 45 minutes Yovani Malone [facility] Neurosurgery Start: 01-27-2021 End: 01-27-2021 ambulatory MD JCARLOS WEST Facility:[facility] Start: 01-09-2021 End: 01-09-2021 ambulatory MD JCARLOS WEST Facility:[facility] Start: 01-09-2021 End: 01-09-2021 Subsequent hospital visit by physician Blossom Portillo MD Work Phone: [facility] Comment on above: Cervical disc disord er at C4-C5 level with radiculopathy / MRI 2020; Screening cholesterol level; Screening for prostate cancer Start: 11-03-2020 End: 11-03-2020 ambulatory MD JCARLOS WEST Facility:[facility] Start: 10-20-2020 End: 10-20-2020 ambulatory MD JCARLOS WEST Facility:[facility] Start: 10-06-2020 End: 10-06-2020 ambulatory MD JCARLOS WEST Facility:[facility] Start: 09-20-2020 End: 09-21-[address] BLOSOSM PORTILLO Facility:[facility] Start: 09-13-2020 End: 09-14-[address] BLOSSOM PORTILLO Facility:[facility] Start: 09-05-2020 End: 09-05-2020 Subsequent hospital visit by physician Blossom Portillo MD Work Phone: [facility] Comment on above: Impaired fasting glu cose Start: 06-15-2020 Office outpatient vi sit 15 minutes Azeb Mikayla Other [facility] Office Start: 09-07-2019 Office outpatient vi sit 25 minutes Azeb Mikayla Other [facility] Office Start: 08-21-2019 End: 08-21-2019 Subsequent hospital visit by physician Blossom Portillo [facility] Comment on above: Screening cholestero l level; Mixed hyperlipidemia; Impaired fasting glucose Start: 11-27-2018 End: 11-27-2018 Subsequent hospital visit by physician Ian GARZA Laboratory Start: 07-01-2018 Office outpatient ne w 30 minutes Azeb Degroot Other [facility] Office Procedures Date Procedure Procedure Detail Performing Clinician Start: 04-28-2024 Radiologic exam abdo men 1 view Jcarlos Alegre MD Work Phone: Start: 03-02-2024 Docrev cur meds by e [...] e lig clin Azeb Degroot Start: 07-02-2022 Cryosurgery Azeb king Start: 07-02-2022 Destruction of giulia lignant skin lesion Azeb Degroot Start: 07-02-2022 Docrev cur meds by e lig clin Azeb Degroot Start: 06-28-2022 Hemoglobin glycosylated a1c Blossom Portillo MD Work Phone: Start: 05-16-2022 Urnls dip stick/tabl et reagent auto microscopy True Nowak PA-C Work Phone: Start: 05-16-2022 Ct abdomen & pelvis w/o contrast material True Nowak PA-C Work Phone: Start: 05-16-2022 Basic metabolic pane l calcium total True Griffithlicha PA-C Work Phone: Start: 01-05-2022 PSA screening [...] giulia lignant skin lesion Azeb Degroot Start: 06-21-2021 Docrev cur meds by e [...] by e lig clin Azeb Mikayla Start: 09-03-2019 Doc meds verified w/ pt or re Azeb Degroot Start: 08-21-2019 C-reactive protein Blossom Portillo Work Phone: Start: 08-21-2019 Hemoglobin glycosylated a1c Blossom Portillo Work Phone: Start: 08-21-2019 Lipid panel Blossom Portillo Work Phone: Start: 11-27-2018 [object Object] Wilfred iahood Melendez Comment on above: The [employer] ECLIA as say is used. Results obtained with different assay methods cannot be used interchangeably. Start: 11-27-2018 25 hydroxy includes fractions if performed Ian Corona Al Work Phone: Start: 11-27-2018 Assay of prostate sp ecific antigen complexed Ian Corona Al Work Phone: Start: 11-27-2018 Assay of thyroid stimulating hormone tsh Ian Corona Al Work Phone: Start: 11-27-2018 Blood count complete auto&auto difrntl wbc Ian Corona Al Work Phone: Start: 11-27-2018 Cyanocobalamin vitamin b-12 Ian Corona Al Work Phone: Start: 11-27-2018 Hemoglobin glycosylated a1c Ian Corona Al Work Phone: Start: 11-27-2018 Lipid panel Ian Corona Al Work Phone: Start: 11-27-2018 RENAL + CHEM PROFILE Logan Corona Al Work Phone: Start: 07-01-2018 Cryosurgery Azeb king Start: 07-01-2018 Destruction of giulia lignant skin lesion Azeb Degroot Start: 07-01-2018 Destruction premalig nant lesion 1st Azeb Degroot Start: 07-01-2018 Destruction premalig nant lesion 2-14 ea Azeb Degroot Start: 07-01-2018 Doc meds verified w/ pt or re Azeb Degroot Start: 06-20-2016 Colonoscopy Blossom Portillo MD Work Phone: Plan of Treatment Date Care Activity Detail Author Start: 06-20-2026 Screening for malign ant neoplasm of colon [employer] Start: 2025 Respiratory Syncytia l Virus (RSV) or age 60 yrs+ (1 - 1-dose 75+ series) Respiratory Syncytial Virus (RSV) or age 60 yrs+ (1 - 1-dose 75+ series) [facility] Start: 02-04-2025 Depression Screen Depression Screen [facility] Start: 02-04-2025 GFR test (Diabetes, CKD 3-4, OR last GFR 15-59) GFR test (Diabetes, CKD 3-4, OR last GFR 15-59) [facility] Start: 01-22-2025 End: 01-22-2025 Patient encounter procedure 01/22/2025 8:50 AM EDT Office Visit Blossom Poritllo MD [address] [place] [phone] Blossom Portillo MD [address] [place] [address], [place] [place] [address] mai Portillo MD Comment on above: mai Start: 01-21-2025 Annual Wellness Visi t (Medicare) Annual Wellness Visit (Medicare) [facility] Start: 01-20-2025 COVID-19 Vaccine ( season) COVID-19 Vaccine ( season) [facility] Comment on above: Postponed from 11/23 (Patient Refused) Start: 01-20-2025 COVID-19 Vaccine ( season) COVID-19 Vaccine ( season) [facility] Comment on above: Postponed from 11/23 (Patient Refused) Start: 01-20-2025 Depression Screen Depression Screen [facility] Start: 01-14-2025 GFR test (Diabetes, CKD 3-4, OR last GFR 15-59) GFR test (Diabetes, CKD 3-4, OR last GFR 15-59) [facility] Start: 01-14-2025 Hemoglobin A1c measurement A1C test (Diabetic or Prediabetic) [facility] Start: 01-14-2025 Lipid panel Lipids [facility] Start: 01-14-2025 Prostate specific antigen measurement Prostate Specific Antigen (PSA) Screening or Monitoring [facility] Start: 01-14-2025 Urine screening for protein Diabetic Alb to Cr ratio (uACR) test [facility] Start: 08-20-2024 Lipid panel Lipid screen [facility] Work Phone: Start: 07-22-2024 Diabetic foot examination Diabetic foot exam [facility] Start: 07-22-2024 DTaP/Tdap/Td vaccine (1 - Tdap) DTaP/Tdap/Td vaccine (1 - Tdap) [facility] Comment on above: Postponed from 03/21 (Patient Refused) Start: 07-22-2024 Respiratory Syncytia l Virus (RSV) or age 60 yrs+ (1 - 1-dose 60+ series) Respiratory Syncytial Virus (RSV) or age 60 yrs+ (1 - 1-dose 60+ series) [facility] Comment on above: Postponed from 03/21 (Patient Refused) Start: 07-21-2024 End: 07-21-2024 Patient encounter procedure 07/21/2024 8:50 AM EDT Office Visit Blossom Portillo MD [address] [place] [phone] Blossom Portillo MD [address] [place] [address], [place] [address] 6 month f/u Blossom Portillo MD Comment on above: 6 month f/u Start: 05-04-2024 End: 05-04-2024 Patient encounter procedure 05/04/2024 8:00 AM EST Office Visit [facility] Part of [address] [place] [id number] Jcarlos Alegre MD [address] [facility] [address], [address] [place] [address] 1 year f/u stones. KUB reminder 04/27/24. [facility] Comment on above: 1 year f/u stones. K UB reminder 04/27/24 [place]. Start: 04-26-2024 [facility] Screen [facility] Start: 04-01-2024 End: 04-01-2024 Patient encounter procedure 04/01/2024 8:00 AM EST Office Visit [facility] [address] [place] [id number] Jcarlos Alegre MD [address] [facility] [address] [place], [address] [place] [address] 1 year KUB [facility] Comment on above: 1 year KUB Start: 01-21-2024 End: 01-21-2024 Patient encounter procedure 01/21/2024 8:30 AM EDT Office Visit Blossom Portillo MD [address] [place] [address], [place] [address] Blossom Portillo MD [address] [place] [address], [place] [address] awv Blossom Portillo MD Comment on above: awv Start: 01-17-2024 Annual Wellness Visi t (Medicare) Annual Wellness Visit (Medicare) [facility] Start: 11-28-2023 Lipid panel Lipid screen [facility] [place], [place] Start: 11-28-2023 Lipid screen Lipid screen [facility] [place], [place] Start: 11-24-2023 COVID-19 Vaccine ( season) COVID-19 Vaccine ( season) [facility] [employer] [facility] Start: 10-24-2023 Influenza vaccination Flu vaccine (# 1) [facility] [employer] Start: 06-29-2023 Hemoglobin A1c measurement A1C test (Diabetic or Prediabetic) [facility] Start: 06-05-2023 Depression Screen Depression Screen [facility] Start: 05-16-2023 GFR test (Diabetes, CKD 3-4, OR last GFR 15-59) GFR test (Diabetes, CKD 3-4, OR last GFR 15-59) [facility] Start: 04-01-2023 End: 04-01-2023 Patient encounter procedure 04/01/2023 Office Visit Urology [facility] Part of [facility] Start: 01-31-2023 Depression Screen Depression Screen [facility] Start: 01-16-2023 End: 01-16-2023 Patient encounter procedure 01/16/2023 Office Visit Internal Medicine Blossom Portillo MD [address] [place] [address], [place] [place] [address] Blossom Portillo MD Start: 01-11-2023 Annual Wellness Visi t (AWV) Annual Wellness Visit (AWV) [facility] Start: 01-10-2023 Diabetic foot examination Diabetic foot exam [facility] Start: 01-05-2023 Hemoglobin A1c measurement A1C test (Diabetic or Prediabetic) [facility] Start: 01-05-2023 Lipid panel Lipids [facility] Start: 01-05-2023 Urine screening for protein [facility] Start: 01-03-2023 Depression Screen Depression Screen [facility] Start: 12-24-2022 COVID-19 Vaccine (4 - Booster for Moderna series) COVID-19 Vaccine (4 - Booster for Moderna series) [facility] Comment on above: Postponed from 04/26 (Patient Refused) Start: 07-29-2022 Hemoglobin A1c measurement A1C test (Diabetic or Prediabetic) [facility] Start: 07-29-2022 Lipid panel Lipids [facility] Start: 07-24-2022 Depression Screen Depression Screen [facility] Start: 07-11-2022 End: 07-11-2022 Patient encounter procedure 07/11/2022 Office Visit Internal Medicine Blossom Portillo MD [address] [place] [address], [address] [place], [place] [id number] Blossom Portillo MD Start: 01-10-2022 End: 01-10-2022 Patient encounter procedure Blossom Portillo MD Start: 01-05-2022 Annual Wellness Visi t (AWV) Annual Wellness Visit (AWV) [facility] [employer] Start: 10-23-2021 Influenza vaccination Flu vaccine (# 1) [facility] Start: 10-02-2021 End: 10-02-2021 Patient encounter procedure 10/02/2021 Office Visit Internal Medicine Blossom Portillo MD [address] [place] [address], [place] [place] [address] Blossom Portillo MD Start: 09-05-2021 Hemoglobin A1c measurement A1C test (Diabetic or Prediabetic) [facility] [employer] Work Phone: Start: 08-14-2021 DTaP/Tdap/Td vaccine (1 - Tdap) DTaP/Tdap/Td vaccine (1 - Tdap) [facility] Comment on above: Postponed from 03/21 (Not Indicated) Start: 08-11-2021 Diabetic retinal exam Diabetic retin al exam [facility] [employer] Start: 07-10-2021 End: 07-10-2021 Patient encounter procedure 07/10/2021 Office Visit Internal Medicine Blossom Portillo MD [address] [place] [address], [place] [place] [address] Blossom Portillo MD Start: 06-30-2021 COVID-19 Vaccine (4 - Booster for Moderna series) COVID-19 Vaccine (4 - Booster for Moderna series) [facility] Start: 01-25-2021 DTaP/Tdap/Td vaccine (1 - Tdap) DTaP/Tdap/Td vaccine (1 - Tdap) [facility] Work Phone: Comment on above: Postponed from 03/21 (Not Indicated) Start: 01-20-2021 End: 01-20-2021 Patient encounter procedure 01/20/2021 Office Visit Internal Medicine Blossom Portillo MD [address] [place] [address], [place] [place] [address] Blossom Portillo MD Start: 06-24-2020 Annual Wellness Visi t (AWV) Annual Wellness Visit (AWV) [facility] Work Phone: Start: 02-23-2020 End: 02-23-2020 Office Visit 02/23/2020 Office Visit Internal Medicine Blossom Portillo MD [address] [place] [address], [address] [place] [id number] Blossom Portillo MD Start: 11-28-2019 A1C test (Diabetic o r Prediabetic) A1C test (Diabetic or Prediabetic) [place] Start: 11-28-2019 HbA1c (Bld) [Mass fraction] A1C test (Diabetic or Prediabetic) [place] Start: 11-23-2018 Influenza vaccination Flu vaccine (# 1) [place] Start: 02-18-2018 Shingles Vaccine (2 of 2) Shingles Vaccine (2 of 2) [place] Start: 2015 Pneumococcal 65+ yea rs Vaccine (1 of 2 - PCV13) Pneumococcal 65+ years Vaccine (1 of 2 - PCV13) [place] Start: 2000 Colon cancer screen colonoscopy Colon cancer screen colonoscopy [place] Start: 2000 Screening for malign ant neoplasm of colon Colon cancer screen colonoscopy [place] Start: 2000 Shingles Vaccine (1 of 2) Shingles Vaccine (1 of 2) [place] Start: 1995 Screening for malign ant neoplasm of colon [facility] Start: 1969 DTaP/Tdap/Td vaccine (1 - Tdap) DTaP/Tdap/Td vaccine (1 - Tdap) [facility] Start: 1968 Diabetic retinal exam Diabetic retin al exam [facility] Start: 1968 Glaucoma screening Diabetic retinal exam [facility] Start: 1968 Urine screening for protein Diabetic microalbuminuria test [facility] Start: 1960 Diabetic foot examination Diabetic foot exam [facility] Start: 1950 Hepatitis C screen Hepatitis C scree n [place], [place] Start: 1950 Hepatitis C screening Hepatitis C sc [facility], [place] End: 05-16-2022 Culture, Urine [facility] Work Phone: Comment on above: 1 Occurrences starti ng 05/16/2022 until 05/16/2022 Immunizations Immunization Date Immunization Notes Care Provider Rubina mata 01-21-2024 influenza, high dose seasonal, preservative-free Leia Ling MD Work Phone: [facility] [facility] 01-16-2023 Influenza, FLUZONE H igh Dose (age 65 y+), IM, Quadv, 0.7mL Blossom Portillo MD Work Phone: [facility] [employer] 01-10-2022 Influenza, FLUZONE ( age 65 y+), High Dose, 0.7mL Blossom Portillo MD Work Phone: [facility] [employer] Work Phone: 03-01-2021 COVID-19, Moderna, Primary or Immunocompromised, PF, 100mcg/0.5mL Blossom Portillo MD Work Phone: [employer] 01-04-2021 Influenza, High-dose , Quadv, 65 yrs +, IM (Fluzone) Blossom Portillo MD Work Phone: [employer] Work Phone: 05-17-2020 COVID-19, Moderna, P F, 100mcg/0.5mL Blossom Portillo MD Work Phone: [employer] Work Phone: 04-19-2020 COVID-19, Moderna, P F, 100mcg/0.5mL Blossom Portillo MD Work Phone: [employer] Work Phone: 01-01-2020 Influenza, Quadv, adjuvanted, 65 yrs +, IM, PF (Fluad) Blossom Portillo MD Work Phone: [employer] Work Phone: 01-06-2019 Seasonal trivalent influenza vaccine, adjuvanted, preservative free [facility] 12-27-2017 influenza virus vacc ine, unspecified formulation Blossom Portillo MD Work Phone: [facility] Work Phone: 12-27-2017 influenza, seasonal, injectable Blossom Portillo MD Work Phone: [facility] Work Phone: 12-24-2017 zoster vaccine recombinant [facility] [place] 09-20-2017 zoster vaccine recombinant Blossom Portillo MD Work Phone: [facility] Work Phone: 03-20-2017 pneumococcal polysaccharide vaccine, 23 valent [facility], [place] 05-08-2016 pneumococcal conjuga te vaccine, 13 valent Blossom Portillo MD Work Phone: [facility] Work Phone: Payers Date Payer Category Payer Medicare 2020 Unknown 2017 Private Health Insurance [employer] xxxxxxxxxx 2017-Present [phone] [address] [place] [address] xxxxxxxxxx [id number] 2014 Medicare xxxxxxxxxxx [id number] 1959 Medicare [id number] [id number] 1959 Unknown [id number] [id number] 1959 Unknown [id number] 1950 Unknown [id number] 2.16.840.1.170560.3.579.2. 593 1950 Unknown [id number] 2.16.840.1.741510.3.579.2. 593 1950 Unknown [id number] 2.16.840.1.541238.3.579.2. 196 1950 Unknown [id number] 2.16.840.1.740538.3.579.2. 196 1950 Unknown [id number] 2.16.840.1.628537.3.579.2. 196 1950 Unknown [id number] 2.16.840.1.801413.3.579.2. 196 1950 Unknown [id number] 2.16.840.1.481286.3.579.2. 196 1950 Unknown [id number] 2.16.840.1.753705.3.579.2. 196 1950 Unknown [id number] 2.16.840.1.758459.3.579.2. 754 1950 Unknown [id number] 2.16.840.1.872251.3.579.2. 173 1950 Unknown [id number] 2.16.840.1.795570.3.579.2. 173 1950 Unknown [id number] 2.16.840.1.206624.3.579.2. 173 1950 Unknown [id number] 2.16.840.1.166242.3.579.2. 173 1950 Unknown [id number] 2.16.840.1.123627.3.579.2. 173 Medicare [id number] [id number] Private Health Insurance [facility] [id number] Social History Date Type Detail Facility Start: Unknown if melissa quinones smoked [facility] [employer] Start: 01-21-2013 End: 12-11-2021 Tobacco smoking status IAIS Never smoker [place], [place] Start: 01-21-2013 End: 01-21-2024 Alcohol intake Yes [email or web address] Start: 01-14-2013 Alcohol Comment rarely [place] Start: 1950 Sex Assigned At Not on file [place] Start: 08-19-2019 End: 02-05-2024 Alcohol intake Current drinker of alcohol (finding) [place] Start: 08-19-2019 End: 06-04-2022 History SDOH Financial 5 [place] Start: 08-19-2019 End: 06-04-2022 History SDOH Food Worry 1 [place], [place] Start: 08-19-2019 End: 06-04-2022 History SDOH Transport Med 2 [place] Start: 08-15-2020 End: 12-11-2021 Tobacco use and exposure Never used [facility] [employer] Start: 01-03-2022 History SDOH Alcohol Frequency 3 [employer] Work Phone: Start: 01-15-2023 End: 01-21-2024 History of Social function [email or web address] How often to you hav e a drink containing alcohol? 2-4 times a month [email or web address] How many standard dr inks containing alcohol do you have on a typical day? 1 or 2 [email or web address] How often do you hav e 6 or more drinks on 1 occasion? Never [email or web address] How hard is it for y ou to pay for the very basics like food, housing, medical care, and heating Not hard at all [email or web address] (I/We) worried roman er (my/our) food would run out before (I/we) got money to buy more. Never true [email or web address] Has the [employer], [employer], [employer], or water [employer] threatened to shut off services in your home in past 12Mo No [email or web address] Do you belong to any clubs or organizations such as orthodox groups, unions, fraternal or athletic groups, or school groups? Yes [email or web address] Are you now , , , , never or living with a partner? [email or web address] How often to you hav e a drink containing alcohol? Monthly or less [facility] Do you feel stress - tense, restless, nervous, or anxious, or unable to sleep at night because your mind is troubled all the time - these days [OSQ] Only a little [facility] Medical Equipment Procedure Code Equipment Code Equipment Origin al Text Equipment Identifier Dates 6f X 26cm Stent - [id number] Start: 02-02-2022 Comment on above: Description: REF [id number] Clinical Notes 10-06-2020 to 02-05-2024 Discharge InstructionsAttachments [...] cannot be sent through Care Everywhere.Back Spasm (Paraguayan)documented in this encounter [facility] 04-17-2021 Note PROCEDURE: Bilateral C5, C6, C7 [...] The patient was turned back onto the rmantachie and taken to recovery in stable condition and allowed to recover from the procedure, then discharged per criteria. This document serves as a record of the services and decisions personally performed and made by the attending provider. It was created on his/her behalf by a trained medical microbiologist. The creation of this document is based on the provider?s statements to the medical microbiologist. Electronically signed by Jcarlos West MD 04/17/21 09:24 EST Electronically signed by Charlee Rice 04/17/2021 09:11 EST [facility] 04-17-2021 Note History of Present I llness [...] on his/her behalf by a trained medical microbiologist. The creation of this document is based on the provider?s statements to the medical microbiologist. Problem List/Past Medical History Ongoing Acid reflux [...] Electronically signed by Charlee Rice 04/17/2021 08:33 [facility] 03-02-2021 Evaluation note Encounter Date Diagnosis Assessment [...] Feb, Other chronic pain (ICD-10 - G89.29) [employer] Other 11-05-2021 NotePROCEDURE: Radiofrequency ablation of the [...] on his/her behalf by a trained medical microbiologist. The creation of this document is based on the provider?s statements to the medical microbiologist. Electronically signed by Jcarlos West MD 01/27/21 09:06 EDT Electronically signed by Charlee Rice 01/27/2021 09[facility] NoteHistory of Present Illness CHIEF COMPLAINT: Low [...] on his/her behalf by a trained medical microbiologist. The creation of this document is based on the provider?s statements to the medical microbiologist. Problem List/Past Medical History Ongoing Acid reflux [...] signed by Charlee Rice Aide 01/27/2021 08:10 [facility]10-18-2021 NotePROCEDURE: Bilateral C6 transforaminal epidural steroid [...] on his/her behalf by a trained medical microbiologist. The creation of this document is based on the provider?s statements to the medical microbiologist. Electronically signed by Jcarlos West MD 01/09/21 10:28 EDT Electronically signed by Tay Bhakta 01/09/2021 10:19 [facility]10-18-2021 NoteHistory of Present Illness CHIEF COMPLAINT: [...] on his/her behalf by a trained medical microbiologist. The creation of this document is based on the provider?s statements to the medical microbiologist. Problem List/Past Medical History Ongoing Acid reflux [...] Electronically signed by Tay Bhakta 01/09/2021 10:18 [facility]08-12-2021 NotePROCEDURE: Bilateral L3, L4, L5 dorsal [...] on his/her behalf by a trained medical microbiologist. The creation of this document is based on the provider?s statements to the medical microbiologist. Electronically signed by Jcarlos West MD 11/03/20 10:14 EDT Electronically signed by Charlee Rice 11/03/2020 10:06 [facility]08-12-2021 NoteHistory of Present Illness CHIEF COMPLAINT: [...] on his/her behalf by a trained medical microbiologist. The creation of this document is based on the provider?s statements to the medical microbiologist. Problem List/Past Medical History Ongoing Acid reflux [...] Electronically signed by Charlee Rice 11/03/2020 09:37 [facility]07-29-2021 NotePROCEDURE: Bilateral L3, L4, L5 dorsal [...] on his/her behalf by a trained medical microbiologist. The creation of this document is based on the provider?s statements to the medical microbiologist. Electronically signed by Jcarlos West MD 10/20/20 09:40 EDT Electronically signed by Charlee Rice 10/20/2020 09:[facility] NoteHistory of Present Illness CHIEF COMPLAINT: Low [...] on his/her behalf by a trained medical microbiologist. The creation of this document is based on the provider?s statements to the medical microbiologist. Problem List/Past Medical History Ongoing Acid reflux [...] MD 10/20/20 08:53 EDT Electronically signed by DwayneJuanCharlee J 10/20/2020 08:50 [facility]07-15-2021 NotePROCEDURE: Bilateral C6 transforaminal epidural steroid [...] on his/her behalf by a trained medical microbiologist. The creation of this document is based on the provider?s statements to the medical microbiologist. Electronically signed by Jcarlos West MD 10/06/20 15:01 EDT Electronically signed by Kathleen Marin 10/06/2020 14:57 [facility]07-15-2021 NoteHistory of Present Illness CHIEF COMPLAINT: [...] on his/her behalf by a trained medical microbiologist. The creation of this document is based on the provider?s statements to the medical microbiologist. Problem List/Past Medical History Ongoing Acid reflux [...] MD 10/06/20 14:24 EDT Electronically signed by Tomas Kathleen J 10/06/2020 14:19 [facility]TB[facility]* Diagnosis Impaired fasting glucose documented in this encounter [employer] Phone: evaluation note* Diagnosis Cervical disc disorder at C4-C5 level with radiculopathy / MRI 2020 Screening cholesterol level Screening for lipoid disorders Screening for prostate cancer Special screening for malignant neoplasm of prostate documented in this encounter [employer] Phone: [email or web address] note* Diagnosis Right medial knee pain Pain in joint, lower leg documented in this encounter [employer] Phone: [email or web address] note* Diagnosis Screening for prostate cancer Special screening for malignant neoplasm of prostate Type 2 diabetes mellitus without complication, without long-term current use of insulin (HCC) / DIET CONTROLLED Screening cholesterol level Screening for lipoid disorders documented in this encounter [employer] Phone: evaltjsitj note* Diagnosis Renal colic on right side Renal colic documented in this encounter [employer] Phone: [email or web address] note* Diagnosis Renal colic on right side Renal colic documented in this encounter [employer] Phone: evaluation note* Diagnosis Type 2 diabetes mellitus without complication, without long-term current use of insulin (HCC) / DIET CONTROLLED documented in this encounter [employer] Phone: [email or web address] note* Diagnosis Screening for prostate cancer Special screening for malignant neoplasm of prostate Mixed hyperlipidemia Type 2 diabetes mellitus without complication, without long-term current use of insulin (HCC) / DIET CONTROLLED documented in this encounter [email or web address] note* Diagnosis Right flank pain- Primary Abdominal pain, unspecified site Cyst of left kidney Unspecified congenital cystic kidney disease documented [facility] Diagnosis Kidney stones Calculus of kidney [facility] encounter [facility] N[facility]ative - Reported* Type Description Date Medical History Esophageal reflux Surgical History back surgery Surgical History Neck Surgery Surgical History hand surgery Surgical History shoulder surgery Hospitalization History See Above [employer] Other reason for visit NarrativeReferral Lindsey Cervical Disc [employer] Other Advance Directives No Advanced Directives Records FoundDocuments on File Type Date 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 Advance Directives and Living Will Power of Employment Program Representative Documents on File Type Date 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 None True Nowak PA-C [address] [place] [address] [address] [place] [address] Referral ID Status Reason Start Date Expiration Date Visits Re quested Visits Authorized [id number] Closed 05/16/2022 05/16/2023 1 1 Additional Source Comments (unrecognized sect ion and content) No Status Records FoundNo Status Records FoundNo Status Records FoundNo Status Records Found INFORMATION SOURCE (unrecogn ized section and content) DATE CREATED AUTHOR 09/24/2020 [facility] DATE CREATED AUTHOR AUTHOR'S ORGANIZ ATION 04/17/2021 [facility] DATE CREATED AUTHOR AUTHOR'S ORGANIZ ATION 02/03/2022 [facility] DATE CREATED AUTHOR AUTHOR'S ORGANIZ ATION 05/03/2024 [facility] Care Teams (unrecognized sec tion and content) Director Of Provider Relations Relationship Specialty Start Date End Date Blossom Portillo MD [address] [place] [address], [place] [address] PCP - General Internal Medicine 07/20/19 Director Of Provider Relations Relationship Specialty Start Date End Date Blossom Portillo MD [address] [facility], [place] [address] PCP - General Internal Medicine 07/20/19 Director Of Provider Relations Relationship Specialty Start Date End Date Blossom Portillo MD [address], [place] [address] PCP - General Internal Medicine 07/20/19 Director Of Provider Relations Relationship Specialty Start Date End Date Blossom Portillo MD [address] [place] [address], [place] [address] PCP - General Internal Medicine 07/20/19 Director Of Provider Relations Relationship Specialty Start Date End Date Blossom Portillo MD [address] [facility] [address], [place] [address] PCP - General Internal Medicine 07/20/19 Director Of Provider Relations Relationship Specialty Start Date End Date Blossom Portillo MD [address] [place] [address], [place] [address] PCP - General Internal Medicine 07/20/19 Director Of Provider Relations Relationship Specialty Start Date End Date Blossom Portillo MD [address] [place] [address], [place] [address] PCP - General Internal Medicine 07/20/19 Director Of Provider Relations Relationship Specialty Start Date End Date Blossom Portillo MD [address] [place] [address], [place] [address] PCP - General Internal Medicine 07/20/19 Director Of Provider Relations Relationship Specialty Start Date End Date Blossom Portillo MD [address] [place] [address], [place] [address] PCP - General Internal Medicine 07/20/19 Director Of Provider Relations Relationship Specialty Start Date End Date Blossom Portillo MD [address] [place] [address], [place] [address] PCP - General Internal Medicine 07/20/19 Reason for Visit (unrecogniz ed section and content) Specialty Diagnoses / Procedures Referred By Bharathi street Referred To Contact Radiology Diagnoses Renal colic on right side Procedures CT ABDOMEN PELVIS WO CONTRAST Additional Contrast? None True Nowak PA-C [address] [place] [address] Referral ID Status Reason Start Date Expiration Date Visits Re quested Visits Authorized [id number] Closed 05/16/2022 05/16/2023 1 1 Reason Comments [...] On Sat02/05/24 at 0215, For 1 dose 0222 (New Bag - Prov ider: Charlee Robison RN)0252 (Stopped - Provider: Charlee Robison RN) sodium [...] BE BASED ON THE PRIMARY CLINICAL RECORDS. [facility] [employer] [facility]. provides no warranty or guarantee of the accuracy or completeness of information in this document.
== END 2024-05-06 09:08 | disposition home or self-care (01) ==
LOC: RAD 09:07
PROVIDERS: PCP Internal Medicine; Visit Provider Podiatrist Foot & Ankle Surgery
DX: M79.671 Pain in right foot (principal); M24.674 Ankylosis, right foot
CPT/HCPCS: 73630

== ENCOUNTER 2025-01-01 10:36 | Outpatient (OUT) | payer MEDICARE, OTHER, SELFPAY ==
--- OUTSIDE RECORDS SUMMARY | 2025-01-01 10:44 | XMS_ITS | CCD ---
Author Organization [facility] Care Team Providers Care Associate Sales Name Role Phone Azeb Degroot Primary Care Physician Unavailab Azeb Valverde Unavailable Unavailable Ian Melendez Primary Care Provider 1( [phone] Azeb Degroot Primary Care Physician Unavailab Blossom Sales Primary Care Provider Lindsey SILVERMAN, Blossom Harkins Primary Care Provider LINDSEY, DR CERRATO Admitting Unavailable LINDSEY, DR CERRATO Attending Unavailable MAGDALENE, DR DINO Magu[employer] Unavailable LINDSEY, DR [...] MD Primary Care Provider Yovani Malone Unavailable Blossom Portillo MD Primary Care Provider GLENN GRECO Attending Unavailable GLENN GRECO Admitting Unavailable BLOSSOM PORTILLO Primary Care Unavailable Lindsey SILVERMAN, Blossom Harkins Primary Care Provider Azeb Degroot Primary Care Physician Unavailab Azeb Valverde Primary Care Physician Unavailab Mónica SILVERMAN, Blossom Harkins Primary Care Provider Azeb Degroot Primary Care Physician Unavailab JCARLOS Mooney Referring Unavailable BLOSSOM PORTILLO Primary Care Unavailable BLOSSOM PORTILLO Primary Care Unavailable LEIA LING Attending Unavailable JCARLOS ALEGRE Referring Unavailable BLOSSOM PORTILLO Primary Care Unavailable BLOSSOM PORTILLO Referring Unavailable BLOSSOM PORTILLO Primary Care Unavailable BLOSSOM PORTILLO Referring Unavailable BLOSSOM PORTILLO Primary Care Unavailable Azeb Degroot Primary Care Physician Unavailab le Avril, Physician Primary Care Provider UnavailPANDA Aguirre Attending Unavailable MICHELLE KNOX Referring Unavailabl e AVRIL, PHYSICIAN Primary Care Unavailable Allergies Allergy Classification Reported Allergen(s) Allergy Type Date of Onset Reaction(s) Facility Opioid Agonists (2 sources) Codeine; Translations: [Codeine] Drug Allergy 3 Other (See Comments) [employer] (5 sources) Codeine; Translations: [codeine sulfate] Drug Allergy [facility] (6 sources) Codeine; Translations: [Codeine Phosphate] Drug Allergy Unknown [employer] (15 sources) Codeine; Translations: [codeine] Drug Allergy 3 Other (See Comments), [facility] [place] [place] Medications Current Medications Medication Drug Class(es) Dates Sig (Normalized) Sig (Original) amoxicillin 500 mg oral capsule (1 source) Penicillin-class Antibacterial Start: 10-03-2024 take 1 capsule by mouth twice daily amoxicillin (AMOXIL) 500 MG capsule Take 1 (one) capsule (500 mg total) by mouth 2 (two) times a day . 10/03/2024 Active aspirin 81 mg delayed release oral tablet [...] 08/01/2020 Active celecoxib 200 mg oral capsule (13 sources) Nonsteroidal Anti-inflammatory Drug Start: 10-03-2023 take 1 capsule by mouth twice daily celecoxib (CELEBREX) 200 MG capsule Take 1 (one) capsule (200 mg total) by mouth 2 (two) times a day . 10/03/2023 Active Start: 09-18-2021 take 1 capsule [...] tablet (5 sources) Nonsteroidal Anti-inflammatory Drug Start: 4 End: 4 take 1 tablet by mouth three times [...] 08/24/2020 Active lidocaine 0.05 mg/mg medicated patch (8 sources) Antiarrhythmic, Amide Local Anesthetic Start: 02-05-2024 [...] pantoprazole 40 mg delayed release oral tablet (14 sources) Proton Pump Inhibitor Start: 11-04-2023 take [...] Active rosuvastatin calcium 10 mg oral tablet (10 sources) HMG-CoA Reductase Inhibitor Start: 04-16-19 take 1 tablet by mouth every other day rosuvastatin (CRESTOR) 10 MG tablet Take 1 (one) tablet (10 mg total) by mouth every other day . 04/16/2024 Active Start: 10-03-2023 take 1 tablet [...] mL tamsulosin hydrochloride 0.4 mg oral capsule (13 sources) alpha-Adrenergi c Rod Start: 08-31-2024 take 1 capsule by mouth once daily tamsulosin (FLOMAX) 0.4 mg capsule Take 1 (one) capsule (0.4 mg total) by mouth daily . 08/31/2024 Active Start: 03-29-2022 take 1 capsule by mo uth once daily tamsulosin (FLOMAX) 0.4 MG capsule TAKE 1 CAPSULE BY MOUTH ONCE DAILY 90 capsule 04/13/2024 Active therapeutic multivitamin-minerals (THERAGRAN-M) tablet (4 sources) [...] ONCE, 1 dose, On Sat02/05/24 at 0400 fluorouracil 50 mg/ml topical cream (2 sources) Nucleoside Metabolic Inhibitor Start: 03-02-2024 Efudex 5 % topical cream 03/02/2024 COMPOUND 1:1 with 0.005% calcipotriene. Apply to entire body site twice daily as directed; ph: [phone] iopamidol (ISOVUE-370) 76 % injection 75 mL [...] hydrochloride 500 mg extended release oral tablet (7 sources) Biguanide End: 09-03-2019 take 1 tablet [...] omeprazole 20 mg delayed release oral capsule (4 sources) Proton Pump Inhibitor take 1 capsule [...] at 0215, For 1 dose triamcinolone acetonide 0.93603 mg/mg topical ointment (7 sources) Corticosteroid Start: 07-01-2018 apply 1 g topically twice daily triamcinolone acetonide 0.025 % topical ointment 07/01/2018 apply a thin layer to the affected area(s) by topical route 2 times daily until flat. Dispense 30 gm Problems Active Problems Problem Classification Problem Date Documented Date Episodic/Chronic Allergic reactions (10 sources) Contact dermatitis and other eczema, unspecified cause; Translations: [Dermatitis, unspecified] Onset: 9 Episodic Diabetes mellitus with complications (4 sources) Hyperglycemia due to type 2 diabetes mellitus; Translations: [Type 2 diabetes mellitus with hyperglycemia] Onset: 5 10-07-2024 Chronic Diabetes mellitus without complication (17 sources) Type 2 diabetes mellitus without complication; Translations: [Type 2 diabetes mellitus without complications] Onset: 2 07-24-2021 Chronic Diabetes mellitus without complication (9 sources) Other abnormal glucose; Translations: [Impaired fasting glycaemia] Episodic Disorders of lipid metabolism (7 sources) Mixed hyperlipidemia; Translations: [Mixed hyperlipidemia] Onset: 4 01-15-2024 Chronic Esophageal disorders (4 sources) Gastroesophageal reflux disease; Translations: [Gastro-esophageal reflux disease without esophagitis] Onset: 5 10-07-2024 Chronic Gastroduodenal ulcer (except hemorrhage) (1 source) Peptic ulcer; Translations: [Peptic ulcer, site unspecified, unspecified as acute or chronic, without hemorrhage or perforation] Chronic Osteoarthritis (2 sources) Arthropathy of right shoulder; Translations: [Primary osteoarthritis, right shoulder] Onset: 1 Resolved: 1 Chronic Other and unspecified benign neoplasm (3 sources) Benign neoplasm of skin, site unspecified Onset: 9 Episodic Other bone disease and musculoskeletal deformities (11 sources) Degenerative joint disease involving multiple joints; 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, multiple sites] Onset: 2 07-24-2021 Chronic Other circulatory disease (1 source) Nevus, non-neoplastic Onset: 0 Episodic Other diseases of kidney and ureters (1 source) Cyst of kidney; Translations: [Cyst of kidney, acquired] 02-05-2024 Episodic Other inflammatory condition of skin (1 [...] keratosis Onset: 9 Episodic Other skin disorders (1 source) Postinflammatory hyperpigmentation Onset: 5 Episodic Retinal detachments; defects; vascular occlusion; and retinopathy (3 sources) Epiretinal membrane of left eye; Translations: [Puckering of macula, left eye] Onset: 5 10-07-2024 Chronic Spondylosis; intervertebral disc disorders; other back problems (3 sources) Other spondylosis with radiculopathy, lumbar region; Translations: [Other spondylosis with radiculopathy, cervical region] Onset: 1 Chronic Unclassified (1 source) Patient encounter status; Translations: [Screening cholesterol level] Past or Other Problems Problem Classification Problem Date Documented Da te Episodic/Chronic Abdominal pain (5 sources) Right flank pain; Translations: [Unspecified abdominal pain] Onset: 4 Resolved: 5 02-05-2024 Episodic Calculus of urinary tract (7 sources) Calculus of ureter; Translations: [Renal colic] Onset: 2 Episodic Other and unspecified benign neoplasm (2 sources) Hemangioma of skin and subcutaneous tissue Onset: 9 Episodic Other and unspecified benign neoplasm (20 sources) Melanocytic nevi, unspecified Onset: 9 Episodic Other and unspecified benign neoplasm (5 sources) Hemangioma of skin and subcutaneous tissue Onset: 9 Episodic Other circulatory disease (20 sources) Nevus, non-neoplastic Onset: 0 Episodic Other connective tissue disease (6 sources) Left achilles tendonitis; Translations: [Achilles tendinitis, left leg] Onset: 3 Resolved: 4 06-04-2022 Episodic Other connective tissue disease (5 sources) Impingement syndrome of right shoulder region; Translations: [Impingement syndrome of right shoulder] Onset: 4 07-23-2023 Episodic Other diseases of kidney and ureters (1 source) Cyst of kidney, acquired; Translations: [Cyst of kidney, acquired] Onset: 4 Episodic Other gastrointestinal disorders (1 source) Dysphagia; Translations: [Dysphagia, unspecified] Episodic Other inflammatory condition of skin (5 sources) Prurigo nodularis Onset: 0 Episodic Other nervous system disorders (10 sources) Paresthesia of skin Onset: 9 Episodic Other non-traumatic joint disorders (6 sources) Pain in right knee; Translations: [Pain in joint, lower leg] Onset: 3 Episodic Other screening for suspected conditions (not mental disorders or infectious disease) (6 sources) Patient encounter status; Translations: [Encounter for screening for lipoid disorders] Onset: 4 Episodic Other skin disorders (2 sources) Actinic keratosis Onset: 9 Episodic Other skin disorders (20 sources) Other melanin hyperpigmentation Onset: 9 Episodic Other skin disorders (19 sources) Actinic keratosis Onset: 9 Episodic Spondylosis; intervertebral disc disorders; other back problems (20 sources) Chronic low back pain; Translations: [Low back pain] Onset: 0 Resolved: 5 07-20-2019 Episodic Unclassified (1 source) Low back pain, unspecified M54.50 Onset: 1 Resolved: 1 Unclassified (10 sources) Onset: 3 Resolved: 4 04-26-2023 Results Test Name Value Interpretation Reference Range Facility ECG 12 [place] 10-07-2024 [facility] Glucose (Bld) [Mass/Vol]on 0 10-07-2024 Glucose [Mass/Vol] 89 mg/dL [facility] Hemoglobin A1Con 07-24-2024 Average glucose Estimated from glycated hemoglobin (Bld) [Mass/Vol] 123 mg/dL [facility] Comment on above: The ADA and AACC rec ommend providing the estimated average glucose result to permit better patient understanding of their HBA1c result. HbA1c (Bld) [Mass fraction] 5.9 % 4.0 - 6.0 % [facility] Glucose [Mass/Vol] 123 mg/dL Normal [facility] Comment on above: Result Comment: The ADA and AACC recommend providing the estimated average glucose result to permit better patient understanding of their HBA1c result. Performed By: #### G LYHGB #### [address] [place], [place] [id number] Charge Account Clerk: Lanre Mendez MD HbA1c (Bld) [Mass fraction] 5.9 % Normal 4.0-6.0 [facility] Comment on above: Performed By: #### G LYHGB #### [address], [place] [id number] Charge Account Clerk: Lanre Mendez MD XR ABDOMEN (KUB) (SINGLE AP VIEW)on 04-29-2024 [...] Noel Healy MD 04/29/24 Final result Normal [facility] XR Abdomen Single viewon 1. Nonspecific and nonobstructive bowel gas pattern. 2. No radiopaque urinary tract calcifications seen. [facility] RIS CONSOLIDATED EXAMINATION: ONE SUPINE XRAY VIEW(S) OF THE ABDOMEN 04/28/2024 9:59 am COMPARISON: 03/27/2023. HISTORY: ORDERING SYSTEM PROVIDED HISTORY: Kidney stones FINDINGS: The bowel gas pattern is nonspecific and nonobstructive. No dilated loops of bowel are seen. No abnormal densities are seen overlying the renal shadows. Pelvic phleboliths are noted. There are degenerative changes involving the hips and spine. [facility] Noel Healy MD - 04/29/2024 EXAMINATION: ONE SUPINE XRAY [...] 2. No radiopaque urinary tract calcifications seen. [facility] XR Abdomen Single viewOrdere d By: Noel Healy on 04-29-2024 [facility] Work Phone: XR Abdomen Single viewon Radiology Study observation (narrative) [facility] CBC with Diffon 02-05-2024 Basophils (Bld) [#/Vol] 0.04 10*3/uL [facility] Basophils/100 WBC (Bld) 1 % 0 - 2 % [facility] Eosinophils (Bld) [#/Vol] 0.13 10*3/uL [facility] Eosinophils/100 WBC (Bld) 2 % 1 - 4 % [facility] Erythrocyte distribution width (RBC) [Ratio] 13.7 % 11.8 - 14.4 % [facility] Hematocrit (Bld) [Volume fraction] 42.3 % 40.7 - 50.3 % [facility] Hemoglobin (Bld) [Mass/Vol] 14.5 g/dL 13.0 - 17.0 g/dL [facility] Immature granulocytes (Bld) [#/Vol] [facility] Immature granulocytes/100 WBC (Bld) 0 % 0 [facility] Interpretation and review of laboratory results Abnormal [facility] Lymphocytes/100 WBC (Bld) 27 % 24 - 43 % [facility] Lymphocytes/100 WBC (Bld) 1.50 % [facility] MCH (RBC) [Entitic mass] 31.4 pg 25.2 - 33.5 pg [facility] MCHC (RBC) [Mass/Vol] 34.3 g/dL 28.4 - 34.8 g/dL [facility] MCV (RBC) [Entitic vol] 91.6 fL 82.6 - 102.9 fL [facility] Monocytes/100 WBC (Bld) 16 % High 3 - 12 % [facility] Monocytes/100 WBC (Bld) 0.85 % [facility] Neutrophils/100 WBC (Bld) 54 % 36 - 65 % [facility] Nucleated RBC/100 WBC (Bld) [Ratio] 0.0 % 0.0 per 100 WBC [facility] Platelet mean volume (Bld) [Entitic vol] 9.8 fL 8.1 - 13.5 fL [facility] Platelets (Bld) [#/Vol] 272 10*3/uL [facility] RBC (Bld) [#/Vol] 4.62 10*6/uL 4.21 - 5.7 7 m/uL [facility] Segmented neutrophils/100 WBC (Bld) 2.96 % [facility] WBC other (Bld) [#/Vol] 5.5 [facility] Abs. Basophil 0.04 k/uL Normal 0.00-0.20 [facility] Comment on above: Performed By: #### C DP, CP, LIP #### [facility] [address] [place] [address] Charge Account Clerk: Dino Moody MD Abs.Imm.Granulocyte <0.03 Normal 0.00-0.30 [facility] Comment on above: Performed By: #### C DP, CP, LIP #### [facility] [address] [place], [id number] Charge Account Clerk: Dino Moody MD Abs.Neutrophil (Seg) 2.96 k/uL Normal 1.50-8.10 [facility] Comment on above: Performed By: #### C DP, CP, LIP #### [address] [place], [place] [address] Charge Account Clerk: Dino Moody MD Basophils/100 WBC (Bld) 1 % Normal 0-2 [facility] Comment on above: Performed By: #### C DP, CP, LIP #### [address] [place] [address] Charge Account Clerk: Dino Moody MD Eosinophils (Bld) [#/Vol] 0.13 10*3/uL Normal 0.00-0.44 [facility] Comment on above: Performed By: #### C DP, CP, LIP #### [address] [place], [id number] Charge Account Clerk: Dino Moody MD Eosinophils/100 WBC (Bld) 2 % Normal 1-4 [facility] Comment on above: Performed By: #### C DP, CP, LIP #### [address] [place], [place] [address] Charge Account Clerk: Dino Moody MD Erythrocyte distribution width (RBC) [Ratio] 13.7 % Normal 11.8-14.4 [facility] Comment on above: Performed By: #### C DP, CP, LIP #### [address] [place] [id number] Charge Account Clerk: Dino Moody MD Hematocrit (Bld) [Volume fraction] 42.3 % Normal 40.7-50.3 [facility] Comment on above: Performed By: #### C DP, CP, LIP #### [facility] [address] [place], [place] [address] Charge Account Clerk: Dino Moody MD Hemoglobin (Bld) [Mass/Vol] 14.5 g/dL Normal 13.0-17.0 [facility] Comment on above: Performed By: #### C DP, CP, LIP #### [facility] [address] [place], [id number] Charge Account Clerk: Dino Moody MD Immature granulocytes/100 WBC (Bld) 0 % Normal 0 [facility] Comment on above: Performed By: #### C DP, CP, LIP #### [address] [place], [place] [address] Charge Account Clerk: Dino Moody MD Lymphocytes (Bld) [#/Vol] 1.50 10*3/uL Normal 1.10-3.70 [facility] Comment on above: Performed By: #### C DP, CP, LIP #### [address] [place], [id number] Charge Account Clerk: Dino Moody MD Lymphocytes/100 WBC (Bld) 27 % Normal 24-43 [facility] Comment on above: Performed By: #### C DP, CP, LIP #### [address] [place], [id number] Charge Account Clerk: Dino Moody MD MCH (RBC) [Entitic mass] 31.4 pg Normal 25.2-33.5 [facility] Comment on above: Performed By: #### C DP, CP, LIP #### [address] [place] [address] Charge Account Clerk: Dino Moody MD MCHC (RBC) [Mass/Vol] 34.3 g/dL Normal 28.4-34.8 [facility] Comment on above: Performed By: #### C DP, CP, LIP #### [address] [place] [address] Charge Account Clerk: Dino Moody MD MCV (RBC) [Entitic vol] 91.6 fL Normal 82.6-102.9 [facility] Comment on above: Performed By: #### C DP, CP, LIP #### [facility] [address] [place] [address] Charge Account Clerk: Dino Moody MD Monocytes (Bld) [#/Vol] 0.85 10*3/uL Normal 0.10-1.20 [facility] Comment on above: Performed By: #### C DP, CP, LIP #### [address] [place], [id number] Charge Account Clerk: Dino Moody MD Monocytes/100 WBC (Bld) 16 % High 3-12 [facility] Comment on above: Performed By: #### C DP, CP, LIP #### [address] [place], [id number] Charge Account Clerk: Dino Moody MD Neutrophil (Seg) 54 % Normal 36-65 [facility] Comment on above: Performed By: #### C DP, CP, LIP #### [address] [place], [place] [id number] Charge Account Clerk: Dino Moody MD NRBC Automated 0.0 per 100 WBC Normal 0.0 [facility] Comment on above: Performed By: #### C DP, CP, LIP #### [address] [place], [id number] Charge Account Clerk: Dino Moody MD Platelet mean volume (Bld) [Entitic vol] 9.8 fL Normal 8.1-13.5 [facility] Comment on above: Performed By: #### C DP, CP, LIP #### [address] [place], [place] [id number] Charge Account Clerk: Dino Moody MD Platelets (Bld) [#/Vol] 272 10*3/uL Normal 138-453 [facility] Comment on above: Performed By: #### C GARDENIA VELÁZQUEZ, LIP #### [facility] [address] [place] [address] Charge Account Clerk: Dino Moody MD RBC (Bld) [#/Vol] 4.62 10*6/uL Normal 4.21-5.77 [facility] Comment on above: Performed By: #### C MELANIA CP, LIP #### [facility] [address] [place] [address] Charge Account Clerk: Dino Moody MD WBC (d) [#/Vol] 5.5 10*3/uL Normal 3.5-11.3 [facility] Comment on above: Performed By: #### C GARDENIA VELÁZQUEZ, LIP #### [facility] [address] [place] [address] Charge Account Clerk: Dino Moody MD [facility] 02-05-2024 Albumin [Mass/Vol] 4.2 g/dL 3.5 - 5.2 g/dL [facility] Albumin/Globulin [Mass ratio] 1.6 {ratio} 1.0 - 2.5 [facility] ALP [Catalytic activity/Vol] 96 U/L 40 - 129 U/L [facility] ALT [Catalytic activity/Vol] 20 U/L 10 - 50 U/L [facility] Anion gap [Moles/Vol] 8 mmol/L Low 9 - 16 mmol/L [facility] AST [Catalytic activity/Vol] 18 U/L 10 - 50 U/L [facility] Bilirubin [Mass/Vol] 0.5 mg/dL 0.00 - 1.20 mg/dL [facility] Calcium [Mass/Vol] 9.1 mg/dL 8.6 - 10. 4 mg/dL [facility] Chloride [Moles/Vol] 107 mmol/L 98 - 10 7 mmol/L [facility] CO2 [Moles/Vol] 28 mmol/L 20 - 31 mmol/L [facility] Creatinine [Mass/Vol] 1.0 mg/dL 0.70 - 1.20 mg/dL [facility] Est, Glom Filt Rate 79 - PINF [facility] Comment on above: These results are not [...] [Mass/Vol] 96 mg/dL 74 - 99 mg/dL [facility] Interpretation and review of laboratory results Abnormal [facility] Potassium [Moles/Vol] 4.1 mmol/L 3.7 - 5.3 mmol/L [facility] Protein [Mass/Vol] 6.9 g/dL 6.6 - 8.7 g/dL [facility] Sodium [Moles/Vol] 143 mmol/L 136 - 145 mmol/L [facility] Urea nitrogen [Mass/Vol] 16 mg/dL 8 - 23 mg/dL [facility] Urea nitrogen/Creatinine [Mass ratio] 16 mg/mg 9 - [address] [facility] [address] ABDOMEN PELVIS W IV CONTR [...] Clayton Desai MD 02/05/24 Final result Normal [facility] CT Abdomen and Pelvis W cont rast [...] acute bone or soft tissue abnormality evident. [facility] RIS CON[facility]ID[facility] Clayton Desai MD - 02/05/2024 [...] or pelvic process. 2. Small hiatal hernia. [facility] Radiology Study observation (narrative) [facility] CT Abdomen and Pelvis W cont rast IVOrdered By: Clayton Desai on 02-05-2024 [facility] Work Phone: Comp Metabolic Profon 2023 Albumin [Mass/Vol] 4.2 g/dL Normal 3.5-5.2 [facility] Comment on above: Performed By: #### C DP, CP, LIP #### [facility] [address] [place] [address] Charge Account Clerk: Dino Moody MD Albumin/Glob Ratio 1.6 Normal 1.0-2.5 [facility] Comment on above: Performed By: #### C DP, CP, LIP #### [facility] [address] [place], [place] [id number] Charge Account Clerk: Dino Moody MD Alkaline Phos 96 U/L Normal 40-129 [facility] Comment on above: Performed By: #### C DP, CP, LIP #### [facility] [address] [place], [place] [id number] Charge Account Clerk: Dino Moody MD ALT [Catalytic activity/Vol] 20 U/L Normal 10-50 [facility] Comment on above: Performed By: #### C DP, CP, LIP #### [facility] [address] [place], [place] [id number] Charge Account Clerk: Dino Moody MD Anion gap [Moles/Vol] 8 mmol/L Low 9-16 [facility] Comment on above: Performed By: #### C DP, CP, LIP #### [facility] [address] [place], [place] [id number] Charge Account Clerk: Dino Moody MD AST [Catalytic activity/Vol] 18 U/L Normal 10-50 [facility] Comment on above: Performed By: #### C DP, CP, LIP #### [facility] [address] [place], [place] [id number] Charge Account Clerk: Dino Moody MD Bilirubin [Mass/Vol] 0.5 mg/dL Normal 0.00-1.20 [facility] Comment on above: Performed By: #### C DP, CP, LIP #### [facility] [address] [place] [address] Charge Account Clerk: Dino Moody MD BUN/CRE Ratio 16 Normal 9-20 [facility] Comment on above: Performed By: #### C DP, CP, LIP #### [facility] [address] [place] [address] Charge Account Clerk: Dino Moody MD Calcium [Mass/Vol] 9.1 mg/dL Normal 8.6-10.4 [facility] Comment on above: Performed By: #### C DP, CP, LIP #### [facility] [address] [place], [place] [id number] Charge Account Clerk: Dino Moody MD Chloride [Moles/Vol] 107 mmol/L Normal 98-107 [facility] Comment on above: Performed By: #### C MELANIA CP, LIP #### [facility] [address] [place] [address] Charge Account Clerk: Dino Moody MD CO2 [Moles/Vol] 28 mmol/L Normal 20-31 [facility] Comment on above: Performed By: #### C GARDENIA VELÁZQUEZ, LIP #### [facility] [address] [place] [address] Charge Account Clerk: Dino Moody MD Creatinine [Mass/Vol] 1.0 mg/dL Normal 0.70-1.20 [facility] Comment on above: Performed By: #### C MELANIA CP, LIP #### [facility] [address] [place], [place] [id number] Charge Account Clerk: Dino Moody MD GFR/1.73 sq M.predicted among non-blacks MDRD (S/P/Bld) [Vol rate/Area] 79 mL/min/{1.73_m2} Normal >60 [facility] Comment on above: Result Comment: These results [...] By: #### C DP, CP, LIP #### [facility] [address] [place], [place] [id number] Charge Account Clerk: Dino Moody MD Glucose [Mass/Vol] 96 mg/dL Normal 74-99 [facility] Comment on above: Performed By: #### C DP, CP, LIP #### [facility] [address] [place], [place] [id number] Charge Account Clerk: Dino Moody MD Potassium [Moles/Vol] 4.1 mmol/L Normal 3.7-5.3 [facility] Comment on above: Performed By: #### C DP, CP, LIP #### [facility] [address] [place], [place] [id number] Charge Account Clerk: Dino Moody MD Protein [Mass/Vol] 6.9 g/dL Normal 6.6-8.7 [facility] Comment on above: Performed By: #### C DP, CP, LIP #### [facility] [address] [place], [place] [id number] Charge Account Clerk: Dino Moody MD Sodium [Moles/Vol] 143 mmol/L Normal 136-145 [facility] Comment on above: Performed By: #### C DP, CP, LIP #### [facility] [address] [place], [place] [address]697[address] Charge Account Clerk: Dino Moody MD Urea nitrogen [Mass/Vol] 16 mg/dL Normal 8-23 [facility] Comment on above: Performed By: #### C DP, CP, LIP #### [facility] [address] [place] [address] Charge Account Clerk: Dino Moody MD Lactic Acidon 02-05-2024 Lactate [Moles/Vol] 1.0 mmol/L Normal 0.5-2.2 [facility] Comment on above: Performed By: #### L IPRF #### [facility] [address] [place] [address], [place] [id number] Charge Account Clerk: Lanre Mendez MD Lactic Acid (Select if patie nt is over 65 to rule out mesenteric ischemia)on 02-05-2024 Lactate (BldV) [Moles/Vol] 1.0 mmol/L 0.5 - 2.2 mmol/L [facility] Lipaseon 02-05-2024 Lipase [Catalytic activity/Vol] 37 U/L U/L [facility] Lipase [Catalytic activity/Vol] 37 U/L Normal [facility] Comment on above: Performed By: #### C DP, CP, LIP #### [facility] [address] [place] [address] Charge Account Clerk: Dino Moody MD Microscopic Urinalysison Epithelial cells LM.HPF (Urine sed) [#/Area] 0 TO 2 [facility] RBC LM.HPF (Urine sed) [#/Area] 0 TO 2 [facility] WBC LM.HPF (Urine sed) [#/Area] 0 TO 2 [facility] No Panel Informationon 02-04 [facility] UA w/Reflex Cultureon 2023 Bilirubin, SemiQt,Ur Negative Normal NEG [facility] Comment on above: Performed By: #### U AX, UMICAO #### [facility] [address] [place] [address] Charge Account Clerk: Dino Moody MD Blood, Urine Negative Normal NEG [facility] Comment on above: Performed By: #### U AX, UMICAO #### [facility] [address] [place] [address] Charge Account Clerk: Dino Moody MD Clarity (U) Clear Normal CLEAR [facility] Comment on above: Performed By: #### U AX, UMICAO #### [facility] [address] [place] [address] Charge Account Clerk: Dino Moody MD Color (U) Yellow Normal YEL [facility] Comment on above: Performed By: #### U AX, UMICAO #### [facility] [address] [place], [place] [id number] Charge Account Clerk: Dino Moody MD Glucose Ql (U) Negative Normal NEG [facility] Comment on above: Performed By: #### U AX, UMICAO #### [facility] [address] [place], [place] [id number] Charge Account Clerk: Dino Moody MD Ketones Ql (U) Negative Normal NEG [facility] Comment on above: Performed By: #### U AX, UMICAO #### [facility] [address] [place], [place] [phone] Charge Account Clerk: Dino Moody MD Leukocyte esterase Test strip Ql (U) Negative Normal NEG [facility] Comment on above: Performed By: #### U AX, UMICAO #### [facility] [address] [place], [place] [id number] Charge Account Clerk: Dino Moody MD Nitrite,Ur Negative Normal [facility] Comment on above: Performed By: #### U AX, UMICAO #### [facility] [address] [place], [place] [phone] Charge Account Clerk: Dino Moody MD PH,Ur 7.0 Normal 5.0-9.0 [facility] Comment on above: Performed By: #### U AX, UMICAO #### [facility] [address] [place], [place] [phone] Charge Account Clerk: Dino Moody MD Protein Ql (U) Negative Normal NEG [facility] Comment on above: Performed By: #### U AX, UMICAO #### [facility] [address] [place], [place] [phone] Charge Account Clerk: Dino Moody MD Spec. [place],Ur 1.010 Normal 1.010-1.020 [facility] Comment on above: Performed By: #### U AMY ROTH #### [facility] [address] [place] [address] Charge Account Clerk: Dino Moody MD Urobilinogen,Ur Normal Normal 0.0-1.0 [facility] Comment on above: Performed By: #### U AXAMY #### [facility] [address] [place] [address] Charge Account Clerk: Dino Moody MD Urinalysis with Reflex to Cu ltureon 02-05-2024 Bilirubin Ql (U) Negative NEGATIVE [facility] Clarity (U) Clear Clear [facility] Color (U) Yellow Yellow [facility] Glucose Test strip (U) [Mass/Vol] Negative NEGATIVE mg/dL [facility] Hemoglobin Auto test strip Ql (U) Negative NEGATIVE [facility] Ketones (U) [Mass/Vol] Negative NEGATIVE mg/dL [facility] Leukocyte esterase Test strip Ql (U) Negative NEGATIVE [facility] Nitrite Ql (U) Negative NEGATIVE [facility] pH (U) 7.0 [pH] 5.0 - 9.0 [facility] Protein (U) [Mass/Vol] Negative NEGATIVE mg/dL [facility] Specific gravity (U) [Rel density] 1.010 1.010 - 1.020 [facility] Urobilinogen Qn (U) Normal 0.0 - 1. 0 EU/dL [facility] Urinalysis,Microon 4 Epithelial cells LM Ql (Urine sed) 0 TO 2 Normal 0-5 [facility] Comment on above: Performed By: #### U AMY ROTH #### [facility] [address] [place] [address] Charge Account Clerk: Dino Moody MD Urine RBC's 0 TO 2 Normal 0-2 [facility] Comment on above: Performed By: #### U IRA UMICAO #### [facility] [address] [place] [address] Charge Account Clerk: Dino Moody MD Urine WBC's 0 TO 2 Normal 0-5 [facility] Comment on above: Performed By: #### U CEZAR ROTHICAO #### [facility] [address] [place] [address] Charge Account Clerk: Dino Moody MD Comp Metabol,Fastingon 01-14 -2023 Albumin [Mass/Vol] 4.0 g/dL Normal 3.5-5.2 [facility] Comment on above: Performed By: #### L IPRF #### [address] [address] Charge Account Clerk: Lanre Mendez MD Albumin/Glob Ratio 1.4 Normal 1.0-2.5 [facility] Comment on above: Performed By: #### L IPRF #### [address] [address] Charge Account Clerk: Lanre Mendez MD Alkaline Phos 95 U/L Normal 40-129 [facility] Comment on above: Performed By: #### L IPRF #### [id number] [place] [address] Charge Account Clerk: Lanre Mendez MD ALT [Catalytic activity/Vol] 18 U/L Normal 10-50 [facility] Comment on above: Performed By: #### L IPRF #### [address] [address] Charge Account Clerk: Lanre Mendez MD Anion gap [Moles/Vol] 8 mmol/L Low 9-16 [facility] Comment on above: Performed By: #### L IPRF #### [address] [address] Charge Account Clerk: Lanre Mendez MD AST [Catalytic activity/Vol] 17 U/L Normal 10-50 [facility] Comment on above: Performed By: #### L IPRF #### [facility] [employer] [address] [place] [address] Charge Account Clerk: Lanre Mendez MD Bilirubin [Mass/Vol] 0.5 mg/dL Normal 0.00-1.20 [facility] Comment on above: Performed By: #### L IPRF #### [address] [address] Charge Account Clerk: Lanre Mendez MD BUN/CRE Ratio 21 High 9-20 [facility] Comment on above: Performed By: #### L IPRF #### [address] [address] Charge Account Clerk: Lanre Mendez MD Calcium [Mass/Vol] 9.1 mg/dL Normal 8.6-10.4 [facility] Comment on above: Performed By: #### L IPRF #### [address] [address] Charge Account Clerk: Lanre Mendez MD Chloride [Moles/Vol] 107 mmol/L Normal 98-107 [facility] Comment on above: Performed By: #### L IPRF #### [address] [address] Charge Account Clerk: Lanre Mendez MD CO2 [Moles/Vol] 27 mmol/L Normal 20-31 [facility] Comment on above: Performed By: #### L IPRF #### [address] [address] Charge Account Clerk: Lanre Mendez MD Creatinine [Mass/Vol] 0.9 mg/dL Normal 0.70-1.20 [facility] Comment on above: Performed By: #### L IPRF #### [address] [address] Charge Account Clerk: Lanre Mendez MD GFR/1.73 sq M.predicted among non-blacks MDRD (S/P/Bld) [Vol rate/Area] 85 mL/min/{1.73_m2} Normal >60 [facility] Comment on above: Result Comment: These results [...] renal tubular secretion. Performed By: #### L IPRF #### [facility] [address] [place] [address] Charge Account Clerk: Lanre Mendez MD Glucose [Mass/Vol] 97 mg/dL Normal 74-99 [facility] Comment on above: Performed By: #### L IPRF #### [facility] [address] [place] [address] Charge Account Clerk: Lanre Mendez MD Potassium [Moles/Vol] 4.8 mmol/L Normal 3.7-5.3 [facility] Comment on above: Performed By: #### L IPRF #### [facility] [address] [place] [address] Charge Account Clerk: Lanre Mendez MD Protein [Mass/Vol] 6.8 g/dL Normal 6.6-8.7 [facility] Comment on above: Performed By: #### L IPRF #### [facility] [address] [place] [address] Charge Account Clerk: Lanre Mendez MD Sodium [Moles/Vol] 142 mmol/L Normal 136-145 [facility] Comment on above: Performed By: #### L IPRF #### [facility] [address] [place] [address] Charge Account Clerk: Lanre Mendez MD Urea nitrogen [Mass/Vol] 19 mg/dL Normal 8-23 [facility] Comment on above: Performed By: #### L IPRF #### [facility] [address] [phone] Charge Account Clerk: Lanre Mendez MD [facility] Metabolic Pane linette, Fastingon 01-15-2024 Albumin [Mass/Vol] 4.0 g/dL 3.5 - 5.2 g/dL [facility] Albumin/Globulin [Mass ratio] 1.4 {ratio} 1.0 - 2.5 [facility] ALP [Catalytic activity/Vol] 95 U/L 40 - 129 U/L [facility] ALT [Catalytic activity/Vol] 18 U/L 10 - 50 U/L [facility] Anion gap [Moles/Vol] 8 mmol/L Low 9 - 16 mmol/L [facility] AST [Catalytic activity/Vol] 17 U/L 10 - 50 U/L [facility] Bilirubin [Mass/Vol] 0.5 mg/dL 0.00 - 1.20 mg/dL [facility] Calcium [Mass/Vol] 9.1 mg/dL 8.6 - 10. 4 mg/dL [facility] Chloride [Moles/Vol] 107 mmol/L 98 - 10 7 mmol/L [facility] CO2 [Moles/Vol] 27 mmol/L 20 - 31 mmol/L [facility] Creatinine [Mass/Vol] 0.9 mg/dL 0.70 - 1.20 mg/dL [facility] Est, Glom Filt Rate 85 - PINF [facility] Comment on above: These results are not [...] [Mass/Vol] 97 mg/dL 74 - 99 mg/dL [facility] Interpretation and review of laboratory results Abnormal [facility] Potassium [Moles/Vol] 4.8 mmol/L 3.7 - 5.3 mmol/L [facility] Protein [Mass/Vol] 6.8 g/dL 6.6 - 8.7 g/dL [facility] Sodium [Moles/Vol] 142 mmol/L 136 - 145 mmol/L [facility] Urea nitrogen [Mass/Vol] 19 mg/dL 8 - 23 mg/dL [facility] Urea nitrogen/Creatinine [Mass ratio] 21 mg/mg High 9 - 20 [facility] Hemoglobin A1Con 01-15-2024 Average glucose Estimated from glycated hemoglobin (Bld) [Mass/Vol] 128 mg/dL [facility] Comment on above: The ADA and AACC rec ommend providing the estimated average glucose result to permit better patient understanding of their HBA1c result. HbA1c (Bld) [Mass fraction] 6.1 % High 4.0 - 6.0 % [facility] Interpretation and review of laboratory results Abnormal [facility] Glucose [Mass/Vol] 128 mg/dL Normal [facility] Comment on above: Result Comment: The ADA and AACC recommend providing the estimated average glucose result to permit better patient understanding of their HBA1c result. Performed By: #### L IPRF #### [facility] [address] [place] [address] Charge Account Clerk: Lanre Mendez MD HbA1c (Bld) [Mass fraction] 6.1 % High 4.0-6.0 [facility] Comment on above: Performed By: #### L IPRF #### [facility] [address] [place] [phone] Charge Account Clerk: Lanre Mendez MD Lipid Prof, Fastingon 2023 Cholesterol [Mass/Vol] 157 mg/dL Normal 0-199 [facility] Comment on above: Result Comment: Cholesterol Guidelines: <200 Desirable 200-240 Borderline >240 Undesirable Performed By: #### L IPRF #### [facility] [place], [place] [phone] Charge Account Clerk: Lanre Mendez MD Cholesterol in HDL [Mass/Vol] 60 mg/dL Normal >40 [facility] Comment on above: Result Comment: HDL Guidelines: <40 Undesirable 40-59 Borderline >59 Desirable Performed By: #### L IPRF #### [facility] [address] [place] [address] Charge Account Clerk: Lanre Mendez MD Cholesterol in LDL [Mass/Vol] 84 mg/dL Normal 0-100 [facility] Comment on above: Result Comment: LDL Guidelines: <100 Desirable 100-129 Near to/above Desirable 130-159 Borderline >159 Undesirable Direct (measured) LDL and calculated LDL are not interchangeable tests. Performed By: #### L IPRF #### [facility] [address] [place] [address] Charge Account Clerk: Lanre Mendez MD Cholesterol in VLDL [Mass/Vol] 13 mg/dL Normal [facility] Comment on above: Performed By: #### L IPRF #### [facility] [address] [place] [address] Charge Account Clerk: Lanre Mendez MD Cholesterol.total/Ch olesterol in HDL [Mass ratio] 3.0 {ratio} Normal [facility] Comment on above: Performed By: #### L IPRF #### [facility] [address] [place] [address] Charge Account Clerk: Lanre Mendez MD Triglyceride,Fasting 66 mg/dL Normal 0-149 [facility] Comment on above: Result Comment: Triglyceride Guidelines: <150 Desirable 150-199 Borderline 200-499 High >499 Very high Based on AHA Guidelines for fasting triglyceride, December 2011. Performed By: #### L IPRF #### [facility] [address] [place] [address] Charge Account Clerk: Lanre Mendez MD Lipid, Fastingon 01-15-2024 Cholesterol [Mass/Vol] 157 mg/dL 0 - 199 mg/dL [facility] [employer] Comment on above: Cholesterol Guidelines: <200 Desirable 200-240 Borderline >240 Undesirable Cholesterol in HDL [Mass/Vol] 60 mg/dL 40 - PINF mg/dL [facility] [employer] Comment on above: HDL Guidelines: <40 Undesirable 40-59 Borderline >59 Desirable Cholesterol in LDL [Mass/Vol] 84 mg/dL 0 - 100 mg/dL [email or web address] Comment on above: LDL Guidelines: <100 Desirable 100-129 Near to/above Desirable 130-159 Borderline >159 Undesirable Direct (measured) LDL and calculated LDL are not interchangeable tests. Cholesterol in VLDL [Mass/Vol] 13 mg/dL [facility] [employer] Cholesterol.total/Ch olesterol in HDL [Mass ratio] 3.0 {ratio} [facility] [employer] Triglyceride [Mass/Vol] 66 mg/dL 0 - 149 mg/dL [facility] [employer] Comment on above: Triglyceride Guidelines: <150 Desirable 150-199 Borderline 200-499 High >499 Very high Based on AHA Guidelines for fasting triglyceride, December 2011. [facility] [employer] Microalb.,Random Uron 2023 Creatinine [Mass/Vol] 205.0 mg/dL Normal 39.0-259.0 [facility] Comment on above: Performed By: #### U RNMAB #### [facility] [address] [place] [phone] Charge Account Clerk: Lanre Mendez MD Microalb/Creat Ratio Can not be calculated Normal 0.0-17.0 [facility] Comment on above: Performed By: #### U RNMAB #### [facility] [address] [place] [address] [phone] Charge Account Clerk: Lanre Mendez MD Microalbumin conc. <12 Normal 0-20 [facility] Comment on above: Performed By: #### U RNMAB #### [facility] [place], [place] [phone] Charge Account Clerk: Lanre Mendez MD Microalbumin, Uron Albumin DL <= 20 mg/L (U) [Mass/Vol] mg/L 0 - 20 mg/L [facility] [employer] Albumin/Creatinine DL <= 20 mg/L (U) [Ratio] Can not be calculated [facility] [employer] Creatinine (U) [Mass/Vol] 205.0 mg/dL 39.0 - 259.0 mg/dL [facility] PSA Screeningon 01-15-2024 Interpretation and review of laboratory results Abnormal [facility] Prostate specific Ag [Mass/Vol] 4.70 ng/mL High 0.00 - 4.00 ng/mL [facility] Comment on above: The Guido ECLIA as say is used. Results obtained with different assay methods cannot be used interchangeably. [facility] PSA, Screeningon 01-15-2024 Prostatic Spec. Ag 4.70 ng/mL High 0.00-4.00 [facility] Comment on above: Result Comment: The Guido ECLIA assay is used. Results obtained with different assay methods cannot be used interchangeably. Performed By: #### L IPRF #### [facility] [address] [place] [address] Charge Account Clerk: Lanre Mendez MD No Panel Informationon 02-19 Tobacco smoking status Non-Smoker Invalid Interpretation Code [employer] Hemoglobin A1Con 06-28-2022 Average glucose Estimated from glycated hemoglobin (Bld) [Mass/Vol] 128 mg/dL [facility] Comment on above: The ADA and AACC rec ommend providing the estimated average glucose result to permit better patient understanding of their HBA1c result. HbA1c (Bld) [Mass fraction] 6.1 % High 4.0 - 6.0 % [facility] Interpretation and review of laboratory results Abnormal [facility] Basic Metabolic Panelon 04-26 Anion gap [Moles/Vol] 6 mmol/L Low 9 - 17 mmol/L [facility] Calcium [Mass/Vol] 9.2 mg/dL 8.6 - 10. 4 mg/dL [facility] Chloride [Moles/Vol] 106 mmol/L 98 - 10 7 mmol/L [facility] CO2 [Moles/Vol] 29 mmol/L 20 - 31 mmol/L [facility] Creatinine [Mass/Vol] 0.96 mg/dL 0.70 - 1.20 mg/dL [facility] GFR/1.73 sq M.predicted MDRD (S/P/Bld) [Vol rate/Area] - PINF [facility] Comment on above: These results are [...] 105 mg/dL High 70 - 99 mg/dL [facility] Interpretation and review of laboratory results Abnormal [facility] Potassium [Moles/Vol] 4.5 mmol/L 3.7 - 5.3 mmol/L [facility] Sodium [Moles/Vol] 141 mmol/L 135 - 144 mmol/L [facility] Urea nitrogen [Mass/Vol] 18 mg/dL 8 - 23 mg/dL [facility] Urea nitrogen/Creatinine (Bld) [Mass ratio] 19 9 - 20 [facility] CBC with Auto Differentialon 05-16-2022 Absolute Eos # 0.07 [place] [facility] Absolute Immature Granulocyte [facility] Absolute Lymph # 1.50 [facility] Absolute [place] # 0.78 [facility] Basophils (Bld) [#/Vol] 0.03 10*3/uL [facility] Basophils/100 WBC (Bld) 1 % 0 - 2 % [facility] Eosinophils/100 WBC (Bld) 1 % 1 - 4 % [facility] Hematocrit (Bld) [Volume fraction] 44.5 % 40.7 - 50.3 % [facility] Hemoglobin (Bld) [Mass/Vol] 15.1 g/dL 13.0 - 17.0 g/dL [facility] Immature granulocytes/100 WBC (Bld) 0 % 0 [facility] Interpretation and review of laboratory results Abnormal [facility] Lymphocytes/100 WBC (Bld) 26 % 24 - 43 % [facility] MCH (RBC) [Entitic mass] 32.5 pg 25.2 - 33.5 pg [facility] MCHC (RBC) [Mass/Vol] 33.9 g/dL 28.4 - 34.8 g/dL [facility] MCV (RBC) [Entitic vol] 95.9 fL 82.6 - 102.9 fL [facility] Monocytes/100 WBC (Bld) 14 % High 3 - 12 % [facility] NRBC Automated 0.0 0.0 per 100 WBC [facility] Platelet distribution width (Bld) [Ratio] 13.7 % 11.8 - 14.4 % [facility] Platelet mean volume (Bld) [Entitic vol] 9.6 fL 8.1 - 13.5 fL [facility] Platelets (Bld) [#/Vol] 208 10*3/uL [facility] RBC (Bld) [#/Vol] 4.64 10*6/uL 4.21 - 5.7 7 m/uL [facility] Segmented neutrophils/100 WBC (Bld) 58 % 36 - 65 % [facility] Segs Absolute 3.37 [facility] WBC (Bld) [#/Vol] 5.8 10*3/uL [facility] CT ABDOMEN PELVIS WO CONTRAS T Additional [...] known risk factors. Radiology 2017 http://pubs.rsna.org /doi/full/10.1148/ra diol.[email or web address] [facility] RIS CONSOLIDATED EXAMINATION: CT OF THE ABDOMEN [...] superficial soft tissues show no significant abnormalities. [facility] CONSOLIDATED Jd Johnson MD - 05/16/2022 EXAMINATION: [...] known risk factors. Radiology 2017 http://pubs.rsna.org /doi/full/10.1148/ra diol.[email or web address] [facility] Phone: Radiology Study observation (narrative) AIS Phone: CT ABDOMEN PELVIS WO CONTRAS T Additional Contrast? NoneOrdered By: Jd Johnson on 05-16-2022 [facility] Work Phone: Urinalysis with Microscopico n 05-16-2022 Bilirubin Urine Negative NEGATIVE [facility] Color, UA Yellow Yellow [facility] Epithelial Cells UA None [facility] Glucose Auto test strip (U) [Mass/Vol] Negative NEGATIVE [facility] Ketones (U) [Mass/Vol] Negative NEGATIVE [facility] Leukocyte esterase Auto test strip Ql (U) Negative NEGATIVE [facility] Nitrite Auto test strip Ql (U) Negative NEGATIVE [facility] Protein (U) [Mass/Vol] 8.5 mg/dL 5.0 - 9.0 [facility] Protein (U) [Mass/Vol] Negative NEGATIVE [facility] RBC clumps Auto (Urine sed) [#/Area] None [facility] Specific [place], UA 1.020 1.010 - 1.020 [facility] Turbidity UA Clear Clear [facility] Urine Hgb Negative NEGATIVE [facility] Urobilinogen, Urine Normal Normal [facility] WBC, UA None [facility] Comprehensive Metabolic Pane l, Fastingon 01-05-2022 Albumin [Mass/Vol] 4.2 g/dL 3.5 - 5.2 g/dL [facility] Albumin/Globulin [Mass ratio] 1.6 {ratio} 1 - 2.5 [facility] ALP (Bld) [Catalytic activity/Vol] 84 U/L 40 - 129 U/L [facility] ALT [Catalytic activity/Vol] 26 U/L 5 - 41 U/L [facility] Anion gap [Moles/Vol] 8 mmol/L Low 9 - 17 mmol/L [facility] AST [Catalytic activity/Vol] 17 U/L NINF - 40 U/L [facility] Bilirubin [Mass/Vol] 0.8 mg/dL 0.3 - 1 .2 mg/dL [facility] Calcium [Mass/Vol] 8.9 mg/dL 8.6 - 10. 4 mg/dL [facility] Chloride [Moles/Vol] 106 mmol/L 98 - 10 7 mmol/L [facility] CO2 [Moles/Vol] 27 mmol/L 20 - 31 mmol/L [facility] Creatinine [Mass/Vol] 0.93 mg/dL 0.7 - 1.2 mg/dL [facility] GFR/1.73 sq M.predicted MDRD (S/P/Bld) [Vol rate/Area] - PINF [facility] Comment on above: Effective Dec 25, [...] 101 mg/dL High 70 - 99 mg/dL [facility] Interpretation and review of laboratory results Abnormal [facility] Potassium [Moles/Vol] 4.6 mmol/L 3.7 - 5.3 mmol/L [facility] Protein [Mass/Vol] 6.9 g/dL 6.4 - 8.3 g/dL [facility] Sodium [Moles/Vol] 141 mmol/L 135 - 144 mmol/L [facility] Urea nitrogen (BldV) [Mass/Vol] 19 mg/dL 8 - 23 mg/dL [facility] Urea nitrogen/Creatinine (Bld) [Mass ratio] 20 9 - 20 [facility] Hemoglobin A1Con 01-05-2022 Glucose [Mass/Vol] 128 mg/dL [facility] Comment on above: The ADA and AACC rec ommend providing the estimated average glucose result to permit better patient understanding of their HBA1c result. HbA1c (Bld) [Mass fraction] 6.1 % High 4 - 6 % [facility] Interpretation and review of laboratory results Abnormal [facility] Lipid, Fastingon 01-05-2022 Cholesterol [Mass/Vol] 162 mg/dL NINF - 200 mg/dL [facility] Comment on above: Cholesterol Guidelines: <200 Desirable 200-240 Borderline >240 Undesirable Cholesterol in HDL [Mass/Vol] 56 mg/dL 40 - PINF mg/dL [facility] Comment on above: HDL Guidelines: <40 Undesirable 40-59 Borderline >59 Desirable Cholesterol in LDL [Mass/Vol] 92 mg/dL 0 - 130 mg/dL [facility] [employer] Comment on above: LDL Guidelines: <100 Desirable 100-129 Near to/above Desirable 130-159 Borderline >159 Undesirable Direct (measured) LDL and calculated LDL are not interchangeable tests. Cholesterol.total/Ch olesterol in HDL [Mass ratio] 2.9 {ratio} [facility] Triglyceride, Fasting 70 mg/dL [facility] - 150 mg/dL [facility] [employer] Comment on above: Triglyceride Guidelines: <150 Desirable 150-199 Borderline 200-499 High >499 Very high Based on AHA Guidelines for fasting triglyceride, December 2011. [facility] Microalbumin, Uron Albumin/Creatinine DL <= 20 mg/L (24H U) [Mass ratio] mg/L NINF - 21 mg/L [facility] Albumin/Creatinine DL <= 20 mg/L (U) [Ratio] Can not be calculated [facility] Creatinine [Mass/Vol] 200.9 mg/dL 39 - 259 mg/dL [facility] PSA Screeningon 01-05-2022 [facility] XR KNEE RIGHT (3 VIEWS)on Mild tricompartmental osteoarthritis. No acute findings [facility] CONSOL[facility] EXAMINATION: THREE XRAY VIEWS OF THE RIGHT KNEE 07/28/2021 1:56 pm COMPARISON: None. HISTORY: ORDERING SYSTEM PROVIDED HISTORY: Right medial knee pain FINDINGS: Mild tricompartmental osteoarthritis. No fracture or suspicious osseous lesions. [facility] Pastor Delgado P - 07/28/2021 EXAMINATION: THREE XRAY VIEWS OF THE RIGHT KNEE 07/28/2021 1:56 pm COMPARISON: None. HISTORY: ORDERING SYSTEM PROVIDED HISTORY: Right medial knee pain FINDINGS: Mild tricompartmental osteoarthritis. No fracture or suspicious osseous lesions. IMPRESSION: Mild tricompartmental osteoarthritis. No acute findings [employer] Phone: Radiology Study observation (narrative) [facility] Phone: XR KNEE RIGHT (3 VIEWS)Order ed By: Pastor Delgado on 07-28-2021 [employer] Phone: Comprehensive Metabolic Pane l, FastingOrdered By: Blossom Portillo on 01-09-2021 Albumin [Mass/Vol] 4.3 g/dL 3.5 - 5.2 g/dL [employer] Phone: Albumin/Globulin [Mass ratio] 2.3 {ratio} [employer] Phone: ALP (Bld) [Catalytic activity/Vol] 85 U/L 40 - 129 U/L [employer] Phone: ALT [Catalytic activity/Vol] 19 U/L 5 - 41 U/L [employer] Phone: Anion gap [Moles/Vol] 10 mmol/L 9 - 17 mmol/L [employer] Phone: AST [Catalytic activity/Vol] 15 U/L <40 [facility] Phone: Bilirubin [Mass/Vol] 0.52 mg/dL 0.3 - 1 .2 mg/dL [employer] Phone: Calcium [Mass/Vol] 9.2 mg/dL 8.6 - 10. 4 mg/dL [employer] Phone: Chloride [Moles/Vol] 108 mmol/L High 98 - 10 7 mmol/L [employer] Phone: CO2 [Moles/Vol] 25 mmol/L 20 - 31 mmol/L [employer] Phone: Creatinine [Mass/Vol] 0.98 mg/dL 0.70 - 1.20 mg/dL [employer] Phone: Free PSA/Total PSA [Mass fraction] 6.2 g/dL Low 6.4 - 8.3 g/dL [facility] Phone: GFR >60 >60 mL/min [employer] Phone: GFR Non- >60 >60 mL/min [employer] Phone: Glucose [Mass/Vol] 100 mg/dL High 70 - 99 mg/dL [employer] Phone: Interpretation and review of laboratory results Abnormal [employer] Phone: Potassium [Moles/Vol] 4.4 mmol/L 3.7 - 5.3 mmol/L [employer] Phone: Sodium [Moles/Vol] 143 mmol/L 135 - 144 mmol/L [employer] Phone: Urea nitrogen (BldV) [Mass/Vol] 14 mg/dL 8 - 23 mg/dL [employer] Phone: Urea nitrogen/Creatinine (Bld) [Mass ratio] 14 [facility] Phone: [facility] Phone: Laboratory - Chemistry and C hemistry - challengeOrdered By: Blossom Portillo on 01-09-2021 GFR/1.73 sq M.predicted MDRD (S/P/Bld) [Vol rate/Area] [facility] Phone: Comment on above: Average GFR for 70 o r more years old: 75 mL/min/1.73sq m Chronic Kidney Disease: <60 mL/min/1.73sq m Kidney failure: <15 mL/min/1.73sq m eGFR calculated using average adult body mass. Additional eGFR calculator available at: http://www.[employer].TopFun/multiple_crcl_2012.htm Stage 1: Some kidney damage normal GFR Stage 2: Mild kidney damage GFR 60-89 Stage 3: Moderate kidney damage GFR 30-59 Stage 4: Severe kidney damage GFR 15-29 Stage 5: Severe kidney damage GFR <15 ESRD - chronic treatment by dialysis or transplant Lipid, FastingOrdered By: Raven Portillo on 01-09-2021 Cholesterol [Mass/Vol] 211 mg/dL High <200 [facility] Phone: Comment on above: Cholesterol Guidelines: <200 Desirable 200-240 Borderline >240 Undesirable Cholesterol in HDL [Mass/Vol] 48 mg/dL >40 [employer] Phone: Comment on above: HDL Guidelines: <40 Undesirable 40-59 Borderline >59 Desirable Cholesterol in LDL [Mass/Vol] 137 mg/dL High 0 - 130 mg/dL [facility] Phone: Comment on above: LDL Guidelines: <100 Desirable 100-129 Near to/above Desirable 130-159 Borderline >159 Undesirable Direct (measured) LDL and calculated LDL are not interchangeable tests. Cholesterol in VLDL [Mass/Vol] NOT REPORTED 1 - 30 mg/dL [facility] Phone: Cholesterol.total/Ch olesterol in HDL [Mass ratio] 4.4 {ratio} <5 [facility] Phone: Interpretation and review of laboratory results Abnormal [employer] Phone: Triglyceride, Fasting 130 mg/dL <150 [facility] Phone: Comment on above: Triglyceride Guidelines: <150 Desirable 150-199 Borderline 200-499 High >499 Very high Based on AHA Guidelines for fasting triglyceride, December 2011. [employer] Phone: PSA screeningOrdered By: Anjana Portillo on 01-09-2021 [facility] Phone: Pain Management Office/Clini c Noteon 10-04-2020 Pain Management Office/Clinic Note Chief Complaint neck and shoulder pain low back pain History of Present Illness Dear Dr. Portillo, Thank you for your referral to [facility]. Your patient was evaluated [...] rate Pulmonary-r (more content not included)... Normal [facility] [place] MRI [facility] CONon 09-21-19 MRI [facility] CON EXAMINATION: MRI [facility] CON HISTORY: Lumbar radiculopathy ; chronic lumbar [...] by: ISIS PALMER Date: 2020-09-20 10:17 Normal [facility] MRI [facility] CONon 09-14-19 21 MRI [facility] CON EXAMINATION: MRI [facility] WO CON HISTORY: [...] DINO DEL CASTILLO Date: 2020-09-13 10:13 Normal [facility] Hemoglobin [id number] By: Raven Portillo on 09-05-2020 Glucose [Mass/Vol] 126 mg/dL [facility] [employer] Phone: Comment on above: The ADA and AACC rec ommend providing the estimated average glucose result to permit better patient understanding of their HBA1c result. HbA1c (Bld) [Mass fraction] 6.0 % 4.0 - 6.0 % [facility]: [facility] Phone: C-Reactive Proteinon 020 CRP [Mass/Vol] 0.6 mg/L 0 - 5 mg/L [place] Hemoglobin A1Con 08-21-2019 Glucose [Mass/Vol] 117 mg/dL [place] Comment on above: The ADA and AACC rec ommend providing the estimated average glucose result to permit better patient understanding of their HBA1c result. HbA1c (Bld) [Mass fraction] 5.7 % 4.8 - 5.9 % [place] Lipid, Fastingon 08-21-2019 Cholesterol [Mass/Vol] 191 mg/dL <200 [place] Comment on above: Cholesterol Guidelines: <200 Desirable 200-240 Borderline >240 Undesirable Cholesterol in HDL [Mass/Vol] 52 mg/dL >40 [place] Comment on above: HDL Guidelines: <40 Undesirable 40-59 Borderline >59 Desirable Cholesterol in LDL [Mass/Vol] 120 mg/dL 0 - 130 mg/dL [place] Comment on above: LDL Guidelines: <100 Desirable 100-129 Near to/above Desirable 130-159 Borderline >159 Undesirable Direct (measured) LDL and calculated LDL are not interchangeable tests. Cholesterol in VLDL [Mass/Vol] NOT REPORTED 1 - 30 mg/dL [place] Cholesterol.total/Ch olesterol in HDL [Mass ratio] 3.7 {ratio} <5 [place] Triglyceride, Fasting 96 mg/dL <150 [place] Comment on above: Triglyceride Guidelines: <150 Desirable 150-199 Borderline 200-499 High >499 Very high Based on AHA Guidelines for fasting triglyceride, December 2011. CBC Auto Differentialon 09-0 Basophils (Bld) [#/Vol] 10*3/uL [place] Basophils/100 WBC (Bld) 0 % 0 - 2 % [place] Differential Type NOT REPORTED [place] Eosinophils (Bld) [#/Vol] 0.09 10*3/uL [place] Eosinophils/100 WBC (Bld) 2 % 1 - 4 % [place] Erythrocyte distribution width (RBC) [Ratio] 13.6 % 11.8 - 14.4 % [place] Hematocrit (Bld) [Volume fraction] 43.5 % 40.7 - 50.3 % [place] Hemoglobin (Bld) [Mass/Vol] 14.1 g/dL 13 - 17 g/dL [place] Immature granulocytes (Bld) [#/Vol] 10*3/uL [place] Immature granulocytes (Bld) [#/Vol] 0 % 0 [place] Lymphocytes (Bld) [#/Vol] 1.44 10*3/uL [place] Lymphocytes/100 WBC (Bld) 29 % 24 - 43 % [place] MCH (RBC) [Entitic mass] 31.1 pg 25.2 - 33.5 pg [place] MCHC (RBC) [Mass/Vol] 32.4 g/dL 28.4 - 34.8 g/dL [place] MCV (RBC) [Entitic vol] 95.8 fL 82.6 - 102.9 fL [place] Monocytes (Bld) [#/Vol] 0.60 10*3/uL [place] Monocytes/100 WBC (Bld) 12 % 3 - 12 % [place] Platelet mean volume (Bld) [Entitic vol] 9.8 fL 8.1 - 13.5 fL [place] Platelets (Bld) [#/Vol] NOT REPORTED [place] Platelets (Bld) [#/Vol] 214 10*3/uL [place] RBC (Bld) [#/Vol] 4.54 10*6/uL 4.21 - 5.7 7 m/uL [place] RBC morphology finding Nom (Bld) NOT REPORTED [place] Segmented neutrophils/100 WBC (Bld) 57 % 36 - 65 % [place] Segs Absolute 2.85 [place] WBC (Bld) [#/Vol] 5.0 10*3/uL [place] WBC (Bld) [#/Vol] 0.0 10*3/uL 0.0 per 10 0 WBC [place] WBC Morphology NOT REPORTED [place] Hemoglobin A1Con 11-27-2018 Glucose [Mass/Vol] 126 mg/dL [place] Comment on above: The ADA and AACC rec ommend providing the estimated average glucose result to permit better patient understanding of their HBA1c result. HbA1c (Bld) [Mass fraction] 6.0 % High 4.8 - 5.9 % [place] Interpretation and review of laboratory results Abnormal [place] Lipid Panelon 11-27-2018 Cholesterol [Mass/Vol] 220 mg/dL High <200 [place] Comment on above: Cholesterol Guidelines: <200 Desirable 200-240 Borderline >240 Undesirable Cholesterol in HDL [Mass/Vol] 53 mg/dL >40 [place] Comment on above: HDL Guidelines: <40 Undesirable 40-59 Borderline >59 Desirable Cholesterol in LDL [Mass/Vol] 147 mg/dL High 0 - 130 mg/dL [place] Comment on above: LDL Guidelines: <100 Desirable 100-129 Near to/above Desirable 130-159 Borderline >159 Undesirable Direct (measured) LDL and calculated LDL are not interchangeable tests. Cholesterol in VLDL [Mass/Vol] NOT REPORTED 1 - 30 mg/dL [place] Cholesterol.total/Ch olesterol in HDL [Mass ratio] 4.2 {ratio} <5 [place] Triglyceride [Mass/Vol] 99 mg/dL <150 [place] Comment on above: Triglyceride Guidelines: <150 Desirable 150-199 Borderline 200-499 High >499 Very high Based on AHA Guidelines for fasting triglyceride, December 2011. Metabolic Panelon 11-27-2018 GFR/1.73 sq M predicted among non-blacks MDRD (S/P/Bld) [Vol rate/Area] [place] Comment on above: Stage 1: Some [...] body mass. Additional eGFR calculator available at: http://www.[employer].TopFun/multiple_crcl_2012.htm Otheron 11-27-2018 Interpretation and review of laboratory results Abnormal [place] RENAL + CHEM PROFILEon 11-27 Albumin [Mass/Vol] 4.2 g/dL 3.5 - 5.2 g/dL [place] Albumin/Globulin [Mass ratio] 1.6 {ratio} [place] ALP [Catalytic activity/Vol] 76 U/L 40 - 129 U/L [place] ALT [Catalytic activity/Vol] 23 U/L 5 - 41 U/L [place] Anion gap [Moles/Vol] 11 mmol/L 9 - 17 mmol/L [place] AST [Catalytic activity/Vol] 16 U/L <40 [place] Bilirubin Ql (U) 0.48 mg/dL 0.3 - 1.2 mg/dL [place] Calcium [Mass/Vol] 9.6 mg/dL 8.6 - 10. 4 mg/dL [place] Chloride [Moles/Vol] 103 mmol/L 98 - 10 7 mmol/L [place] CO2 [Moles/Vol] 25 mmol/L 20 - 31 mmol/L [place] Creatinine [Mass/Vol] 0.89 mg/dL 0.7 - 1.2 mg/dL [place] GFR >60 >60 mL/min [place] GFR Non- >60 >60 mL/min [place] Glucose [Mass/Vol] 100 mg/dL High 70 - 99 mg/dL [place] Phosphate [Mass/Vol] 2.8 mg/dL 2.5 - 4 .5 mg/dL [place] Potassium [Moles/Vol] 4.5 mmol/L 3.7 - 5.3 mmol/L [place] Protein [Mass/Vol] 6.9 g/dL 6.4 - 8.3 g/dL [place] Sodium [Moles/Vol] 139 mmol/L 135 - 144 mmol/L [place] Urea nitrogen [Mass/Vol] 18 mg/dL 8 - 23 mg/dL [place] TSH with Reflexon 11-27-2018 TSH Qn 1.48 m[IU]/L [place], [place] Vitamin B12on 11-27-2018 Cobalamin (Vitamin B12) [Mass/Vol] 343 pg/mL 232 - 1245 pg/mL [place] Vitamin D 25 Hydroxyon 11-27 Vit D, 25-Hydroxy 46.6 ng/mL 30 - 100 ng/mL [place] Comment on above: Reference Range: Vitamin D status Range Deficiency <20 ng/mL Mild Deficiency 20-30 ng/mL Sufficiency 30-100 ng/mL Toxicity >100 ng/mL No Panel Informationon 06-20 Colonoscopy Invalid Interpretation Code [facility] Vital Signs Date Time Vital Sign Value Performing Clinician Facility 10-07-2024 09:11-0400 Diastolic blood pressure 79 mm[Hg] Panda Sarabia DO Work Phone: [facility] 10-07-2024 09:11-0400 Systolic blood pressure 139 mm[Hg] Panda Sarabia DO Work Phone: [facility] 10-07-2024 09:09-0400 Body height 172.7 cm Panda Sarabia DO Work Phone: [facility] 10-07-2024 09:09-0400 Body mass index (BMI) [Ratio] 28.43 kg/m2 Panda Sarabia DO Work Phone: [facility] 10-07-2024 09:09-0400 Body temperature 98.1 [degF] Panda Sarabia DO Work Phone: [facility] 10-07-2024 09:09-0400 Body weight 84.82 kg Panda Sarabia DO Work Phone: [facility] 10-07-2024 09:09-0400 Heart rate 67 /min Panda Sarabia DO Work Phone: [facility] 10-07-2024 09:09-0400 Respiratory rate 17 /min Panda Sarabia DO Work Phone: [facility] 10-07-2024 09:09-0400 SaO2% (BldA) [Mass fraction] 96 % Panda Sarabia DO Work Phone: [facility] 02-05-2024 02:08-0500 Body temperature 98.6 [degF] Leia Ling MD Work Phone: [facility] 02-05-2024 02:05-0500 Body height 172.7 cm Leia Ling MD Work Phone: [employer] 02-05-2024 02:05-0500 Body mass index (BMI) [Ratio] 27.37 kg/m2 Leia Ling MD Work Phone: [employer] 02-05-2024 02:05-0500 Body weight 81.65 kg Leia Ling MD Work Phone: [employer] 02-05-2024 02:05-0500 Diastolic blood pressure 84 mm[Hg] Leia Ling MD Work Phone: [employer] 02-05-2024 02:05-0500 Heart rate 68 /min Leia Ling MD Work Phone: [employer] 02-05-2024 02:05-0500 Respiratory rate 16 /min Leia Ling MD Work Phone: [employer] 02-05-2024 02:05-0500 SaO2% (BldA) [Mass fraction] 99 % Leia Ling MD Work Phone: [employer] 02-05-2024 02:05-0500 Systolic blood pressure 162 mm[Hg] Leia Ling MD Work Phone: [employer] 03-02-2021 09:40-0500 Body height 172.72 cm Yovani Malone Other [facility] Other 03-02-2021 09:40-0500 Body mass index (BMI) [Ratio] 28.13 kg/m2 Yovani Malone Other [facility] Other 03-02-2021 09:40-0500 Body weight 83.92 kg Yovani Malone Other [facility] Other 03-02-2021 09:40-0500 Diastolic blood pressure 86 mm[Hg] Yovani Malone Other [facility] Other 03-02-2021 09:40-0500 Systolic blood pressure 134 mm[Hg] Yovani Malone Other [facility] Other Encounters Encounter Date Encounter Type Care Provider Facility Start: 10-07-2024 End: 10-07-2024 Office outpatient new 45 minutes Panda Sarabia DO Work Phone: [facility] Comment on above: Pre-op examination ( Primary Dx); Left epiretinal membrane; Mixed hyperlipidemia; Gastroesophageal reflux disease, unspecified whether esophagitis present; Type 2 diabetes mellitus with hyperglycemia, without long-term current use of insulin (HCC) Start: 10-07-2024 End: 10-07-2024 Preprocedural examination done Panda Sarabia DO Work Phone: [facility] Work Phone: Start: 10-07-2024 End: 10-07-2024 ambulatory [facility] Start: 10-07-2024 End: 10-07-2024 Encounter for other preprocedural examination PANDA TONY [facility] Start: 09-14-2024 Office outpatient vi sit 15 minutes Azeb Degroot Other [employer] [facility] Start: 07-24-2024 End: 07-24-2024 ambulatory BLOSSOM PORTILLO [facility] Start: 07-24-2024 End: 07-24-2024 Subsequent hospital visit by physician Blossom Portillo MD Work Phone: [facility] Comment on above: Diet-controlled type 2 diabetes mellitus (HCC) / 2019 Start: 04-28-2024 End: 04-30-2024 [facility] Start: 04-28-2024 End: 04-30-2024 Subsequent hospital visit by physician Jerod Avalos Dr Room 2 [facility] Comment on above: Kidney stones Start: 03-02-2024 Office outpatient vi sit 25 minutes Azeb Degroot Other [facility] Office Start: 02-05-2024 End: 02-05-2024 Emergency department patient visit Leia Ling MD Work Phone: [facility] ED Comment on above: Right flank pain (Pr imary Dx); Cyst of left kidney Start: 01-15-2024 End: 01-15-2024 [facility] Start: 01-15-2024 End: 01-15-2024 Subsequent hospital visit by physician Blossom Portillo MD Work Phone: [facility] Comment on above: Screening for prosta te cancer; Mixed hyperlipidemia; Type 2 diabetes mellitus without complication, without long-term current use of insulin (HCC) / DIET CONTROLLED Start: 02-19-2023 Office outpatient vi sit 15 minutes Azeb [employer] Other [facility] Office Start: 07-02-2022 Office outpatient vi sit 15 minutes Azeb Mikayla Other [facility] Office Start: 06-28-2022 End: 06-28-2022 Subsequent hospital visit by physician Blossom Portillo MD Work Phone: [facility] Comment on above: Type 2 diabetes sanjay itus without complication, without long- term current use of insulin (HCC) / DIET CONTROLLED Start: 05-16-2022 End: 05-18-2022 Subsequent hospital visit by physician Jerod Tovar Scan Room [facility] Comment on above: Renal colic on right side Start: 02-02-2022 End: 02-02-2022 ambulatory [facility] Start: 01-05-2022 End: 01-05-2022 Subsequent hospital visit by physician Blossom Portillo MD Work Phone: [facility] Comment on above: Screening for prosta te cancer; Type 2 diabetes mellitus without complication, without long-term current use of insulin (HCC) / DIET CONTROLLED; Screening cholesterol level Start: 07-28-2021 End: 07-30-2021 Subsequent hospital visit by physician Jerod Avalos Dr Room 2 [facility] Comment on above: Right medial knee pa in Start: 06-21-2021 Office outpatient vi sit 15 minutes Azeb Mikayla Other [facility] Start: 04-17-2021 End: 04-17-2021 ambulatory MD JCARLOS WEST Facility:[facility] Start: 03-02-2021 End: 03-02-2021 ambulatory Yovani Malone Other [facility] [employer] Other Start: 03-02-2021 Office outpatient ne w 45 minutes Yovani Malone [facility] [place] operated by [facility] Start: 01-27-2021 End: 01-27-2021 ambulatory MD JCARLOS WEST Facility:[facility] Start: 01-09-2021 End: 01-09-2021 ambulatory MD JCARLOS WEST Facility:[facility] Start: 01-09-2021 End: 01-09-2021 Subsequent hospital visit by physician Blossom Portillo MD Work Phone: [facility] Comment on above: Cervical disc disord er at C4-C5 level with radiculopathy / MRI 2020; Screening cholesterol level; Screening for prostate cancer Start: 11-03-2020 End: 11-03-2020 ambulatory MD JCARLOS WEST Facility:[facility] Start: 10-20-2020 End: 10-20-2020 ambulatory MD JCARLOS WEST Facility:[facility] Start: 10-06-2020 End: 10-06-2020 ambulatory MD JCARLOS WEST Facility:[facility] Start: 09-20-2020 End: 09-21-[address] BLOSSOM PORTILLO Facility:[facility] Start: 09-13-2020 End: 09-14-[address] BLOSSOM PORTILLO Facility:[facility] Start: 09-05-2020 End: 09-05-2020 Subsequent hospital visit by physician Blossom Portillo MD [facility] Comment on above: Impaired fasting glu cose Start: 06-15-2020 Office outpatient vi sit 15 minutes Azeb Degroot Other [facility] Start: 09-07-2019 Office outpatient vi sit 25 minutes Azeb Degroot Other [facility] Start: 08-21-2019 End: 08-21-2019 Subsequent hospital visit by physician Blossom GARZA Laboratory Comment on above: Screening cholestero l level; Mixed hyperlipidemia; Impaired fasting glucose Start: 11-27-2018 End: 11-27-2018 Subsequent hospital visit by physician [facility] Start: 07-01-2018 Office outpatient ne w 30 minutes Azeb Degroot Other [facility] Office Procedures Date Procedure Procedure Detail Performing Clinician Start: 10-07-2024 Ecg routine ecg w/le ast 12 lds w/i&r Panda Sarabia DO Work Phone: Start: 10-07-2024 Gluc bld gluc mntr d ev cleared fda spec home use Panda Sarabia DO Work Phone: Start: 07-24-2024 Hemoglobin glycosylated a1c Blossom Portillo MD Work Phone: Start: 04-28-2024 Radiologic exam abdo men 1 [...] Phone: Start: 02-05-2024 Comprehensive metabo lic panel eLia Ling MD Work Phone: Start: 01-15-2024 Urine albumin quantitative Blossom Portillo MD Work Phone: Start: 01-15-2024 Hemoglobin glycosylated a1c Blossom Portillo MD Work Phone: Start: 01-15-2024 Lipid panel Blossom Portillo MD Work Phone: Start: 02-19-2023 Docrev cur meds by e lig clin Azeb Degroot Start: 07-02-2022 Cryosurgery Azeb Elizabeth ig Start: 07-02-2022 Destruction of giulia lignant skin lesion Azeb Santosenig Start: 07-02-2022 Docrev cur meds by e lig clin Azeb Degroot Start: 06-28-2022 Hemoglobin glycosylated a1c Blossom Portillo MD Work Phone: Start: 05-16-2022 Urnls dip stick/tabl et reagent auto microscopy True Jocelyn EcholsDS [employer] Work Phone: Start: 05-16-2022 Ct abdomen & pelvis w/o contrast material True D [employer] Work Phone: Start: 05-16-2022 Basic metabolic pane l calcium total Truetai Nowak [employer] Work Phone: Start: 01-05-2022 PSA screening Blossom [...] Work Phone: Start: 01-09-2021 PSA screening Blossom Julio Portillo MD Work Phone: Start: 09-05-2020 Hemoglobin glycosylated a1c Blossom Portillo MD Work Phone: Start: 06-15-2020 Cryosurgery Azeb king Start: 06-15-2020 Destruction of giulia lignant skin lesion Azeb Degroot Start: 06-15-2020 Docrev cur meds by e lig clin Azeb Mikayla Start: 09-03-2019 Doc meds verified w/ pt or re Azeb Degroot Start: 08-21-2019 C-reactive protein Blossom Torin Portillo Work Phone: Start: 08-21-2019 Hemoglobin glycosylated a1c Blossom Torin Portillo Work Phone: Start: 08-21-2019 Lipid panel Blossom Cabrera Portillo Work Phone: Start: 11-27-2018 [object Object] Wilfred Melendez Comment on above: The MyScreen ECLIA as say is used. Results obtained [...] Destruction of giulia lignant skin lesion Azeb Beeg Start: 07-01-2018 Destruction premalig nant lesion 1st Azeb Santosenig Start: 07-01-2018 Destruction premalig nant lesion 2-14 ea Azeb Degroot Start: 07-01-2018 Doc meds verified w/ pt or re Azeb Degroot Start: 06-20-2016 Colonoscopy Blossom Portillo MD Work Phone: Plan of Treatment Date Care Activity Detail Author Start: 06-20-2026 Screening for malign ant neoplasm of colon [facility] Start: 07-24-2025 Hemoglobin A1c measurement A1C test (Diabetic or Prediabetic) [facility] Start: 07-21-2025 Depression Screen Depression Screen [facility] Start: 05-05-2025 End: 05-05-2025 Patient encounter procedure 05/05/2025 8:00 AM EST Office Visit [facility] [address] [place] [address] True Nowak, PA-C [address] [place] [address] [address] [place] [address] 1Y [facility] Part [facility] Comment on above: 1Y [facility] Start: 2025 Respiratory Syncytia l Virus (RSV) or age 60 yrs+ (1 - 1-dose 75+ series) Respiratory Syncytial Virus (RSV) or age 60 yrs+ (1 - 1-dose 75+ series) [facility] Start: 2025 Respiratory Syncytia l Virus Immunization: Risk, 60-74 Risk, or 75+ (1 - 1-dose 75+ series) Respiratory Syncytial Virus Immunization: Risk, 60-74 Risk, or 75+ (1 - 1-dose 75+ series) [facility] Start: 02-04-2025 Depression Screen Depression Screen [facility] Start: 02-04-2025 GFR test (Diabetes, CKD 3-4, OR last GFR 15-59) GFR test (Diabetes, CKD 3-4, OR last GFR 15-59) [employer] Start: 01-22-2025 End: 01-22-2025 Patient encounter procedure 01/22/2025 8:50 AM EDT Office Visit Blossom Portillo MD [address] [facility] [place] [address] Blossmo Portillo MD [address] [place] [address], [place] [address] mai Portillo MD Comment on above: mai Start: 01-21-2025 Annual Wellness Visi t (Medicare) Annual Wellness Visit (Medicare) [facility] [employer] Start: 01-20-2025 COVID-19 Vaccine () COVID-19 Vaccine () [facility] Comment on above: Postponed from 11/23 (Patient Refused) Start: 01-20-2025 COVID-19 Vaccine ( season) COVID-19 Vaccine ( season) [employer] Comment on above: Postponed from 11/23 (Patient Refused) Start: 01-20-2025 Depression Screen Depression Screen [employer] Start: 01-20-2025 Medicare Wellness Visit Medicare Wel lness Visit [facility] Start: 01-14-2025 GFR test (Diabetes, CKD 3-4, OR last GFR 15-59) GFR test (Diabetes, CKD 3-4, OR last GFR 15-59) [employer] Start: 01-14-2025 Hemoglobin A1c measurement A1C test (Diabetic or Prediabetic) [employer] Start: 01-14-2025 Lipid panel Lipids [employer] Start: 01-14-2025 Prostate specific antigen measurement Prostate Specific Antigen (PSA) Screening or Monitoring [employer] Start: 01-14-2025 Urine screening for protein Diabetic Alb to Cr ratio (uACR) test [employer] Start: 11-23-2024 Influenza vaccination Influenza Vacc ine (#1) [facility] Start: 08-20-2024 Lipid panel Lipid screen [employer] [facility] Work Phone: Start: 07-22-2024 Diabetic foot examination Diabetic foot exam [facility] Start: 07-22-2024 DTaP/Tdap/Td vaccine (1 - Tdap) DTaP/Tdap/Td vaccine (1 - Tdap) [facility] Comment on above: Postponed from 03/21 (Patient Refused) Start: 07-22-2024 Respiratory Syncytia l Virus (RSV) or age 60 yrs+ (1 - 1-dose 60+ series) Respiratory Syncytial Virus (RSV) or age 60 yrs+ (1 - 1-dose 60+ series) [facility] Comment on above: Postponed from 03/21 (Patient Refused) Start: 07-21-2024 End: 07-21-2024 Patient encounter procedure 07/21/2024 8:50 AM EDT Office Visit Blossom Portillo MD [address] [place] [phone] Blossom Portillo MD [address] [place] [address], [facility] [place] [id number] 6 month f/u Blossom Portillo MD Comment on above: 6 month f/u Start: 05-04-2024 End: 05-04-2024 Patient encounter procedure 05/04/2024 8:00 AM EST Office Visit [address] [place] [address] Jcarlos Alegre MD [address] [place] [address], [address] [place] [address] 1 year f/u stones. KUB reminder 04/27/24 [place]. [facility] Comment on above: 1 year f/u stones. K UB reminder 04/27/24 GA. Start: 04-26-2024 Depression Screen Depression Screen [facility] Start: 04-01-2024 End: 04-01-2024 Patient encounter procedure 04/01/2024 8:00 AM EST Office Visit [facility] [address] [place] [address] Jcarlos Alegre MD [address] [facility], [address] [place] [address] 1 year [facility] Comment on above: 1 year [facility] Start: 01-21-2024 End: 01-21-2024 Patient encounter procedure 01/21/2024 8:30 AM EDT Office Visit Blossom Portillo MD [address] [facility] [place] [id number] Blossom Portillo MD [address] [facility], [address] [facility] [place] [address] awv Blossom Portillo MD Comment on above: awv Start: 01-17-2024 Annual Wellness Visi t (Medicare) Annual Wellness Visit (Medicare) [facility] [employer] Start: 11-28-2023 Lipid panel Lipid screen [place], [place] Start: 11-28-2023 Lipid screen Lipid screen [place] Start: 11-24-2023 COVID-19 Vaccine ( season) COVID-19 Vaccine ( season) [facility] uTest [facility] Start: 11-24-2023 COVID-19 Vaccine ( season) COVID-19 Vaccine ( season) [facility] Start: 10-24-2023 Influenza vaccination Flu vaccine (# 1) [facility] [employer] Start: 06-29-2023 Hemoglobin A1c measurement A1C test (Diabetic or Prediabetic) [facility] [employer] Start: 06-05-2023 Depression Screen Depression Screen [facility] [employer] Start: 05-16-2023 GFR test (Diabetes, CKD 3-4, OR last GFR 15-59) GFR test (Diabetes, CKD 3-4, OR last GFR 15-59) [employer] Start: 04-01-2023 End: 04-01-2023 Patient encounter procedure 04/01/2023 [facility] Start: 01-31-2023 Depression Screen Depression Screen [facility] Start: 01-16-2023 End: 01-16-2023 Patient encounter procedure 01/16/2023 Office Visit Internal Medicine Blossom Portillo MD [address] [place] [address] [place] [address] Blossom Portillo MD Start: 01-11-2023 Annual Wellness Visi t (AWV) Annual Wellness Visit (AWV) [facility] Start: 01-10-2023 Diabetic foot examination Diabetic foot exam [facility] Start: 01-05-2023 Hemoglobin A1c measurement A1C test (Diabetic or Prediabetic) [facility] Start: 01-05-2023 Lipid panel Lipids [facility] Start: 01-05-2023 Urine screening for protein [facility] Start: 01-03-2023 Depression Screen Depression Screen [facility] Start: 12-24-2022 COVID-19 Vaccine (4 - Booster for Moderna series) COVID-19 Vaccine (4 - Booster for Moderna series) [facility] Comment on above: Postponed from 04/26 (Patient Refused) Start: 07-29-2022 Hemoglobin A1c measurement A1C test (Diabetic or Prediabetic) [facility] Start: 07-29-2022 Lipid panel Lipids [facility] Start: 07-24-2022 Depression Screen Depression Screen [facility] Start: 07-11-2022 End: 07-11-2022 Patient encounter procedure 07/11/2022 Office Visit Internal Medicine Blossom Portillo MD [address] [place] [address] [place] [address] Blossom Portillo MD Start: 01-10-2022 End: 01-10-2022 Patient encounter procedure Blossom Portillo MD Start: 01-05-2022 Annual Wellness Visi t (AWV) Annual Wellness Visit (AWV) [facility] Start: 10-23-2021 Influenza vaccination Flu vaccine (# 1) [facility] Start: 10-02-2021 End: 10-02-2021 Patient encounter procedure 10/02/2021 Office Visit Internal Medicine Blossom Portillo MD [address] [place] [address], [place] [address] Blossom Portillo MD Start: 09-05-2021 Hemoglobin A1c measurement A1C test (Diabetic or Prediabetic) [employer] Phone: Start: 08-14-2021 DTaP/Tdap/Td vaccine (1 - Tdap) DTaP/Tdap/Td vaccine (1 - Tdap) [facility] Comment on above: Postponed from 03/21 (Not Indicated) Start: 08-11-2021 Diabetic retinal exam Diabetic retin al exam [employer] Start: 07-10-2021 End: 07-10-2021 Patient encounter procedure 07/10/2021 Office Visit Internal Medicine Blossom Portillo MD [facility], [facility] [place] [address] Blossom Portillo MD Start: 06-30-2021 COVID-19 Vaccine (4 - Booster for Moderna series) COVID-19 Vaccine (4 - Booster for Moderna series) [facility] [employer] Start: 01-25-2021 DTaP/Tdap/Td vaccine (1 - Tdap) DTaP/Tdap/Td vaccine (1 - Tdap) [employer] Phone: Comment on above: Postponed from 03/21 (Not Indicated) Start: 01-20-2021 End: 01-20-2021 Patient encounter procedure 01/20/2021 Office Visit Internal Medicine Blossom Portillo MD [address] [place] [address], [place] [address] Blossom Portillo MD Start: 06-24-2020 Annual Wellness Visi t (AWV) Annual Wellness Visit (AWV) [employer] Phone: Start: 02-23-2020 End: 02-23-2020 Office Visit 02/23/2020 Office Visit Internal Blossom Cazares MD [address] [place] [address], [place] [address] Blossom Portillo MD Start: 11-28-2019 A1C test (Diabetic o r Prediabetic) A1C test (Diabetic or Prediabetic) [place] Start: 11-28-2019 HbA1c (Bld) [Mass fraction] A1C test (Diabetic or Prediabetic) [place] Start: 11-23-2018 Influenza vaccination Flu vaccine (# 1) [place] Start: 02-18-2018 Shingles Vaccine (2 of 2) Shingles Vaccine (2 of 2) [place] Start: 2015 Fall risk assessment Falls Risk Asse ssment [facility] Start: 2015 Pneumococcal 65+ yea rs Vaccine (1 of 2 - PCV13) Pneumococcal 65+ years Vaccine (1 of 2 - PCV13) [place] Start: 2000 Colon cancer screen colonoscopy Colon cancer screen colonoscopy [place] Start: 2000 Screening for malign ant neoplasm of colon [facility] Start: 2000 Shingles Vaccine (1 of 2) Shingles Vaccine (1 of 2) [place] Start: 1995 Screening for malign ant neoplasm of colon [facility] Start: 1969 DTaP/Tdap/Td vaccine (1 - Tdap) DTaP/Tdap/Td vaccine (1 - Tdap) [facility] Start: 1968 Diabetic retinal exam Diabetic retin al exam [facility] Start: 1968 Glaucoma screening Diabetic retinal exam [facility] Start: 1968 Hepatitis C screening Hepatitis C Andrea esteves [facility] Start: 1968 Urine screening for protein Diabetic microalbuminuria test [facility] Start: 1962 Depression screening using PHQ-9 (Patient Health Questionnaire 9) score Depression Screening/Follow-Up (PHQ-2/9) [facility] Start: 1960 Diabetic foot examination Diabetic foot exam [facility] Start: 1950 Hepatitis C screen Hepatitis C scree [place] Start: 1950 Hepatitis C screening Hepatitis C [facility] [place] Start: 1950 Prostate specific antigen measurement PSA Level [facility] Start: 1950 Screening for malign ant neoplasm of colon [facility] Start: 1950 Tetanus vaccination Tetanus: Every 1 0yrs [facility] End: 05-16-2022 Culture, Urine [facility] [employer] Work Phone: Comment on above: 1 Occurrences starti ng 05/16/2022 until 05/16/2022 Immunizations Immunization Date Immunization Notes Care Provider [facility] 01-21-2024 influenza, high dose seasonal, preservative-free Leia Ling MD Work Phone: [facility] 01-21-2024 influenza virus vacc ine, unspecified formulation Panda Sarabia DO Work Phone: [facility] 01-16-2023 Influenza, FLUZONE H igh Dose (age 65 y+), IM, Quadv, 0.7mL Blossom Portillo MD Work Phone: [facility] 01-10-2022 Influenza, FLUZONE ( age 65 y+), High Dose, 0.7mL Blossom Portillo MD Work Phone: [facility] [employer] Work Phone: 03-01-2021 COVID-19, Moderna, Primary or Immunocompromised, PF, 100mcg/0.5mL Blossom Portillo MD Work Phone: [facility] [employer] 01-04-2021 Influenza, High-dose , Quadv, 65 yrs +, IM (Fluzone) Blossom Portillo MD Work Phone: [facility] [employer] Work Phone: 05-17-2020 COVID-19, Moderna, P F, 100mcg/0.5mL Blossom Portillo MD Work Phone: [employer] Work Phone: 04-19-2020 COVID-19, Moderna, P F, 100mcg/0.5mL Blossom Portillo MD Work Phone: [employer] Work Phone: 01-01-2020 Influenza, Quadv, adjuvanted, 65 yrs +, IM, PF (Fluad) Blossom Portillo MD Work Phone: [facility] Work Phone: 01-06-2019 Seasonal trivalent influenza vaccine, adjuvanted, preservative free Blossom Lindsey [facility] 12-27-2017 influenza virus vacc ine, unspecified formulation Blossom Portillo MD Work Phone: [facility] Work Phone: 12-27-2017 influenza, seasonal, injectable Blossom Portillo MD Work Phone: [facility] Work Phone: 12-24-2017 zoster vaccine recombinant Blossom Lindsey [facility], [place] 09-20-2017 zoster vaccine recombinant Blossom Portillo MD Work Phone: [facility] Work Phone: 03-20-2017 pneumococcal polysaccharide vaccine, 23 valent Blossom [facility], [place] 05-08-2016 pneumococcal conjuga te vaccine, 13 valent Blossom Portillo MD Work Phone: [facility] Work Phone: Payers Date Payer Category Payer Managed Care (unspecified) [facility] TRADITIONAL [id number] 2020 Unknown 2017 Private Health Insurance AETNA AETNA SENIOR MEDICARE SUPP xxxxxxxxxx 2017-Present [phone] [address] [place] [address] xxxxxxxxxx [id number] 2015 Medicare 2014 Medicare xxxxxxxxxxx [id number] 1959 Medicare [id number] 1959 Unknown [id number] [id number] 1959 Unknown [id number] 1950 Unknown [id number] 2.16.840.1.197637.3.579.2. 593 1950 Unknown [id number] 2.16.840.1.366330.3.579.2. 593 1950 Unknown [id number] 2.16.840.1.743874.3.579.2. 196 1950 Unknown [id number] 2.16.840.1.062784.3.579.2. 196 1950 Unknown [id number] 2.16.840.1.630043.3.579.2. 196 1950 Unknown [id number] 2.16.840.1.246320.3.579.2. 196 1950 Unknown [id number] 2.16.840.1.595421.3.579.2. 196 1950 Unknown [id number] 2.16.840.1.196891.3.579.2. 196 1950 Unknown [id number] 2.16.840.1.085178.3.579.2. 754 1950 Unknown [id number] 2.16.840.1.906432.3.579.2. 173 1950 Unknown [id number] 2.16.840.1.559468.3.579.2. 173 1950 Unknown [id number] 2.16.840.1.704868.3.579.2. 173 1950 Unknown [id number] 2.16.840.1.161484.3.579.2. 173 1950 Unknown [id number] 2.16.840.1.398286.3.579.2. 173 1950 Unknown [id number] 2.16.840.1.691672.3.579.2. 903 Medicare [id number] Private Health Insurance [id number] Social History Date Type Detail Facility Start: Unknown if melissa quinones smoked [facility] [employer] Start: 01-21-2013 End: 10-07-2024 Tobacco smoking status NHIS Never smoker [place] Start: 01-21-2013 End: 10-07-2024 Alcohol intake Yes [facility] Start: 01-14-2013 Alcohol Comment rarely [place], [place] Start: 1950 Sex Assigned At Not on file [place], [place] Start: 08-19-2019 End: 07-21-2024 Alcohol intake Current drinker of alcohol (finding) [place] Start: 08-19-2019 End: 06-04-2022 History SDOH Financial 5 [place] Start: 08-19-2019 End: 06-04-2022 History SDOH Food Worry 1 [place], [place] Start: 08-19-2019 End: 06-04-2022 History SDOH Transport Med 2 [place] Start: 08-15-2020 End: 10-07-2024 Tobacco use and exposure Never used [employer] Start: 01-03-2022 History SDOH Alcohol Frequency 3 BON [employer] Work Phone: Start: 01-15-2023 End: 10-07-2024 History of Social function [place] [employer] How often to you hav e a drink containing alcohol? 2-4 times a month [facility] How many standard dr inks containing alcohol do you have on a typical day? 1 or 2 [employer] How often do you hav e 6 or more drinks on 1 occasion? Never [employer] How hard is it for y ou to pay for the very basics like food, housing, medical care, and heating Not hard at all [facility] [employer] (I/We) worried wheth er (my/our) food would run out before (I/we) got money to buy more. Never true [employer] Has the [employer], or water [employer] threatened to shut off services in your home in past 12Mo No [employer] Do you belong to any clubs or organizations such as christianity groups, unions, fraternal or athletic groups, or school groups? Yes [employer] Are you now , , , , never or living with a partner? [employer] How often to you hav e a drink containing alcohol? Monthly or less [employer] Do you feel stress - tense, restless, nervous, or anxious, or unable to sleep at night because your mind is troubled all the time - these days [OSQ] Only a little [employer] Start: 05-04-2012 Sex Male (finding) [facility] Medical Equipment Procedure Code Equipment Code Equipment Origin al Text Equipment Identifier Dates 6f X 26cm Stent - [id number] Start: 02-02-2022 Comment on above: Description: REF M00 [id number] Clinical Notes 10-06-2020 to 10-07-2024 Panda Sarabia, - 10/07/2024 9:15 AM EDTDischarge InstructionsAttachments Note Date & Type Note Facility 10-07-2024 Note Sinus Rhythm -Poor R-wave progression -nonspecific -consider old anterior infarct. [facility] 10-07-2024 Note Sinus Rhythm -Poor R-wave progression -nonspecific -consider old anterior infarct. [facility] 10-07-2024 History of Present illness Narrative HISTORY Patient Name: Dino Yepez Date of Exam: 10/07/2024 Diagnosis: Perioperative Medical Evaluation (H35.372) Reason for visit/consultation: Medical risk stratification for surgery History of current illness: Dino Yepez is a 74 y.o. male who presents for preoperative medical risk stratification prior to eye surgery at the request of Dr. Michelle Knox MD. His medical conditions include: HLD- stable on statin. GERD- stable on PPI T2DM- diet controlled. Type of anesthesia for upcoming surgery: Regional Anesthesia History: Yes, without complications Patient Active Problem List Diagnosis Type 2 diabetes mellitus with hyperglycemia, without long-term current use of insulin (HCC) Mixed hyperlipidemia Gastroesophageal reflux disease History reviewed. No pertinent past medical history. History reviewed. No pertinent surgical history. Review of Systems Constitutional: Negative for fever. Respiratory: Negative for cough, shortness of breath and wheezing. Cardiovascular: Negative for chest pain and palpitations. Neurological: Negative for dizziness, seizures and headaches. Social Drivers of [employer] Tobacco Use: Low Risk (10/07/2024) Patient History Smoking Tobacco Use: Never Smokeless Tobacco Use: Never Passive Exposure: Not on file Alcohol Use: Not At Risk (01/21/2024) Received from [facility] AUDIT-C Frequency of Alcohol Consumption: Monthly or less Average Number of Drinks: 1 or 2 Frequency of Binge Drinking: Never Financial Resource Strain: Low Risk (01/21/2024) Received from [facility] Overall Financial Resource Strain (CARDIA) Difficulty of Paying Living Expenses: Not hard at all Food Insecurity: No Food Insecurity (05/27/2024) Received from [facility] Hunger Vital Sign Worried About Running Out of Food in the Last Year: Never true Ran Out of Food in the Last Year: Never true Transportation Needs: No Transportation Needs (05/27/2024) Received from [facility] PRAPARE - Transportation Lack of Transportation (Medical): No Lack of Transportation (Non-Medical): No Physical Activity: Insufficiently Active (01/21/2024) Received from [facility] Exercise Vital Sign Days of Exercise per Week: 2 days Minutes of Exercise per Session: 20 min Stress: No Stress Concern Present (01/21/2024) Received from [facility] [place] of Occupational Health - Occupational Stress Questionnaire Feeling of Stress : Only a little Social Connections: Socially Integrated (01/21/2024) Received from [facility] Social Connection and Isolation Panel [NHANES] Frequency of Communication with Friends and Family: Three times a week Frequency of Social Gatherings with Friends and Family: Twice a week Attends Latter-Day Services: More than 4 times per year Active Member of Clubs or Organizations: Yes Attends Club or Organization Meetings: More than 4 times per year Marital Status: Intimate Partner Violence: Not At Risk (01/21/2024) Received from [facility] Humiliation, Afraid, Rape, and Kick questionnaire Fear of Current or Ex-Partner: No Emotionally Abused: No Physically Abused: No Sexually Abused: No Depression: Not at risk (07/21/2024) Received from [facility] PHQ-2 PHQ-9 Total Score Adolescents: 0 Housing Stability: Low Risk (05/27/2024) Received from [facility] Housing Stability Vital Sign Unable to Pay for Housing in the Last Year: No Number of Times Moved in the Last Year: 0 Homeless in the Last Year: No Utilities: Not At Risk (05/27/2024) Received from [facility] Utilities Threatened with loss of utilities: No Social History Substance and Sexual Activity Drug Use Not on file Marital Status: Unknown No family history on file. Active Home Medications Medication Sig Take Last Dose On Take Morning of Surgery Comment(s) amoxicillin (AMOXIL) 500 MG capsule Take 1 (one) capsule (500 mg total) by mouth 2 (two) times a day . celecoxib (CELEBREX) 200 MG capsule Take 1 (one) capsule (200 mg total) by mouth 2 (two) times a day . pantoprazole (PROTONIX) 40 MG tablet Take 1 (one) tablet (40 mg total) by mouth daily . rosuvastatin (CRESTOR) 10 MG tablet Take 1 (one) tablet (10 mg total) by mouth every other day . tamsulosin (FLOMAX) 0.4 mg capsule Take 1 (one) capsule (0.4 mg total) by mouth daily . Allergies: Patient has no known allergies. PHYSICAL Patient Name: Dino Yepez Age: 74 y.o. BP 139/79 Pulse 67 Temp 98.1 F (36.7 C) (Oral) Resp 17 Ht 5' 8 Wt 84.8 kg (187 lb) SpO2 96% BMI 28.43 kg/m Physical Exam Constitutional: General: Not in acute distress. Appearance: Not diaphoretic. HENT: Head: Normocephalic and atraumatic. Eyes: General: Right eye: No discharge. Left eye: No discharge. Cardiovascular: Rate and Rhythm: Normal rate and regular rhythm. Pulmonary: Effort: Pulmonary effort is normal. Breath sounds: Normal breath sounds. Neurological: General: No focal deficit present. Mental Status: Mental status is at baseline. Psychiatric: Mood and Affect: Mood normal. Behavior: Behavior normal. EKG Results: EKG done today reviewed and interpreted by me, results on EKG documentation (attached) Labs: Results for orders placed or performed in visit on 10/07/24 POC Glucose Result Value Ref Range Glucose 89 mg/dL Reviewed outside labs/imaging/notes: PCP note 07/21/24. PCP note 06/01/24. A1c 6.1 on 01/15/24. IMPRESSION/PLAN Dino Yepez is a 74 y.o. male who presents for preoperative medical risk stratification prior to eye surgery at the request of Dr. Michelle Knox MD. Risk factors for surgery include: HLD- stable on statin. GERD- stable on PPI T2DM- diet controlled. Preoperative recommendations: I reviewed the patient's pertinent medical history and medications. Questions regarding his medical issues were answered and discussed. No additional recommendations or changes are warranted prior to his scheduled surgery. Postoperative recommendations: Patient was instructed to continue his current medical regimen following surgery, unless instructed otherwise by his surgeon. The patient will follow up with his PCP for any additional medical concerns. Risk Assessment: Pt would be considered at a Low risk of morbidity from additional treatment/surgery. This patient has an acceptable cardiac risk for the intended procedure. Thank you for the opportunity to evaluate your patient. Please feel free to contact our office with any questions. A copy of this evaluation was provided to the referring physician. Panda Sarabia DO documented in this encounter [facility] 10-07-2024 Note HISTORY Patient Name: Dino Yepez Date of Exam: 10/07/2024 Diagnosis: Perioperative Medical Evaluation (H35.372) Reason for visit/consultation: Medical risk stratification for surgery History of current illness: Dino Yepez is a 74 y.o. male who presents for preoperative medical risk stratification prior to eye surgery at the request of Dr. Michelle Knox MD. His medical conditions include: HLD- stable on statin. GERD- stable on PPI T2DM- diet controlled. Type of anesthesia for upcoming surgery: Regional Anesthesia History: Yes, without complications Patient Active Problem List Diagnosis Type 2 diabetes mellitus with hyperglycemia, without long-term current use of insulin (HCC) Mixed hyperlipidemia Gastroesophageal reflux disease History reviewed. No pertinent past medical history. History reviewed. No pertinent surgical history. Review of Systems Constitutional: Negative for fever. Respiratory: Negative for cough, shortness of breath and wheezing. Cardiovascular: Negative for chest pain and palpitations. Neurological: Negative for dizziness, seizures and headaches. Social Drivers of Health Tobacco Use: Low Risk (10/07/2024) Patient History Smoking Tobacco Use: Never Smokeless Tobacco Use: Never Passive Exposure: Not on file Alcohol Use: Not At Risk (01/21/2024) Received from [facility] AUDIT-C Frequency of Alcohol Consumption: Monthly or less Average Number of Drinks: 1 or 2 Frequency of Binge Drinking: Never Financial Resource Strain: Low Risk (01/21/2024) Received from [facility] Overall Financial Resource Strain (CARDIA) Difficulty of Paying Living Expenses: Not hard at all Food Insecurity: No Food Insecurity (05/27/2024) Received from [facility] Hunger Vital Sign Worried About Running Out of Food in the Last Year: Never true Ran Out of Food in the Last Year: Never true Transportation Needs: No Transportation Needs (05/27/2024) Received from [facility] PRAPARE - Transportation Lack of Transportation (Medical): No Lack of Transportation (Non-Medical): No Physical Activity: Insufficiently Active (01/21/2024) Received from [facility] Exercise Vital Sign Days of Exercise per Week: 2 days Minutes of Exercise per Session: 20 min Stress: No Stress Concern Present (01/21/2024) Received from [facility] [employer] [place] [employer] - Occupational Stress Questionnaire Feeling of Stress : Only a little Social Connections: Socially Integrated (01/21/2024) Received from [facility] Social Connection and Isolation Panel [NHANES] Frequency of Communication with Friends and Family: Three times a week Frequency of Social Gatherings with Friends and Family: Twice a week Attends L[employer]-Day Services: More than 4 times per year Active Member of Clubs or Organizations: Yes Attends Club or Organization Meetings: More than 4 times per year Marital Status: Intimate Partner Violence: Not At Risk (01/21/2024) Received from [facility] Humiliation, Afraid, Rape, and Kick questionnaire Fear of Current or Ex-Partner: No Emotionally Abused: No Physically Abused: No Sexually Abused: No Depression: Not at risk (07/21/2024) Received from [facility] PHQ-2 PHQ-9 Total Score Adolescents: 0 Housing Stability: Low Risk (05/27/2024) Received from [facility] Housing Stability Vital Sign Unable to Pay for Housing in the Last Year: No Number of Times Moved in the Last Year: 0 Homeless in the Last Year: No Utilities: Not At Risk (05/27/2024) Received from [facility] Utilities Threatened with loss of utilities: No Social History Substance and Sexual Activity Drug Use Not on file Marital Status: Unknown No family history on file. Active Home Medications Medication Sig Take Last Dose On Take Morning of Surgery Comment(s) amoxicillin (AMOXIL) 500 MG capsule Take 1 (one) capsule (500 mg total) by mouth 2 (two) times a day . celecoxib (CELEBREX) 200 MG capsule Take 1 (one) capsule (200 mg total) by mouth 2 (two) times a day . pantoprazole (PROTONIX) 40 MG tablet Take 1 (one) tablet (40 mg total) by mouth daily . rosuvastatin (CRESTOR) 10 MG tablet Take 1 (one) tablet (10 mg total) by mouth every other day . tamsulosin (FLOMAX) 0.4 mg capsule Take 1 (one) capsule (0.4 mg total) by mouth daily . Allergies: Patient has no known allergies. PHYSICAL Patient Name: Dino Yepez Age: 74 y.o. BP 139/79 Pulse 67 Temp 98.1 degrees F (36.7 degrees C) (Oral) Resp 17 Ht 5' 8 Wt 84.8 kg (187 lb) SpO2 96% BMI 28.43 kg/m Physical Exam Constitutional: General: Not in acute distress. Appearance: Not diaphoretic. HENT: Head: Normocephalic and at (more content not included)... [facility] 02-05-2024 Hospital Discharge instructions Leia Ling MD - 02/05/2024 4:21 [...] cannot be sent through Care Everywhere.Back Spasm (Lao)documented in this encounter [facility] 04-17-2021 Note PROCEDURE: Bilateral C5, C6, [...] The patient was turned back onto the rmariposa and taken to recovery in stable condition and allowed to recover from the procedure, then discharged per criteria. This document serves as a record of the services and decisions personally performed and made by the attending provider. It was created on his/her behalf by a trained medical doctor md/medical director. The creation of this document is based on the provider?s statements to the medical doctor md/medical director. Electronically signed by Jcarlos West MD 04/17/21 09:24 EST Electronically signed by Charlee Rice 04/17/2021 09:11 EST [facility] 04-17-2021 Note History of Present I llness [...] on his/her behalf by a trained medical doctor md/medical director. The creation of this document is based on the provider?s statements to the medical doctor md/medical director. Problem List/Past Medical History Ongoing Acid reflux [...] MD 04/17/21 08:38 EST Electronically signed by DwayneCharlee Aide 04/17/2021 08:33 EST [facility] 03-02-2021 Evaluation note Encounter Date Diagnosis Assessment [...] Feb, Other chronic pain (ICD-10 - G89.29) [facility] Other 11-05-2021 NotePROCEDURE: Radiofrequency ablation of the [...] on his/her behalf by a trained medical doctor md/medical director. The creation of this document is based on the provider?s statements to the medical doctor md/medical director. Electronically signed by Jcarlos West MD 01/27/21 09:06 EDT Electronically signed by Charlee Rice 01/27/2021 09:01 [facility]11-05-2021 NoteHistory of Present Illness CHIEF COMPLAINT: [...] on his/her behalf by a trained medical doctor md/medical director. The creation of this document is based on the provider?s statements to the medical doctor md/medical director. Problem List/Past Medical History Ongoing Acid reflux [...] Electronically signed by Charlee Rice 01/27/2021 08:10 [facility]10-18-2021 NotePROCEDURE: Bilateral C6 transforaminal epidural steroid [...] on his/her behalf by a trained medical doctor md/medical director. The creation of this document is based on the provider?s statements to the medical doctor md/medical director. Electronically signed by Jcarlos West MD 01/09/21 10:28 EDT Electronically signed by Tay Bhakta Zora [facility]20[facility] NoteHistory of Present Illness CHIEF COMPLAINT: [...] on his/her behalf by a trained medical doctor md/medical director. The creation of this document is based on the provider?s statements to the medical doctor md/medical director. Problem List/Past Medical History Ongoing Acid reflux [...] Electronically signed by Tay Bhakta 01/09/2021 10:18 [facility]08-12-2021 NotePROCEDURE: Bilateral L3, L4, L5 dorsal [...] on his/her behalf by a trained medical doctor md/medical director. The creation of this document is based on the provider?s statements to the medical doctor md/medical director. Electronically signed by Jcarlos West MD 11/03/20 10:14 EDT Electronically signed by Charlee Rice 11/03/2020 10:06 [facility]08-12-2021 NoteHistory of Present Illness CHIEF COMPLAINT: [...] on his/her behalf by a trained medical doctor md/medical director. The creation of this document is based on the provider?s statements to the medical doctor md/medical director. Problem List/Past Medical History Ongoing Acid reflux [...] 09:42 EDT Electronically signed by Charlee Rice Aide 11/03/2020 09:37 [facility]07-29-2021 NotePROCEDURE: Bilateral L3, L4, L5 dorsal [...] The patient was turned back onto the gurmariposa and taken to recovery in stable condition and allowed to recover after which was discharged per criteria. This document serves as a record of the services and decisions personally performed and made by theattending provider. It was created on his/her behalf by a trained medical doctor md/medical director. The creation of this document is based on the provider?s statements to the medical doctor md/medical director. Electronically signed by Jcarlos West MD 10/20/20 09:40 EDT Electronically signed by Charlee Rice 10/20/2020 09:35 [facility]07-29-2021 NoteHistory of Present Illness CHIEF COMPLAINT: [...] on his/her behalf by a trained medical doctor md/medical director. The creation of this document is based on the provider?s statements to the medical doctor md/medical director. Problem List/Past Medical History Ongoing Acid reflux [...] Electronically signed by Charlee Rice 10/20/2020 08:50 [facility]07-15-2021 NotePROCEDURE: Bilateral C6 transforaminal epidural steroid [...] patient was then turned supine onto the rney and transferred to the recovery area in stable condition, to be discharged home after meeting criteria and follow up as per treatment plan. This document serves as a record of the services and decisions personally performed and made by theattending provider. It was created on his/her behalf by a trained medical doctor md/medical director. The creation of this document is based on the provider?s statements to the medical doctor md/medical director. Electronically signed by Jcarlos West MD 10/06/20 15:01 EDT Electronically signed by Kathleen Marin 10/06/2020 14:57 [facility]07-15-2021 NoteHistory of Present Illness CHIEF COMPLAINT: [...] on his/her behalf by a trained medical doctor md/medical director. The creation of this document is based on the provider?s statements to the medical doctor md/medical director. Problem List/Past Medical History Ongoing Acid reflux [...] Electronically signed by Kathleen Marin 10/06/2020 14:[facility] Diagnosis Impaired fasting glucose documented in this encounter [facility] Phone: evaluation note* Diagnosis Cervical disc disorder at C4-C5 level with radiculopathy / MRI 2020 Screening cholesterol level Screening for lipoid disorders Screening for prostate cancer Special screening for malignant neoplasm of prostate documented in this encounter [facility] Phone: evaluation note* Diagnosis Right medial knee pain Pain in joint, lower leg documented in this encounter [facility] Phone: evalkgbwre note* Diagnosis Screening for prostate cancer Special screening for malignant neoplasm of prostate Type 2 diabetes mellitus without complication, without long-term current use of insulin (HCC) / DIET CONTROLLED Screening cholesterol level Screening for lipoid disorders documented in this encounter [facility] Phone: evaluation note* Diagnosis Renal colic on right side Renal colic documented in this encounter [facility] Phone: evaluation note* Diagnosis Renal colic on right side Renal colic documented in this encounter [facility] Phone: evaluation note* Diagnosis Type 2 diabetes mellitus without complication, without long-term current use of insulin (HCC) / DIET CONTROLLED documented in this encounter [employer] Phone: evaluation note* Diagnosis Screening for prostate cancer Special screening for malignant neoplasm of prostate Mixed hyperlipidemia Type 2 diabetes mellitus without complication, without long-term current use of insulin (HCC) / DIET CONTROLLED documented in this encounter [facility] note* Diagnosis Right flank pain- Primary Abdominal pain, unspecified site Cyst of left kidney Unspecified congenital cystic kidney disease documented in this encounter [facility] note* Diagnosis Kidney stones Calculus of kidney documented in this encounter [facility] [employer] note* Diagnosis Diet-controlled type 2 diabetes mellitus (HCC) / 2019 Type II or unspecified type diabetes mellitus without mention of complication, not stated as uncontrolled documented in this encounter [employer] note* Diagnosis Pre-op examination- Primary Left epiretinal membrane Macular puckering of retina Mixed hyperlipidemia Gastroesophageal reflux disease, unspecified whether esophagitis present Type 2 diabetes mellitus with hyperglycemia, without long-term current use of insulin (HCC) documented in this encounter [facility] general Narrative - Reported* Type Description Date Medical History Esophageal reflux Surgical History back surgery Surgical History Neck Surgery Surgical History hand surgery Surgical History shoulder surgery Hospitalization History See Above [facility] Other reason for visit NarrativeReferral [facility] Cerv[facility] Other Advance Directives No Advanced Directives Records FoundDocuments on File Type Date Recorded Patient Lead Neurodiagnostic Technologist Expl anation Advance Directives and Living Will Power of Community Action Worker Documents on File Type Date Recorded Patient Lead Neurodiagnostic Technologist Expl anation ACP-Advance Directive ACP-Power of Community Action Worker Assessments Diagnosis Screening cholesterol level Screening for [...] Additional Contrast? None True Nowak PA-C [address] [facility] [address] [place] [address] Referral ID Status Reason Start Date Expiration Date Visits Re quested Visits Authorized [id number] Closed 05/16/2022 05/16/2023 1 1 Additional Source Comments (unrecognized sect ion and content) No Status Records FoundNo Status Records FoundNo Status Records FoundNo Status Records FoundNo Status Records Found INFORMATION SOURCE (unrecogn ized section and content) DATE CREATED AUTHOR 09/24/2020 [facility] DATE CREATED AUTHOR AUTHOR'S ORGANIZ ATION 04/17/2021 [facility] DATE CREATED AUTHOR AUTHOR'S ORGANIZ ATION 02/03/2022 [facility] DATE CREATED AUTHOR AUTHOR'S ORGANIZ ATION 07/29/2024 [facility] DATE CREATED AUTHOR AUTHOR'S ORGANIZ ATION 10/11/2024 [facility] Teams (unrecognized sec tion and content) Associate Sales Relationship Specialty Start Date End Date Blossom Portillo MD [address] [place] [address], [facility] [place] [address] PCP - General Internal Medicine 07/20/19 Associate Sales Relationship Specialty Start Date End Date Blossom Portillo MD [address] [place] [address], [facility] [place] [address] PCP - General Internal Medicine 07/20/19 Associate Sales Relationship Specialty Start Date End Date Blossom Portillo MD [address] [place] [address] [place] [address] PCP - General Internal Medicine 07/20/19 Associate Sales Relationship Specialty Start Date End Date Blossom Portillo MD [address] [place] [address], [place] [address] PCP - General Internal Medicine 07/20/19 Associate Sales Relationship Specialty Start Date End Date Blossom Portillo MD [address] [place] [address] [place] [address] PCP - General Internal Medicine 07/20/19 Associate Sales Relationship Specialty Start Date End Date Blossom Portillo MD [address] [place] [address] [place] [address] PCP - General Internal Medicine 07/20/19 Associate Sales Relationship Specialty Start Date End Date Blossom Portillo MD [address] [facility], [place] [address] PCP - General Internal Medicine 07/20/19 Associate Sales Relationship Specialty Start Date End Date Blossom Portillo MD [address] [facility], [place] [address] PCP - General Internal Medicine 07/20/19 Associate Sales Relationship Specialty Start Date End Date Blossom Portillo MD [address] [place] [address], [place] [address] PCP - General Internal Medicine 07/20/19 Associate Sales Relationship Specialty Start Date End Date Blossom Portillo MD [address] [place] [address], [place] [address] PCP - General Internal Medicine 07/20/19 Associate Sales Relationship Specialty Start Date End Date Blossom Portillo MD [address] [place] [address], [place] [address] PCP - General Internal Medicine 07/20/19 Associate Sales Relationship Specialty Start Date End Date No, Physician [facility] PCP - General 10/06/24 Reason for Visit (unrecogniz ed section and content) Specialty Diagnoses / Procedures Referred By Contac t Referred To Contact Radiology Diagnoses Renal colic on right side Procedures CT ABDOMEN PELVIS WO CONTRAST Additional Contrast? None True Nowak PA-C [address] [place] [address] [address] [place] [address] Referral ID Status Reason Start Date Expiration Date Visits Re quested Visits Authorized [id number] Closed 05/16/2022 05/16/2023 1 1 Reason Comments Flank Pain Right flank pain sta rting at 0030, hx of kidney stones Reason Comments Perioperative Medical Evaluation H35.372 Ordered Prescriptions (unrec ognized section and content) [...] BE BASED ON THE PRIMARY CLINICAL RECORDS. [employer] provides no warranty or guarantee of the accuracy or completeness of information in this document.
--- NOTE | 2025-01-01 10:47 | XR_ITS ---
[facility] [place] [id number] Patient Name: DINO MORENO MRN: [id number] date: 1950 Sex: M Assigned Patient Location: [facility] Current Patient Location: [facility] Accession/Order Number: [id number] Exam Date: 01/01/2025 10:52 Report Date: 01/01/2025 11:11 At the request of: LUIS M MORELAND DPZora Procedure: XR foot RT min 3V RIGHT FOOT - 3 views CLINICAL DATA: Chronic right foot pain laterally and across the bottom of the toes. Previous bunion surgery. COMPARISON: 05/06/2024 Weightbearing AP, lateral and oblique views were obtained. There is redemonstration of fusion at the first metatarsal phalangeal joint with plate and screws. Hypertrophy in the area is unchanged. There is also suspected prior resection of the head of the proximal phalanx of the second toe. There is no acute fracture or dislocation. Similar mild degenerative changes are visualized including calcaneal spurs. There are no focal soft tissue swelling. XR/XR foot RT min 3V IMPRESSION: SIMILAR POSTOPERATIVE AND DEGENERATIVE NO ACUTE BONY FINDINGS. Impression dictated by: Roxy Ford M.D. 01/01/2025 11:11 AM Dictation Location: [place] [address] Electronically authenticated by: [id number] Y Date: 01/01/2025 11:11
== END 2025-01-01 10:37 | disposition home or self-care (01) ==
LOC: RAD 10:39
PROVIDERS: PCP Internal Medicine; Visit Provider Podiatrist Foot & Ankle Surgery
DX: M79.671 Pain in right foot (principal)
CPT/HCPCS: 73630